=== PATIENT | male | born 1945 | race Caucasian/White ===

== ENCOUNTER → 2017-02-15 | Outpatient (CLI) | payer OTHER ==
[~2017-02-15] MED LIST: LISI-725 PO; OMEG10007 PO
[2017-02-15 11:56] LABS: ALT/SGPT 31 U/L (12-78); AST/SGOT 15 U/L (15-37); BLOOD UREA NITROGEN 10 mg/dl (7-18); BUN/CREATININE RATIO 10.8 (10-20); CALCIUM 9.8 mg/dl (8.5-10.1); CARBON DIOXIDE 31 mmol/L (21-32); CHLORIDE 108 mmol/L (98-107); CREATININE 0.89 mg/dl (0.60-1.40); GLUCOSE 92 mg/dl (70-99); POTASSIUM 4.7 mmol/L (3.5-5.1); SODIUM 143 mmol/L (136-145)
[2017-02-15 12:01] LABS: ALB/GLOB RATIO 1.2 (0.9-2); ALKALINE PHOSPHATASE 64 U/L (45-117); CHOLESTEROL 243 mg/dl (0-200); CHOLESTEROL/HDL RATIO 2.9; HDL CHOLESTEROL 83 mg/dl; LDL CHOLESTEROL CALCULATED 148 mg/dl; TRIGLYCERIDES 59 mg/dl (0-150); VERY LOW DENSITY LIPOPROT CALC 12 mg/dl
--- NOTE | 2017-02-21 09:50 | CODING QUERY MEDICAL NECESSITY ---
CQSUPPORTING DIAGNOSIS NEEDED A supporting diagnosis is required for the test/procedure performed on this patient in order for us to be reimbursed by the patient's insurance. Please provide a supporting diagnosis for the following test/procedure listed below next to the test name along with your signature. *If there is no additional diagnosis for this patient that would support the following test/procedure please document that below next to the test/procedure. Test(s)/Procedure(s) that require a supporting diagnosis: DOS 02/15/17 PROSTATE SPECIFIC TEST Provider Signature: Date: Thank you Gerri Mosquera Edutor Information Management Once completed, please kindly fax back to [phone] For questions please call [phone]
== END | disposition home or self-care (01) ==
LOC: C.LABBC 08:52
PROVIDERS: ATTEND Internal Medicine
DX: I35.0 Nonrheumatic aortic (valve) stenosis (principal)

== ENCOUNTER → 2017-05-02 | Outpatient (CLI) | payer OTHER ==
--- NOTE | 2017-05-03 06:04 | PAP/PSG TECHNICIAN REPORT ---
[facility] Table Attendant Polysomnogram Report Study name: None Report date: 05/03/2017 Study date: 05/02/2017 Referring Physician: DR. Kvng LOPEZ Name: AGUSTÍN SNOW Interpreting Physician: Nura Perdue D.O. Date of : 1945 Table Attendant: Aevlina Macias RPS. Sex: Male Age: 71 StudyType: PSG PAP Weight: 188 lbs Height: 71 years, Height 6' 1" Neck Circum: 18 inches BMI: 24.8 Medications: [place] 3, Lisinopril Patient History 71 yr. old male here for a new titration sleep study. Patient had a HST through his dentist Dr. Thomas, that showed his EDDIE on a one night test was 61. ESS 02/25. Parameters Monitored NPSG: E1-M2, E2-M1, Fp1-M2, Fp2-M1, F3-M2, F4-M2, F4-M1, C3-M2, C4-M2, C4-M1, O1-M2, O2-M2, O2-M1, T3-M2, T4-M1, P3-M2, P4-M1, CHIN1, CHIN2, HR, EKG, Legs, PFLOW, SNOR, FLOW, CFLOW, Tidal Volume, THOR, ABDO, SpO2, PLTH, CPRESS, ETCO2 Wave, ETCO2, pH Sleep Architecture Sleep Stages Time at Lights Off 10:42:06 PM STAGES Time (min.) TST (%) Time at Lights On 5:49:06 AM Wake 136.5 -- Total Recording Time (TRT) 424.50 min. N1 23.5 8 Total Sleep Period (TSP) 411.5 min. N2 225.5 78 Total Sleep Time (TST) 288.0min. N3 0.0 0 Awake Time 136.5 min. REM 39.0 14 Wake after Sleep Onset 126.0 min. Sleep Efficiency (SE) 68 % Sleep Onset Latency (LEIGHTON) 13.0 min. Number of Stage 1 Shifts None Awakenings 28 Stage Changes 107 Number of REM periods 4 REM 39.0 14 REM Latency 111.5 min. NREM 249.0 86 Body Position Analysis Supine Right Left Side Prone Vertical Total Sleep Time (min.) 424.5 0.0 0.0 0.00 0.0 0.0 Total Sleep Time (%) 100% 0% 0% 0 0% N/A% Total Sleep Time REM (min.) 39.0 0.0 0.0 None 0.0 0.0 Total Sleep Time NREM (min.) 249.0 0.0 0.0 None 0.0 0.0 Intermittent Wake (min.) 136.5 0.0 0.0 None 0.0 0.0 Total Sleep Period (%) 100% None None None None None Arousals Myoclonus (PLM) * Events Count Index Events Count Index Spontaneous 11 2 Events Awake (PLMW) 133 58.5 Respiratory 10 2.3 Events Asleep w/ Arousal (PLMA) 20 4.2 PLM 19 4 Events Asleep w/o Arousal (PLMS) 18 3.8 Snoring 1 0 Total Asleep 38 7.9 Total 41 9 Total 171 24 Respiratory Analysis * CA OA MA CH H RERA Total Count 16 2 0 0 14 1 32 Index 3.3 0.4 0.0 0 2.9 0 6.7 Mean Duration 26.2 36.8 0.0 0.00 23.2 27.3 25.8 Longest Duration 46.3 41.9 0.0 0.00 0.0 27.3 47.1 Respiratory Event Summary Total Supine ~Supine Right Left Prone REM NREM Apneas Count 18 18 N/A N/A N/A N/A 0 18 Index 3.8 4 N/A N/A N/A N/A 0 4 Hypopneas (4% Desat) Count 14 14 N/A N/A N/A N/A 1 13 Index 2.9 2.9 N/A N/A N/A N/A 1.5 3.1 Apneas & All Hypopneas Count 32 32 N/A N/A N/A N/A 1 31 Index 6.7 7 N/A N/A N/A N/A 1.5 7.5 Respiratory Events (Applications Consultant+All Hyp+RERA) Count 32 32 N/A N/A N/A N/A 1 31 Index 6.7 7 N/A N/A N/A N/A 1.5 7.5 Respiratory Related Arousal Count 10 32 N/A N/A N/A N/A 0 11 Index 2.3 2 N/A N/A N/A N/A 0 3 Snoring Analysis Supine Right Left Prone REM NREM Total Snore duration 1.7 min Snores count 28 N/A N/A N/A 1 27 28 Snore mean duration 3.6 Sec Snores index 6 N/A N/A N/A 1.5 6.5 5.8 TST with snoring (%) 0.6% Desaturation Event Summary: Minimum %SpO2 Event Count Mean/Min/Max Duration(sec.) Desaturation Index % Time In Bed > 90 47 30.3 / 11.0 / 56.3 6.8 98.8 86 - 90 0 N/A 0.0 1.0 81 - 85 0 N/A 0.0 0.2 76 - 80 0 N/A 0.0 0.0 71 - 75 0 N/A 0.0 0.0 66 - 70 0 N/A 0.0 0.0 61 - 65 0 N/A 0.0 0.0 56 - 60 0 N/A 0.0 0.0 51 - 55 0 N/A 0.0 0.0 < 50 0 N/A 0.0 0.0 Total REM NREM Awake <50% 0.0 min. 0.0 min. 0.0 min. 0.0 min. 51 - 60% 0.0 min. 0.0 min. 0.0 min. 0.0 min. 61 - 70% 0.0 min. 0.0 min. 0.0 min. 0.0 min. 71 - 80% 0.0 min. 0.0 min. 0.0 min. 0.0 min. 81 - 90% 5.0 min. 0.0 min. 3.2 min. 1.8 min. 91 - 100% 412.0 min. 39.0 min. 245.8 min. 127.2 min. Average 95 95 95 96 Minimum SpO2 82 93 84 82 Desaturation Event Index 6.6 1.5 9.2 4.0 # Desat. Events below 89% 9 N/A 8 1 Time(%) with Saturation below 89% 0.6 0.0 0.3 0.3 Time(min.) with Saturation below 89% 2.4 0.0 1.2 1.2 Time (mins) REM (mins) NREM (mins) % of TST SpO2 Below 90% 11 N/A N11 0.7 SpO2 Below 88% 4 0 0 0 Heart Rate Analysis Min (bpm) Max (bpm) Average (bpm) Awake 52 73 60 NREM 45 68 58 REM 51 66 57 Overall 45 68 58 Supplemental O2 Values Minimum O2 level: None Value Start Time End Time Table Attendant Comments slept in the supine position. No cardiac arrhythmia or PLMs noted with arousals and sleep onset centrals following arousals. No bruxism noted. CPAP was initiated at +4 CMH2O room air and up-titrated to a level of +7CMH2O no Cflex, which nearly eliminated all respiratory events and snoring. A Wide ResMed Mirage FX nasal mask, was used during titration. awoke to use the restroom once during the night. stated, it was hard to exhale. The final report will be interpreted and signed by a sleep physician. The completed physician report will then be placed in the patient medical record. Therapy Event: Therapy (cm H20) 4 5 6 7 Total Time at Pressure (min.) 56.2 45.8 263.0 59.6 TST at Pressure (min.) 30.2 41.3 165.0 51.6 # Periods 1 1 1 1 Sleep Onset (min.) 13.0 0.0 0.0 0.0 REM Onset (min.) N/A N/A 22.5 0.0 Sleep Efficiency % 53 90 62 86 Wakefulness (%) 46.3 9.8 37.3 13.4 Wakefulness (min.) 26.0 4.5 98.0 8.0 NREM 1 (%) 9.8 10.9 3.0 8.4 NREM 1 (min.) 5.5 5.0 8.0 5.0 NREM 2 (%) 43.9 79.3 46.8 69.7 NREM 2 (min.) 24.7 36.3 123.0 41.5 NREM 3 (%) 0.0 0.0 0.0 0.0 NREM 3 (min.) 0.0 0.0 0.0 0.0 REM (%) 0.0 0.0 12.9 8.5 REM (min.) 0.0 0.0 33.9 5.1 # Arousals 9 11 16 5 Arousal Index 17.9 16.0 5.8 5.8 # Snore 4 9 9 6 Snore Index 8.0 13.1 3.3 7.0 AHI 21.9 16.0 2.9 2.3 AHI Supine 21.9 16.0 2.9 2.3 AHI Non-Supine N/A N/A N/A N/A NREM AHI 21.9 16.0 3.2 2.6 REM AHI N/A N/A 1.8 0.0 RDI 21.9 16.0 2.9 2.3 # Obstructive 0 2 0 0 # Central Ap 7 3 4 2 # Mixed 0 0 0 0 # Hypopneas 4 6 4 0 RERAS 0 1 0 0 Total Respiratory Events 11 11 8 2 Time Below SpO2 89.00% (min.) 0.7 0.4 0.0 0.0 Mean NREM SpO2 (%) 93 95 95 96 Mean REM SpO2 (%) N/A N/A 95 96 Mean Sleep SpO2 (%) 93 95 95 96 Min NREM SpO2 (%) 84 86 91 90 Min REM SpO2 (%) N/A N/A 93 94 Position Supine (min.) 30.2 41.3 165.0 51.6 Position Non-supine (min.) 0.0 0.0 0.0 0.0 LM Index Sleep 6.0 8.7 8.0 8.1 LM Index NREM 6.0 8.7 7.8 9.0 LM Index REM N/A N/A 8.8 0.0 Mean Heart Rate (bpm) 65 63 57 54 Min Heart Rate (bpm) 63 60 45 51
--- NOTE | 2017-05-09 20:19 | Sleep Study ---
Sleep Study Report Date of Service: 05/02/2017 Sleep Study Report Clinical data: The patient is a 71-year-old male referred for a CPAP titration study. His BMI is 24.8. He has an [place] score of 4/24. The patient had a home sleep study done. This showed an EDDIE severely elevated at 61. Sleep architecture: The total sleep period was 411.5 minutes. The total sleep time was 288 minutes. Sleep efficiency was moderately reduced to 68 percent. Sleep latency was normal at 13 minutes. Wake after sleep onset was elevated at 126 minutes. REM latency was normal at 111.5 minutes. Sleep consisted of stage N1 8 percent, stage N2 78 percent, stage N3 0 percent, and stage REM 14 percent. Arousal data: Patient had a total of 41 arousals including 11 spontaneous arousals, 10 respiratory arousals, 19 PLM arousals, and 1 snoring arousal. The arousal index was 9. PLM data: Patient had a total of 38 periodic limb movements of sleep for an index of 7.9. There were 20 arousals associated with limb movements for a PLM arousal index of 4.2. Respiratory data patient's nocturnal events were treated with nasal CPAP. He had a total of 32 respiratory events including 16 central apneas, 2 obstructive apneas, and 14 hypopneas. Hypopneas were scored by the 4 percent desaturation rule. The longest apnea was 46.3 seconds. The mean duration of the hypopneas was 23.2 seconds. The apnea-hypopnea index was 6.7 events per hour. It is notable that the final pressure of 7 centimeters the apnea-hypopnea index was only 2.3. Oximetry data: The average saturation was 95 percent. The minimum saturation was 82 percent. There was a total of only 2.4 minutes with saturations less than 89 percent. EKG: The underlying cardiac rhythm was normal sinus. The cardiac rate ranged from 45 to 68 beats per minute with an average heart rate of 58 beats per minute. No a rib media was noted. Fitting Supervisor comments: The patient slept in the supine position. No cardiac arrhythmia noted. Sleep onset central were noted following arousals. No bruxism noted. CPAP was initiated at 4 centimeters of water and up titrated to a level of 7 centimeters. This nearly eliminated all respiratory events and snoring. A wide ResMed Mirage FX nasal mask was used. The patient noted after the study that was hard to exhale. Impressions: 1. Severe obstructive sleep apnea-resolved with nasal CPAP at 7 centimeters Comments: The patient has severe sleep apnea as per a home study. He was treated with nasal CPAP. His sleep efficiency was reduced more than normal. His sleep architecture showed no stage N3 sleep and decreased REM sleep. There was some degree of central apneas noted. At the final pressure his sleep apnea was well resolved. His sleep efficiency was decreased mainly due to a long awakening from approximately 215 a.m. until 3:30 a.m.. Oxygenation was essentially normal. Recommendations: 1. It is advised that the patient be treated with nasal CPAP at 7 centimeters. 2. It is suggested that he be ordered a ResMed Mirage FX nasal mask size wide. 3. It is suggested that the patient avoid sleeping in the supine position. Typically there is less respiratory events when supine. He did spend the entire night in the supine position during this study. 4. The patient should be seen in follow-up between day 31 day 90 after receiving his nasal CPAP. Copies To 1: Mookie Pineda M.D.; Theo Thomas D.D.S.
== END | disposition home or self-care (01) ==
LOC: C.NEUR 21:00
PROVIDERS: ATTEND Internal Medicine
DX: G47.33 Obstructive sleep apnea (adult) (pediatric) (principal); I10 Essential (primary) hypertension; E78.5 Hyperlipidemia, unspecified

== ENCOUNTER → 2017-10-14 | Outpatient (CLI) | payer OTHER ==
--- NOTE | 2017-10-15 07:01 | SPLIT NIGHT TECHNICIAN REPORT ---
[facility] Split Night Polysomnogram - Pega Developer Report Study date: 10/14/2017 Referring Physician: DR. Kvng LOPEZ Name: AGUSTÍN SNOW Pega Developer: Samra Carr, PSGT. Date of : 1945 Height: 72 years, Height 6' 1" Sex: Male Weight: 190 lbs Age: 72 Neck Circum: BMI: Medications: 25.06 OMEGA 3, LISINOPRIL 20 MG. Patient History 72-YEAR-OLD MALE PRESENTS [facility] FOR SPLIT NIGHT STUDY TO QUALIFY FOR SUPPLIES FROM MEDICARE.A SPLIT STUDY WITH AN AHI OF 15 IS TO BE COMPLETED. Parameters Monitored NPSG: E1-M2, E2-M1, Fp1-M2, Fp2-M1, F3-M2, F4-M2, F4-M1, C3-M2, C4-M2, C4-M1, O1-M2, O2-M2, O2-M1, T3-M2, T4-M1, P3-M2, P4-M1, CHIN1, CHIN2, HR, EKG, Legs, PFLOW, SNOR, FLOW, CFLOW, Tidal Volume, THOR, ABDO, SpO2, PLTH, CPRESS, ETCO2 Wave, ETCO2, pH SLEEP SUMMARY DATA DIAGNOSTIC TREATMENT Lights Out: 10:33:02 PM NONE Lights On: 1:30:02 AM 5:24:32 AM Total Recording Time (TRT): 176.8 min. 223.7 min. Total Sleep Time (TST): 50.0 min. 199.0 min. NREM Time: 50.0 min. 161.0 min. REM Time: 0.0 min. 38.0 min. Sleep Period Time (SPT): 129.0 min. 201.0 min. Sleep Efficiency (SE): 28 % 89 % Sleep Latency: 18.5 min. NONE min. Arousal Index: 62.4 6.0 PAP Treatment Levels: 4, 5, 6 * Optimal Pressure(s) SLEEP STAGING DATA DIAGNOSTIC TREATMENT Duration (min) TST % Duration (min) TST % Stage Wake: 126.8 min. -- 24.2 min. -- WASO: 108.5 min. -- 2.0 min. -- NREM: 50.0 min. 100 % 161.0 min. 81 % Stage N1: 11.0 min. 22 % 5.5 min. 3 % Stage N2: 39.0 min. 78 % 155.5 min. 78 % Stage N3: 0.0 min. 0 % 0.0 min. 0 % REM: 0.0 min. 0 % 38.0 min. 19 % POSITIONAL DATA Event Count Index Event Count Index Supine: 48 57.7 5 1.5 Supine NREM: 48 57.7 4 1.5 Supine REM: N/A N/A 1 2 Non-Supine: N/A N/A N/A N/A Non-Supine NREM: N/A N/A N/A N/A Non-Supine REM: N/A N/A N/A N/A AROUSAL SUMMARY DATA: Event Count Index Event Count Index Apnea Arousals: 22 37.2 0 0.9 Hypopnea Arousals: 5 6.0 0 0.0 Snore Arousals: 6 7.2 0 0.0 PLM Arousals: 3 3.6 0 0.0 Non-Specific Arousals: 10 12.0 20 6.0 Total Arousals: 52 62.4 20 6.0 MYOCLONUS (PLM) Event Count Index Event Count Index PLM: 14 16.8 16 4.8 PLM AROUSAL: 3 3.6 0 0.0 PLM W/O AROUSAL 14 16.8 16 4.8 PLM W/RESP EVENT 2 0.0 0 0.0 MYOCLONUS (PLM) Event Count Index Event Count Index LM: 6 56.4 18 5.4 LM AROUSAL: 6 7.2 0 0.0 LM W/O AROUSAL LM W/RESP EVENT LM NON SPECIFIC 31 37.2 34 10.3 HEART RATE DATA DIAGNOSTIC TREATMENT Sleep (bpm): 66 56 REM (bpm): N/A 95 NREM (bpm): 92 95 Tachycardia Count: 0 0 Tachycardia Duration: 0.00 0 Bradycardia Count: 0 0 Bradycardia Duration: 0.00 0 DIAGNOSTIC PORTION TREATMENT PORTION RESPIRATORY DATA Event Count Index Event Count Index AHI: -- 57.6 -- 1.5 RDI: -- 57.6 -- 2 Obstructive Apnea: 28 33.6 0 0.0 Central Apnea: 0 0.0 3 0.9 Mixed Apnea: 3 3.6 0 0.0 Hypopnea: 17 20.4 2 0.6 RERA: 0 0.0 0 0.0 Total Apneas: 31 37.2 3 0.9 RESPIRATORY DATA REM NREM SLEEP REM NREM SLEEP Supine Position: Obstructive Apneas: N/A 28 28 0 0 0 Central Apneas: N/A 0 0 0 3 3 Mixed Apneas: N/A 3 3 0 0 0 Hypopneas: N/A 17 17 1 1 2 RERA N/A 0 0 0 0 0 Total Supine Events: N/A 48 48 1 4 5 Supine AHI: N/A 57.7 57.7 2 1.5 1.5 Supine RDI: N/A 57.7 57.7 1.6 1.5 1.5 REM NREM SLEEP REM NREM SLEEP Non-Supine Position: Obstructive Apneas: N/A N/A N/A N/A N/A N/A Central Apneas: N/A N/A N/A N/A N/A N/A Mixed Apneas: N/A N/A N/A N/A N/A N/A Hypopneas: N/A N/A N/A N/A N/A N/A RERA N/A N/A N/A N/A N/A N/A Total Supine Events: N/A N/A N/A N/A N/A N/A Supine AHI: N/A N/A N/A N/A N/A N/A Supine RDI: N/A N/A N/A N/A N/A N/A OXYGEN DESTAURATION DATA: Event Count Index Event Count Index REM Desaturations: N/A N/A 1 1.6 NREM Desaturations: 57 68.4 6 2.2 SNORE DATA DIAGNOSTIC TREATMENT Snore Time: 1.8 2:03:32 AM Snore TST%: 1 0 Snore Arousal Count: 6 0 Snore Arousal Index: 7.2 0.0 Desaturation Event Summary: Minimum %SpO2 Event Count Mean/Min/Max Duration(sec.) Desaturation Index % Time In Bed > 90 64 30.0 / 9.3 / 59.0 10.1 95.3 86 - 90 1 11.8 / 11.8 / 11.8 3.8 3.9 81 - 85 0 N/A 0.0 0.8 76 - 80 0 N/A 0.0 0.0 71 - 75 0 N/A 0.0 0.0 66 - 70 0 N/A 0.0 0.0 61 - 65 0 N/A 0.0 0.0 56 - 60 0 N/A 0.0 0.0 51 - 55 0 N/A 0.0 0.0 < 50 0 N/A 0.0 0.0 OXYGEN SATURATION DATA DIAGNOSTIC TREATMENT SpO2 Mean Sleep: 92 % 95 % SpO2 Mean REM: N/A % 95 % SpO2 Mean NREM: 92 % 95 % SpO2 Minimum Sleep: 82 % 91 % SpO2 Minimum REM: N/A % 93 % SpO2 Minimum NREM: 82 % 91 % Time Below 90% (TST): 13.8 0.0 Time Below 88% (TST): 7.3 0.0 Total REM NREM Awake <50% 0.0 min. 0.0 min. 0.0 min. 0.0 min. 51 - 60% 0.0 min. 0.0 min. 0.0 min. 0.0 min. 61 - 70% 0.0 min. 0.0 min. 0.0 min. 0.0 min. 71 - 80% 0.0 min. 0.0 min. 0.0 min. 0.0 min. 81 - 90% 18.9 min. 0.0 min. 17.4 min. 1.6 min. 91 - 100% 381.1 min. 38.0 min. 193.6 min. 149.4 min. Average 95 95 94 95 Minimum SpO2 82 93 82 83 Desaturation Event Index 9.6 1.6 17.9 0.0 # Desat. Events below 89% 43 N/A 43 0 Time(%) with Saturation below 89% 2.7 0.0 2.6 0.1 Time(min.) with Saturation below 89% 10.8 0.0 10.2 0.6 Recording Pega Developer Comments: Split -Night: Mr. Snow slept in the supine positions. No cardiac arrhythmia or PLM's noted. No bruxism noted. Snoring was noted and scored as a 1 on a scale of 1 through 5. (0=no snoring, 5=snoring loud enough to be heard through a closed door or down the [address]) At 1:30, has met specific Split-Night criteria during the diagnostic portion of this study. CPAP was initiated at +4 CMH2O and up-titrated to an optimal level of +6 CMH2O, which nearly eliminated all respiratory events and snoring. A [employer] fx darinel was used during titration Mr. Hair awoke to use the restroom one time during the night. Mr. Snow, I did not sleep as well as I do when I am in my own bed. The final report will be interpreted and signed by a sleep physician. The completed physician report will then be placed in the patient medical record. Patient slept one hour and fourty minutes then woke for the remaining time, at 1:30 am c-pap was administered patient fell to sleep almost immediately. Slept well the remainder of the study and tolerated treatment well. Therapy Event: Therapy (cm H20) 0 4 5 6 Total Time at Pressure (min.) 176.8 38.9 70.3 114.1 TST at Pressure (min.) 50.0 16.7 69.8 112.6 # Periods 1 1 1 1 Sleep Onset (min.) 18.5 22.2 0.0 0.0 REM Onset (min.) N/A N/A 43.3 0.0 Sleep Efficiency % 28 42 99 98 Wakefulness (%) 71.7 57.2 0.7 1.3 Wakefulness (min.) 126.8 22.2 0.5 1.5 NREM 1 (%) 6.2 10.3 1.4 0.4 NREM 1 (min.) 11.0 4.0 1.0 0.5 NREM 2 (%) 22.1 32.6 59.5 88.6 NREM 2 (min.) 39.0 12.7 41.8 101.0 NREM 3 (%) 0.0 0.0 0.0 0.0 NREM 3 (min.) 0.0 0.0 0.0 0.0 REM (%) 0.0 0.0 38.3 9.7 REM (min.) 0.0 0.0 26.9 11.1 # Arousals 52 2 3 15 Arousal Index 62.4 7.2 2.6 8.0 # Snore 75 1 4 1 Snore Index 90.0 3.6 3.4 0.5 AHI 57.6 10.8 1.7 0.0 AHI Supine 57.7 10.8 1.7 0.0 AHI Non-Supine N/A N/A N/A N/A NREM AHI 57.6 10.8 1.4 0.0 REM AHI N/A N/A 2.2 0.0 RDI 57.6 10.8 1.7 0.0 # Obstructive 28 0 0 0 # Central Ap 0 2 1 0 # Mixed 3 0 0 0 # Hypopneas 17 1 1 0 RERAS 0 0 0 0 Total Respiratory Events 48 3 2 0 Time Below SpO2 89.00% (min.) 10.2 0.0 0.0 0.0 Mean NREM SpO2 (%) 92 95 95 95 Mean REM SpO2 (%) N/A N/A 95 95 Mean Sleep SpO2 (%) 92 95 95 95 Min NREM SpO2 (%) 82 91 94 93 Min REM SpO2 (%) N/A N/A 93 93 Position Supine (min.) 50.0 16.7 69.8 112.6 Position Non-supine (min.) 0.0 0.0 0.0 0.0 LM Index Sleep 73.2 7.2 13.8 8.5 LM Index NREM 73.2 7.2 1.4 8.3 LM Index REM N/A N/A 33.4 10.9 Mean Heart Rate (bpm) 66 57 58 56 Min Heart Rate (bpm) 58 55 54 51
--- NOTE | 2017-10-16 14:27 | Sleep Study ---
Sleep Study Report Date of Service: 10/14/2017 Sleep Study Report Clinical data: The patient is a 72-year-old male who had a home sleep study done 03/26/2017. This showed severe sleep apnea with an apnea-hypopnea index of 62. He underwent a CPAP study on 05/02/2017 and was treated with nasal CPAP at 7 centimeters. The patient was referred back for a repeat study because he was not qualifying for supplies from Medicare as his initial study was ordered by a dentist. He is referred by Dr. Mookie Pineda for a split study. Sleep architecture: During the diagnostic portion of the study the patient had a sleep period time of 129 minutes. The total sleep time was 50 minutes. The sleep efficiency was severely reduced to 28 percent. The sleep latency was 18.5 minutes. Sleep consisted of stage N1 22 percent, stage N2 78 percent, stage N3 0 percent, stage REM 0 percent. During the therapeutic portion of the study the patient's nocturnal events were treated with nasal CPAP. The sleep period time was 201 minutes. The total sleep time was 199 minutes. The sleep efficiency was 89 percent. The sleep latency was none. Sleep consisted of stage N1 3 percent, stage N2 78 percent, stage N3 0 percent, stage REM 19 percent. Arousal data: During the diagnostic portion of the study the patient had a total of 52 arousals including 22 apnea arousals, 5 hypopnea arousals, 6 snoring arousals, 3 PLM arousals, and 10 nonspecific arousals. The arousal index was 62.4. During the therapeutic portion of the study the patient had a total of 20 arousals, all nonspecific arousals. The arousal index was 6.0. PLM data: During the diagnostic portion of the study the patient had a total of 14 periodic limb movements for a PLM index of 16.8. There were 3 arousals associated with limb movements for a PLM arousal index of 3.6. During the therapeutic portion of the study the patient had 16 periodic limb movements for an index of 4.8. There were 0 arousals associated with limb movements for a PLM arousal index of 0. EKG: The underlying cardiac rates 56-95 beats per minute. No arrhythmias were noted. Respiratory data: During the diagnostic portion of the study the patient had a total of 48 respiratory events including 28 obstructive apneas, 3 mixed apneas, and 17 hypopneas. Hypopneas were scored according to the 4 percent desaturation rule. The apnea-hypopnea index was severely elevated at 57.6. During the therapeutic portion of the study the patient had a total of 5 respiratory events including 3 central apneas and 2 hypopneas. The apnea- hypopnea index was 1.5. Oximetry data: During the diagnostic portion of the study the mean saturation was 92 percent. The minimum saturation was 82 percent. There was a total of 7.3 minutes with saturations less than 88 percent. During the therapeutic portion of the study the mean saturation was 95 percent. The minimum saturation was 91 percent. There was a total of 0 minutes with saturations less than 88 percent. Cnc Manager comments: The patient slept in the supine position. No cardiac arrhythmia noted. Minimal PLMS noted. No bruxism noted. Snoring was noted and scored as a 1 on a scale of 1 through 5. At 1:30 a.m. the patient met specific split night criteria during the diagnostic portion of the study. CPAP was initiated at 4 centimeters and up titrated to final pressure of 6 centimeters. This nearly eliminated all respiratory events and snoring. A [employer] FX [place] was used during titration. The patient awakened to use the restroom 1 time during the night. Impressions: 1. Severe obstructive sleep apnea-resolved with nasal CPAP Comments: As noted the patient had severe sleep apnea. He had difficulty sleeping. In part this was probably because he was already accustomed to wearing nasal CPAP. His sleep efficiency improved from 28 percent during the diagnostic portion up to 89 percent with the treatment portion of the study. His sleep became much more consolidated. The sleep apnea was entirely resolved at the final pressure. The patient is already treated with nasal CPAP at 7 centimeters in doing well. I would suggest keeping the pressure as it is at 7 centimeter in light of his clinical response. If he was bothered by the air pressure at all, the pressure could be decreased to 6 centimeters. Recommendations: 1. Would continue the patient on CPAP at 7 centimeters as he is already doing. If the patient would be bothered all by the air pressure comma could readily did decrease down to 6 centimeters without losing any significant clinical affect. Copies To 1: Nura Perdue DO; Mookie Pineda M.D.
== END | disposition home or self-care (01) ==
LOC: C.NEUR 21:00
PROVIDERS: ATTEND Internal Medicine
DX: G47.33 Obstructive sleep apnea (adult) (pediatric) (principal)

== ENCOUNTER → 2017-11-06 | Outpatient (CLI) | payer OTHER | END | disposition home or self-care (01) | LOC: C.PATHSPEC 16:47 | PROVIDERS: ATTEND Physician Assistant | DX: L81.4 Other melanin hyperpigmentation (principal); L57.0 Actinic keratosis; L82.1 Other seborrheic keratosis ==

== ENCOUNTER → 2018-02-12 | Outpatient (CLI) | payer OTHER ==
[2018-02-12 09:36] LABS: BASO % 0.2 %; BASO ABS # 0.01 K/uL (0-0.2); EOS % 1.4 %; EOS ABS # 0.07 K/uL (0-0.5); HEMOGLOBIN 14.6 g/dL (14.0-18.0); IG# 0.02 K/uL (0.00-0.02); LYMPH % 25.1 %; LYMPH ABS # 1.27 K/uL (1.2-3.4); MEAN CELL VOLUME 89.2 fL (80-100); MEAN CORPUSCULAR HEMOGLOBIN 29.6 pg (25-34); MEAN CORPUSCULAR HGB CONC 33.2 g/dl (32-36); MEAN PLATELET VOLUME 9.8 fL (7.4-10.4); MONO % 8.7 %; MONO ABS # 0.44 K/uL (0.11-0.59); NEUT % 64.2 %; NEUT ABS # 3.25 K/uL (1.4-6.5); PLATELET COUNT 141 K/uL (130-400); RED CELL DISTRIBUTION WIDTH CV 13.1 % (11.5-14.5); RED CELL DISTRIBUTION WIDTH SD 42.7 fL (36.4-46.3); WHITE BLOOD COUNT 5.06 K/uL (4.8-10.8)
[2018-02-12 09:46] LABS: ALT/SGPT 32 U/L (12-78); AST/SGOT 17 U/L (15-37); BLOOD UREA NITROGEN 10 mg/dl (7-18); CALCIUM 9.6 mg/dl (8.5-10.1); CARBON DIOXIDE 30 mmol/L (21-32); CREATININE 0.94 mg/dl (0.60-1.40); GLUCOSE 87 mg/dl (70-99); POTASSIUM 4.6 mmol/L (3.5-5.1); SODIUM 139 mmol/L (136-145)
[2018-02-12 10:02] LABS: ALBUMIN 3.5 gm/dl (3.4-5.0); ALKALINE PHOSPHATASE 63 U/L (45-117); CHOLESTEROL 209 mg/dl (0-200); LDL CHOLESTEROL CALCULATED 120 mg/dl; TOTAL PROTEIN 6.6 gm/dl (6.4-8.2)
== END | disposition home or self-care (01) ==
LOC: C.LAB 08:32
PROVIDERS: ATTEND Internal Medicine
DX: I10 Essential (primary) hypertension (principal); E78.5 Hyperlipidemia, unspecified; G47.33 Obstructive sleep apnea (adult) (pediatric)

== ENCOUNTER 2021-03-30 14:59 | Inpatient (IN) ==
[2021-03-30] MEDS ORDERED: THIAMINE HCL 200 MG in SODIUM CHLORIDE 0.9% 50 ML IV STA (15:34)
[2021-03-30] MEDS ORDERED: SODIUM CHLORIDE 0.9% 1000ML 1,000 ML IV SCH (15:45)
[2021-03-30 16:01] LABS: Eosinophils # (auto) 0.02 K/uL (0-0.5); Eosinophils % (auto) 0.2 %; Hematocrit (blood only) 46.3 % (42-52); Hemoglobin 15.1 g/dL (14.0-18.0); Immature Granulocytes # (auto) 0.04 K/uL (0.00-0.02); Immature Granulocytes % (auto) 0.4 %; Lymphocytes # (auto) 1.01 K/uL (1.2-3.4); Lymphocytes % (auto) 11.2 %; Mean Corpuscular Hemoglobin 29.1 pg (25-34); Mean Corpuscular Hgb Conc 32.6 g/dL (32-36); Mean Corpuscular Volume 89.2 fL (80-100); Mean Platelet Volume 10.5 fL (7.4-10.4); Monocytes % (auto) 6.6 %; Neutrophils # (auto) 7.36 K/uL (1.4-6.5); Neutrophils % (auto) 81.6 %; Platelet Count 131 K/uL (130-400); RDW Coefficient of Variation 14.3 % (11.5-14.5); Red Blood Count 5.19 M/uL (4.7-6.1); White Blood Count 9.03 K/uL (4.8-10.8)
--- NOTE | 2021-03-30 16:11 | Emergency Department Note ---
Impression & Plan Acute dehydration, Obsessive compulsive disorder, Acute paranoia ED Provider Note NAME: AGUSTÍN SNOW AGE: 75 SEX: M : 1945 ARRIVES VIA: Walk-In INFORMANT: Patient, ED PROVIDER(S): Ji Chin DO CHIEF COMPLAINT: Weight loss HPI: The patient is a 75-year-old male who presented to the emergency department with his significant other for an evaluation of weight loss. The patient has been having very severe obsessive-compulsive symptoms over the course the last 5 months. The patient had an infection with COVID-19 virus in October of last year. Ever since that time his states that he has had intermittent episodes of moderate to severe obsessive-compulsive disorder. He has been having problems where he thinks everything has germs and he stopped eating and drinking. He only takes enough water to take his medications. He also has other delusions like that he spilled some gasoline in the backyard and thought that it was going to catch on fire and explode. He has been exhibiting the symptoms and the only appear to be worsening. He was seen by his primary care physician. He was started on some anxiety medication. He was seen by a psychologist as well as a neuropsychiatrist. His states that he has had no improvement of his symptoms. His primary care physician was contacted today and he was advised to go to the emergency department because of severity of symptoms. It is possible he may need placement especially because over the course of the last few weeks he is decreased p.o. intake is caused him to lose weight. He does deny any medical issues such as fever or chest pain. He has had no recent trauma. He denies having any nausea or vomiting. He had no rectal bleeding. ROS: See above HPI for pertinent positives & negatives. A total of 10 systems reviewed and were otherwise negative. PAST MEDICAL HISTORY: See Below PAST SURGICAL HISTORY: See Below FAMILY HISTORY: See Below SOCIAL HISTORY: See Below HOME MEDICATIONS: See Below ALLERGIES: See Below VITALS: See Below PHYSICAL EXAMINATION: GENERAL: The patient is awake and alert. He is somewhat listless appearing but does not appear to be uncomfortable. EYES: The conjunctivae are clear. The pupils are round and reactive. EARS, NOSE, MOUTH AND THROAT: The nose is without any evidence of any deformity. NECK: The neck is nontender and supple. RESPIRATORY: Normal respiratory effort is noted there is no evidence of wheezing rhonchi or rales CARDIOVASCULAR: Regular rate and rhythm was noted to auscultation. Systolic murmur was appreciated. GASTROINTESTINAL: The abdomen is soft. Abdomen is nontender. MUSCULOSKELETAL/EXTREMITIES: There is no evidence of gross deformity full range of motion is noted in the hips and shoulders. SKIN: There is no obvious evidence of any rash. There are no petechiae, pallor or cyanosis noted. NEUROLOGIC: Patient is awake and oriented x3 strength is symmetric patellar reflexes are 2+ bilaterally PSYCH: The patient makes good eye contact for most the evaluation but his significant other does give most of the history. He is currently denying any suicidal homicidal ideation. MEDICAL DECISION MAKING: The patient is a 75-year-old male who presented to the emergency department for an evaluation of mental health issues. The patient has a history of infection with COVID-19. Ever since that time he has had very severe obsessive-compulsive disorder. The patient appears to have very significant fear of germs and hygiene. The patient will not eat or drink because he is afraid of germs. He was found to be very significantly dehydrated by laboratory studies. I discussed the patient's laboratory and radiographic studies with him and his significant other. He was evaluated by the mental health dependency case manager however he was unable to be medically cleared because of the degree of dehydration. I discussed his case with the on-call [facility] hospitalist group. They have agreed to evaluate the patient in the emergency department for further management and disposition. Triage Nursing notes reviewed. Prior medical records reviewed Vital Signs: reviewed and remarkable for hypertension. Differential diagnosis: Mood disorder, infection, hypoglycemia, electrolyte abnormalities, cardiac sources, intracerebral event, toxicologic, trauma, neurologic, as well as other pathologies. ER treatment provided: See below Diagnostics interpreted by me: ECG: EKG was obtained in the emergency department. My interpretation is normal sinus rhythm at 69 bpm. There is no ectopy. There is no acute ST segment abnormalities noted. Laboratory studies: As stated above and show below. Imaging studies: See below Consultation(s): 1470: I discussed this case with Dr. Black. He will evaluate the patient in the emergency department for further management. Past Med/Surg History Medical History (Updated 03/30/21 @ 20:58 by Ji Chin DO) Aortic stenosis Brachial plexopathy Calcification of aortic valve History of depression Hyperlipidemia Hypertension Hypertension Sleep apnea cpap Surgical History History of cataract surgery RT History of colonoscopy History of surgery benign tumor removed from behind left ear History of surgical removal of lesion History of tonsillectomy History of tooth extraction Family History Mother Diabetes Unknown Ischemic heart disease Denies family history of Ovarian cancer Prostate cancer Myocardial infarction Breast cancer Colorectal cancer Social History Smoking Status: Never smoker Second Hand Exposure: No; Hx Alcohol Use: Yes Alcohol type: beer, wine and hard liquor Hx Substance Use: No Preferred Language: [place] Communication Ability: Effective Visual Impairment: Limited Hearing Ability: Hard of Hearing Hospital Aides And Assistants Teacher Required: No Beliefs That Will Affect Care: None marital status: Current Living Situation: Spouse current occupational status: employed current occupation: [employer] Feels Safe at Home: Yes Childhood Exposure to Second-Hand Smoke: Yes caffeine: Yes Dental Care, Regularly: Yes Physical Activity Frequency: 3-4 Times per Week Seatbelt Use: always Sunscreen Use: Yes Assistive Devices: Glasses Allergies Allergies Allergy/AdvReac Type Severity Reaction Status Date / Time No Known Allergies Allergy Verified 03/30/21 15:48 Home Meds Previous Rx's Medication Instructions Recorded lisinopril 20 mg tablet 20 mg PO QAM #90 tab 09/21/20 sertraline 100 mg tablet 100 mg PO BID #180 tab 02/09/21 clonazepam 0.5 mg tablet See Rx Instructions PO .COMPLEX 03/06/21 #60 tab rosuvastatin 5 mg tablet 5 mg PO QAM #90 tab 03/22/21 Results & Data (ED) Vital Signs Vital Signs - 24 hr 03/30/21 15:07 03/30/21 15:26 03/30/21 15:30 Temperature 36.7 C Temperature Source Temporal Artery Scan Pulse Rate 76 73 71 Pulse Rate [Apical] Pulse Rate from SpO2 Sensor 73 71 Respiratory Rate 18 14 12 Respiratory Effort / Characteristics Respiratory Depth Blood Pressure 128/80 138/84 141/87 H Blood Pressure [Right Arm] Blood Pressure Mean 96 102 105 Blood Pressure Mean [Right Arm] Blood Pressure Position [Right Arm] Pulse Oximetry 96 99 98 Oxygen Delivery Method Room Air Sepsis Recent Fever Within 48 Hours No Sepsis New/Unexplained Change in Mental Status No Sepsis Action Taken by Nursing No Action Required 03/30/21 15:32 03/30/21 15:40 03/30/21 15:50 Temperature Temperature Source Pulse Rate 69 72 69 Pulse Rate [Apical] Pulse Rate from SpO2 Sensor 69 72 68 Respiratory Rate 12 21 16 Respiratory Effort / Characteristics Respiratory Depth Blood Pressure Blood Pressure [Right Arm] Blood Pressure Mean Blood Pressure Mean [Right Arm] Blood Pressure Position [Right Arm] Pulse Oximetry 97 98 99 Oxygen Delivery Method Sepsis Recent Fever Within 48 Hours Sepsis New/Unexplained Change in Mental Status Sepsis Action Taken by Nursing 03/30/21 16:00 03/30/21 16:07 03/30/21 16:10 Temperature Temperature Source Pulse Rate 67 71 Pulse Rate [Apical] Pulse Rate from SpO2 Sensor 67 72 Respiratory Rate 16 24 Respiratory Effort / Characteristics Respiratory Depth Blood Pressure 141/91 H Blood Pressure [Right Arm] Blood Pressure Mean 107 Blood Pressure Mean [Right Arm] Blood Pressure Position [Right Arm] Pulse Oximetry 99 100 Oxygen Delivery Method Room Air Sepsis Recent Fever Within 48 Hours Sepsis New/Unexplained Change in Mental Status Sepsis Action Taken by Nursing 03/30/21 16:21 03/30/21 16:30 03/30/21 16:40 Temperature Temperature Source Pulse Rate 66 73 68 Pulse Rate [Apical] Pulse Rate from SpO2 Sensor 66 72 68 Respiratory Rate 17 19 16 Respiratory Effort / Characteristics Respiratory Depth Blood Pressure 131/85 Blood Pressure [Right Arm] Blood Pressure Mean 100 Blood Pressure Mean [Right Arm] Blood Pressure Position [Right Arm] Pulse Oximetry 100 99 100 Oxygen Delivery Method Sepsis Recent Fever Within 48 Hours Sepsis New/Unexplained Change in Mental Status Sepsis Action Taken by Nursing 03/30/21 16:50 03/30/21 17:00 03/30/21 17:10 Temperature Temperature Source Pulse Rate 68 65 62 Pulse Rate [Apical] 66 Pulse Rate from SpO2 Sensor 68 66 62 Respiratory Rate 15 19 9 L Respiratory Effort / Characteristics Non-Labored Respiratory Depth Normal Blood Pressure 159/85 H Blood Pressure [Right Arm] 159/85 H Blood Pressure Mean 109 Blood Pressure Mean [Right Arm] 109 Blood Pressure Position [Right Arm] Lying Pulse Oximetry 100 100 100 Oxygen Delivery Method Room Air Sepsis Recent Fever Within 48 Hours Sepsis New/Unexplained Change in Mental Status Sepsis Action Taken by Nursing 03/30/21 17:20 03/30/21 17:30 03/30/21 17:40 Temperature Temperature Source Pulse Rate 64 62 64 Pulse Rate [Apical] Pulse Rate from SpO2 Sensor 64 62 64 Respiratory Rate 15 0 L 18 Respiratory Effort / Characteristics Respiratory Depth Blood Pressure 154/85 H Blood Pressure [Right Arm] Blood Pressure Mean 108 Blood Pressure Mean [Right Arm] Blood Pressure Position [Right Arm] Pulse Oximetry 100 100 100 Oxygen Delivery Method Sepsis Recent Fever Within 48 Hours Sepsis New/Unexplained Change in Mental Status Sepsis Action Taken by Nursing 03/30/21 17:50 03/30/21 18:00 Temperature Temperature Source Pulse Rate 67 66 Pulse Rate [Apical] Pulse Rate from SpO2 Sensor 66 66 Respiratory Rate 22 16 Respiratory Effort / Characteristics Respiratory Depth Blood Pressure 168/89 H Blood Pressure [Right Arm] Blood Pressure Mean 115 Blood Pressure Mean [Right Arm] Blood Pressure Position [Right Arm] Pulse Oximetry 100 100 Oxygen Delivery Method Sepsis Recent Fever Within 48 Hours Sepsis New/Unexplained Change in Mental Status Sepsis Action Taken by Intermediate Medications Current Medication List: was personally reviewed by me Laboratory Data Attestation: I reviewed the patient's lab results. Result diagrams: 03/30/21 15:46 03/30/21 15:46 Lab Results 03/30/21 03/30/21 03/30/21 Range/Units 15:46 15:46 15:46 WBC 9.03 (4.8-10.8) K/uL RBC 5.19 (4.7-6.1) M/uL Hgb 15.1 (14.0-18.0) g/dL Hct 46.3 (42-52) % MCV 89.2 (80-100) fL MCH 29.1 (25-34) pg MCHC 32.6 (32-36) g/dL RDW Std Deviation 47.0 H (36.4-46.3) fL RDW Coeff of Dayanna 14.3 (11.5-14.5) % Plt Count 131 (130-400) K/uL MPV 10.5 H (7.4-10.4) fL Immature Gran % (Auto) 0.4 % Neut % (Auto) 81.6 % Lymph % (Auto) 11.2 % Metcalfe % (Auto) 6.6 % Eos % (Auto) 0.2 % Baso % (Auto) 0.0 % Neut # (Auto) 7.36 H (1.4-6.5) K/uL Lymph # (Auto) 1.01 L (1.2-3.4) K/uL Metcalfe # (Auto) 0.60 H (0.11-0.59) K/uL Eos # (Auto) 0.02 (0-0.5) K/uL Baso # (Auto) 0.00 (0-0.2) K/uL Immature Gran # (Auto) 0.04 H (0.00-0.02) K/uL Sodium 155 H (136-145) mmol/L Potassium 3.8 (3.5-5.1) mmol/L Chloride 124 H (98-107) mmol/L Carbon Dioxide 27 (21-32) mmol/L Anion Gap 4.0 (3-11) BUN 45 H (7-18) mg/dl Creatinine 1.20 (0.6-1.4) mg/dl Est Cr Clr Drug Dosing Not Reportable Est GFR ( Amer) 67.7 ml/min Est GFR (Non-Af Amer) 58.4 ml/min BUN/Creatinine Ratio 37.6 H (10-20) Glucose 86 (70-99) mg/dl Calcium 10.2 H (8.5-10.1) mg/dl Total Bilirubin 0.7 (0.2-1) mg/dl AST 42 H (15-37) U/L ALT 64 (12-78) U/L Alkaline Phosphatase 70 (45-117) U/L Troponin I 0.021 (0-0.045) ng/ml Total Protein 6.4 (6.4-8.2) gm/dl Albumin 3.7 (3.4-5.0) gm/dl Globulin 2.7 (2.5-4.0) gm/dl Albumin/Globulin Ratio 1.4 (0.9-2) TSH 1.430 (0.300-4.500) uIu/ml Salicylates < 1.7 L (2.8-20) mg/dl Acetaminophen < 2 L (10-30) ug/ml Ethyl Alcohol mg/dL (0-3) mg/dl COVID-19 Eval Order SARS-CoV-2 (PCR) (Negative) 03/30/21 03/30/21 03/30/21 Range/Units 15:46 16:50 16:50 WBC (4.8-10.8) K/uL RBC (4.7-6.1) M/uL Hgb (14.0-18.0) g/dL Hct (42-52) % MCV (80-100) fL MCH (25-34) pg MCHC (32-36) g/dL RDW Std Deviation (36.4-46.3) fL RDW Coeff of Dayanna (11.5-14.5) % Plt Count (130-400) K/uL MPV (7.4-10.4) fL Immature Gran % (Auto) % Neut % (Auto) % Lymph % (Auto) % Metcalfe % (Auto) % Eos % (Auto) % Baso % (Auto) % Neut # (Auto) (1.4-6.5) K/uL Lymph # (Auto) (1.2-3.4) K/uL Metcalfe # (Auto) (0.11-0.59) K/uL Eos # (Auto) (0-0.5) K/uL Baso # (Auto) (0-0.2) K/uL Immature Gran # (Auto) (0.00-0.02) K/uL Sodium (136-145) mmol/L Potassium (3.5-5.1) mmol/L Chloride (98-107) mmol/L Carbon Dioxide (21-32) mmol/L Anion Gap (3-11) BUN (7-18) mg/dl Creatinine (0.6-1.4) mg/dl Est Cr Clr Drug Dosing Est GFR ( Amer) ml/min Est GFR (Non-Af Amer) ml/min BUN/Creatinine Ratio (10-20) Glucose (70-99) mg/dl Calcium (8.5-10.1) mg/dl Total Bilirubin (0.2-1) mg/dl AST (15-37) U/L ALT (12-78) U/L Alkaline Phosphatase (45-117) U/L Troponin I (0-0.045) ng/ml Total Protein (6.4-8.2) gm/dl Albumin (3.4-5.0) gm/dl Globulin (2.5-4.0) gm/dl Albumin/Globulin Ratio (0.9-2) TSH (0.300-4.500) uIu/ml Salicylates (2.8-20) mg/dl Acetaminophen (10-30) ug/ml Ethyl Alcohol mg/dL < 3.0 (0-3) mg/dl COVID-19 Eval Order Covid19 at [facility] SARS-CoV-2 (PCR) NEGATIVE (Negative) Administered Medications Dextrose (D5w) 1,000 mls @ 100 mls/hr IV .Q10H MERLE Stop: 04/29/21 19:48 Last Admin: 03/30/21 20:46 Dose: 100 mls/hr Documented by: [id number] Discontinued Medications Sodium Chloride (Nss 1000ml) 1,000 mls @ 999 mls/hr IV .Q1H1M MERLE Stop: 03/30/21 16:45 Last Infusion: 03/30/21 18:14 Dose: 0 mls/hr Documented by: [id number] Admin: 03/30/21 16:29 Dose: 999 mls/hr Documented by: [id number] Thiamine HCl 200 mg/ Sodium (Chloride) 52 mls @ 208 mls/hr IV NOW STA Stop: 03/30/21 15:48 Last Infusion: 03/30/21 16:48 Dose: 0 mls/hr Documented by: [id number] Admin: 03/30/21 16:29 Dose: 208 mls/hr Documented by: [id number] Sodium Chloride (Nss 1000ml) 1,000 mls @ 999 mls/hr IV .Q1H1M ONE Stop: 03/30/21 17:28 Last Infusion: 03/30/21 17:56 Dose: 0 mls/hr Documented by: [id number] Admin: 03/30/21 16:59 Dose: 999 mls/hr Documented by: [id number] Imaging Data Radiologist's Impression: Chest X-Ray 03/30/21 15:34 XR chest 1V portable CLINICAL HISTORY: psych COMPARISON STUDY: October 18, 2020 FINDINGS: No pneumothorax. No pleural effusion. No large infiltrates or consolidative lesions are seen. Cardiomediastinal silhouette is within normal limits in size. No significant pulmonary vascular congestion.. Aorta is tortuous and calcified. Osseous structures: Degenerative changes of the spine. IMPRESSION: 1. No acute pulmonary process. ACT 112: Negative or not required by law. The above report was generated using voice recognition software. It may contain grammatical, syntax or spelling errors. Electronically signed by: Monika Germain DO 03/30/2021 4:[address] 03/30/21 15:[address] DOSE: 1498.35 mGy.cm HISTORY: psych. Altered mental status. TECHNIQUE: Multiaxial CT images of the head were performed without the use of intravenous contrast. Automated exposure control was utilized for this study. A dose lowering technique was utilized adhering to the principles of ALARA. Comparison: Brain MRI 03/08/2021. Findings: The paranasal sinuses and mastoid air cells are clear. There is a partially visualized 2 cm left parotid gland nodule. The calvarium and skull base are intact. There is no mass, hematoma, midline shift, acute infarct. White matter hypodensity is nonspecific but suggestive of microvascular ischemic change. The ventricles and sulci demonstrate mild age-related involutional changes. Impression: 1. No acute intracranial abnormality. 2. Redemonstration of the 2 cm left parotid gland nodule. Follow-up nonemergent ENT consultation recommended. ACT 112: Negative or not required by law. Electronically signed by: Arcenio Thomas M.D. 03/30/2021 4:28 PM Discharge Plan Visit Data Chief Complaint: Anxiety Stated Complaint: SEVERE ANXIETY STATUS POST COVID,WONT EAT OR DRINK ED Provider: Ji Chin Discharge Problem: Acute dehydration, Obsessive compulsive disorder, Acute paranoia Patient Disposition: Admitted As Inpatient Condition: Good Discharge Instructions Interventions: ED Discharge Assessment Last Done: 03/30/21 20:15 Discharge Problem: Obsessive compulsive disorder Qualifiers: Obsessive-compulsive disorder type: unspecified Qualified Code(s): F42.9 - Obsessive-compulsive disorder, unspecified
--- NOTE | 2021-03-30 16:14 | XRay Report ---
XR chest 1V portable CLINICAL HISTORY: psych COMPARISON STUDY: October 18, 2020 FINDINGS: No pneumothorax. No pleural effusion. No large infiltrates or consolidative lesions are seen. Cardiomediastinal silhouette is within normal limits in size. No significant pulmonary vascular congestion.. Aorta is tortuous and calcified. Osseous structures: Degenerative changes of the spine. IMPRESSION: 1. No acute pulmonary process. ACT 112: Negative or not required by law. The above report was generated using voice recognition software. It may contain grammatical, syntax o r spelling errors. Electronically signed by: Monika Germain DO 03/30/2021 4:13 PM
[2021-03-30 16:19] LABS: Alanine Aminotransferase 64 U/L (12-78); Albumin Level 3.7 gm/dl (3.4-5.0); Aspartate Aminotransferase 42 U/L (15-37); BUN Creatinine Ratio 37.6 (10-20); Blood Urea Nitrogen 45 mg/dl (7-18); Calcium 10.2 mg/dl (8.5-10.1); Carbon Dioxide 27 mmol/L (21-32); Chloride 124 mmol/L (98-107); Est GFR (African American) 67.7 ml/min; Est GFR (Non-African American) 58.4 ml/min; Glucose 86 mg/dl (70-99); Potassium 3.8 mmol/L (3.5-5.1); Sodium 155 mmol/L (136-145)
[2021-03-30] MEDS ORDERED: SODIUM CHLORIDE 0.9% 1000ML 1,000 ML IV ONE (16:28)
--- NOTE | 2021-03-30 16:29 | CT Scan Report ---
HEAD CT NONCONTRAST CT DOSE: 1498.35 mGy.cm HISTORY: psych. Altered mental status. TECHNIQUE: Multiaxial CT images of the head were performed without the use of intravenous contrast. A utomated exposure control was utilized for this study. A dose lowering technique was utilized adheri ng to the principles of ALARA. Comparison: Brain MRI 03/08/2021. Findings: The paranasal sinuses and mastoid air cells are clear. There is a partially visualized 2 cm left parotid gland nodule. The calvarium and skull base are intact. There is no mass, hematoma, midl ine shift, acute infarct. White matter hypodensity is nonspecific but suggestive of microvascular isc hemic change. The ventricles and sulci demonstrate mild age-related involutional changes. Impression: 1. No acute intracranial abnormality. 2. Redemonstration of the 2 cm left parotid gland nodule. Follow-up nonemergent ENT consultation kendra mmended. ACT 112: Negative or not required by law. Electronically signed by: Arcenio Thomas M.D. 03/30/2021 4:28 PM
[2021-03-30 16:30] LABS: Albumin Globulin Ratio 1.4 (0.9-2); Alkaline Phosphatase 70 U/L (45-117); Bilirubin,Total 0.7 mg/dl (0.2-1); Globulin 2.7 gm/dl (2.5-4.0); Total Protein 6.4 gm/dl (6.4-8.2)
[2021-03-30 16:32] LABS: Acetaminophen < 2 ug/ml (10-30); Salicylate < 1.7 mg/dl (2.8-20)
[2021-03-30 16:45] LABS: Troponin I 0.021 ng/ml (0-0.045)
--- NOTE | 2021-03-30 17:47 | History & Physical Report ---
Date of Service March 30, 2021 Assessment & Plan (1) Paranoia (psychosis): Patient with new severe paranoia and psychosis, tells me patient has no previous history of this prior to Covid infection September 2020. Previous work-up included MRI on 03/08 that was negative for cerebral or cerebro vascular findings, 18 mm left parotid gland nodule found incidentally Plan to admit, patient may require one-to-one supervision as he has very poor insight and judgment We will continue psych medicines as per outpatient although they have not been very effective in controlling patient's symptoms We will asked psychiatry to evaluate for further recommendations. May need to touch base with neuropsych that saw patient earlier this week. (2) Hyperosmolality and hypernatremia: Likely secondary to p.o. intake from paranoia Patient is being hydrated with normal saline, will change his over to D5W as patient is hemodynamically stable Patient has no history of CHF, will monitor for ability to take orals I will start a regular diet encourage patient to eat (3) Hyperlipidemia: Crestor 5 mg daily (4) HTN (hypertension): Patient is on lisinopril 20 mg daily, will hold off for now until patient is reliably taking fluids. History of Present Illness Chief Complaint: Dehydration, weight loss Primary Care Provider: Mookie Pineda MD This is a 75-year-old male with past medical history of recent Covid 10/23, hyperlipidemia, and sleep apnea that presents today with dehydration weight loss. Patient is a very poor historian, at bedside is able to give me most of the details. tells me that the patient does not have any psychiatric or neurological disorder at baseline. They both contracted Covid in September/October of this year with mild cases that were self-limited. However, the patient started having behavioral issues. This mostly manifested as paranoia and severe anxiety. I patient started to feel that food and water was other poisoned or contaminated and refused to drink or eat. He was worried about some gas and that spilled on the urine he felt that this may explode. Patient she is condition worsened. He was seen by primary care and given a BuSpar and Remeron without relief. He was then switched over to Klonopin and Zoloft, again without any improvement. tells me that the patient saw neuropsychiatry on 03/28, they are waiting to hear back after his evaluation. However, the patient is getting weaker to the point that he is having difficulty walking and is advised to bring him into the hospital for evaluation. The patient seems to be very confused and forgetful. He is worried that his mouth is going to seal shut because it is so dry. He did not believe me when I reassured him that it would not. Patient has never been mated for IV hydration and psych evaluation. Allergies Allergy/AdvReac Type Severity Reaction Status Date / Time No Known Allergies Allergy Verified 03/30/21 15:48 Home Medications Medication Instructions Recorded Confirmed Type lisinopril 20 mg tablet 20 mg PO QAM #90 tab 09/21/20 03/30/21 Rx sertraline 100 mg tablet 100 mg PO BID #180 tab 02/09/21 03/30/21 Rx clonazepam 0.5 mg tablet See Rx Instructions PO .COMPLEX 03/06/21 03/30/21 Rx #60 tab rosuvastatin 5 mg tablet 5 mg PO QAM #90 tab 03/22/21 03/30/21 Rx Past Med/Surg History Medical History (Updated 03/30/21 @ 17:57 by Dominic Black DO) Aortic stenosis Brachial plexopathy Calcification of aortic valve History of depression Hyperlipidemia Hypertension Hypertension Sleep apnea cpap Surgical History History of cataract surgery RT History of colonoscopy History of surgery benign tumor removed from behind left ear History of surgical removal of lesion History of tonsillectomy History of tooth extraction Family History Mother Diabetes Unknown Ischemic heart disease Denies family history of Ovarian cancer Prostate cancer Myocardial infarction Breast cancer Colorectal cancer Social History Smoking Status: Never smoker Second Hand Exposure: No; Hx Alcohol Use: Yes Alcohol type: beer, wine and hard liquor Hx Substance Use: No Preferred Language: [place] Citizen Communication Ability: Effective Visual Impairment: Limited Hearing Ability: Hard of Hearing Consumer Advocate Required: No Beliefs That Will Affect Care: None marital status: Current Living Situation: Spouse current occupational status: employed 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 Feels Safe at Home: Yes Childhood Exposure to Second-Hand Smoke: Yes caffeine: Yes Dental Care, Regularly: Yes Physical Activity Frequency: 3-4 Times per Week Seatbelt Use: always Sunscreen Use: Yes Assistive Devices: Glasses Review of Systems Review of Systems: Unobtainable due to mental health condition Physical Exam Constitutional: no acute distress ENMT: Mouth: + dry oral mucous membranes Neck: trachea midline, no thyromegaly Respiratory: normal respiratory effort Auscultation: lungs clear to auscultation bilaterally; no crackles, no rales, no rhonchi and no wheezes Cardiovascular: Rate/Rhythm: regular rate and regular rhythm Heart Sounds: normal S1 and normal S2; no murmur Gastrointestinal (Abdomen): Inspection/Auscultation: abdomen normal to inspection Percussion/Palpation: abdomen soft; abdomen nontender, no guarding, abdomen not rigid and no hepatosplenomegaly Skin: no rashes, warm and dry Results & Data Results & Data ([facility]) Vital Signs (Past 12 Hours) Vital Signs Temp Pulse Pulse Resp BP BP Pulse Ox 03/30/21 17:00 66 19 159/85 H 100 03/30/21 15:07 36.7 C 76 18 128/80 96 PG Care Time/CCT Total # of Minutes Spent Total Time Spent with Patient: Total time spent is greater than 50% in coordination of care (as documented) at patient's floor/unit and/or counseling patient: Coding Level of Care Code 07859 Initial Inpt Care Lvl 3 Diagnoses Paranoia (psychosis) F22 Hyperosmolality and hypernatremia E87.0 Hyperlipidemia E78.2 Hyperlipidemia type: mixed hyperlipidemia HTN (hypertension) I10 Hypertension type: essential hypertension (1) Hyperlipidemia Hyperlipidemia type: mixed hyperlipidemia Qualified Code(s): E78.2 - Mixed hyperlipidemia (2) HTN (hypertension) Hypertension type: essential hypertension Qualified Code(s): I10 - Essential (primary) hypertension
[2021-03-30] MEDS ORDERED: ACETAMINOPHEN 325 MG TAB PO PRN (19:49)
[2021-03-30] MEDS ORDERED: ONDANSETRON INJ 2 MG/ML 2 ML VIAL IV PRN (19:49)
[2021-03-30] MEDS: DEXTROSE 5% 1,000 ML IV SCH (20:46)
[2021-03-30] MEDS ORDERED: clonazePAM 0.5 MG TAB PO SCH (21:00)
[2021-03-30] MEDS ORDERED: SERTRALINE HCL 100 MG TABLET PO SCH (21:00)
[2021-03-31 01:48] LABS: Appearance Urine Clear (Clear); Bacteria Urine Automated Negative (Negative); Bilirubin Urine Negative (Negative); Blood Urine 2+ (Negative); Color Urine Yellow; Epithelial Cell Urine Auto 0-5 /lpf (0-5); Glucose Urine UA Negative (Negative); Ketones Urine 1+ (Negative); Leukocyte Esterase Urine Negative (Negative); Nitrite Urine Negative (Negative); Protein Urine Negative (Negative); Urobilinogen Urine Negative (Negative)
[2021-03-31 02:23] LABS: Amphetamines+Metham, Urine Neg (Neg); Barbiturates, Urine Neg (Neg); Benzodiazepine, Urine Pos (Neg); Cocaine, Urine Neg (Neg); MDMA (Ecstacy), Urine Neg (Neg); Methadone, Urine Neg (Neg); Opiate, Urine Neg (Neg); Phencyclidine, Urine Neg (Neg)
[2021-03-31 05:19] LABS: Eosinophils # (auto) 0.02 K/uL (0-0.5); Eosinophils % (auto) 0.2 %; Hematocrit (blood only) 40.2 % (42-52); Hemoglobin 13.3 g/dL (14.0-18.0); Immature Granulocytes # (auto) 0.03 K/uL (0.00-0.02); Immature Granulocytes % (auto) 0.4 %; Lymphocytes # (auto) 1.02 K/uL (1.2-3.4); Lymphocytes % (auto) 12.5 %; Mean Corpuscular Hemoglobin 28.4 pg (25-34); Mean Corpuscular Hgb Conc 33.1 g/dL (32-36); Mean Corpuscular Volume 85.7 fL (80-100); Mean Platelet Volume 10.1 fL (7.4-10.4); Monocytes # (auto) 0.62 K/uL (0.11-0.59); Monocytes % (auto) 7.6 %; Neutrophils # (auto) 6.46 K/uL (1.4-6.5); Neutrophils % (auto) 79.3 %; Platelet Count 110 K/uL (130-400); RDW Standard Deviation 43.3 fL (36.4-46.3); Red Blood Count 4.69 M/uL (4.7-6.1); White Blood Count 8.15 K/uL (4.8-10.8)
[2021-03-31 05:58] LABS: Calcium 8.9 mg/dl (8.5-10.1); Creatinine Clr Calc Pharmacy 61.1 ml/min; Est GFR (African American) 82.4 ml/min; Est GFR (Non-African American) 71.1 ml/min; Magnesium 2.7 mg/dl (1.8-2.4); Potassium 3.6 mmol/L (3.5-5.1)
--- NOTE | 2021-03-31 06:21 | Communication Note ---
Date of Service: March 31, 2021 Notified by patient that he had a critical sodium of 157 by nursing. Patient was 155 on admission and fluid resucitated in the ED with NSS and switched to d5w 100ml/hr for the past 11 hours roughly. Will at this time increase rate of d5w to 200ml/hr and recheck sodium level in 4 hours (10:00AM). Resident Activity Tracking Resident Involvement: Resident Care Provided and Wet Press Tender Coverage Note Care Provided: Adult Hospital Medicine
[2021-03-31] MEDS: DEXTROSE 5% 1,000 ML IV SCH ×4 (07:18→22:25)
[2021-03-31] MEDS ORDERED: clonazePAM 0.25 MG TAB PO SCH (09:00)
[2021-03-31] MEDS: lisinopril 20 MG TAB PO SCH (09:49)
[2021-03-31] MEDS: ROSUVASTATIN CALCIUM 5 MG TAB PO SCH (09:49)
[2021-03-31 10:26] LABS: BUN Creatinine Ratio 27.3 (10-20); Calcium 9.3 mg/dl (8.5-10.1); Creatinine Clr Calc Pharmacy 54.7 ml/min; Est GFR (Non-African American) 62.1 ml/min; Potassium 3.2 mmol/L (3.5-5.1)
--- NOTE | 2021-03-31 11:21 | Psychiatric Consultation ---
Date of Consultation March 31, 2021 Impression / Recommendations Impression 75 yo male with progressive confusion and weakness due to hypernatremia from altered PO intake due to obsessions about contamination and worsening mood following COVID infection late fall. Worsening despite outpatient medication trials. differential includes OCD, ruminative depression, depression with psychotic features, post COVID encephalopathy, other inflammatory encephalopathy/cytokine storm (I've seen similar onset of OCD and eating issues related to PANNS post strep, ASO titer and antidnase B likely low yield), ?lyme testing, ?ongoing subclinical seizure activity (either primary or secondary to hypernatremia). psych plan: typical AMS precautions. Will taper Klonopin and dose only in pm til d/c due to concerns about cognitive slowing and sedation. Will decrease Zoloft to 100 mg po hs starting today (held am dose) and likely taper further. If anything SSRIs contribute to hyponatremia. Dr. Cowart to assume service on 04/01/21 and will ask him to oversee the Zoloft taper. I'd expect confusion to improve with correction of sodium level so will reassess next steps, likely Abilify trial given severity at least pending trial of luvox. Cannot comment on need for inpatient psychiatric care when medically cleared at this time. Risk Factors Assessment Do You Have Access To A Gun?: No Psych History Identifying Data 75 yo male with remote hx of depression admit medically for hypernatremia. Consult is by hospitalist service for OCD with paranoia. Chief Complaint AMS History of Present Illness Per report to liason has health related anxiety and OCD tendencies at baseline but significant change/worsening following COVID infection in Sep 2020. He hasn't been eating or drinking well due to the belief that his food and water are contraminated or poisoned. Refused to drink water for nurse earlier saying it had scum in it. Obsesses that some gas he spilled on the ground will cause a fire and that if he mows the yard it could cause a spark. Admitting attending had to reassure him that his mouth isn't going to seal shut. He reportedly had an unremarkable MRI on 03/08. He was also referred for neuropsych testing, results are pending. Prior to more severe beliefs limiting PO intake he would ruminate on not having enough money to pay their taxes. Primary care started Remeron and Buspar initially which were reportedly ineffective and switched to Klonopin and Zoloft. No change per despite doses being titrated. Records show Wellbutrin was added to Zoloft as an augmentation strategy as PHQ-9 has been persistently elevated in the moderate range but is caused an increase in irritability and reportedly aggression. The patient is unable to provide history at this time. He was admitted with a critical Na 157, repeat earlier this am 155. Past Psychiatric History Outpatient Services: Dr. Cardenas in [place], Magi Lucero at [facility]. Previous Psych Admissions: >30 years ago for depression Do You Have Access To A Gun?: No History of Previous Suicide Attempt: No Past Medication Trials: as per HPI Allergies Allergy/AdvReac Type Severity Reaction Status Date / Time No Known Allergies Allergy Verified 03/30/21 15:48 Home Medications Medication Instructions Recorded Confirmed Type lisinopril 20 mg tablet 20 mg PO QAM #90 tab 09/21/20 03/30/21 Rx sertraline 100 mg tablet 100 mg PO BID #180 tab 02/09/21 03/30/21 Rx clonazepam 0.5 mg tablet See Rx Instructions PO .COMPLEX 03/06/21 03/30/21 Rx #60 tab rosuvastatin 5 mg tablet 5 mg PO QAM #90 tab 03/22/21 03/30/21 Rx Family History unknown Substance Abuse History rare ETOH Personal History Living Arrangements: Home (with ) 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 Beliefs That Will Affect Care: None History of Legal Problems: none Psychological Trauma History Comment: denied Patient History Medical History Aortic stenosis Brachial plexopathy Calcification of aortic valve History of depression Hyperlipidemia Hypertension Hypertension Sleep apnea cpap Surgical History History of cataract surgery RT History of colonoscopy History of surgery benign tumor removed from behind left ear History of surgical removal of lesion History of tonsillectomy History of tooth extraction Family History Mother Diabetes Unknown Ischemic heart disease Denies family history of Ovarian cancer Prostate cancer Myocardial infarction Breast cancer Colorectal cancer Social History Smoking Status: Former smoker Second Hand Exposure: No; Hx Alcohol Use: No Hx Substance Use: No Preferred Language: Uz[place] Communication Ability: Effective Visual Impairment: Limited Hearing Ability: Hard of Hearing Statistical Programmer Analyst Required: No Beliefs That Will Affect Care: None marital status: Current Living Situation: Spouse current occupational status: employed 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 Vital Signs (Past 24 Hours): Last Vital Signs Temp 36.7 C 03/31/21 06:59 Pulse 69 03/31/21 06:59 Resp 16 03/31/21 06:59 BP 167/87 H 03/31/21 06:59 Pulse Ox 97 03/31/21 06:59 Review of Systems Unobtainable due to cognitive status Results & Data (PSY) Medications Administered Clonazepam (Clonazepam 0.5 Mg Tab) 0.5 mg PO QPM MERLE Stop: 04/29/21 20:59 Last Admin: 03/30/21 21:23 Dose: 0.5 mg Documented by: [id number] Clonazepam (Clonazepam 0.25 Mg Tab) 0.25 mg PO QAM MERLE Stop: 04/30/21 08:59 Last Admin: 03/31/21 09:49 Dose: 0.25 mg Documented by: [id number] Dextrose (D5w) 1,000 mls @ 200 mls/hr IV .Q5H MERLE Stop: 04/29/21 19:48 Last Admin: 03/31/21 07:18 Dose: 200 mls/hr Documented by: [id number] Infusion: 03/31/21 06:46 Dose: 100 mls/hr Documented by: [id number] Admin: 03/30/21 20:46 Dose: 100 mls/hr Documented by: [id number] Lisinopril (Lisinopril 20 Mg Tab) 20 mg PO QAM MERLE Stop: 04/30/21 08:59 Last Admin: 03/31/21 09:49 Dose: 20 mg Documented by: [id number] Rosuvastatin Calcium (Rosuvastatin Calcium 5 Mg Tab) [facility] [place] Stop: 04/30/21 08:59 Last Admin: 03/31/21 09:49 Dose: 5 mg Documented by: [id number] Sertraline HCl (Sertraline Hcl 100 Mg Tablet) 100 mg PO BID [facility] Stop: 04/29/21 20:59 Last Admin: 03/30/21 22:55 Dose: 100 mg Documented by: [id number] Coding Level of Care Code 52551 U Intl Hosp Care Lvl 3
[2021-03-31] MEDS ORDERED: POTASSIUM CHLORIDE CRTAB 20 MEQ TABCR PO STA (12:31)
[2021-03-31 14:39] LABS: BUN Creatinine Ratio 23.9 (10-20); Creatinine Clr Calc Pharmacy 54.2 ml/min; Est GFR (African American) 71.2 ml/min; Est GFR (Non-African American) 61.5 ml/min; Potassium 3.7 mmol/L (3.5-5.1)
--- NOTE | 2021-03-31 15:32 | Electrocardiogram Report ---
Test Reason : Blood Pressure : / mmHG Vent. Rate : 069 BPM Atrial Rate : 069 BPM P-R Int : 172 ms QRS Dur : 106 ms QT Int : 426 ms P-R-T Axes : 078 074 060 degrees QTc Int : 456 ms Normal sinus rhythm Poor R wave progression, consider anterior LA vs. lead placement vs. LVH Abnormal ECG When compared with ECG of 18-JUL-2001 09:41, QT has lengthened Confirmed by Ji Noonan ([id number]) on 03/31/2021 3:32:05 PM Referred By: REFERRED SELF Confirmed By:Ji Noonan
[2021-03-31] MEDS: POTASSIUM CHLORIDE CRTAB 20 MEQ TABCR PO SCH ×2 (15:54→20:17)
[2021-03-31] MEDS: clonazePAM 0.25 MG TAB PO SCH (20:17)
[2021-03-31 20:58] LABS: BUN Creatinine Ratio 22.6 (10-20); Calcium 8.8 mg/dl (8.5-10.1); Creatinine Clr Calc Pharmacy 53.3 ml/min; Est GFR (African American) 69.8 ml/min; Est GFR (Non-African American) 60.2 ml/min
[2021-03-31] MEDS ORDERED: SERTRALINE HCL 100 MG TABLET PO SCH (21:00)
--- NOTE | 2021-03-31 22:12 | Hospitalist Progress Note ---
Date of Service March 31, 2021 Assessment & Plan (1) Paranoia (psychosis): Patient with new severe paranoia and psychosis, tells me patient has no previous history of this prior to Covid infection September 2020. Previous work-up included MRI on 03/08 that was negative for cerebral or cerebro vascular findings, 18 mm left parotid gland nodule found incidentally Plan to admit, patient may require one-to-one supervision as he has very poor insight and judgment We will continue psych medicines as per outpatient although they have not been very effective in controlling patient's symptoms We will asked psychiatry to evaluate for further recommendations. May need to touch base with neuropsych that saw patient earlier this week. (2) Hyperosmolality and hypernatremia: Likely secondary to p.o. intake from paranoia Will resume on D5W. Sodium has been improving but slowly. will keep improvement under 12 meq per 24 hour period. will closely monitor his sodium throughout the day. Patient has no history of CHF, will monitor for ability to take orals I will start a regular diet encourage patient to eat (3) Hyperlipidemia: Crestor 5 mg daily (4) HTN (hypertension): Patient is on lisinopril 20 mg daily, will hold off for now until patient is reliably taking fluids. Admission and Anticipated Discharge Date Admission Date: March 30, 2021 Subjective Patient is a poor historian. He has no complaints but just states that he does not feel well. Review of Systems Review of Systems: All systems reviewed & are unremarkable except as noted in HPI & below Physical Exam Physical Exam: Constitutional: no acute distress ENMT: Mouth: + dry oral mucous membranes Neck: trachea midline, no thyromegaly Respiratory: normal respiratory effort Auscultation: lungs clear to auscultation bilaterally; no crackles, no rales, no rhonchi and no wheezes Cardiovascular: Rate/Rhythm: regular rate and regular rhythm Heart Sounds: normal S1 and normal S2; no murmur Gastrointestinal (Abdomen): Inspection/Auscultation: abdomen normal to inspection Percussion/Palpation: abdomen soft; abdomen nontender, no guarding, abdomen not rigid and no hepatosplenomegaly Skin: no rashes, warm and dry Results & Data Results & Data ([facility]) Vital Signs (Past 12 Hours) Vital Signs Temp Pulse Resp BP Pulse Ox 03/31/21 15:21 36.8 C 63 16 119/69 97 PG Care Time/CCT Total # of Minutes Spent Total Time Spent with Patient: Total time spent is greater than 50% in coordi nation of care (as documented) at patient's floor/unit and/or counseling patient: Coding Level of Care Code 52620 Subseq Hosp Care Lvl 3 Diagnoses Paranoia (psychosis) F22 Hyperosmolality and hypernatremia E87.0 Hyperlipidemia E78.2 Hyperlipidemia type: mixed hyperlipidemia HTN (hypertension) I10 Hypertension type: essential hypertension Time Spent (min) 35 (1) Hyperlipidemia Hyperlipidemia type: mixed hyperlipidemia Qualified Code(s): E78.2 - Mixed hyperlipidemia (2) HTN (hypertension) Hypertension type: essential hypertension Qualified Code(s): I10 - Essential (primary) hypertension
[2021-04-01 02:40] LABS: BUN Creatinine Ratio 23.6 (10-20); Calcium 8.7 mg/dl (8.5-10.1); Est GFR (African American) 96.3 ml/min; Est GFR (Non-African American) 83.1 ml/min; Potassium 3.7 mmol/L (3.5-5.1)
[2021-04-01] MEDS: DEXTROSE 5% 1,000 ML IV SCH ×3 (03:19→14:06)
[2021-04-01 08:25] LABS: BUN Creatinine Ratio 22.7 (10-20); Calcium 8.8 mg/dl (8.5-10.1); Creatinine Clr Calc Pharmacy 75.1 ml/min; Est GFR (African American) 99.1 ml/min; Est GFR (Non-African American) 85.5 ml/min; Potassium 3.5 mmol/L (3.5-5.1)
[2021-04-01] MEDS: POTASSIUM CHLORIDE CRTAB 20 MEQ TABCR PO SCH ×3 (08:34→21:13)
[2021-04-01] MEDS: ROSUVASTATIN CALCIUM 5 MG TAB PO SCH (08:35)
[2021-04-01] MEDS: lisinopril 20 MG TAB PO SCH (08:35)
--- NOTE | 2021-04-01 11:34 | Hospitalist Progress Note ---
Date of Service April 01, 2021 Assessment & Plan (1) Paranoia (psychosis): Patient with new severe paranoia and psychosis, tells me patient has no previous history of this prior to Covid infection September 2020. Previous work-up included MRI on 03/08 that was negative for cerebral or cerebro vascular findings, 18 mm left parotid gland nodule found incidentally Plan to admit, patient may require one-to-one supervision as he has very poor insight and judgment We will continue psych medicines as per outpatient although they have not been very effective in controlling patient's symptoms We will asked psychiatry to evaluate for further recommendations. May need to touch base with neuropsych that saw patient earlier this week. (2) Hyperosmolality and hypernatremia: Likely secondary to p.o. intake from paranoia Sodium has improved. will hold D5W will keep improvement under 12 meq per 24 hour period. will closely monitor his sodium throughout the day. Patient has no history of CHF, will monitor for ability to take orals I will start a regular diet encourage patient to eat Will stop fluids on 04/01 (3) Hyperlipidemia: Crestor 5 mg daily (4) HTN (hypertension): Patient is on lisinopril 20 mg daily, will hold off for now until patient is reliably taking fluids. Admission and Anticipated Discharge Date Admission Date: March 30, 2021 Subjective Patient reports that he is not doing well. He only states that he is not doing well. He has poor eye contact Review of Systems Review of Systems: All systems reviewed & are unremarkable except as noted in HPI & below Physical Exam Physical Exam: Constitutional: no acute distress ENMT: Mouth: + dry oral mucous membranes Neck: trachea midline, no thyromegaly Respiratory: normal respiratory effort Auscultation: lungs clear to auscultation bilaterally; no crackles, no rales, no rhonchi and no wheezes Cardiovascular: Rate/Rhythm: regular rate and regular rhythm Heart Sounds: normal S1 and normal S2; no murmur Gastrointestinal (Abdomen): Inspection/Auscultation: abdomen normal to inspection Percussion/Palpation: abdomen soft; abdomen nontender, no guarding, abdomen not rigid and no hepatosplenomegaly Skin: no rashes, warm and dry Results & Data Results & Data ([facility]) Vital Signs (Past 12 Hours) Vital Signs Temp Pulse Resp BP Pulse Ox 04/01/21 06:59 36.6 C 52 L 16 127/75 98 PG Care Time/CCT Total # of Minutes Spent Total Time Spent with Patient: Total time spent is greater than 50% in coordination of care (as documented) at patient's floor/unit and/or counseling patient: Coding Level of Care Code 45003 Subseq Hosp Care Lvl 2 Diagnoses Paranoia (psychosis) F22 Hyperosmolality and hypernatremia E87.0 Hyperlipidemia E78.2 Hyperlipidemia type: mixed hyperlipidemia HTN (hypertension) I10 Hypertension type: essential hypertension Time Spent (min) 25 (1) Hyperlipidemia Hyperlipidemia type: mixed hyperlipidemia Qualified Code(s): E78.2 - Mixed hyperlipidemia (2) HTN (hypertension) Hypertension type: essential hypertension Qualified Code(s): I10 - Essential (primary) hypertension
[2021-04-01 15:03] LABS: BUN Creatinine Ratio 19.8 (10-20); Calcium 9.3 mg/dl (8.5-10.1); Est GFR (African American) 96.3 ml/min; Est GFR (Non-African American) 83.1 ml/min; Potassium 3.7 mmol/L (3.5-5.1)
--- NOTE | 2021-04-01 15:50 | Communication Note ---
Date of Service: April 01, 2021 Following up on patient today with an unusual presentation. Patient is a 75-year-old male with no significant past psychiatric history who presented following delusional and obsessive believes that contributed to his decreased p.o. intake. Patient now displaying signs and symptoms of decreased p.o. intake as well as hypernatremia. Patient currently displaying sequelae of hyponatremia including extreme thirst, twitching, fatigue, and confusion. Unfortunately, psychiatric evaluation at this time is not helpful given the patient's extreme level of cognitive slowing and confusion. Electrolytes seem to be responding nicely to treatment and are starting to come down within normal ranges. Assessment: Patient is a 75-year-old male with a unusual presentation of significant delusions and paranoid believes contributing to decreased p.o. intake and hypernatremia in the setting of no other significant psychiatric symptoms at baseline. At this time it is difficult to tell what could have prompted patient's current presentation. It is possible that the delusions caused the hyponatremia, however it is also possible that patient experienced some other form of metabolic or infective derangement causing a delirium which then precipitated his current symptoms. Patient has been on Zoloft medication for quite some time without significant improvement in care. Therefore, not necessary to restart immediately. Plan: Please refrain from benzodiazepine use if possible as it can worsen confusion. -continue to hold Zoloft medication. -We will have to wait until patient's confusion and symptoms subside prior to deciphering level of psychiatric disability.
[2021-04-01 20:48] LABS: Potassium 3.8 mmol/L (3.5-5.1)
[2021-04-01 20:49] LABS: BUN Creatinine Ratio 25.5 (10-20); Calcium 9.1 mg/dl (8.5-10.1); Creatinine Clr Calc Pharmacy 78.9 ml/min; Est GFR (African American) 101.1 ml/min; Est GFR (Non-African American) 87.2 ml/min
[2021-04-01] MEDS: clonazePAM 0.25 MG TAB PO SCH (21:13)
[2021-04-02 01:44] LABS: 7-Aminoclonaz, Confirm 145 ng/mL (<25); Hydro-Alp Ur, GC/MS NEGATIVE ng/mL (<25); Hydroxyethylflurazepam, Conf NEGATIVE ng/mL (<50); Hydroxymidazolam Ur, GC/MS NEGATIVE ng/mL (<50); Hydroxytriazolam NEGATIVE ng/mL (<50); Lorazepam, Ur GC/MS NEGATIVE ng/mL (<50); Nordiazepam, Confirm NEGATIVE ng/mL (<50); Oxazepam Ur, GC/MS NEGATIVE ng/mL (<50); Temazepam, Confirm NEGATIVE ng/mL (<50)
[2021-04-02] MEDS: lisinopril 20 MG TAB PO SCH (11:11)
[2021-04-02] MEDS: ROSUVASTATIN CALCIUM 5 MG TAB PO SCH (11:12)
[2021-04-02] MEDS: POTASSIUM CHLORIDE CRTAB 20 MEQ TABCR PO SCH ×3 (11:12→20:00)
[2021-04-02 13:26] LABS: BUN Creatinine Ratio 19.1 (10-20); Calcium 9.2 mg/dl (8.5-10.1); Creatinine Clr Calc Pharmacy 79.9 ml/min; Est GFR (African American) 101.6 ml/min; Est GFR (Non-African American) 87.7 ml/min
--- NOTE | 2021-04-02 21:55 | Hospitalist Progress Note ---
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 Previous work-up included MRI on 03/08 that was negative for cerebral or cerebro vascular findings, 18 mm left parotid gland nodule found incidentally Plan to admit, patient may require one-to-one supervision as he has very poor insight and judgment We will continue psych medicines as per outpatient although they have not been very effective in controlling patient's symptoms We will asked psychiatry to evaluate for further recommendations. May need to touch base with neuropsych that saw patient earlier this week. On 04/02 Patient has shown improvement. Now making eye contact and smiling. will monitor for another 24-48 hours. Now that patient is improving, will appreciate input from psych for any underlying psych problems. (2) Hyperosmolality and hypernatremia: Likely secondary to p.o. intake from paranoia Sodium has improved. will hold D5W will keep improvement under 12 meq per 24 hour period. will closely monitor his sodium throughout the day. Patient has no history of CHF, will monitor for ability to take orals I will start a regular diet encourage patient to eat Will stop fluids on 04/01 On 04/02 Will monitor for 24-48 h Patient is improving. (3) Hyperlipidemia: Crestor 5 mg daily (4) HTN (hypertension): Patient is on lisinopril 20 mg daily, will hold off for now BP at goal. Admission and Anticipated Discharge Date Admission Date: March 30, 2021 Subjective Patient reports feeling better. Reports feeling mild generalized weakness He does not recall the past 2 days. Review of Systems Review of Systems: All systems reviewed & are unremarkable except as noted in HPI & below Physical Exam Physical Exam: Constitutional: no acute distress ENMT: Mouth: moist mucous membranes Neck: trachea midline, no thyromegaly Respiratory: normal respiratory effort Auscultation: lungs clear to auscultation bilaterally; no crackles, no rales, no rhonchi and no wheezes Cardiovascular: Rate/Rhythm: regular rate and regular rhythm Heart Sounds: normal S1 and normal S2; no murmur Gastrointestinal (Abdomen): Inspection/Auscultation: abdomen normal to inspection Percussion/Palpation: abdomen soft; abdomen nontender, no guarding, abdomen not rigid and no hepatosplenomegaly Skin: no rashes, warm and dry psych: [id number], smiling in bed. Now making eye contact Results & Data Results & Data ([facility]) Vital Signs (Past 12 Hours) Vital Signs Temp Pulse Resp BP Pulse Ox 04/02/21 14:25 36.7 C 72 16 96/60 L 96 PG Care Time/CCT Total # of Minutes Spent Total Time Spent with Patient: Total time spent is greater than 50% in coordination of care (as documented) at patient's floor/unit and/or counseling patient: Coding Level of Care Code 95399 Subseq Hosp Care Lvl 3 Diagnoses Paranoia (psychosis) F22 Hyperosmolality and hypernatremia E87.0 Hyperlipidemia E78.2 Hyperlipidemia type: mixed hyperlipidemia HTN (hypertension) I10 Hypertension type: essential hypertension Time Spent (min) 35 (1) Hyperlipidemia Hyperlipidemia type: mixed hyperlipidemia Qualified Code(s): E78.2 - Mixed hyperlipidemia (2) HTN (hypertension) Hypertension type: essential hypertension Qualified Code(s): I10 - Essential (primary) hypertension
[2021-04-03 07:08] LABS: Hematocrit (blood only) 40.2 % (42-52); Hemoglobin 13.6 g/dL (14.0-18.0); Mean Corpuscular Hemoglobin 28.2 pg (25-34); Mean Corpuscular Hgb Conc 33.8 g/dL (32-36); Mean Corpuscular Volume 83.4 fL (80-100); Mean Platelet Volume 10.4 fL (7.4-10.4); Platelet Count 101 K/uL (130-400); RDW Standard Deviation 42.6 fL (36.4-46.3); Red Blood Count 4.82 M/uL (4.7-6.1); White Blood Count 6.68 K/uL (4.8-10.8)
[2021-04-03] MEDS: POTASSIUM CHLORIDE CRTAB 20 MEQ TABCR PO SCH (07:39)
[2021-04-03] MEDS: lisinopril 20 MG TAB PO SCH (07:39)
[2021-04-03] MEDS: ROSUVASTATIN CALCIUM 5 MG TAB PO SCH (07:40)
[2021-04-03 07:44] LABS: BUN Creatinine Ratio 21.4 (10-20); Calcium 9.8 mg/dl (8.5-10.1); Creatinine Clr Calc Pharmacy 79.9 ml/min; Est GFR (African American) 101.6 ml/min; Est GFR (Non-African American) 87.7 ml/min; Potassium 4.1 mmol/L (3.5-5.1)
--- NOTE | 2021-04-03 08:09 | Hospitalist Progress Note ---
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 Previous work-up included MRI on 03/08 that was negative for cerebral or cerebro vascular findings, 18 mm left parotid gland nodule found incidentally Psychiatry to re-evaluate for further recommendations now that cognition clearer. No hallucinations noted today Has not gotten Zoloft while inpatient (per prior psych note, ok) Tapered off prior medications Discussed with psych liaison this morning regarding possible benzo for catatonic state to see if any improvement. Will await input prior to ordering Will also check B12/folate/TSH Continue to monitor (2) Hyperosmolality and hypernatremia: Likely secondary to p.o. intake from paranoia [employer] IVF stopped 04/01 Na 142 Encouraged PO intake. Decrease PO KCl supp to once daily BMP in AM (3) Hyperlipidemia: Crestor 5 mg daily (4) HTN (hypertension): Continue lisinopril 20mg daily Monitor (5) DVT prophylaxis: PT/OT consults pending DVT Proph SCDs Heparin SQ ordered today as has not been up much Dispo: continued inpatient stay, to be re-eval by psych today Admission and Anticipated Discharge Date Admission Date: March 30, 2021 Subjective Patient evaluated this morning. Slow with responses but no real issues. Vee catheter is annoying him and will ask nursing to remove. Has not yet been seen by psych provider but we discussed he will be around and we can adjust his medications as needed. No fever, chills, chest pain, shortness of breath, abdominal pain, nausea, vomiting reported. Took pills with breakfast without issue. "They gave me pills with my food" Denies need to update Kerry today unless plans for d/c and will update in AM. Discussing with liaison about possible catatonia and possible benefit from low dose benzodiazepine but will await response from psych provider prior to starting such therapy. Review of Systems Review of Systems: All systems reviewed & are unremarkable except as noted in HPI & below Physical Exam Constitutional: WD/WN, vitals as above comfortable; no acute distress Eyes: + anicteric sclerae and PERRL ENMT: dry mm Neck: normal visual inspection Respiratory: normal respiratory effort, lungs clear to auscultation Cardiovascular: Rate/Rhythm: regular rate and regular rhythm Heart Sounds: + murmur (3/6 harsh holosytolic murmur) Extremities: no edema Gastrointestinal (Abdomen): normal bowel sounds, soft, nontender, no hepatosplenomegaly Musculoskeletal: no cyanosis or clubbing, extremities motor strength 5/5 Skin: warm, dry Neurologic: PERRL, EOMI, accommodation nl, no face palsy, no dysarthria Psychiatric: Orientation: alert, oriented to person, oriented to place and oriented to time (March, [facility]) Affect: + flat affect Suicidal Thoughts: denies suicidal thoughts and denies suicidal intent Hallucinations: no auditory hallucinations and no visual hallucinations catatonic at times , slowed reponses Genitourinary: vee draining yellow urine Results & Data Results & Data ([facility]) Vital Signs (Past 12 Hours) Vital Signs Temp Pulse Resp BP Pulse Ox 04/03/21 07:14 36.6 C 66 18 162/88 H 96 04/02/21 22:13 36.8 C 66 18 147/86 H 95 Laboratory Results 04/03/21 04/03/21 04/02/21 Range/Units 06:55 06:55 12:55 WBC 6.68 (4.8-10.8) K/uL RBC 4.82 (4.7-6.1) M/uL Hgb 13.6 L (14.0-18.0) g/dL Hct 40.2 L (42-52) % MCV 83.4 (80-100) fL MCH 28.2 (25-34) pg MCHC 33.8 (32-36) g/dL RDW Std Deviation 42.6 (36.4-46.3) fL RDW Coeff of Dayanna 14.0 (11.5-14.5) % Plt Count 101 L (130-400) K/uL MPV 10.4 (7.4-10.4) fL Sodium 142 143 (136-145) mmol/L Potassium 4.1 4.0 (3.5-5.1) mmol/L Chloride 113 H 112 H (98-107) mmol/L Carbon Dioxide 25 25 (21-32) mmol/L Anion Gap 4.0 6.0 (3-11) BUN 17 15 (7-18) mg/dl Creatinine 0.78 0.78 (0.6-1.4) mg/dl Est Cr Clr Drug Dosing 79.9 79.9 ml/min Est GFR ( Amer) 101.6 101.6 ml/min Est GFR (Non-Af Amer) 87.7 87.7 ml/min BUN/Creatinine Ratio 21.4 H 19.1 (10-20) Glucose 81 133 H (70-99) mg/dl Calcium 9.8 9.2 (8.5-10.1) mg/dl PG Care Time/CCT Total # of Minutes Spent Total Time Spent with Patient: Total time spent is greater than 50% in coordination of care (as documented) at patient's floor/unit and/or counseling patient: Coding Level of Care Code 64666 Subseq Hosp Care Lvl 3 Diagnoses Paranoia (psychosis) F22 Hyperosmolality and hypernatremia E87.0 Hyperlipidemia E78.2 Hyperlipidemia type: mixed hyperlipidemia HTN (hypertension) I10 Hypertension type: essential hypertension DVT prophylaxis Z29.9 (1) Hyperlipidemia Hyperlipidemia type: mixed hyperlipidemia Qualified Code(s): E78.2 - Mixed hyperlipidemia (2) HTN (hypertension) Hypertension type: essential hypertension Qualified Code(s): I10 - Essential (primary) hypertension
--- NOTE | 2021-04-03 08:45 | Hospitalist Progress Note ---
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 Previous work-up included MRI on 03/08 that was negative for cerebral or cerebro vascular findings, 18 mm left parotid gland nodule found incidentally Plan to admit, patient may require one-to-one supervision as he has very poor insight and judgment We will asked psychiatry to evaluate for further recommendations. now on ssertraline 100mg h s On 04/02 Patient has shown improvement. Now making eye contact and smiling. will monitor for another 24-48 hours. Now that patient is improving, will appreciate input from psych for any underlying psych problems. (2) Hyperosmolality and hypernatremia: Likely secondary to p.o. intake from paranoia Sodium has improved. stop fluids on 04/01 I will start a regular diet encourage patient to eat (3) Hyperlipidemia: Crestor 5 mg daily (4) HTN (hypertension): Patient is on lisinopril 20 mg daily, will hold off for now BP at goal. Admission and Anticipated Discharge Date Admission Date: March 30, 2021 Results & Data Results & Data ([facility]) Vital Signs (Past 12 Hours) Vital Signs Temp Pulse Resp BP Pulse Ox 04/03/21 07:14 97.9 F 66 18 162/88 H 96 04/02/21 22:13 98.2 F 66 18 147/86 H 95 PG Care Time/CCT Total # of Minutes Spent Total Time Spent with Patient: Total time spent is greater than 50% in coordination of care (as documented) at patient's floor/unit and/or counseling patient: Coding Diagnoses Paranoia (psychosis) F22 Hyperosmolality and hypernatremia E87.0 Hyperlipidemia E78.2 Hyperlipidemia type: mixed hyperlipidemia HTN (hypertension) I10 Hypertension type: essential hypertension (1) Hyperlipidemia Hyperlipidemia type: mixed hyperlipidemia Qualified Code(s): E78.2 - Mixed hyperlipidemia (2) HTN (hypertension) Hypertension type: essential hypertension Qualified Code(s): I10 - Essential (primary) hypertension
[2021-04-03 11:34] LABS: Thyroid Stimulating Hormone 1.88 uIu/ml (0.300-4.500)
[2021-04-03 11:49] LABS: Folate (Folic Acid) > 20.00 ng/ml (>5.38); Vitamin B12 842 pg/ml (193-986)
--- NOTE | 2021-04-03 12:06 | Communication Note ---
Date of Service: April 03, 2021 Patient seen this morning, case discussed with treatment team. From a physical standpoint, patient does seem to be improving slightly. He is showing less signs of tremor and seems to have somewhat more energy. Mentally, patient continues to be distraught. He endorses feelings of "wanting to give up" but when asked for more specifics patient's speech becomes less logical. He is very slow to speak and to answer and will go on unrelated tangents. Patient seems hyper focused on his bowels and messing the bed today. Unable to be reassured that this is not an issue while in the hospital, patient focuses on his embarrassment surrounding this with what seems like a a disregard for the more serious symptoms that prompted his admission. Patient is endorsing depression, however unable to identify any major triggers or reasons which would have led up to his depression aside from his physical ailments. Patient is denying any hallucinations or psychosis at this time. Assessment: 75-year-old male with AMS following a self induced p.o. restriction that caused hypernatremia. Patient seems to be improving from the hyponatremia as his labs are normalizing and some of the symptoms are starting to dissipate. He does however continue to be confused with a very slow and restricted cognitive thought process. Patient showcase is some symptoms of depression including him stating "I just do not know if I can go on" as well as some obsessive symptoms including him obsessing about the cleanliness of the food, or him messing his bed. It is unclear at this time if all the patient's symptoms can be attributed to a depression or a psychiatric disorder without an underlying organic neuro process. Patient's poor response to prior SSRIs as well as the somewhat abrupt onset of his condition make major depression as the primary diagnosis less likely. OCD-like symptoms have been known to spontaneously appear following neuro insults including infective or traumatic changes in the brain. Differential diagnoses include: Depression, OCD, delirium, dementia(less likely due to abrupt onset) , neurocognitive disorder, Plan: We will plan to seek out further history from today Continue to search out causes of AMS, be sure to include labs such as TSH, RPR, Lyme, B12, folate. Continue to stabilize electrolytes Consider neurology consultation
[2021-04-03 12:46] LABS: Lyme Ab IgG w/WB Rflx Negative (Negative); Lyme Ab IgM w/WB Rflx Negative (Negative)
[2021-04-03] MEDS: HEPARIN SOD 5,000 UNIT/0.5 ML VIAL SQ SCH ×2 (13:47→22:03)
[2021-04-03] MEDS ORDERED: POLYETHYLENE (MIRALAX) 17 GM PACK PO PRN (15:01)
[2021-04-04 05:27] LABS: Hematocrit (blood only) 41.4 % (42-52); Hemoglobin 14.1 g/dL (14.0-18.0); Mean Corpuscular Hemoglobin 28.7 pg (25-34); Mean Corpuscular Hgb Conc 34.1 g/dL (32-36); Mean Corpuscular Volume 84.1 fL (80-100); Mean Platelet Volume 10.4 fL (7.4-10.4); Platelet Count 117 K/uL (130-400); RDW Coefficient of Variation 14.1 % (11.5-14.5); RDW Standard Deviation 42.9 fL (36.4-46.3); Red Blood Count 4.92 M/uL (4.7-6.1); White Blood Count 7.37 K/uL (4.8-10.8)
[2021-04-04 06:05] LABS: Albumin Level 2.8 gm/dl (3.4-5.0); BUN Creatinine Ratio 19.2 (10-20); Calcium 9.3 mg/dl (8.5-10.1); Creatinine Clr Calc Pharmacy 64.2 ml/min; Est GFR (African American) 87.5 ml/min; Est GFR (Non-African American) 75.5 ml/min; Potassium 4.2 mmol/L (3.5-5.1)
[2021-04-04 06:07] LABS: Bilirubin,Total 0.5 mg/dl (0.2-1); Globulin 2.9 gm/dl (2.5-4.0); Phosphorus 3.2 mg/dl (2.5-4.9); Total Protein 5.7 gm/dl (6.4-8.2)
[2021-04-04] MEDS ORDERED: hydrALAZINE HCL 20 MG/ML VIAL IV STA (06:27)
[2021-04-04] MEDS: HEPARIN SOD 5,000 UNIT/0.5 ML VIAL SQ SCH (06:30)
--- NOTE | 2021-04-04 08:10 | Hospitalist Progress Note ---
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 Previous work-up included MRI on 03/08 that was negative for cerebral or cerebro vascular findings, 18 mm left parotid gland nodule found incidentally Psychiatry to re-evaluate for further recommendations now that cognition clearer. No hallucinations noted today Has not gotten Zoloft while inpatient (per prior psych note, ok) Tapered off prior medications Discussed with psych liaison this morning regarding possible benzo for catatonic state to see if any improvement --> held off initially and ordered further testing first as below Will also check B12/folate/TSH/RPR/Lyme/Ammonia to r/o other metabolic causes: -- B12 wnl 842. Folate wnl >20. TSH wnl 1.880. RPR pending. Lyme negative. Ammonia wnl 14 B1 pending from this AM (and started oral supplementation) Consulted Neurology -- appreciate input --> To be seen this afternoon. Rec'd EEG, LP (will hold Heparin SQ), autoimmune encephalitis panel, TPO Also will order AWSS and lorazepam as needed Thiamine 200mg IV now, then 50mg IV TID scheduled for possible Wernecke's Continue to monitor (2) Hyperosmolality and hypernatremia: Likely secondary to p.o. intake from paranoia [employer]SE [employer]ORD[employer]ATOR IVF stopped 04/01 Na 144 Encouraged PO intake. Decrease PO KCl supp to once daily BMP in AM (3) Hyperlipidemia: Crestor 5 mg daily (4) HTN (hypertension): Continue lisinopril 20mg daily Hydralazine prn BP improved to 135/87 after hydralazine and will hold off adding amlodipine this AM however suspect will need further titration once acute issues dealt with as above Continue to monitor (5) DVT prophylaxis: PT/OT consults pending DVT Proph SCDs Heparin SQ ordered starting 04/03 as has not been up much --> will hold for LP Dispo: continued inpatient stay (6) Alcohol use: Admission and Anticipated Discharge Date Admission Date: March 30, 2021 Subjective Patient evaluated this morning. Having suprapubic discomfort and difficulty urinating. Will have RN bladder scan and cath if needed/place vee. No fever, chills, chest pain, shortness of breath, abdominal pain, nausea or vomiting. Increased tremors this morning -- denies any questions regarding alcohol intake but could be from some withdrawal. Discussed with Neurology and will add EEG, LP and r/o autoimmune encephalitis. Also with concerns for alcohol/Wernecke's given cardiology outpatient note noting alcohol 3x/daily. Review of Systems Review of Systems: All systems reviewed & are unremarkable except as noted in HPI & below Physical Exam Constitutional: WD/WN, vitals as above + acute distress (suprapubic discomfort) Eyes: + anicteric sclerae and PERRL ENMT: dry mm Neck: normal visual inspection Respiratory: normal respiratory effort, lungs clear to auscultation Cardiovascular: Rate/Rhythm: regular rate and regular rhythm Heart Sounds: + murmur (3/6 harsh holosytolic murmur) Extremities: no edema Gastrointestinal (Abdomen): normal bowel sounds, soft, nontender, no hepatosplenomegaly Musculoskeletal: no cyanosis or clubbing, extremities motor strength 5/5 Neurologic: PERRL, EOMI, accommodation nl, no face palsy, no dysarthria Motor/Sensory: + tremor Psychiatric: Orientation: alert, oriented to person, oriented to place and oriented to time (March, [facility]) Affect: + flat affect Suicidal Thoughts: denies suicidal thoughts and denies suicidal intent Hallucinations: no auditory hallucinations and no visual hallucinations Results & Data Results & Data ([facility]) Vital Signs (Past 12 Hours) Vital Signs Temp Pulse Resp BP Pulse Ox 04/04/21 07:25 36.6 C 67 18 157/91 H 98 04/03/21 22:23 36.8 C 85 18 148/90 H 97 Laboratory Results 04/04/21 04/04/21 04/04/21 Range/Units 05:06 05:06 05:06 WBC 7.37 (4.8-10.8) K/uL RBC 4.92 (4.7-6.1) M/uL Hgb 14.1 (14.0-18.0) g/dL Hct 41.4 L (42-52) % MCV 84.1 (80-100) fL MCH 28.7 (25-34) pg MCHC 34.1 (32-36) g/dL RDW Std Deviation 42.9 (36.4-46.3) fL RDW Coeff of Dayanna 14.1 (11.5-14.5) % Plt Count 117 L (130-400) K/uL MPV 10.4 (7.4-10.4) fL Sodium 144 (136-145) mmol/L Potassium 4.2 (3.5-5.1) mmol/L Chloride 113 H (98-107) mmol/L Carbon Dioxide 28 (21-32) mmol/L Anion Gap 3.0 (3-11) BUN 19 H (7-18) mg/dl Creatinine 0.97 (0.6-1.4) mg/dl Est Cr Clr Drug Dosing 64.2 ml/min Est GFR ( Amer) 87.5 ml/min Est GFR (Non-Af Amer) 75.5 ml/min BUN/Creatinine Ratio 19.2 (10-20) Glucose 86 (70-99) mg/dl Calcium 9.3 (8.5-10.1) mg/dl Phosphorus 3.2 (2.5-4.9) mg/dl Total Bilirubin 0.5 (0.2-1) mg/dl AST 24 (15-37) U/L ALT 44 (12-78) U/L Alkaline Phosphatase 69 (45-117) U/L Ammonia (11-32) umol/L Total Creatine Kinase (39-308) U/L Total Protein 5.7 L (6.4-8.2) gm/dl Albumin 2.8 L (3.4-5.0) gm/dl Globulin 2.9 (2.5-4.0) gm/dl Albumin/Globulin Ratio 1.0 (0.9-2) Vitamin B1 Pending Vitamin B12 (193-986) pg/ml Folate (>5.38) ng/ml TSH (0.300-4.500) uIu/ml RPR Lyme Disease IgG Ab (Negative) Lyme Disease IgM Ab (Negative) 04/03/21 04/03/21 04/03/21 Range/Units 15:19 10:42 10:42 WBC (4.8-10.8) K/uL RBC (4.7-6.1) M/uL Hgb (14.0-18.0) g/dL Hct (42-52) % MCV (80-100) fL MCH (25-34) pg MCHC (32-36) g/dL RDW Std Deviation (36.4-46.3) fL RDW Coeff of Dayanna (11.5-14.5) % Plt Count (130-400) K/uL MPV (7.4-10.4) fL Sodium (136-145) mmol/L Potassium (3.5-5.1) mmol/L Chloride (98-107) mmol/L Carbon Dioxide (21-32) mmol/L Anion Gap (3-11) BUN (7-18) mg/dl Creatinine (0.6-1.4) mg/dl Est Cr Clr Drug Dosing ml/min Est GFR ( Amer) ml/min Est GFR (Non-Af Amer) ml/min BUN/Creatinine Ratio (10-20) Glucose (70-99) mg/dl Calcium (8.5-10.1) mg/dl Phosphorus (2.5-4.9) mg/dl Total Bilirubin (0.2-1) mg/dl AST (15-37) U/L ALT (12-78) U/L Alkaline Phosphatase (45-117) U/L Ammonia 14.0 (11-32) umol/L Total Creatine Kinase 26 L (39-308) U/L Total Protein (6.4-8.2) gm/dl Albumin (3.4-5.0) gm/dl Globulin (2.5-4.0) gm/dl Albumin/Globulin Ratio (0.9-2) Vitamin B1 Vitamin B12 (193-986) pg/ml Folate (>5.38) ng/ml TSH 1.880 (0.300-4.500) uIu/ml RPR Pending Lyme Disease IgG Ab Negative (Negative) Lyme Disease IgM Ab Negative (Negative) 04/03/21 Range/Units 10:42 WBC (4.8-10.8) K/uL RBC (4.7-6.1) M/uL Hgb (14.0-18.0) g/dL Hct (42-52) % MCV (80-100) fL MCH (25-34) pg MCHC (32-36) g/dL RDW Std Deviation (36.4-46.3) fL RDW Coeff of Dayanna (11.5-14.5) % Plt Count (130-400) K/uL MPV (7.4-10.4) fL Sodium (136-145) mmol/L Potassium (3.5-5.1) mmol/L Chloride (98-107) mmol/L Carbon Dioxide (21-32) mmol/L Anion Gap (3-11) BUN (7-18) mg/dl Creatinine (0.6-1.4) mg/dl Est Cr Clr Drug Dosing ml/min Est GFR ( Amer) ml/min Est GFR (Non-Af Amer) ml/min BUN/Creatinine Ratio (10-20) Glucose (70-99) mg/dl Calcium (8.5-10.1) mg/dl Phosphorus (2.5-4.9) mg/dl Total Bilirubin (0.2-1) mg/dl AST (15-37) U/L ALT (12-78) U/L Alkaline Phosphatase (45-117) U/L Ammonia (11-32) umol/L Total Creatine Kinase (39-308) U/L Total Protein (6.4-8.2) gm/dl Albumin (3.4-5.0) gm/dl Globulin (2.5-4.0) gm/dl Albumin/Globulin Ratio (0.9-2) Vitamin B1 Vitamin B12 842 (193-986) pg/ml Folate > 20.00 (>5.38) ng/ml TSH (0.300-4.500) uIu/ml RPR Lyme Disease IgG Ab (Negative) Lyme Disease IgM Ab (Negative) Diagnostic Findings Chest X-Ray 03/30/21 15:34 XR chest 1V portable CLINICAL HISTORY: psych COMPARISON STUDY: October 18, 2020 FINDINGS: No pneumothorax. No pleural effusion. No large infiltrates or consolidative lesions are seen. Cardiomediastinal silhouette is within normal limits in size. No significant pulmonary vascular congestion.. Aorta is tortuous and calcified. Osseous structures: Degenerative changes of the spine. IMPRESSION: 1. No acute pulmonary process. ACT 112: Negative or not required by law. The above report was generated using voice recognition software. It may contain grammatical, syntax or spelling errors. Electronically signed by: Monika Germain DO 03/30/2021 4:[address] 03/30/21 15:[address] DOSE: 1498.35 mGy.cm HISTORY: psych. Altered mental status. TECHNIQUE: Multiaxial CT images of the head were performed without the use of intravenous contrast. Automated exposure control was utilized for this study. A dose lowering technique was utilized adhering to the principles of ALARA. Comparison: Brain MRI 03/08/2021. Findings: The paranasal sinuses and mastoid air cells are clear. There is a partially visualized 2 cm left parotid gland nodule. The calvarium and skull base are intact. There is no mass, hematoma, midline shift, acute infarct. White matter hypodensity is nonspecific but suggestive of microvascular ischemic change. The ventricles and sulci demonstrate mild age-related involutional changes. Impression: 1. No acute intracranial abnormality. 2. Redemonstration of the 2 cm left parotid gland nodule. Follow-up nonemergent ENT consultation recommended. ACT 112: Negative or not required by law. Electronically signed by: Arcenio Thomas M.D. 03/30/2021 4:28 PM PG Care Time/CCT Total # of Minutes Spent Total Time Spent with Patient: Total time spent is greater than 50% in coordination of care (as documented) at patient's floor/unit and/or counseling patient: Coding Level of Care Code 95434 Subseq Hosp Care Lvl 3 Diagnoses Paranoia (psychosis) F22 Hyperosmolality and hypernatremia E87.0 Hyperlipidemia E78.2 Hyperlipidemia type: mixed hyperlipidemia HTN (hypertension) I10 Hypertension type: essential hypertension DVT prophylaxis Z29.9 Alcohol use Z72.89 (1) Hyperlipidemia Hyperlipidemia type: mixed hyperlipidemia Qualified Code(s): E78.2 - Mixed hyperlipidemia (2) HTN (hypertension) Hypertension type: essential hypertension Qualified Code(s): I10 - Essential (primary) hypertension
[2021-04-04] MEDS ORDERED: amLODIPine BESYLATE 5 MG TAB PO ONE (08:15)
[2021-04-04] MEDS ORDERED: hydrALAZINE HCL 20 MG/ML VIAL ONE (08:42)
--- NOTE | 2021-04-04 08:47 | Ultrasound Report ---
US soft tissue head and neck CLINICAL HISTORY: Parotid gland mass COMPARISON STUDY: CT scan dated 03/30/2021 FINDINGS: There are 2 solid left parotid gland nodules. The deep nodule measures 10 x 8 x 7 mm. The s uperficial nodule measures 8 x 7 x 4 mm. Both nodules demonstrate increased vascularity. The largest nodule appears smaller on ultrasound that it did on the prior CT scan or MRI study. IMPRESSION: 2 solid left parotid gland nodules are visualized, the largest of which measures 10 x 8 x 7 mm. ACT 112: Negative or not required by law. Electronically signed by: Ej Pardo M.D. 04/04/2021 8:46 AM
[2021-04-04] MEDS: lisinopril 20 MG TAB PO SCH (08:48)
[2021-04-04] MEDS: ROSUVASTATIN CALCIUM 5 MG TAB PO SCH (08:49)
[2021-04-04] MEDS: POTASSIUM CHLORIDE CRTAB 20 MEQ TABCR PO SCH (08:49)
[2021-04-04] MEDS ORDERED: THIAMINE HCL 100 MG TAB PO SCH (09:00)
[2021-04-04] MEDS ORDERED: LORazepam 0.5 MG/1 ML VIAL IV STA (10:30)
[2021-04-04] MEDS ORDERED: LORazepam 1 MG/2 ML VIAL IV PRN (10:30)
[2021-04-04] MEDS ORDERED: TAMSULOSIN HCL 0.4 MG CAP PO ONE (10:56)
[2021-04-04] MEDS ORDERED: THIAMINE HCL 200 MG in SYRINGE 9 ML IV ONE (11:00)
--- NOTE | 2021-04-04 12:47 | XRay Report ---
XR cervical spine 2 or 3V CLINICAL HISTORY: neck pain COMPARISON STUDY: Cervical spine radiographs March 16, 2016. MRI of the cervical spine March 22, 2016. FINDINGS: There is slight reversal of the normal cervical lordosis. There is minimal anterolisthesis of C5 on C6. Note is made of severe multilevel facet arthrosis. There is moderate disc space narrowin g and osteophytosis at C6-C7. Prevertebral soft tissues are unremarkable. IMPRESSION: 1. No acute cervical spine fracture or subluxation. 2. Moderate to severe multilevel facet arthrosis and degenerative disc disease within the cervical sp ine, most pronounced at C6-C7. ACT 112: Negative or not required by law. Electronically signed by: Espinoza Mtz M.D. 04/04/2021 12:46 PM
[2021-04-04] MEDS ORDERED: THIAMINE HCL IV SCH (14:00)
--- NOTE | 2021-04-04 14:39 | Fluoroscopy Report ---
FL lumbar puncture diagnostic CLINICAL HISTORY: AMS, r/o autoimmune encephalitis COMPARISON STUDY: None FLUOROSCOPY TIME: 30 seconds. NUMBER OF FLUOROSCOPIC IMAGES: 1 FINDINGS: Informed consent was obtained from the patient's . A timeout was performed. The patient was prepped and draped in sterile fashion. The skin was anesthetized 1% lidocaine. A lumbar puncture was performed at the L4-5 level utilizing a 20-gauge spinal needle. 8 cc of clear CSF was withdrawn under gravity drip and into 4 tubes. Fluid was sent for laboratory analysis as specified by the referring clinician. There were no immediate complications. The patient was sent to the floor for post procedure observati on. IMPRESSION: 1. Successful fluoroscopically guided diagnostic lumbar puncture performed at the L4-5 level. 2. 8 cc of clear CSF was withdrawn under gravity drip and sent for laboratory analysis ACT 112: Negative or not required by law. Electronically signed by: Ej Pardo M.D. 04/04/2021 2:37 PM
[2021-04-04] MEDS: LIDOCAINE 5% 1 PATCH TD SCH (14:55)
--- NOTE | 2021-04-04 14:57 | Neurology Consultation ---
Date of Consultation April 04, 2021 Assessment & Plan (1) Alcohol use: (2) Obsessive compulsive disorder: (3) Acute paranoia: Hamzah Gonzalez is a 75 yo man w/ PMH of HTN, HLD, h/o depression, severe DIAZ on CPAP, h/o COVID in September to October 2020, chronic LBP/lumbar radiculopathy, h/o alcohol use disorder and h/o brachial plexopathy whom neurology is consulted on for ongoing chronic confusion/paranoia/subacute OCD symptoms. # Subacute confusion a/w paranoia and OCD: - f/u CSF results for cell counts, glucose, protein, infectious work-up, RT-QUIC and autoimmune encephalitis panel - routine EEG pending to r/o NCSE - thiamine 200mg IV daily x 5 days, then resume 200mg PO daily - f/u pending serum studies (thiamine, anti-TPO antibodies) - defer to psychiatry for medication management of symptoms - would complete workup with CT C/A/P to r/o any potential cancer that could be causing an autoimmune encephalitis picture - if no organic cause found, would treat as primary psychiatric illness - would work on improving sleep quality and ensure that he has his CPAP here as this could be the main cause of paranoia/anxiety Thank you for this interesting consult. Plan of care discussed with primary team. Please call or text with questions. (4) Severe obstructive sleep apnea: History of Present Illness Attending Physician: Wilberto Guillaume MD History of Present Illness Hamzah Gonzalez is a 75 yo man w/ PMH of HTN, HLD, h/o depression, severe DIAZ on CPAP, h/o COVID in SeptemberOctober 2020, chronic LBP/lumbar radi culopathy, h/o alcohol use disorder and h/o brachial plexopathy whom neurology is consulted on for ongoing chronic confusion/paranoia/subacute OCD symptoms. On chart review, it appears that he had a remote h/o psychiatric hospitalization for depression in his 40s. Per PCP note in 11/2020, he had an approximately 6 month h/o increasing anxiety that started over the summer in 2019 and progressed after he had mild COVID in mid September. Did not require hospitalization for COVID. Has not been agreeable to psychiatric treatment in the recent past for these increased stressors or anxiety. Starting in 10/2020, he was noted to have increased insomnia, anxiety and weight loss from poor PO intake. His PCP increased klonopin dose to 0.25mg bid and recommended continuing zoloft. Multiple PCP visits reviewed from November to February 2021 where PCP strongly encouraged him to see psychology or psychiatry given ongoing symptoms. Finally, on March 30, 2021, his brought him into the hospital for evaluation as he has reached the point where he is very confused, forgetful, is becoming so weak that he cannot ambulate well, and is convinced that his food and water are contaminated or poisoned so has refused to eat or drink. Work-up so far: CBC: 7.37/14.1 with MCV 84.1/117 (low) Current BMP WNL with mildly elevated Cl 113 and GFR 75.5 Ca/Phos WNL LFTs WNL, ammonia 14, albumin low at 2.8, B12 842, folate>20, TSH WNL, thiamine pending UA no infection CSF studies pending (including RT-QUIC to r/o CJD, autoimmune encephalitis panel at [facility]) UDS positive for benzos (is prescribed this at home) RPR non-reactive, Lyme negative, anti-TPO antibodies pending routine EEG pending MRI brain independently reviewed and shows minimal SPID with no significant atrophy or prior stroke noted, no microhemorrhages, no cortical ribbon consistent with CJD present On examination, he reports that he has been only sleeping 1-2 hours per night for awhile now. Endorses some paranoia and is unable to give much else of a history. Reports that he has not been able to walk well for month, maybe years. SH: pertinent for 2-4 or more drinks nightly Allergies Allergy/AdvReac Type Severity Reaction Status Date / Time No Known Allergies Allergy Verified 03/30/21 15:48 Home Medications Medication Instructions Recorded Confirmed Type lisinopril 20 mg tablet 20 mg PO QAM #90 tab 09/21/20 03/30/21 Rx sertraline 100 mg tablet 100 mg PO BID #180 tab 02/09/21 03/30/21 Rx clonazepam 0.5 mg tablet See Rx Instructions PO .COMPLEX 03/06/21 03/30/21 Rx #60 tab rosuvastatin 5 mg tablet 5 mg PO QAM #90 tab 03/22/21 03/30/21 Rx Patient History Medical History Aortic stenosis Brachial plexopathy Calcification of aortic valve History of depression Hyperlipidemia Hypertension Hypertension Sleep apnea cpap Surgical History History of cataract surgery RT History of colonoscopy History of surgery benign tumor removed from behind left ear History of surgical removal of lesion History of tonsillectomy History of tooth extraction Family History Mother Diabetes Unknown Ischemic heart disease Denies family history of Ovarian cancer Prostate cancer Myocardial infarction Breast cancer Colorectal cancer Social History Smoking Status: Former smoker Second Hand Exposure: No; Hx Alcohol Use: No Hx Substance Use: No Preferred Language: Sami Communication Ability: Effective Visual Impairment: Limited Hearing Ability: Hard of Hearing Engineering Director Required: No Beliefs That Will Affect Care: None marital status: Current Living Situation: Spouse current occupational status: employed 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 HEENT: No conjunctival injection, no rhinorrhea. CV: RRR, no peripheral edema PULM: Nonlabored respirations on room air. Neuro Exam: MS: Awake and Alert. Oriented to person, place, and year but not month. Speech fluent and appropriate without dysarthria or paraphasic errors. Language intact including naming, comprehension, repetition. Cognition and memory grossly impaired. Attention intact. No neglect. CN: Visual jenkins full. No extinction to double simultaneous stimuli. Unable to visualize fundi on fundoscopic exam. PERRLA OU. EOMI without nystagmus. Facial sensation intact to LT. Facial muscles full and symmetric. Hearing intact to conversation. Shoulder shrug normal. Tongue midline. MOTOR: Normal bulk and tone. No pronator drift. BUE strength 5/5 at deltoids, biceps, triceps, wrist flexors and extensors, and hand grasp bilaterally. BLE strength 5/5 at iliopsoas, hamstrings, quadriceps, tibialis anterior, and gastrocnemius bilaterally. REFLEXES: 2+ at biceps, triceps, brachioradialis, 1+ patella and absent Achilles bilaterally. Flexor plantar responses bilaterally. SENSORY: Intact to LT without extinction to double simultaneous stimuli. Vibration intact throughout though mildly diminished in BLEs up to the knees. COORDINATION: No dysmetria or ataxia on [id number] bilaterally. Normal [place] bilaterally. Mild high frequency tremor at rest that is distractible. GAIT: deferred given physical status/fall risk Results & Data ([facility]) Vital Signs (Past 12 Hours) Vital Signs Temp Pulse Resp BP Pulse Ox 04/04/21 14:42 36.8 C 85 17 128/73 97 04/04/21 09:22 135/87 04/04/21 07:25 36.6 C 67 18 157/91 H 98 PG Care Time/CCT Total # of Minutes Spent Total Time Spent with Patient: Total time spent is greater than 50% in coordination of care (as documented) at patient's floor/unit and/or counseling patient: 60 Coding Level of Care Code 79153 Initial Inpt Care Lvl 3 Diagnoses Alcohol use Z72.89 Obsessive compulsive disorder F42.9 Obsessive-compulsive disorder type: unspecified Acute paranoia F22 Severe obstructive sleep apnea G47.33 (1) Obsessive compulsive disorder Obsessive-compulsive disorder type: unspecified Qualified Code(s): F42.9 - Obsessive-compulsive disorder, unspecified
[2021-04-04 15:08] LABS: Total Protein CSF 117.9 mg/dl (15-45)
[2021-04-04 15:17] LABS: Appearance CSF Clear; CSF Count Tube # 4; CSF Xanthrochromic No xanthochromia; Color CSF Colorless; Red Blood Cell CSF (A) 4 /uL (0-); Red Blood Cell CSF (B) 5 /uL (0-); White Blood Cell CSF (A) 1 /uL (0-5); White Blood Cell CSF (B) 1 /uL (0-5)
[2021-04-04 16:17] LABS: Cryptococcus neoformans/ga PCR Not Detected (NotDetected); Cytomegalovirus PCR Not Detected (NotDetected); Enterovirus PCR Not Detected (NotDetected); Escherichia coli K1 PCR Not Detected (NotDetected); Haemophilius influenzae PCR Not Detected (NotDetected); Herpes Simplex Virus 1 PCR Not Detected (NotDetected); Herpes Simplex Virus 2 PCR Not Detected (NotDetected); Human Herpes Virus 6 PCR Not Detected (NotDetected); Human Parechovirus PCR Not Detected (NotDetected); Listeria monocytogenes PCR Not Detected (NotDetected); Neisseria meningitidis PCR Not Detected (NotDetected); Streptococcus agalactiae PCR Not Detected (NotDetected); Streptococcus pneumoniae PCR Not Detected (NotDetected); Varicella Zoster Virus PCR Not Detected (NotDetected)
[2021-04-04] MEDS ORDERED: OPTIRAY 320 150ml IV ONE (21:04)
[2021-04-05 00:46] LABS: Rapid Plasma Reagin Nonreactive (Nonreactive)
[2021-04-05 06:12] LABS: Basophils # (auto) 0.01 K/uL (0-0.2); Basophils % (auto) 0.1 %; Eosinophils # (auto) 0.13 K/uL (0-0.5); Eosinophils % (auto) 1.7 %; Hematocrit (blood only) 40.5 % (42-52); Hemoglobin 13.7 g/dL (14.0-18.0); Immature Granulocytes # (auto) 0.07 K/uL (0.00-0.02); Immature Granulocytes % (auto) 0.9 %; Lymphocytes % (auto) 15.8 %; Mean Corpuscular Hemoglobin 28.4 pg (25-34); Mean Corpuscular Hgb Conc 33.8 g/dL (32-36); Mean Platelet Volume 10.2 fL (7.4-10.4); Monocytes # (auto) 0.55 K/uL (0.11-0.59); Monocytes % (auto) 7.2 %; Neutrophils # (auto) 5.65 K/uL (1.4-6.5); Neutrophils % (auto) 74.3 %; Platelet Count 129 K/uL (130-400); RDW Coefficient of Variation 14.2 % (11.5-14.5); RDW Standard Deviation 42.8 fL (36.4-46.3); Red Blood Count 4.82 M/uL (4.7-6.1); White Blood Count 7.61 K/uL (4.8-10.8)
[2021-04-05 06:38] LABS: Albumin Level 2.9 gm/dl (3.4-5.0); BUN Creatinine Ratio 20.5 (10-20); Calcium 9.1 mg/dl (8.5-10.1); Est GFR (African American) 102.7 ml/min; Est GFR (Non-African American) 88.6 ml/min
[2021-04-05 06:41] LABS: Albumin Globulin Ratio 1.1 (0.9-2); Bilirubin,Total 0.6 mg/dl (0.2-1); Globulin 2.7 gm/dl (2.5-4.0); Total Protein 5.6 gm/dl (6.4-8.2)
[2021-04-05] MEDS: ROSUVASTATIN CALCIUM 5 MG TAB PO SCH ×2 (08:17→11:06)
[2021-04-05] MEDS: LIDOCAINE 5% 1 PATCH TD SCH (08:17)
[2021-04-05] MEDS: lisinopril 20 MG TAB PO SCH (08:18)
[2021-04-05] MEDS: POTASSIUM CHLORIDE CRTAB 20 MEQ TABCR PO SCH (08:22)
[2021-04-05] MEDS ORDERED: THIAMINE HCL IV SCH (09:00)
[2021-04-05] MEDS ORDERED: FLUoxetine HCL 20 MG CAP PO SCH (09:45)
--- NOTE | 2021-04-05 10:55 | CT Scan Report ---
CT abd pelvis oral and IV con CLINICAL HISTORY: r/o mass. Clinical suspicion for malignancy that could cause altered mental status. COMPARISON STUDY: None. TECHNIQUE: A dose lowering technique was utilized adhering to the principles of ALARA. CT DOSE: 449.44 mGy.cm FINDINGS: Lower chest: No large infiltrates or consolidative lesions are seen. Mild pericardial effusion is demonstrated. Severe calcifications of aortic valve are seen. Liver: The contrast-enhanced liver is normal in size, contour, and attenuation. There is no intrahepa tic biliary ductal dilatation. The hepatic veins and portal veins are patent. Gallbladder: Unremarkable. Spleen: Normal in size and attenuation. Pancreas: Unremarkable. Adrenal glands: Right adrenal gland is unremarkable. Nodularity of the left adrenal gland is seen. Kidneys: There is symmetric renal cortical enhancement. The kidneys are normal in size without hydron ephrosis. Punctate nonobstructive calculi are seen within inferior aspect of the left renal pelvis. S mall parapelvic cysts are seen bilaterally. Bowel: Minimal hiatal hernia is seen. Bowel loops are nondilated. Appendix is not well seen. Oral con trast column reached mid-distal aspect of the small bowel and not seen within colonic loops. Mild con centric thickening of the rectal wall is seen. Peritoneum: There is no intraperitoneal free air or abdominal ascites. Mild diffuse mesenteric edema is seen. Overall evaluation is limited due to motion artifact and limited amount of intra-abdominal f at. Vasculature: Extensive partially calcified plaques are seen within the aortic wall. Focal area of mil d ectasia of the distal abdominal aorta is seen measuring 3.1 cm in diameter and shows large noncalci fied plaque within its wall. Evaluation of aorta is limited on this nondedicated exam. Adenopathy: None. Pelvic viscera: Urinary bladder is fluid-filled with diffuse thickening of its wall. Prostate gland i s prominent with dystrophic calcifications within its parenchyma. Skeletal structures: Osseous structures are diffusely demineralized with more fluid appearance of the bone marrow attenuation. Avascular necrosis is seen within left femoral head. IMPRESSION: 1. Mild pericardial effusion. 2. Mild diffuse mesenteric edema. Please correlate above-mentioned findings with edematous state. 3. Questionable thickening of the rectal wall which might represent proctitis or related to the unde rdistention. 4. Avascular necrosis within left femoral head. 5. Nonobstructive nephrolithiasis on the left. 6. Questionable diffuse thickening of urinary bladder wall which might be seen in cystitis. Please c orrelate above-mentioned findings with prior history. 7. Mild hiatal hernia. ACT 112: Negative or not required by law. The above report was generated using voice recognition software. It may contain grammatical, syntax o r spelling errors. Electronically signed by: Monika Germain DO 04/05/2021 10:54 AM
[2021-04-05] MEDS: FLUoxetine HCL 10 MG CAP PO SCH (11:06)
[2021-04-05] MEDS: THIAMINE HCL 200 MG in SODIUM CHLORIDE 0.9% 50 ML IV SCH (11:06)
--- NOTE | 2021-04-05 13:08 | Hospitalist Progress Note ---
Date of Service April 05, 2021 Assessment & Plan (1) Paranoia (psychosis): Patient with new severe paranoia and psychosis, tells me patient has no previous history of this prior to Covid infection September 2020. Previous work-up included MRI on 03/08 that was negative for cerebral or cerebro vascular findings, 18 mm left parotid gland nodule found incidentally Has not gotten Zoloft while inpatient (per prior psych note, ok) Tapered off prior medications Check B12/folate/TSH/RPR/Lyme/Ammonia to r/o other metabolic causes: -- B12 wnl 842. Folate wnl >20. TSH wnl 1.880. RPR pending. Lyme negative. Ammonia wnl 14 B1 pending (and started supplementation for possible Wernecke's) Discussed with psych liaison morning of 04/04 regarding possible benzo for catatonic state to see if any improvement --> held off initially and ordered further testing first as below but did get 1mg on 04/04 with improvement per (none per patient) however has been more alert/conversational Discussed with psych and was going to order 0.5mg Q6H and can titrate as needed (initial recs for 1mg Q6H but will monitor on lower dose to avoid worsening confusion), but after discussion with Neurology, would prefer to utilize prazosin 1mg HS and titrate as needed. --Will give dose of zyprexa 5mg PO this evening to see if can improve sleep/psychotic features Asked respiratory and nursing to STRONGLY encourage use of CPAP tonight as patient with SEVERE DIAZ and insomnia, sleeping 1-2 hours daily and could also be main contributor to his paranoia/anxiety as well Started on prozac 10mg daily- per psych continue for today and tomorrow then increase 20mg, etc. Will attempt to search for inpatient psych bed but may be an issue for placement. Per psych, they would pursue a 302 if patient not agreeable Consulted Neurology -- appreciate input s/p LP on 04/04 with elevated protein, normal glucose, no elevation in WBC/RBC. Viral and encephalitis panel pending anti-TPO negative EEG pending for today CTAP: * mild pericardial effusion, ?mild diffuse mesenteric edema, rectal wall thickening may represent proctitis or underdistention. 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 Mild hiatal hernia. Recs for CT chest to r/o lung CA per Neuro if patient able to tolerate --> NO MASSES/suspicion for cancer Continue to monitor (2) Hyperosmolality and hypernatremia: Likely secondary to p.o. intake from paranoia [employer]. Provided IVF, stopped 5.29. Na 141. K 4.0 and prior decreased PO KCl to once daily BMP in AM (3) Sleep apnea: SEVERE Ordered CPAP last night -- patient refused Asked respiratory therapy to attempt again today given patient with poor sleep and reported 1-2 hours over last several months (4) Hyperlipidemia: Crestor 5 mg daily (5) HTN (hypertension): BP 147/85 Continue lisinopril 20mg daily Hydralazine prn Continue to monitor (6) Alcohol use: suspected, however last drink reported October -- continue thiamine given improvement in cognition B1 level pending (7) Aortic stenosis: Noted Follows with Dr. Cohen Volume status acceptable (8) COVID-19: Prior infection September - October 2020 ?contributing to current issue -- see above also with several friends ill with COVID, one passed. One home on comfort. Another friend with fallen and issues with hip. Stress about taxes/isolation/etc per and believe food contaminated with bugs (9) Situational stress: (10) OCD (obsessive compulsive disorder): suspected prozac as above (11) DVT prophylaxis: PT/OT consults pending DVT Proph SCDs Heparin SQ resumed Dispo: continued inpatient stay likely to need inpatient psych placement at discharge Admission and Anticipated Discharge Date Admission Date: March 30, 2021 Subjective Patient evaluated this afternoon. Did not get much sleep last night. After finishing his oral contrast for CT last evening he had copious diarrhea that he states "would not stop" and "has been going on for 8-9 days". He declines anything to help slow diarrhea but he did state in days prior that he had small formed hardened stool. When asked how he was doing, he states "I can't go on like this" and "Kerry is bad news, she doesn't understand" and when bringing up stressors in his life he declined wanting to go further into detail and became tearful and stated "I've been here for a week and nothing is better". Declined any benefit from Ativan yesterday although stated on the phone that was the best she had seen him. Discussed starting Prozac for OCD and titrating. He seemed disinterested and offered psych to come to speak with him. He stated "I've already talked with the psychiatrist". He denies fever, chills, chest pain, shortness of breath and states "my heart and lungs are fine" Declines abdominal pain but notes the Boost is "old by the time he gets it" but declines carnation or similar that could be added to milk as "those would also be old." Declined any specific food choices or offering of Imodium/etc to help him feel better at this time and would like to be left alone. Will discuss with Neuro/psych/supervising provider regarding care. Review of Systems Review of Systems: All systems reviewed & are unremarkable except as noted in HPI & below Physical Exam Constitutional: WD/WN, vitals as above comfortable; no acute distress Eyes: + anicteric sclerae (L eye bloodshot) and PERRL ENMT: Ears: no hearing impairment Nose: no external nose abnormality Neck: trachea midline Respiratory: normal respiratory effort, lungs clear to auscultation Cardiovascular: Rate/Rhythm: regular rate and regular rhythm Heart Sounds: + murmur (3/6 harsh holosytolic murmur) Extremities: no edema Gastrointestinal (Abdomen): normal bowel sounds, soft, nontender, no hepatosplenomegaly Musculoskeletal: no cyanosis or clubbing, extremities motor strength 5/5 Neurologic: PERRL, EOMI, accommodation nl, no face palsy, no dysarthria Motor/Sensory: + tremor (less) Psychiatric: Orientation: alert, oriented to person, oriented to place and oriented to time (March, [facility]) Affect: + flat affect Suicidal Thoughts: denies suicidal intent; + reports suicidal thoughts (states "I can't go on like this anymore") Hallucinations: no auditory hallucinations and no visual hallucinations Results & Data Results & Data ([facility]) Vital Signs (Past 12 Hours) Vital Signs Temp Pulse Resp BP Pulse Ox 04/05/21 07:11 36.7 C 71 16 147/85 H 98 Laboratory Results 04/05/21 04/05/21 04/05/21 Range/Units 11:27 05:48 05:48 WBC 7.61 (4.8-10.8) K/uL RBC 4.82 (4.7-6.1) M/uL Hgb 13.7 L (14.0-18.0) g/dL Hct 40.5 L (42-52) % MCV 84.0 (80-100) fL MCH 28.4 (25-34) pg MCHC 33.8 (32-36) g/dL RDW Std Deviation 42.8 (36.4-46.3) fL RDW Coeff of Dayanna 14.2 (11.5-14.5) % Plt Count 129 L (130-400) K/uL MPV 10.2 (7.4-10.4) fL Immature Gran % (Auto) 0.9 % Neut % (Auto) 74.3 % Lymph % (Auto) 15.8 % Kay % (Auto) 7.2 % Eos % (Auto) 1.7 % Baso % (Auto) 0.1 % Neut # (Auto) 5.65 (1.4-6.5) K/uL Lymph # (Auto) 1.20 (1.2-3.4) K/uL Kay # (Auto) 0.55 (0.11-0.59) K/uL Eos # (Auto) 0.13 (0-0.5) K/uL Baso # (Auto) 0.01 (0-0.2) K/uL Immature Gran # (Auto) 0.07 H (0.00-0.02) K/uL Sodium 141 (136-145) mmol/L Potassium 4.0 (3.5-5.1) mmol/L Chloride 112 H (98-107) mmol/L Carbon Dioxide 26 (21-32) mmol/L Anion Gap 3.0 (3-11) BUN 16 (7-18) mg/dl Creatinine 0.76 (0.6-1.4) mg/dl Est Cr Clr Drug Dosing 82.0 ml/min Est GFR ( Amer) 102.7 ml/min Est GFR (Non-Af Amer) 88.6 ml/min BUN/Creatinine Ratio 20.5 H (10-20) Glucose 85 (70-99) mg/dl Calcium 9.1 (8.5-10.1) mg/dl Total Bilirubin 0.6 (0.2-1) mg/dl AST 31 (15-37) U/L ALT 50 (12-78) U/L Alkaline Phosphatase 70 (45-117) U/L Troponin I 0.016 (0-0.045) ng/ml Total Protein 5.6 L (6.4-8.2) gm/dl Albumin 2.9 L (3.4-5.0) gm/dl Globulin 2.7 (2.5-4.0) gm/dl Albumin/Globulin Ratio 1.1 (0.9-2) Fluid Comment CSF Appearance CSF Color Xanthrochromic CSF WBC (0-5) /uL CSF RBC (0-) /uL CSF Cell Count Tube # CSF Chemistry Tube # CSF Glucose (40-70) mg/dl CSF Lactate (0.6-2.2) mmol/L CSF Total Protein CSF VDRL CSF Lyme IgG (Immblot) CSF Lyme IgG Bands Det CSF Lyme IgM (Immblot) CSF Lyme IgM Bands Det CSF C.neoform/gat PCR (NotDetected) CSF CMV DNA (PCR) (NotDetected) CSF Enterovirus (PCR) (NotDetected) CSF E. coli K1 (PCR) (NotDetected) CSF H. influenzae (PCR) (NotDetected) CSF HSV I (PCR) (NotDetected) CSF HSV II (PCR) (NotDetected) CSF HHV 6 (PCR) (NotDetected) CSF L.monocytogenes PCR (NotDetected) CSF N. meningitidis PCR (NotDetected) CSF Parechovirus (PCR) (NotDetected) CSF S. agalactiae (PCR) (NotDetected) CSF S. pneumoniae (PCR) (NotDetected) CSF VZV DNA (PCR) (NotDetected) CSF West Nile IgM Ab Thyroid Antimicrosomal (<9) IU/mL RPR (Nonreactive) Herpes Virus Source HSV I DNA PCR HSV II DNA PCR Herpesvirus 6 Source HHV-6 DNA (PCR) Miscellaneous Test 04/04/21 04/04/21 04/04/21 Range/Units 14:43 14:10 14:10 WBC (4.8-10.8) K/uL RBC (4.7-6.1) M/uL Hgb (14.0-18.0) g/dL Hct (42-52) % MCV (80-100) fL MCH (25-34) pg MCHC (32-36) g/dL RDW Std Deviation (36.4-46.3) fL RDW Coeff of Dayanna (11.5-14.5) % Plt Count (130-400) K/uL MPV (7.4-10.4) fL Immature Gran % (Auto) % Neut % (Auto) % Lymph % (Auto) % Kay % (Auto) % Eos % (Auto) % Baso % (Auto) % Neut # (Auto) (1.4-6.5) K/uL Lymph # (Auto) (1.2-3.4) K/uL Kay # (Auto) (0.11-0.59) K/uL Eos # (Auto) (0-0.5) K/uL Baso # (Auto) (0-0.2) K/uL Immature Gran # (Auto) (0.00-0.02) K/uL Sodium (136-145) mmol/L Potassium (3.5-5.1) mmol/L Chloride (98-107) mmol/L Carbon Dioxide (21-32) mmol/L Anion Gap (3-11) BUN (7-18) mg/dl Creatinine (0.6-1.4) mg/dl Est Cr Clr Drug Dosing ml/min Est GFR ( Amer) ml/min Est GFR (Non-Af Amer) ml/min BUN/Creatinine Ratio (10-20) Glucose (70-99) mg/dl Calcium (8.5-10.1) mg/dl Total Bilirubin (0.2-1) mg/dl AST (15-37) U/L ALT (12-78) U/L Alkaline Phosphatase (45-117) U/L Troponin I (0-0.045) ng/ml Total Protein (6.4-8.2) gm/dl Albumin (3.4-5.0) gm/dl Globulin (2.5-4.0) gm/dl Albumin/Globulin Ratio (0.9-2) Fluid Comment CSF Appearance CSF Color Xanthrochromic CSF WBC (0-5) /uL CSF RBC (0-) /uL CSF Cell Count Tube # CSF Chemistry Tube # 1 CSF Glucose 52 (40-70) mg/dl CSF Lactate 1.4 (0.6-2.2) mmol/L CSF Total Protein 117.9 H CSF VDRL CSF Lyme IgG (Immblot) CSF Lyme IgG Bands Det CSF Lyme IgM (Immblot) CSF Lyme IgM Bands Det CSF C.neoform/gat PCR (NotDetected) CSF CMV DNA (PCR) (NotDetected) CSF Enterovirus (PCR) (NotDetected) CSF E. coli K1 (PCR) (NotDetected) CSF H. influenzae (PCR) (NotDetected) CSF HSV I (PCR) (NotDetected) CSF HSV II (PCR) (NotDetected) CSF HHV 6 (PCR) (NotDetected) CSF L.monocytogenes PCR (NotDetected) CSF N. meningitidis PCR (NotDetected) CSF Parechovirus (PCR) (NotDetected) CSF S. agalactiae (PCR) (NotDetected) CSF S. pneumoniae (PCR) (NotDetected) CSF VZV DNA (PCR) (NotDetected) CSF West Nile IgM Ab Thyroid Antimicrosomal (<9) IU/mL RPR (Nonreactive) Herpes Virus Source HSV I DNA PCR HSV II DNA PCR Herpesvirus 6 Source HHV-6 DNA (PCR) Miscellaneous Test Cancelled 04/04/21 04/04/21 04/04/21 Range/Units 14:10 14:10 14:10 WBC (4.8-10.8) K/uL RBC (4.7-6.1) M/uL Hgb (14.0-18.0) g/dL Hct (42-52) % MCV (80-100) fL MCH (25-34) pg MCHC (32-36) g/dL RDW Std Deviation (36.4-46.3) fL RDW Coeff of Dayanna (11.5-14.5) % Plt Count (130-400) K/uL MPV (7.4-10.4) fL Immature Gran % (Auto) % Neut % (Auto) % Lymph % (Auto) % Kay % (Auto) % Eos % (Auto) % Baso % (Auto) % Neut # (Auto) (1.4-6.5) K/uL Lymph # (Auto) (1.2-3.4) K/uL Kay # (Auto) (0.11-0.59) K/uL Eos # (Auto) (0-0.5) K/uL Baso # (Auto) (0-0.2) K/uL Immature Gran # (Auto) (0.00-0.02) K/uL Sodium (136-145) mmol/L Potassium (3.5-5.1) mmol/L Chloride (98-107) mmol/L Carbon Dioxide (21-32) mmol/L Anion Gap (3-11) BUN (7-18) mg/dl Creatinine (0.6-1.4) mg/dl Est Cr Clr Drug Dosing ml/min Est GFR ( Amer) ml/min Est GFR (Non-Af Amer) ml/min BUN/Creatinine Ratio (10-20) Glucose (70-99) mg/dl Calcium (8.5-10.1) mg/dl Total Bilirubin (0.2-1) mg/dl AST (15-37) U/L ALT (12-78) U/L Alkaline Phosphatase (45-117) U/L Troponin I (0-0.045) ng/ml Total Protein (6.4-8.2) gm/dl Albumin (3.4-5.0) gm/dl Globulin (2.5-4.0) gm/dl Albumin/Globulin Ratio (0.9-2) Fluid Comment CSF Appearance Clear CSF Color Colorless Xanthrochromic No xanthochromia CSF WBC 1 (0-5) /uL CSF RBC 4 (0-) /uL CSF Cell Count Tube # 4 CSF Chemistry Tube # CSF Glucose (40-70) mg/dl CSF Lactate (0.6-2.2) mmol/L CSF Total Protein CSF VDRL Pending CSF Lyme IgG (Immblot) CSF Lyme IgG Bands Det CSF Lyme IgM (Immblot) CSF Lyme IgM Bands Det CSF C.neoform/gat PCR Not Detected (NotDetected) CSF CMV DNA (PCR) Not Detected (NotDetected) CSF Enterovirus (PCR) Not Detected (NotDetected) CSF E. coli K1 (PCR) Not Detected (NotDetected) CSF H. influenzae (PCR) Not Detected (NotDetected) CSF HSV I (PCR) Not Detected (NotDetected) CSF HSV II (PCR) Not Detected (NotDetected) CSF HHV 6 (PCR) Not Detected (NotDetected) CSF L.monocytogenes PCR Not Detected (NotDetected) CSF N. meningitidis PCR Not Detected (NotDetected) CSF Parechovirus (PCR) Not Detected (NotDetected) CSF S. agalactiae (PCR) Not Detected (NotDetected) CSF S. pneumoniae (PCR) Not Detected (NotDetected) CSF VZV DNA (PCR) Not Detected (NotDetected) CSF West Nile IgM Ab Thyroid Antimicrosomal (<9) IU/mL RPR (Nonreactive) Herpes Virus Source HSV I DNA PCR HSV II DNA PCR Herpesvirus 6 Source HHV-6 DNA (PCR) Miscellaneous Test 04/04/21 04/04/21 04/04/21 Range/Units 14:10 14:10 14:10 WBC (4.8-10.8) K/uL RBC (4.7-6.1) M/uL Hgb (14.0-18.0) g/dL Hct (42-52) % MCV (80-100) fL MCH (25-34) pg MCHC (32-36) g/dL RDW Std Deviation (36.4-46.3) fL RDW Coeff of Dayanna (11.5-14.5) % Plt Count (130-400) K/uL MPV (7.4-10.4) fL Immature Gran % (Auto) % Neut % (Auto) % Lymph % (Auto) % Kay % (Auto) % Eos % (Auto) % Baso % (Auto) % Neut # (Auto) (1.4-6.5) K/uL Lymph # (Auto) (1.2-3.4) K/uL Kay # (Auto) (0.11-0.59) K/uL Eos # (Auto) (0-0.5) K/uL Baso # (Auto) (0-0.2) K/uL Immature Gran # (Auto) (0.00-0.02) K/uL Sodium (136-145) mmol/L Potassium (3.5-5.1) mmol/L Chloride (98-107) mmol/L Carbon Dioxide (21-32) mmol/L Anion Gap (3-11) BUN (7-18) mg/dl Creatinine (0.6-1.4) mg/dl Est Cr Clr Drug Dosing ml/min Est GFR ( Amer) ml/min Est GFR (Non-Af Amer) ml/min BUN/Creatinine Ratio (10-20) Glucose (70-99) mg/dl Calcium (8.5-10.1) mg/dl Total Bilirubin (0.2-1) mg/dl AST (15-37) U/L ALT (12-78) U/L Alkaline Phosphatase (45-117) U/L Troponin I (0-0.045) ng/ml Total Protein (6.4-8.2) gm/dl Albumin (3.4-5.0) gm/dl Globulin (2.5-4.0) gm/dl Albumin/Globulin Ratio (0.9-2) Fluid Comment CSF Appearance CSF Color Xanthrochromic CSF WBC (0-5) /uL CSF RBC (0-) /uL CSF Cell Count Tube # CSF Chemistry Tube # CSF Glucose (40-70) mg/dl CSF Lactate (0.6-2.2) mmol/L CSF Total Protein Cancelled CSF VDRL CSF Lyme IgG (Immblot) Pending CSF Lyme IgG Bands Det Pending CSF Lyme IgM (Immblot) Pending CSF Lyme IgM Bands Det Pending CSF C.neoform/gat PCR (NotDetected) CSF CMV DNA (PCR) (NotDetected) CSF Enterovirus (PCR) (NotDetected) CSF E. coli K1 (PCR) (NotDetected) CSF H. influenzae (PCR) (NotDetected) CSF HSV I (PCR) (NotDetected) CSF HSV II (PCR) (NotDetected) CSF HHV 6 (PCR) (NotDetected) CSF L.monocytogenes PCR (NotDetected) CSF N. meningitidis PCR (NotDetected) CSF Parechovirus (PCR) (NotDetected) CSF S. agalactiae (PCR) (NotDetected) CSF S. pneumoniae (PCR) (NotDetected) CSF VZV DNA (PCR) (NotDetected) CSF West Nile IgM Ab Cancelled Thyroid Antimicrosomal (<9) IU/mL RPR (Nonreactive) Herpes Virus Source HSV I DNA PCR HSV II DNA PCR Herpesvirus 6 Source Cancelled HHV-6 DNA (PCR) Cancelled Miscellaneous Test 04/04/21 04/04/21 04/04/21 Range/Units 14:10 14:10 10:35 WBC (4.8-10.8) K/uL RBC (4.7-6.1) M/uL Hgb (14.0-18.0) g/dL Hct (42-52) % MCV (80-100) fL MCH (25-34) pg MCHC (32-36) g/dL RDW Std Deviation (36.4-46.3) fL RDW Coeff of Dayanna (11.5-14.5) % Plt Count (130-400) K/uL MPV (7.4-10.4) fL Immature Gran % (Auto) % Neut % (Auto) % Lymph % (Auto) % Kay % (Auto) % Eos % (Auto) % Baso % (Auto) % Neut # (Auto) (1.4-6.5) K/uL Lymph # (Auto) (1.2-3.4) K/uL Kay # (Auto) (0.11-0.59) K/uL Eos # (Auto) (0-0.5) K/uL Baso # (Auto) (0-0.2) K/uL Immature Gran # (Auto) (0.00-0.02) K/uL Sodium (136-145) mmol/L Potassium (3.5-5.1) mmol/L Chloride (98-107) mmol/L Carbon Dioxide (21-32) mmol/L Anion Gap (3-11) BUN (7-18) mg/dl Creatinine (0.6-1.4) mg/dl Est Cr Clr Drug Dosing ml/min Est GFR ( Amer) ml/min Est GFR (Non-Af Amer) ml/min BUN/Creatinine Ratio (10-20) Glucose (70-99) mg/dl Calcium (8.5-10.1) mg/dl Total Bilirubin (0.2-1) mg/dl AST (15-37) U/L ALT (12-78) U/L Alkaline Phosphatase (45-117) U/L Troponin I (0-0.045) ng/ml Total Protein (6.4-8.2) gm/dl Albumin (3.4-5.0) gm/dl Globulin (2.5-4.0) gm/dl Albumin/Globulin Ratio (0.9-2) Fluid Comment CSF Appearance CSF Color Xanthrochromic CSF WBC (0-5) /uL CSF RBC (0-) /uL CSF Cell Count Tube # CSF Chemistry Tube # CSF Glucose (40-70) mg/dl CSF Lactate (0.6-2.2) mmol/L CSF Total Protein CSF VDRL CSF Lyme IgG (Immblot) CSF Lyme IgG Bands Det CSF Lyme IgM (Immblot) CSF Lyme IgM Bands Det CSF C.neoform/gat PCR (NotDetected) CSF CMV DNA (PCR) (NotDetected) CSF Enterovirus (PCR) (NotDetected) CSF E. coli K1 (PCR) (NotDetected) CSF H. influenzae (PCR) (NotDetected) CSF HSV I (PCR) (NotDetected) CSF HSV II (PCR) (NotDetected) CSF HHV 6 (PCR) (NotDetected) CSF L.monocytogenes PCR (NotDetected) CSF N. meningitidis PCR (NotDetected) CSF Parechovirus (PCR) (NotDetected) CSF S. agalactiae (PCR) (NotDetected) CSF S. pneumoniae (PCR) (NotDetected) CSF VZV DNA (PCR) (NotDetected) CSF West Nile IgM Ab Thyroid Antimicrosomal <1 (<9) IU/mL RPR (Nonreactive) Herpes Virus Source Cancelled HSV I DNA PCR Cancelled HSV II DNA PCR Cancelled Herpesvirus 6 Source Cancelled HHV-6 DNA (PCR) Cancelled Miscellaneous Test Pending 04/03/21 Range/Units 10:42 WBC (4.8-10.8) K/uL RBC (4.7-6.1) M/uL Hgb (14.0-18.0) g/dL Hct (42-52) % MCV (80-100) fL MCH (25-34) pg MCHC (32-36) g/dL RDW Std Deviation (36.4-46.3) fL RDW Coeff of Dayanna (11.5-14.5) % Plt Count (130-400) K/uL MPV (7.4-10.4) fL Immature Gran % (Auto) % Neut % (Auto) % Lymph % (Auto) % Kay % (Auto) % Eos % (Auto) % Baso % (Auto) % Neut # (Auto) (1.4-6.5) K/uL Lymph # (Auto) (1.2-3.4) K/uL Kay # (Auto) (0.11-0.59) K/uL Eos # (Auto) (0-0.5) K/uL Baso # (Auto) (0-0.2) K/uL Immature Gran # (Auto) (0.00-0.02) K/uL Sodium (136-145) mmol/L Potassium (3.5-5.1) mmol/L Chloride (98-107) mmol/L Carbon Dioxide (21-32) mmol/L Anion Gap (3-11) BUN (7-18) mg/dl Creatinine (0.6-1.4) mg/dl Est Cr Clr Drug Dosing ml/min Est GFR ( Amer) ml/min Est GFR (Non-Af Amer) ml/min BUN/Creatinine Ratio (10-20) Glucose (70-99) mg/dl Calcium (8.5-10.1) mg/dl Total Bilirubin (0.2-1) mg/dl AST (15-37) U/L ALT (12-78) U/L Alkaline Phosphatase (45-117) U/L Troponin I (0-0.045) ng/ml Total Protein (6.4-8.2) gm/dl Albumin (3.4-5.0) gm/dl Globulin (2.5-4.0) gm/dl Albumin/Globulin Ratio (0.9-2) Fluid Comment CSF Appearance CSF Color Xanthrochromic CSF WBC (0-5) /uL CSF RBC (0-) /uL CSF Cell Count Tube # CSF Chemistry Tube # CSF Glucose (40-70) mg/dl CSF Lactate (0.6-2.2) mmol/L CSF Total Protein CSF VDRL CSF Lyme IgG (Immblot) CSF Lyme IgG Bands Det CSF Lyme IgM (Immblot) CSF Lyme IgM Bands Det CSF C.neoform/gat PCR (NotDetected) CSF CMV DNA (PCR) (NotDetected) CSF Enterovirus (PCR) (NotDetected) CSF E. coli K1 (PCR) (NotDetected) CSF H. influenzae (PCR) (NotDetected) CSF HSV I (PCR) (NotDetected) CSF HSV II (PCR) (NotDetected) CSF HHV 6 (PCR) (NotDetected) CSF L.monocytogenes PCR (NotDetected) CSF N. meningitidis PCR (NotDetected) CSF Parechovirus (PCR) (NotDetected) CSF S. agalactiae (PCR) (NotDetected) CSF S. pneumoniae (PCR) (NotDetected) CSF VZV DNA (PCR) (NotDetected) CSF West Nile IgM Ab Thyroid Antimicrosomal (<9) IU/mL RPR Nonreactive (Nonreactive) Herpes Virus Source HSV I DNA PCR HSV II DNA PCR Herpesvirus 6 Source HHV-6 DNA (PCR) Miscellaneous Test Diagnostic Findings Abdomen/Pelvis CT 04/04/21 18:27 CT abd pelvis oral and IV con CLINICAL HISTORY: r/o mass. Clinical suspicion for malignancy that could cause altered mental status. COMPARISON STUDY: None. TECHNIQUE: A dose lowering technique was utilized adhering to the principles of ALARA. CT DOSE: 449.44 mGy.cm FINDINGS: Lower chest: No large infiltrates or consolidative lesions are seen. Mild pericardial effusion is demonstrated. Severe calcifications of aortic valve are seen. Liver: The contrast-enhanced liver is normal in size, contour, and attenuation. There is no intrahepatic biliary ductal dilatation. The hepatic veins and portal veins are patent. Gallbladder: Unremarkable. Spleen: Normal in size and attenuation. Pancreas: Unremarkable. Adrenal glands: Right adrenal gland is unremarkable. Nodularity of the left adrenal gland is seen. Kidneys: There is symmetric renal cortical enhancement. The kidneys are normal in size without hydronephrosis. Punctate nonobstructive calculi are seen within inferior aspect of the left renal pelvis. Small parapelvic cysts are seen bilaterally. Bowel: Minimal hiatal hernia is seen. Bowel loops are nondilated. Appendix is not well seen. Oral contrast column reached mid-distal aspect of the small bowel and not seen within colonic loops. Mild concentric thickening of the rectal wall is seen. Peritoneum: There is no intraperitoneal free air or abdominal ascites. Mild diffuse mesenteric edema is seen. Overall evaluation is limited due to motion artifact and limited amount of intra-abdominal fat. Vasculature: Extensive partially calcified plaques are seen within the aortic wall. Focal area of mild ectasia of the distal abdominal aorta is seen measuring 3.1 cm in diameter and shows large noncalcified plaque within its wall. Evaluation of aorta is limited on this nondedicated exam. Adenopathy: None. Pelvic viscera: Urinary bladder is fluid-filled with diffuse thickening of its wall. Prostate gland is prominent with dystrophic calcifications within its parenchyma. Skeletal structures: Osseous structures are diffusely demineralized with more fluid appearance of the bone marrow attenuation. Avascular necrosis is seen within left femoral head. IMPRESSION: 1. Mild pericardial effusion. 2. Mild diffuse mesenteric edema. Please correlate above-mentioned findings with edematous state. 3. Questionable thickening of the rectal wall which might represent proctitis or related to the underdistention. 4. Avascular necrosis within left femoral head. 5. Nonobstructive nephrolithiasis on the left. 6. Questionable diffuse thickening of urinary bladder wall which might be seen in cystitis. Please correlate above-mentioned findings with prior history. 7. Mild hiatal hernia. ACT 112: Negative or not required by law. The above report was generated using voice recognition software. It may contain grammatical, syntax or spelling errors. Electronically signed by: Monika Germain DO 04/05/2021 10:[address] 04/05/21 13:[address] WITH CONTRAST CT DOSE: 275.74 mGy.cm HISTORY: Acute shortness of breath r/o lung ca TECHNIQUE: Multiaxial CT images of the chest were performed following the IV administration of 100 cc of Optiray. A dose lowering technique was utilized adhering to the principles of ALARA. COMPARISON: CT abdomen and pelvis of same day, chest radiograph 03/30/2021 FINDINGS: Unremarkable thyroid. No adenopathy. Heart is normal in size. Trace pericardial effusion. Extensive coronary artery calcifications. Dilation of the ascending thoracic aorta, 4.5 x 4.3 cm with mild to moderate atherosclerotic plaque. No dissection. Coarse calcifications of the aortic valve leaflets. Mild descending thoracic aortic tortuosity. The opacified pulmonary artery is unremarkable. No pneumothorax, pleural effusion, airspace consolidation or overt pulmonary edema. Mild subsegmental bibasilar densities are suggestive of atelectasis/scarring. There are no suspicious pulmonary nodules or masses. The central airways are pa tent. There is a small amount of pneumobilia within the left hepatic lobe. Unremarkable soft tissues. There is no acute fracture or suspicious bone lesion identified. Degenerative changes of the spine and shoulders. IMPRESSION: 1. No acute intrathoracic abnormality. 2. 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 3. Additional findings as above. ACT 112: Negative or not required by law. Electronically signed by: Duane Mitchell M.D. 04/05/2021 3:07 PM PG Care Time/CCT Total # of Minutes Spent Total Time Spent with Patient: Total time spent is greater than 50% in coordination of care (as documented) at patient's floor/unit and/or counseling patient: Coding Level of Care Code 31727 Subseq Hosp Care Lvl 3 Diagnoses Paranoia (psychosis) F22 Hyperosmolality and hypernatremia E87.0 Sleep apnea G47.30 Hyperlipidemia E78.2 Hyperlipidemia type: mixed hyperlipidemia HTN (hypertension) I10 Hypertension type: essential hypertension Alcohol use Z72.89 Aortic stenosis I35.0 Cardiac valve disease etiology: etiology unspecified COVID-19 U07.1 Situational stress F43.9 OCD (obsessive compulsive disorder) F42.9 DVT prophylaxis Z29.9 (1) Aortic stenosis Cardiac valve disease etiology: etiology unspecified Qualified Code(s): I35.0 - Nonrheumatic aortic (valve) stenosis (2) Hyperlipidemia Hyperlipidemia type: mixed hyperlipidemia Qualified Code(s): E78.2 - Mixed hyperlipidemia (3) HTN (hypertension) Hypertension type: essential hypertension Qualified Code(s): I10 - Essential (primary) hypertension
--- NOTE | 2021-04-05 13:46 | Neurology Progress Note ---
Date of Service April 05, 2021 Assessment & Plan (1) Alcohol use: (2) Obsessive compulsive disorder: (3) Acute paranoia: Hamzah Gonzalez is a 75 yo man w/ PMH of HTN, HLD, h/o depression, severe DIAZ on CPAP, h/o COVID in September to October 2020, chronic LBP/lumbar radiculopathy, h/o alcohol use disorder and h/o brachial plexopathy whom neurology is consulted on for ongoing chronic confusion/paranoia/subacute OCD symptoms. Work-up so far: - CBC: 7.37/14.1 with MCV 84.1/117 (low) - Current BMP WNL with mildly elevated Cl 113 and GFR 75.5, Ca/Phos WNL, LFTs WNL, ammonia 14, albumin low at 2.8, B12 842, folate>20, TSH WNL, thiamine pending, UA no infection - CSF studies showed 1 WBC, 4 RBCs, 52 glucose, 117.9 protein (elevated) CSF biofire negative, pending: RT-QUIC to r/o CJD, autoimmune encephalitis panel at [place], CSF VDRL - UDS positive for benzos (is prescribed this at home) - RPR non-reactive, Lyme negative, anti-TPO antibodies negative - routine EEG pending - MRI brain independently reviewed and shows minimal SPID with no significant atrophy or prior stroke noted, no microhemorrhages, no cortical ribbon consistent with CJD present - CT A/P: showed mild pericardial effusion, mild diffuse mesenteric edema, ?proctitis, avascular necrosis of left femoral head, ?cystitis with diffuse bladder wall thickening, mild hiatal hernia - Cervical spine x-ray: showed moderate to severe multilevel facet arthrosis and degenerative disc disease most pronounced at C6-C7 - prior mini-cognitive testing in April 2020: scored 4 out of 5 # Subacute confusion a/w paranoia and OCD: - f/u CSF results for RT-QUIC and autoimmune encephalitis panel (will take se veral weeks to get back) - routine EEG pending to r/o NCSE - thiamine 200mg IV daily x 4 more days, then resume 200mg PO daily - f/u pending serum studies (thiamine) - defer to psychiatry for medication management of symptoms - would complete workup with CT chest to r/o lung cancer (if he will tolerate it) - if no organic cause found, would treat as primary psychiatric illness - would work on improving sleep quality and ensure that he has his CPAP here as this could be the main cause of paranoia/anxiety. Could consider doxepin to help with insomnia and anxiety (would avoid benzos and anti-psychotics given Beers criteria and apparent mild cognitive impairment seen on memory screening even last summer). - recommend neurology follow up in 4-6 weeks with BONNIE [place], to follow up results of CSF testing (can be a phone call or telehealth visit) Thank you for this interesting consult. Plan of care discussed with primary team. Please call or text with questions. Neurology will sign off and follow peripherally at this time. (4) Severe obstructive sleep apnea: Admission and Anticipated Discharge Date Admission Date: March 30, 2021 Subjective Had increased BMs overnight after oral contrast for CT A/P. Feels like he is otherwise at his baseline with no worsening or progression of symptoms since yesterday. Discussed results of neurological testing so far did not show any signs of infection or vitamin deficiency. Autoimmune panel will take several weeks to get back though. Review of Systems Review of Systems: Unobtainable due to cognitive status Results & Data ([facility]) Vital Signs (Past 12 Hours) Vital Signs Temp Pulse Resp BP Pulse Ox 04/05/21 07:11 36.7 C 71 16 147/85 H 98 Exam (Neuro) Physical Exam: General Exam: GEN: NAD, sitting in bed. HEENT: No conjunctival injection, no rhinorrhea. CV: RRR, no peripheral edema PULM: Nonlabored respirations on room air. Neuro Exam: MS: Awake and Alert. Oriented to person, place, and year but not month. Speech fluent and appropriate without dysarthria or paraphasic errors. Language intact including naming, comprehension, repetition. Cognition and memory mildly impaired. Attention intact. No neglect. CN: Visual jenkins full. No extinction to double simultaneous stimuli. EOMI without nystagmus. Facial sensation intact to LT. Facial muscles full and symmetric. Hearing intact to conversation. Shoulder shrug normal. Tongue midlin e. MOTOR: Normal bulk and tone. No pronator drift. BUE strength 5/5 at deltoids, biceps, triceps, wrist flexors and extensors, and hand grasp bilaterally. BLE strength 5/5 at iliopsoas, hamstrings, quadriceps, tibialis anterior, and gastrocnemius bilaterally. REFLEXES: 2+ at biceps, triceps, brachioradialis, 1+ patella and absent Achilles bilaterally. Flexor plantar responses bilaterally. SENSORY: Intact to LT without extinction to double simultaneous stimuli. Vibration intact throughout though mildly diminished in BLEs up to the knees. COORDINATION: No dysmetria or ataxia on [id number] bilaterally. Normal [place] bilaterally. Mild high frequency tremor at rest that is distractible. GAIT: deferred given physical status/fall risk PG Care Time/CCT Total # of Minutes Spent Total Time Spent with Patient: Total time spent is greater than 50% in coordination of care (as documented) at patient's floor/unit and/or counseling patient: Coding Level of Care Code 66883 Subseq Hosp Care Lvl 3 Diagnoses Alcohol use Z72.89 Obsessive compulsive disorder F42.9 Obsessive-compulsive disorder type: unspecified Acute paranoia F22 Severe obstructive sleep apnea G47.33 (1) Obsessive compulsive disorder Obsessive-compulsive disorder type: unspecified Qualified Code(s): F42.9 - Obsessive-compulsive disorder, unspecified
[2021-04-05] MEDS ORDERED: LORazepam 0.5 MG TAB PO SCH (14:00)
[2021-04-05] MEDS ORDERED: clonazePAM 0.5 MG TAB PO STA (14:28)
--- NOTE | 2021-04-05 14:31 | Communication Note ---
Date of Service: April 05, 2021 Psychiatry has stopped by to see patient, patient was in the middle of EEG. Reviewing the chart shows multiple labs coming back normal, pointing more toward s a psychiatric cause for the patient's symptoms. Neurology work-up negative up to this point. Patient at this time remains unable to care for himself in the community. Will initiate psychiatric treatment at this time while we search for bed placement. Recommendations Start Prozac 10 mg p.o. every morning, can increase to 20 mg after 2 days Start Klonopin 0.5 mg twice daily
[2021-04-05] MEDS ORDERED: OPTIRAY 320 150ml IV ONE (14:50)
--- NOTE | 2021-04-05 15:08 | CT Scan Report ---
CHEST CT WITH CONTRAST CT DOSE: 275.74 mGy.cm HISTORY: Acute shortness of breath r/o lung ca TECHNIQUE: Multiaxial CT images of the chest were performed following the IV administration of 100 cc of Optiray. A dose lowering technique was utilized adhering to the principles of ALARA. COMPARISON: CT abdomen and pelvis of same day, chest radiograph 03/30/2021 FINDINGS: Unremarkable thyroid. No adenopathy. Heart is normal in size. Trace pericardial effusion. Extensive c oronary artery calcifications. Dilation of the ascending thoracic aorta, 4.5 x 4.3 cm with mild to mo derate atherosclerotic plaque. No dissection. Coarse calcifications of the aortic valve leaflets. Mil d descending thoracic aortic tortuosity. The opacified pulmonary artery is unremarkable. No pneumotho rax, pleural effusion, airspace consolidation or overt pulmonary edema. Mild subsegmental bibasilar d ensities are suggestive of atelectasis/scarring. There are no suspicious pulmonary nodules or masses. The central airways are patent. There is a small amount of pneumobilia within the left hepatic lobe. Unremarkable soft tissues. There is no acute fracture or suspicious bone lesion identified. Degenerative changes of the spine and lucy ulders. IMPRESSION: 1. No acute intrathoracic abnormality. 2. 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 3. Additional findings as above. ACT 112: Negative or not required by law. Electronically signed by: Duane Mitchell M.D. 04/05/2021 3:07 PM
--- NOTE | 2021-04-05 15:30 | Electroencephalogram ---
EEG Procedure Note Date of Service April 05, 2021 Start / End Times Start Time: 1:34pm End Time: 1:54pm Referring Physician Meron Varghese History AMS/paranoia Home Medication List Medication Instructions Recorded Confirmed Type lisinopril 20 mg tablet 20 mg PO QAM #90 tab 09/21/20 03/30/21 Rx sertraline 100 mg tablet 100 mg PO BID #180 tab 02/09/21 03/30/21 Rx clonazepam 0.5 mg tablet See Rx Instructions PO .COMPLEX 03/06/21 03/30/21 Rx #60 tab rosuvastatin 5 mg tablet 5 mg PO QAM #90 tab 03/22/21 03/30/21 Rx Inpatient Medication List Fluoxetine HCl (Fluoxetine Hcl 10 Mg Cap) 10 mg PO QAM [facility] Stop: 05/05/21 09:54 Last Admin: 04/05/21 11:06 Dose: 10 mg Documented by: [id number] Heparin Sodium (Porcine) (Heparin Sod 5,000 Unit/0.5 Ml Vial) 5,000 units SQ Q8 [facility] Stop: 05/03/21 13:59 Last Admin: 04/04/21 06:30 Dose: 5,000 units Documented by: [id number] Admin: 04/03/21 22:03 Dose: 5,000 units Documented by: [id number] Admin: 04/03/21 13:47 Dose: 5,000 units Documented by: [id number] Thiamine HCl 200 mg/ Sodium (Chloride) 52 mls @ 210 mls/hr IV DAILY [facility] Stop: 04/08/21 09:15 Last Infusion: 04/05/21 11:21 Dose: 0 mls/hr Documented by: [id number] Admin: 04/05/21 11:06 Dose: 210 mls/hr Documented by: [id number] Lidocaine (Lidocaine 5% 1 Patch) 1 patch TD QAM [facility] Stop: 05/04/21 13:19 Last Admin: 04/05/21 08:17 Dose: Not Given Documented by: [id number] Admin: 04/04/21 14:55 Dose: 1 patch Documented by: [id number] Lisinopril (Lisinopril 20 Mg Tab) 20 mg PO QAM [facility] Stop: 04/30/21 08:59 Last Admin: 04/05/21 08:18 Dose: 20 mg Documented by: [id number] Admin: 04/04/21 08:48 Dose: 20 mg Documented by: [id number] Admin: 04/03/21 07:39 Dose: 20 mg Documented by: [id number] Admin: 04/02/21 11:11 Dose: 20 mg Documented by: [id number] Admin: 04/01/21 08:35 Dose: 20 mg Documented by: [id number] Admin: 03/31/21 09:49 Dose: 20 mg Documented by: [id number] Miscellaneous (Remove Lidoderm Patch) 1 ea N/A DAILY@2100 [facility] Stop: 05/04/21 20:59 Last Admin: 04/04/21 23:45 Dose: Not Given Documented by: [id number] Potassium Chloride (Potassium Chloride Crtab 20 Meq Tabcr) [address] [facility] Stop: 05/04/21 08:59 Last Admin: 04/05/21 08:22 Dose: 20 meq Documented by: [id number] Admin: 04/04/21 08:49 Dose: 20 meq Documented by: [id number] Rosuvastatin Calcium (Rosuvastatin Calcium 5 Mg Tab) [address] [facility] Stop: 04/30/21 08:59 Last Admin: 04/05/21 11:06 Dose: 5 mg Documented by: [id number] Admin: 04/04/21 08:49 Dose: 5 mg Documented by: [id number] Admin: 04/03/21 07:40 Dose: 5 mg Documented by: [id number] Admin: 04/02/21 11:12 Dose: 5 mg Documented by: [id number] Admin: 04/01/21 08:35 Dose: 5 mg Documented by: [id number] Admin: 03/31/21 09:49 Dose: 5 mg Documented by: [id number] Thiamine HCl (Thiamine Hcl 100 Mg Tab) [address] [facility] Stop: 05/04/21 08:59 Last Admin: 04/04/21 08:49 Dose: 100 mg Documented by: [id number] Discontinued Medications Amlodipine Besylate (Amlodipine Besylate 5 Mg Tab) 5 mg PO NOW ONE Stop: 04/04/21 08:16 Last Admin: 04/04/21 09:23 Dose: Not Given Documented by: [id number] Clonazepam (Clonazepam 0.5 Mg Tab) 0.5 mg PO QPM [facility] Stop: 04/29/21 20:59 Last Admin: 03/30/21 21:23 Dose: 0.5 mg Documented by: [id number] Clonazepam (Clonazepam 0.25 Mg Tab) 0.25 mg PO QAM [facility] Stop: 04/30/21 08:59 Last Admin: 03/31/21 09:49 Dose: 0.25 mg Documented by: [id number] Clonazepam (Clonazepam 0.25 Mg Tab) 0.25 mg PO QPM [facility] Stop: 04/01/21 21:01 Last Admin: 04/01/21 21:13 Dose: 0.25 mg Documented by: [id number] Admin: 03/31/21 20:17 Dose: 0.25 mg Documented by: [id number] Clonazepam (Clonazepam 0.5 Mg Tab) 0.5 mg PO BID STA Stop: 04/05/21 14:29 Last Admin: 04/05/21 15:14 Dose: 0.5 mg Documented by: [id number] Fluoxetine HCl (Flu[facility] Hcl 20 Mg Cap) [facility] Stop: 05/05/21 09:44 Last Admin: 04/05/21 12:45 Dose: Not Given Documented by: [id number] Hydralazine HCl (Hydralazine Hcl 20 Mg/Ml Vial) 10 mg IV NOW STA Stop: 04/04/21 06:28 Last Admin: 04/04/21 08:48 Dose: 10 mg Documented by: [id number] Hydralazine HCl (Hydralazine Hcl 20 Mg/Ml Vial) Confirm Administered Dose 20 mg .ROUTE .STK-MED [facility] Stop: 04/04/21 08:43 Last Admin: 04/04/21 08:44 Dose: Not Given Documented by: [id number] Sodium Chloride (Nss 1000ml) 1,000 mls @ 999 mls/hr IV .Q1H1M [facility] Stop: 03/30/21 16:45 Last Infusion: 03/30/21 18:14 Dose: 0 mls/hr Documented by: [id number] Admin: 03/30/21 16:29 Dose: 999 mls/hr Documented by: [id number] Thiamine HCl 200 mg/ Sodium (Chloride) 52 mls @ 208 mls/hr IV NOW STA Stop: 03/30/21 15:48 Last Infusion: 03/30/21 16:48 Dose: 0 mls/hr Documented by: [id number] Admin: 03/30/21 16:29 Dose: 208 mls/hr Documented by: [id number] Sodium Chloride (Nss 1000ml) 1,000 mls @ 999 mls/hr IV .Q1H1M ONE Stop: 03/30/21 17:28 Last Infusion: 03/30/21 17:56 Dose: 0 mls/hr Documented by: [id number] Admin: 03/30/21 16:59 Dose: 999 mls/hr Documented by: [id number] Dextrose (D5w) 1,000 mls @ 200 mls/hr IV .Q5H [facility] Stop: 04/29/21 19:48 Last Admin: 04/01/21 14:06 Dose: Not Given Documented by: [id number] Infusion: 04/01/21 11:00 Dose: 0 mls/hr Documented by: [id number] Admin: 04/01/21 08:00 Dose: 200 mls/hr Documented by: [id number] Infusion: 04/01/21 08:00 Dose: 200 mls/hr Documented by: [id number] Admin: 04/01/21 03:19 Dose: 200 mls/hr Documented by: [id number] Infusion: 04/01/21 03:19 Dose: 200 mls/hr Documented by: [id number] Admin: 03/31/21 22:25 Dose: 200 mls/hr Documented by: [id number] Infusion: 03/31/21 22:25 Dose: 200 mls/hr Documented by: [id number] Admin: 03/31/21 17:26 Dose: 200 mls/hr Documented by: [id number] Infusion: 03/31/21 17:22 Dose: 0 mls/hr Documented by: [id number] Admin: 03/31/21 12:14 Dose: 200 mls/hr Documented by: [id number] Infusion: 03/31/21 12:14 Dose: 200 mls/hr Documented by: [id number] Admin: 03/31/21 07:18 Dose: 200 mls/hr Documented by: [id number] Infusion: 03/31/21 06:46 Dose: 100 mls/hr Documented by: [id number] Admin: 03/30/21 20:46 Dose: 100 mls/hr Documented by: [id number] Thiamine HCl 200 mg/ Syringe 11 mls @ 2.2 mls/min IV 1100 ONE Stop: 04/04/21 11:04 Last Admin: 04/04/21 11:40 Dose: 2.2 mls/min Documented by: [id number] Thiamine HCl 50 mg/ Syringe 10 mls @ 2 mls/min IV TID [facility] Stop: 05/04/21 13:59 Last Admin: 04/04/21 14:55 Dose: 2 mls/min Documented by: [id number] Lorazepam (Ativan) 0.5 mg in 1 mls @ 1 mls/min IV NOW STA Stop: 04/04/21 10:31 Last Admin: 04/04/21 12:06 Dose: 1 mls/min Documented by: [id number] Ioversol (Optiray 320 150ml) 92 ml IV ONCE ONE Stop: 04/04/21 21:05 Last Admin: 04/04/21 21:05 Dose: 92 ml Documented by: [id number] Ioversol (Optiray 320 150ml) 100 ml IV ONCE ONE Stop: 04/05/21 14:51 Last Admin: 04/05/21 14:51 Dose: 100 ml Documented by: [id number] Lorazepam (Lorazepam 0.5 Mg Tab) 0.5 mg PO Q6H [facility] Stop: 05/05/21 13:59 Last Admin: 04/05/21 15:16 Dose: Not Given Documented by: [id number] Potassium Chloride (Potassium Chloride Crtab 20 Meq Tabcr) 20 meq PO TID [facility] Stop: 04/30/21 13:59 Last Admin: 04/03/21 07:39 Dose: 20 meq Documented by: [id number] Admin: 04/02/21 20:00 Dose: 20 meq Documented by: [id number] Admin: 04/02/21 16:03 Dose: 20 meq Documented by: [id number] Admin: 04/02/21 11:12 Dose: 20 meq Documented by: [id number] Admin: 04/01/21 21:13 Dose: 20 meq Documented by: [id number] Admin: 04/01/21 15:28 Dose: 20 meq Documented by: [id number] Admin: 04/01/21 08:34 Dose: 20 meq Documented by: [id number] Admin: 03/31/21 20:17 Dose: 20 meq Documented by: [id number] Admin: 03/31/21 15:54 Dose: 20 meq Documented by: [id number] Potassium Chloride (Potassium Chloride Crtab 20 Meq Tabcr) 40 meq PO NOW STA Stop: 03/31/21 12:32 Last Admin: 03/31/21 14:06 Dose: 40 meq Documented by: [id number] Sertraline HCl (Sertraline Hcl 100 Mg Tablet) 100 mg PO BID [facility] Stop: 04/29/21 20:59 Last Admin: 03/30/21 22:55 Dose: 100 mg Documented by: [id number] Tamsulosin HCl (Tamsulosin Hcl 0.4 Mg Cap) 0.4 mg PO NOW ONE Stop: 04/04/21 10:57 Last Admin: 04/04/21 11:40 Dose: 0.4 mg Documented by: [id number] Description This is a 21 electrode EEG with a single channel dedicated to limited EKG. The electrodes were placed in accordance with the International 10-20 system. History: AMS/paranoia Rx: fluoxetine Start/Stop: 1:34pm/1:54pm Attending reading: Ayse Mathews EEG Description: EEG background: Background was symmetric 8-11 Hz alpha rhythm. A well formed 9- 10 Hz posterior dominant rhythm was observed. The EEG is continuous. There is variability and reactivity present. Activation and reactivity: Photic stimulation performed without any abnormalities noted. No photic driving observed. Hyperventilation was not performed. Sleep: No sleep architecture noted. Epileptiform discharges: No epileptiform discharges were observed. Rhythmic and periodic patterns: None Seizures: None Impression: This was a normal awake EEG. No seizures or epileptiform discharges were seen. Clinical correlation required. [facility] Procedure Codes Indication for Procedure (1) OCD (obsessive compulsive disorder): (2) Sleep apnea: (3) Acute paranoia: Neurology Neurology: 72029 EEG include record awake & drowsy
[2021-04-05] MEDS ORDERED: PRAZOSIN HCL 1 MG CAP PO SCH (21:00)
[2021-04-05] MEDS ORDERED: OLANZAPINE 2.5 MG TAB PO SCH (21:00)
[2021-04-05] MEDS ORDERED: OLANZapine 5 MG TABLET PO SCH (21:00)
[2021-04-05] MEDS: QUEtiapine FUMARATE 100 MG TABLET PO SCH (21:13)
[2021-04-05] MEDS: TAMSULOSIN HCL 0.4 MG CAP PO SCH (21:13)
[2021-04-05] MEDS: HEPARIN SOD 5,000 UNIT/0.5 ML VIAL SQ SCH (21:15)
[2021-04-05 21:41] LABS: Appearance Urine Clear (Clear); Bilirubin Urine Negative (Negative); Blood Urine Negative (Negative); Color Urine Yellow; Glucose Urine UA Negative (Negative); Ketones Urine Negative (Negative); Leukocyte Esterase Urine Negative (Negative); Nitrite Urine Negative (Negative); Protein Urine Negative (Negative); Specific Gravity Urine 1.033 (1.000-1.030); Urobilinogen Urine Negative (Negative); pH Urine 6.5 (4.5-7.5)
[2021-04-06 06:00] LABS: Hematocrit (blood only) 39.5 % (42-52); Hemoglobin 13.3 g/dL (14.0-18.0); Mean Corpuscular Hemoglobin 28.4 pg (25-34); Mean Corpuscular Hgb Conc 33.7 g/dL (32-36); Mean Corpuscular Volume 84.4 fL (80-100); Mean Platelet Volume 9.9 fL (7.4-10.4); Platelet Count 122 K/uL (130-400); RDW Coefficient of Variation 14.5 % (11.5-14.5); RDW Standard Deviation 44.2 fL (36.4-46.3); Red Blood Count 4.68 M/uL (4.7-6.1); White Blood Count 6.46 K/uL (4.8-10.8)
[2021-04-06] MEDS: HEPARIN SOD 5,000 UNIT/0.5 ML VIAL SQ SCH ×3 (06:00→21:00)
[2021-04-06 08:15] LABS: Albumin Level 2.9 gm/dl (3.4-5.0); BUN Creatinine Ratio 18.3 (10-20); Bilirubin,Total 0.5 mg/dl (0.2-1); Calcium 9.9 mg/dl (8.5-10.1); Creatinine Clr Calc Pharmacy 69.2 ml/min; Est GFR (African American) 95.8 ml/min; Est GFR (Non-African American) 82.7 ml/min; Globulin 2.8 gm/dl (2.5-4.0); Potassium 4.1 mmol/L (3.5-5.1); Total Protein 5.7 gm/dl (6.4-8.2)
--- NOTE | 2021-04-06 08:52 | Hospitalist Progress Note ---
Date of Service April 06, 2021 Assessment & Plan (1) Paranoia (psychosis): Patient with new severe paranoia and psychosis, tells me patient has no previous history of this prior to Covid infection September 2020. Previous work-up included MRI on 03/08 that was negative for cerebral or cerebro vascular findings, 18 mm left parotid gland nodule found incidentally Has not gotten Zoloft while inpatient (per prior psych note, ok) Tapered off prior medications Checked B12/folate/TSH/RPR/Lyme/Ammonia to r/o other metabolic causes: -- B12 wnl 842. Folate wnl >20. TSH wnl 1.880. RPR pending. Lyme negative. Ammonia wnl 14 B1 pending (and started supplementation for possible Wernecke's) Consulted Neurology -- appreciate input s/p LP on 04/04 with elevated protein, normal glucose, no elevation in WBC/RBC. Viral and encephalitis panel pending anti-TPO negative EEG pending for today CTAP: * mild pericardial effusion, ?mild diffuse mesenteric edema, rectal wall thickening may represent proctitis or underdistention. 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 Mild hiatal hernia. * Recs for CT chest to r/o lung CA per Neuro if patient able to tolerate --> NO MASSES/suspicion for cancer Discussed with psych liaison morning of 04/04 regarding possible benzo for catatonic state to see if any improvement --> held off initially and ordered further testing first as below but did get 1mg on 04/04 with improvement per (none per patient) however has been more alert/conversational Discussed with psych 04/05 and was going to order 0.5mg Q6H and can titrate as needed (initial recs for 1mg Q6H but will monitor on lower dose to avoid worsening confusion), but after discussion with Neurology, would prefer to utilize prazosin 1mg HS and titrate as needed (utlized seroquel 100mg last evening per discussion with psych as was going to order 5mg zyprexa but this is equiv to 200mg Seroquel) --> given 100mg Seroquel last evening (also got a dose of Klonopin) in addition to his Prozac 10mg (started 10mg daily 04/05 and continue today and increase to 20mg tomorrow as plan unless otherwise rec'd this afternoon by psych) Work-up has been negative for infectious/inflammatory/metabolic causes at this time and would recommend continued search for inpatient psychiatric treatment for paranoia/OCD/acute stress disorder/depression with risk to self Asked respiratory and nursing to STRONGLY encourage use of CPAP tonight as patient with SEVERE DIAZ and insomnia, sleeping 1-2 hours daily and could also be main contributor to his paranoia/anxiety as well -- continues to REFUSE Continue to monitor (2) Hyperosmolality and hypernatremia: Likely secondary to p.o. intake from [facility]ia [facility]. Provided IVF, stopped 5.29. Na 141. K 4.1 and prior decreased PO KCl to once daily -- will d/c today BMP in AM (3) Sleep apnea: SEVERE Ordered CPAP last night -- patient refused again Asked respiratory therapy to attempt again today given patient with poor sleep and reported 1-2 hours over last several months --> CONTINUE TO ENCOURAGE NURSING TO HAVE PATIENT UTILIZE. AT LEAST 2L HS IF UNABLE TO TOLERATE MASK TO ENCOURAGE SLEEP (4) Hyperlipidemia: Crestor 5 mg daily (5) HTN (hypertension): Continue lisinopril 20mg daily --> HOLDING FOR BP 99/70 THIS MORNING Hydralazine prn Continue to monitor (6) Alcohol use: suspected, however last drink reported October -- continue thiamine given improvement in cognition For total 5 doses B1 level pending (7) Aortic stenosis: Noted Follows with Dr. Cohen Volume status acceptable (8) COVID-19: Prior infection September - October 2020 ?contributing to current issue -- see above also with several friends ill with COVID, one passed. One home on comfort. Ano ther friend with fallen and issues with hip. Stress about taxes/isolation/etc per and believe food contaminated with bugs (9) Situational stress: (10) OCD (obsessive compulsive disorder): suspected prozac as above (11) DVT prophylaxis: PT/OT consults pending DVT Proph SCDs Heparin SQ Dispo: continued inpatient stay as psych will attempt bed search today given medical work-up negative to date. Patient may need 302 if not agreeable to inpatient treatment. Discuss with psych this morning -- to see this afternoon Admission and Anticipated Discharge Date Admission Date: March 30, 2021 Supervising Physician Co-Signing Physician Notes Patient was seen and examined independently I discussed the case with Meron Varghese PAC I reviewed pertinent past medical social family history and also the plan of care and agree with the plan of care. Patient was seen he was less emotionally labile he was slightly sedate he no focal complaints patient will have the remainder of his work-up that is pending followed by neurology will be transferred to likely geriatric psychiatric facility when bed is available recommend continuing Seroquel at night attempting to consider some melatonin also Any exceptions will be noted below Subjective Patient evaluated this afternoon. Was sleepy and less alert this morning. More alert around lunch and up in bed eating his lunch. Had refused CPAP again last night and discussed DIAZ and that he really should be using this to get better sleep as this may be compounding his current issue. States he feels worse today but in regards to diarrhea that he is fixated on, however only one loose stool reported. Offered imodium but patient states "not oksana will help this". Will order if patient agreeable. Discussed EEG negative from yesterday afternoon. States no noticable difference with the seroquel or prozac yesterday but discussed this will need increased to effective dose for the prozac and will discuss with psych about the seroquel. He does not seem interested in inpatient psych treatment but discussed this is likely the plan given depression and risk to self. Psych to further discuss today. No fever, chills, chest pain, shortness of breath, abdominal pain, nausea, or vomiting at this time. Review of Systems Review of Systems: All systems reviewed & are unremarkable except as noted in HPI & below Physical Exam Constitutional: WD/WN, vitals as above comfortable; no acute distress Eyes: + anicteric sclerae (L eye bloodshot (less)) and PERRL ENMT: Ears: no hearing impairment Nose: no external nose abnormality Neck: trachea midline Respiratory: normal respiratory effort, lungs clear to auscultation Cardiovascular: Rate/Rhythm: regular rate and regular rhythm Heart Sounds: + murmur (3/6 harsh holosytolic murmur) Extremities: no edema Gastrointestinal (Abdomen): normal bowel sounds, soft, nontender, no hepatosplenomegaly Musculoskeletal: no cyanosis or clubbing, extremities motor strength 5/5 Neurologic: PERRL, EOMI, accommodation nl, no face palsy, no dysarthria Motor/Sensory: + tremor (less) Psychiatric: Orientation: alert, oriented to person, oriented to place and oriented to time (2020, April/summer, hospital [place]) Affect: + flat affect Suicidal Thoughts: denies suicidal intent; + reports suicidal thoughts (states "I can't go on like this anymore") Hallucinations: no auditory hallucinations and no visual hallucinations Results & Data Results & Data ([facility]) Vital Signs (Past 12 Hours) Vital Signs Temp Pulse Resp BP Pulse Ox 04/06/21 07:05 36.6 C 67 16 99/70 L 97 04/05/21 23:03 36.6 C 69 18 131/81 100 Laboratory Results 04/06/21 04/06/21 04/05/21 Range/Units 05:27 05:23 21:28 WBC 6.46 (4.8-10.8) K/uL RBC 4.68 L (4.7-6.1) M/uL Hgb 13.3 L (14.0-18.0) g/dL Hct 39.5 L (42-52) % MCV 84.4 (80-100) fL MCH 28.4 (25-34) pg MCHC 33.7 (32-36) g/dL RDW Std Deviation 44.2 (36.4-46.3) fL RDW Coeff of Dayanna 14.5 (11.5-14.5) % Plt Count 122 L (130-400) K/uL MPV 9.9 (7.4-10.4) fL Sodium 141 (136-145) mmol/L Potassium 4.1 (3.5-5.1) mmol/L Chloride 110 H (98-107) mmol/L Carbon Dioxide 26 (21-32) mmol/L Anion Gap 5.0 (3-11) BUN 17 (7-18) mg/dl Creatinine 0.90 (0.6-1.4) mg/dl Est Cr Clr Drug Dosing 69.2 ml/min Est GFR ( Amer) 95.8 ml/min Est GFR (Non-Af Amer) 82.7 ml/min BUN/Creatinine Ratio 18.3 (10-20) Glucose 77 (70-99) mg/dl Calcium 9.9 (8.5-10.1) mg/dl Total Bilirubin 0.5 (0.2-1) mg/dl AST 30 (15-37) U/L ALT 51 (12-78) U/L Alkaline Phosphatase 66 (45-117) U/L Troponin I (0-0.045) ng/ml Total Protein 5.7 L (6.4-8.2) gm/dl Albumin 2.9 L (3.4-5.0) gm/dl Globulin 2.8 (2.5-4.0) gm/dl Albumin/Globulin Ratio 1.0 (0.9-2) Urine Color Yellow Urine Appearance Clear (Clear) Urine pH 6.5 (4.5-7.5) Ur Specific [place] 1.033 H (1.000-1.030) Urine Protein Negative (Negative) Urine Glucose (UA) Negative (Negative) Urine Ketones Negative (Negative) Urine Blood Negative (Negative) Urine Nitrite Negative (Negative) Urine Bilirubin Negative (Negative) Urine Urobilinogen Negative (Negative) Ur Leukocyte Esterase Negative (Negative) Thyroid Antimicrosomal (<9) IU/mL Herpesvirus 6 Source HHV-6 DNA (PCR) Miscellaneous Test 04/05/21 04/04/21 04/04/21 Range/Units 11:27 14:43 10:35 WBC (4.8-10.8) K/uL RBC (4.7-6.1) M/uL Hgb (14.0-18.0) g/dL Hct (42-52) % MCV (80-100) fL MCH (25-34) pg MCHC (32-36) g/dL RDW Std Deviation (36.4-46.3) fL RDW Coeff of Dayanna (11.5-14.5) % Plt Count (130-400) K/uL MPV (7.4-10.4) fL Sodium (136-145) mmol/L Potassium (3.5-5.1) mmol/L Chloride (98-107) mmol/L Carbon Dioxide (21-32) mmol/L Anion Gap (3-11) BUN (7-18) mg/dl Creatinine (0.6-1.4) mg/dl Est Cr Clr Drug Dosing ml/min Est GFR ( Amer) ml/min Est GFR (Non-Af Amer) ml/min BUN/Creatinine Ratio (10-20) Glucose (70-99) mg/dl Calcium (8.5-10.1) mg/dl Total Bilirubin (0.2-1) mg/dl AST (15-37) U/L ALT (12-78) U/L Alkaline Phosphatase (45-117) U/L Troponin I 0.016 (0-0.045) ng/ml Total Protein (6.4-8.2) gm/dl Albumin (3.4-5.0) gm/dl Globulin (2.5-4.0) gm/dl Albumin/Globulin Ratio (0.9-2) Urine Color Urine Appearance (Clear) Urine pH (4.5-7.5) Ur Specific [place] (1.000-1.030) Urine Protein (Negative) Urine Glucose (UA) (Negative) Urine Ketones (Negative) Urine Blood (Negative) Urine Nitrite (Negative) Urine Bilirubin (Negative) Urine Urobilinogen (Negative) Ur Leukocyte Esterase (Negative) Thyroid Antimicrosomal <1 (<9) IU/mL Herpesvirus 6 Source Cancelled HHV-6 DNA (PCR) Cancelled Miscellaneous Test Cancelled Diagnostic Findings Abdomen/Pelvis CT 04/04/21 18:27 CT abd pelvis oral and IV con CLINICAL HISTORY: r/o mass. Clinical suspicion for malignancy that could cause altered mental status. COMPARISON STUDY: None. TECHNIQUE: A dose lowering technique was utilized adhering to the principles of ALARA. CT DOSE: 449.44 mGy.cm FINDINGS: Lower chest: No large infiltrates or consolidative lesions are seen. Mild pericardial effusion is demonstrated. Severe calcifications of aortic valve are seen. Liver: The contrast-enhanced liver is normal in size, contour, and attenuation. There is no intrahepatic biliary ductal dilatation. The hepatic veins and portal veins are patent. Gallbladder: Unremarkable. Spleen: Normal in size and attenuation. Pancreas: Unremarkable. Adrenal glands: Right adrenal gland is unremarkable. Nodularity of the left adrenal gland is seen. Kidneys: There is symmetric renal cortical enhancement. The kidneys are normal in size without hydronephrosis. Punctate nonobstructive calculi are seen within inferior aspect of the left renal pelvis. Small parapelvic cysts are seen bilaterally. Bowel: Minimal hiatal hernia is seen. Bowel loops are nondilated. Appendix is not well seen. Oral contrast column reached mid-distal aspect of the small bowel and not seen within colonic loops. Mild concentric thickening of the rectal wall is seen. Peritoneum: There is no intraperitoneal free air or abdominal ascites. Mild diffuse mesenteric edema is seen. Overall evaluation is limited due to motion artifact and limited amount of intra-abdominal fat. Vasculature: Extensive partially calcified plaques are seen within the aortic wall. Focal area of mild ectasia of the distal abdominal aorta is seen measuring 3.1 cm in diameter and shows large noncalcified plaque within its wall. Evaluation of aorta is limited on this nondedicated exam. Adenopathy: None. Pelvic viscera: Urinary bladder is fluid-filled with diffuse thickening of its wall. Prostate gland is prominent with dystrophic calcifications within its parenchyma. Skeletal structures: Osseous structures are diffusely demineralized with more fluid appearance of the bone marrow attenuation. Avascular necrosis is seen within left femoral head. IMPRESSION: 1. Mild pericardial effusion. 2. Mild diffuse mesenteric edema. Please correlate above-mentioned findings with edematous state. 3. Questionable thickening of the rectal wall which might represent proctitis or related to the underdistention. 4. Avascular necrosis within left femoral head. 5. Nonobstructive nephrolithiasis on the left. 6. Questionable diffuse thickening of urinary bladder wall which might be seen in cystitis. Please correlate above-mentioned findings with prior history. 7. Mild hiatal hernia. ACT 112: Negative or not required by law. The above report was generated using voice recognition software. It may contain grammatical, syntax or spelling errors. Electronically signed by: Monika Germain DO 04/05/2021 10:[address] 04/05/21 13:[address] WITH CONTRAST CT DOSE: 275.74 mGy.cm HISTORY: Acute shortness of breath r/o lung ca TECHNIQUE: Multiaxial CT images of the chest were performed following the IV administration of 100 cc of Optiray. A dose lowering technique was utilized adhering to the principles of ALARA. COMPARISON: CT abdomen and pelvis of same day, chest radiograph 03/30/2021 FINDINGS: Unremarkable thyroid. No adenopathy. Heart is normal in size. Trace pericardial effusion. Extensive coronary artery calcifications. Dilation of the ascending thoracic aorta, 4.5 x 4.3 cm with mild to moderate atherosclerotic plaque. No dissection. Coarse calcifications of the aortic valve leaflets. Mild descending thoracic aortic tortuosity. The opacified pulmonary artery is unremarkable. No pneumothorax, pleural effusion, airspace consolidation or overt pulmonary edema. Mild subsegmental bibasilar densities are suggestive of atelectasis/scarring. There are no suspicious pulmonary nodules or masses. The central airways are patent. There is a small amount of pneumobilia within the left hepatic lobe. Unremarkable soft tissues. There is no acute fracture or suspicious bone lesion identified. Degenerative changes of the spine and shoulders. IMPRESSION: 1. No acute intrathoracic abnormality. 2. 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 3. Additional findings as above. ACT 112: Negative or not required by law. Electronically signed by: Duane Mitchell M.D. 04/05/2021 3:07 PM PG Care Time/CCT Total # of Minutes Spent Total Time Spent with Patient: Total time spent is greater than 50% in coordination of care (as documented) at patient's floor/unit and/or counseling patient: Coding Level of Care Code 17090 Subseq Hosp Care Lvl 3 Diagnoses Paranoia (psychosis) F22 Hyperosmolality and hypernatremia E87.0 Sleep apnea G47.30 Hyperlipidemia E78.2 Hyperlipidemia type: mixed hyperlipidemia HTN (hypertension) I10 Hypertension type: essential hypertension Alcohol use Z72.89 Aortic stenosis I35.0 Cardiac valve disease etiology: etiology unspecified COVID-19 U07.1 Situational stress F43.9 OCD (obsessive compulsive disorder) F42.9 DVT prophylaxis Z29.9 (1) Aortic stenosis Cardiac valve disease etiology: etiology unspecified Qualified Code(s): I35.0 - Nonrheumatic aortic (valve) stenosis (2) Hyperlipidemia Hyperlipidemia type: mixed hyperlipidemia Qualified Code(s): E78.2 - Mixed hyperlipidemia (3) HTN (hypertension) Hypertension type: essential hypertension Qualified Code(s): I10 - Essential (primary) hypertension
[2021-04-06] MEDS: THIAMINE HCL 200 MG in SODIUM CHLORIDE 0.9% 50 ML IV SCH (11:32)
[2021-04-06] MEDS ORDERED: SODIUM CHLORIDE 0.9% 1000ML 1,000 ML IV SCH (12:00)
[2021-04-06] MEDS: FLUoxetine HCL 10 MG CAP PO SCH (12:40)
[2021-04-06] MEDS: LIDOCAINE 5% 1 PATCH TD SCH (12:41)
[2021-04-06] MEDS: lisinopril 20 MG TAB PO SCH (12:44)
[2021-04-06] MEDS: POTASSIUM CHLORIDE CRTAB 20 MEQ TABCR PO SCH (12:45)
[2021-04-06] MEDS ORDERED: LOPERAMIDE HCL 2 MG CAP PO STA (12:46)
[2021-04-06] MEDS: ROSUVASTATIN CALCIUM 5 MG TAB PO SCH (12:46)
--- NOTE | 2021-04-06 16:28 | Communication Note ---
Date of Service: April 06, 2021 Rounded on patient this afternoon with liaison present. At this point so far medical work-up has been negative. Patient continues to have low mood, low energy, poor outlook towards his disposition. Patient will go on and say "I just do not think anything is can get better". Was explained to him that the medical work-up was necessary to rule out any sort of underlying illness especially given the acute nature of his presentation and symptoms late in life. Patient expressed agreement and understanding. It was also explained to patient that now that the neck medical work-up appears negative we will try a more psychiatric approach to his problems by increasing the antidepressants anxiolytics as well as sleeping aids. Patient expressed agreement, although seems reluctant to offer any optimism towards the situation. He was also informed patient that given the nature of his symptoms and the fact that he is unable to care for himself in the home that we would need to seek out psychiatric inpatient facilities to continue his potentially lengthy psychiatric treatment. Patient expressed agreement and understanding was willing to sign a voluntary commitment. Plan: Prozac increased to 20 mg p.o. starting tomorrow morning Klonopin 0.5 mg twice daily, as patient seemed to improve with benzodiazepine administration. Seroquel 100 mg p.o. nightly
[2021-04-06] MEDS ORDERED: clonazePAM 0.5 MG TAB PO ONE (16:30)
[2021-04-06] MEDS: TAMSULOSIN HCL 0.4 MG CAP PO SCH (20:59)
[2021-04-06] MEDS: QUEtiapine FUMARATE 100 MG TABLET PO SCH (20:59)
[2021-04-07] MEDS: HEPARIN SOD 5,000 UNIT/0.5 ML VIAL SQ SCH (06:24)
[2021-04-07 06:47] LABS: Hematocrit (blood only) 42.6 % (42-52); Hemoglobin 14.3 g/dL (14.0-18.0); Mean Corpuscular Hemoglobin 29.3 pg (25-34); Mean Corpuscular Hgb Conc 33.6 g/dL (32-36); Mean Corpuscular Volume 87.3 fL (80-100); Mean Platelet Volume 10.2 fL (7.4-10.4); Platelet Count 159 K/uL (130-400); RDW Coefficient of Variation 14.9 % (11.5-14.5); RDW Standard Deviation 47.2 fL (36.4-46.3); Red Blood Count 4.88 M/uL (4.7-6.1); White Blood Count 6.41 K/uL (4.8-10.8)
[2021-04-07 07:20] LABS: BUN Creatinine Ratio 17.9 (10-20); Calcium 9.8 mg/dl (8.5-10.1); Creatinine Clr Calc Pharmacy 64.2 ml/min; Est GFR (African American) 87.5 ml/min; Est GFR (Non-African American) 75.5 ml/min; Potassium 4.2 mmol/L (3.5-5.1)
--- NOTE | 2021-04-07 07:32 | Discharge Summary ---
Date of Service April 07, 2021 Admission HPI Per Admitting Provider This is a 75-year-old male with past medical history of recent Covid 10/23, hyperlipidemia, and sleep apnea that presents today with dehydration weight loss. Patient is a very poor historian, at bedside is able to give me most of the details. tells me that the patient does not have any psychiatric or neurological disorder at baseline. They both contracted Covid in September/October of this year with mild cases that were self-limited. However, the patient started having behavioral issues. This mostly manifested as paranoia and severe anxiety. I patient started to feel that food and water was other poisoned or contaminated and refused to drink or eat. He was worried about some gas and that spilled on the urine he felt that this may explode. Patient she is condition worsened. He was seen by primary care and given a BuSpar and Remeron without relief. He was then switched over to Klonopin and Zoloft, again without any improvement. tells me that the patient saw neuropsychiatry on 03/28, they are waiting to hear back after his evaluation. However, the patient is getting weaker to the point that he is having difficulty walking and is advised to bring him into the hospital for evaluation. The patient seems to be very confused and forgetful. He is worried that his mouth is going to seal shut because it is so dry. He did not believe me when I reassured him that it would not. Patient has never been mated for IV hydration and psych evaluation. Admission Exam Per Admitting Provider Constitutional: no acute distress ENMT: Mouth: + dry oral mucous membranes Neck: trachea midline, no thyromegaly Respiratory: normal respiratory effort Auscultation: lungs clear to auscultation bilaterally; no crackles, no rales, no rhonchi and no wheezes Cardiovascular: Rate/Rhythm: regular rate and regular rhythm Heart Sounds: normal S1 and normal S2; no murmur Gastrointestinal (Abdomen): Inspection/Auscultation: abdomen normal to inspection Percussion/Palpation: abdomen soft; abdomen nontender, no guarding, abdomen not rigid and no hepatosplenomegaly Skin: no rashes, warm and dry Principal Diagnosis Psychosis Discharge Exam Constitutional WD/WN, vitals as above comfortable; no acute distress Eyes + anicteric sclerae (L eye bloodshot (less)) and PERRL ENMT Ears: no hearing impairment Nose: no external nose abnormality Neck trachea midline Respiratory normal respiratory effort, lungs clear to auscultation Cardiovascular Rate/Rhythm: regular rate and regular rhythm Heart Sounds: + murmur (3/6 harsh holosytolic murmur) Extremities: no edema Gastrointestinal (Abdomen) normal bowel sounds, soft, nontender, no hepatosplenomegaly Musculoskeletal no cyanosis or clubbing, extremities motor strength 5/5 Neurologic PERRL, EOMI, accommodation nl, no face palsy, no dysarthria Motor/Sensory: + tremor (less) Psychiatric Orientation: alert, oriented to person, oriented to place and oriented to time (2020, April/summer, hospital in [place]) Affect: + flat affect Suicidal Thoughts: denies suicidal intent; + reports suicidal thoughts (states "I can't go on like this anymore") Hallucinations: no auditory hallucinations and no visual hallucinations Discharge Data Allergies Allergy/AdvReac Type Severity Reaction Status Date / Time No Known Allergies Allergy Verified 03/30/21 15:48 Consultations 03/30/21 16:47 ED Decision to Admit Stat 03/30/21 19:49 Consult Psychiatry Routine 04/03/21 11:19 Consult Neurology Routine Ordered Studies Chest X-Ray 03/30/21 15:34 XR chest 1V portable CLINICAL HISTORY: psych COMPARISON STUDY: October 18, 2020 FINDINGS: No pneumothorax. No pleural effusion. No large infiltrates or consolidative lesions are seen. Cardiomediastinal silhouette is within normal limits in size. No significant pulmonary vascular congestion.. Aorta is tortuous and calcified. Osseous structures: Degenerative changes of the spine. IMPRESSION: 1. No acute pulmonary process. ACT 112: Negative or not required by law. The above report was generated using voice recognition software. It may contain grammatical, syntax or spelling errors. Electronically signed by: Monika Germain DO 03/30/2021 4:[address] 03/30/21 15:[address] DOSE: 1498.35 mGy.cm HISTORY: psych. Altered mental status. TECHNIQUE: Multiaxial CT images of the head were performed without the use of intravenous contrast. Automated exposure control was utilized for this study. A dose lowering technique was utilized adhering to the principles of ALARA. Comparison: Brain MRI 03/08/2021. Findings: The paranasal sinuses and mastoid air cells are clear. There is a partially visualized 2 cm left parotid gland nodule. The calvarium and skull base are intact. There is no mass, hematoma, midline shift, acute infarct. White matter hypodensity is nonspecific but suggestive of microvascular ischemic change. The ventricles and sulci demonstrate mild age-related involutional changes. Impression: 1. No acute intracranial abnormality. 2. Redemonstration of the 2 cm left parotid gland nodule. Follow-up nonemergent ENT consultation recommended. ACT 112: Negative or not required by law. Electronically signed by: Arcenio Thomas M.D. 03/30/2021 4:28 PM Head/Neck Ultrasound 04/04/21 07:00 US soft tissue head and neck CLINICAL HISTORY: Parotid gland mass COMPARISON STUDY: CT scan dated 03/30/2021 FINDINGS: There are 2 solid left parotid gland nodules. The deep nodule measures 10 x 8 x 7 mm. The superficial nodule measures 8 x 7 x 4 mm. Both nodules demonstrate increased vascularity. The largest nodule appears smaller on ultrasound that it did on the prior CT scan or MRI study. IMPRESSION: 2 solid left parotid gland nodules are visualized, the largest of which measures 10 x 8 x 7 mm. ACT 112: Negative or not required by law. Electronically signed by: Ej Pardo M.D. 04/04/2021 8:46 AM Lumbar Puncture Fluoroscopy 04/04/21 10:17 FL lumbar puncture diagnostic CLINICAL HISTORY: AMS, r/o autoimmune encephalitis COMPARISON STUDY: None FLUOROSCOPY TIME: 30 seconds. NUMBER OF FLUOROSCOPIC IMAGES: 1 FINDINGS: Informed consent was obtained from the patient's . A timeout was performed. The patient was prepped and draped in sterile fashion. The skin was anesthetized 1% lidocaine. A lumbar puncture was performed at the L4-5 level utilizing a 20-gauge spinal needle. 8 cc of clear CSF was withdrawn under gravity drip and into 4 tubes. Fluid was sent for laboratory analysis as specified by the referring clinician. There were no immediate complications. The patient was sent to the floor for post procedure observation. IMPRESSION: 1. Successful fluoroscopically guided diagnostic lumbar puncture performed at the L4-5 level. 2. 8 cc of clear CSF was withdrawn under gravity drip and sent for laboratory analysis ACT 112: Negative or not required by law. Electronically signed by: Ej Pardo M.D. 04/04/2021 2:37 PM Cervical Spine X-Ray 04/04/21 11:36 XR cervical spine 2 or 3V CLINICAL HISTORY: neck pain COMPARISON STUDY: Cervical spine radiographs March 16, 2016. MRI of the cervical spine March 22, 2016. FINDINGS: There is slight reversal of the normal cervical lordosis. There is minimal anterolisthesis of C5 on C6. Note is made of severe multilevel facet arthrosis. There is moderate disc space narrowing and osteophytosis at C6-C7. Prevertebral soft tissues are unremarkable. IMPRESSION: 1. No acute cervical spine fracture or subluxation. 2. Moderate to severe multilevel facet arthrosis and degenerative disc disease within the cervical spine, most pronounced at C6-C7. ACT 112: Negative or not required by law. Electronically signed by: Espinoza Mtz M.D. 04/04/2021 12:46 PM Abdomen/Pelvis CT 04/04/21 18:27 CT abd pelvis oral and IV con CLINICAL HISTORY: r/o mass. Clinical suspicion for malignancy that could cause altered mental status. COMPARISON STUDY: None. TECHNIQUE: A dose lowering technique was utilized adhering to the principles of ALARA. CT DOSE: 449.44 mGy.cm FINDINGS: Lower chest: No large infiltrates or consolidative lesions are seen. Mild pericardial effusion is demonstrated. Severe calcifications of aortic valve are seen. Liver: The contrast-enhanced liver is normal in size, contour, and attenuation. There is no intrahepatic biliary ductal dilatation. The hepatic veins and portal veins are patent. Gallbladder: Unremarkable. Spleen: Normal in size and attenuation. Pancreas: Unremarkable. Adrenal glands: Right adrenal gland is unremarkable. Nodularity of the left adrenal gland is seen. Kidneys: There is symmetric renal cortical enhancement. The kidneys are normal in size without hydronephrosis. Punctate nonobstructive calculi are seen within inferior aspect of the left renal pelvis. Small parapelvic cysts are seen bilaterally. Bowel: Minimal hiatal hernia is seen. Bowel loops are nondilated. Appendix is not well seen. Oral contrast column reached mid-distal aspect of the small bowel and not seen within colonic loops. Mild concentric thickening of the rectal wall is seen. Peritoneum: There is no intraperitoneal free air or abdominal ascites. Mild diffuse mesenteric edema is seen. Overall evaluation is limited due to motion artifact and limited amount of intra-abdominal fat. Vasculature: Extensive partially calcified plaques are seen within the aortic wall. Focal area of mild ectasia of the distal abdominal aorta is seen measuring 3.1 cm in diameter and shows large noncalcified plaque within its wall. Evaluation of aorta is limited on this nondedicated exam. Adenopathy: None. Pelvic viscera: Urinary bladder is fluid-filled with diffuse thickening of its wall. Prostate gland is prominent with dystrophic calcifications within its parenchyma. Skeletal structures: Osseous structures are diffusely demineralized with more fluid appearance of the bone marrow attenuation. Avascular necrosis is seen within left femoral head. IMPRESSION: 1. Mild pericardial effusion. 2. Mild diffuse mesenteric edema. Please correlate above-mentioned findings with edematous state. 3. Questionable thickening of the rectal wall which might represent proctitis or related to the underdistention. 4. Avascular necrosis within left femoral head. 5. Nonobstructive nephrolithiasis on the left. 6. Questionable diffuse thickening of urinary bladder wall which might be seen in cystitis. Please correlate above-mentioned findings with prior history. 7. Mild hiatal hernia. ACT 112: Negative or not required by law. The above report was generated using voice recognition software. It may contain grammatical, syntax or spelling errors. Electronically signed by: Monika Germain DO 04/05/2021 10:[address] 04/05/21 13:[address] WITH CONTRAST CT DOSE: 275.74 mGy.cm HISTORY: Acute shortness of breath r/o lung ca TECHNIQUE: Multiaxial CT images of the chest were performed following the IV administration of 100 cc of Optiray. A dose lowering technique was utilized adhering to the principles of ALARA. COMPARISON: CT abdomen and pelvis of same day, chest radiograph 03/30/2021 FINDINGS: Unremarkable thyroid. No adenopathy. Heart is normal in size. Trace pericardial effusion. Extensive coronary artery calcifications. Dilation of the ascending thoracic aorta, 4.5 x 4.3 cm with mild to moderate atherosclerotic plaque. No dissection. Coarse calcifications of the aortic valve leaflets. Mild descending thoracic aortic tortuosity. The opacified pulmonary artery is unremarkable. No pneumothorax, pleural effusion, airspace consolidation or overt pulmonary edema. Mild subsegmental bibasilar densities are suggestive of atelectasis/scarring. There are no suspicious pulmonary nodules or masses. The central airways are patent. There is a small amount of pneumobilia within the left hepatic lobe. Unremarkable soft tissues. There is no acute fracture or suspicious bone lesion identified. Degenerative changes of the spine and shoulders. IMPRESSION: 1. No acute intrathoracic abnormality. 2. 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 3. Additional findings as above. ACT 112: Negative or not required by law. Electronically signed by: Duane Mitchell M.D. 04/05/2021 3:07 PM Hospital Course (1) Paranoia (psychosis): Patient with new severe paranoia and psychosis, stated no prior hx of psychosis prior to COVID 19 infxn in September 2020, however he did have worsening anxiety/depression/insomnia since last summer per review of chart, which worsened since COVID and led to believes about money/taxes, poisoned food, lack of PO intake, decreased sleep and non-compliance with CPAP presented with worsening paranoia/psychosis and felt to have possible OCD/rumination/or other psychological issue Has been trialed on Remeron, Wellbutrin, Klonopin, Zoloft since last summer with continued worsening He does have a history of inpatient psychiatric hospitalization in his 40s, and with increased stressors at home/ of close friends/COVID and insomnia combined with poor PO intake he was admitted to the hospital for further work-up and possible adjustments of medications. Psych was consulted -- rec'd Neurology consultation and to rule out other organic causes for current psychosis. B12 wnl at 842 TSH wnl 1.880 RPR non-reactive Lyme negative Ammonia wnl at 14 Anti-TPO negative B1 level pending but patient did get several doses of IV Thiamine and continued on PO supplementation given hx of Etoh use, however patient has not drank since COVID infxn per S/P LP on 04/04 with only elevated protein (felt related to chronic issues, no infxn per Neurology). Viral and encephalitis panel pending at d/c and will take weeks for results EEG negative for encephalopathy MRI Brain with incidental parotid gland nodule. US follow up with nodules and ENT routine outpt f/u in future CTAP: mild pericardial effusion, ?mild diffuse mesenteric edema, rectal wall thickening may represent proctitis or underdistention. avascular necrosis within L femoral head (likely from prior etoh), nonobstructive nephrolithiasis on the left with questionable diffuse thickening of urinary bladder wall which might be seen in cystitis (UA on admission from cath with ketone/blood, no leuk est/nitri te/bacteria but will ask nursing to repeat UA --> only mild dehydration 2nd to poor PO intake) Mild hiatal hernia. CT Cheat without masses/suspicion for cancer or explanation/neoplastic syndrome Zoloft was discontinued and Klonopin was tapered off. He did get a dose of ativan 1mg on 04/04 which did show some improvement for catatonia however still continued with poor sleep/refusal for CPAP (hx SEVERE DIAZ and continued encouragement/sleep hygiene recommended) -Klonopin ordered by psychiatry Discussed and started patient on seroquel 100mg HS and would consider melatonin at inpatient geriatric psych (patient voluntarily signed for inpatient treatment) as well as adjustments to medications Was also started on Prozac for possible OCD component -- started at 10mg and titrated to 20mg prior to discharge with further adjustments up to effective dose at receiving facility Metabolic and infectious etiologies ruled out and felt medically cleared to pursue inpatient psychiatric treatment Psych arranged for patient to be accepted and transported to [facility] for tania-psych (2) Hyperosmolality and hypernatremia: Secondary to p.o. intake from paranoia [employer]. Provided IVF, since discontinued and labs remain stable. Did have increased intake but still poor -- continued encouragement/adjustment/supplements as above Per , has been eating better in the hospital than at home (thought food was contaminated) (3) Sleep apnea: SEVERE Ordered CPAP -- patient refused again Asked respiratory therapy to attempt again today given patient with poor sleep and reported 1-2 hours over last several months --> CONTINUE TO ENCOURAGE TO HAVE PATIENT UTILIZE vs AT LEAST 2L HS IF UNABLE TO TOLERATE MASK TO ENCOURAGE SLEEP CONTINUED TO REFUSE (4) Hyperlipidemia: Crestor 5 mg daily (5) HTN (hypertension): Continued lisinopril 20mg daily , BP stable (6) Alcohol use: suspected, however last drink reported October -- continue thiamine given improvement in cognition For total 5 doses B1 level pending but continue daily 100mg at d/c (7) Aortic stenosis: Noted Follows with Dr. Cohen Volume status acceptable (8) COVID-19: Prior infection September - October 2020 ?contributing to current issue -- see above also with several friends ill with COVID, one passed. One home on comfort. A nother friend with fallen and issues with hip. Stress about taxes/isolation/etc per and believe food contaminated with bugs (9) Situational stress: (10) OCD (obsessive compulsive disorder): suspected prozac as above (11) Thoracic ascending aortic aneurysm: CT Chest did note 4.5cm x 4.4cm fusiform aneuysm dilation of ascending thoracic aorta Did not obtain ESR/CRP while inpatient and doubt vasculitis given clinical picture Recommend following up with PCP for continued surveillance in six months to determine growth rate +/- ref to vascular if enlarging (12) DVT prophylaxis: DVT Proph SCDs Heparin SQ while inpatient Discharging to [facility] for inpatient geriatric psych treatment Total Time Total Time Spent Total Time Spent (In Minutes): 70 Discharge Plan Discharge Items Patient Disposition: Transfer Behavioral Health Fac Reason For Visit: HYPERNATREMIA Discharge Diagnosis: Psychosis, Need for inpatient psychiatric treatment: differential includes OCD, ruminative depression, depression with psychotic features, post COVID encep halopathy, Condition on Discharge: Good Goals: You have been hospitalized for an acute medical problem. During your stay at [facility], we have made an effort to correct the problem that brought you to the hospital while keeping you as comfortable as possible. Medications were used to bring your condition under control and your discharge instructions will include directions for any medications you should take after leaving the hospital. Please make sure you see your Primary Care Provider as part of your follow up plan. Activity: As commented below Non-emergency contact: Primary Care Provider Call non-emergency contact if: you have any medication questions, your symptoms worsen and your pain is concerning for you Follow-up/Referrals: Mookie Pineda MD [Primary Care Provider] - Diet: Regular Addtl Attending Provider Instructions: You have been hospitalized for acute psychosis. Medical work-up has been undertaken to rule out organic causes as recommended by psychiatry to determine if underlying issue psychiatric. Medical work-up has been negative to date for metabolic causes/infection at this point and you have been set up for treatment at an inpatient psychiatric facility. You did have a lumbar puncture and all labs have been negative for cause, however there are some send out tests that take several weeks to come back, but per Neurology it doesn't not fit typical picture. This could also be sequela of your COVID infection last October, however it appears issues had been going on prior to that, and likely the COVID may have exacerbated these issues. You have been started on and continued on Seroquel 100mg by mouth at night to help with sleep and psychosis. Psychiatry has also recommended starting you on Prozac, which was started at 10mg and increased to 20mg prior to discharge and may continue to be increased to effect at psychiatric facility. Recommendations for melatonin at night and STRONGLY ENCOURAGE CPAP use if you are able to tolerate, as this is likely a major contributor to your current issue as well as other stressors in your life. Please follow up with PCP post-discharge. Return to the closest emergency department with any fever, chills, chest pain, shortness of breath or for any other symptoms that are concerning for you. It has been a pleasure being a part of the medical team providing fro you while you have been in the hospital. Take care! Pending Studies at Discharge: Yes Studies:: Autoimmune encephalitis panel B1 Stand-Alone Forms: My [facility] Skilled Items DNR: No Lines: None Urinary Catheter: No Medications and DC Order Prescriptions: New tamsulosin 0.4 mg Capsule 0.4 mg PO HS Qty: 20 RF: 0 fluoxetine 20 mg Capsule 20 mg PO QAM Qty: 30 RF: 0 quetiapine 100 mg Tablet 100 mg PO HS Qty: 30 RF: 0 thiamine HCl (vitamin B1) [Vitamin B-1] 100 mg Tablet 100 mg PO QAM Qty: 30 RF: 0 cholecalciferol (vitamin D3) [Vitamin D3] 25 mcg (1,000 unit) tablet 25 mcg PO DAILY 90 Days Qty: 90 RF: 0 Continued lisinopril 20 mg tablet 20 mg PO QAM Qty: 90 RF: 3 rosuvastatin 5 mg tablet 5 mg PO QAM Qty: 90 RF: 3 Discontinued sertraline 100 mg tablet 100 mg PO BID Qty: 180 RF: 3 clonazepam 0.5 mg tablet See Rx Instructions PO .COMPLEX Qty: 60 RF: 2 Discharge Orders: Discharge Order (Routine); Ordered 04/07/21 Ordered By: Meron Varghese Admission Data Admit Date/Time: 03/30/21 18:08 Attending Provider: Wilberto Guillaume Admit Provider: Dominic Black Primary Care Provider: Mookie Pineda Other Providers: Dominic Black ; Dr Bora ; Kristin Medrano ; Mookie Cowart ; Nathaniel Heard Other Interventions: Discharge Summary Assessment (RN) Last Done: 04/07/21 08:56 Supervising Physician Co-Signing Physician Notes Patient was seen and examined independently I discussed the case with Meron YARBROUGH I reviewed pertinent past medical social family history and also the plan of care and agree with the plan of care. Patient was seen he was less emotionally labile he was slightly sedate he no focal complaints patient will have the remainder of his work-up that is pending followed by neurology will be transferred to likely geriatric psychiatric facility when bed is available recommend continuing Seroquel at night attempting to consider some melatonin also Any exceptions will be noted below Coding Level of Care Code D/C Day Management >30 mins Diagnoses Paranoia (psychosis) F22 Hyperosmolality and hypernatremia E87.0 Sleep apnea G47.30 Hyperlipidemia E78.2 Hyperlipidemia type: mixed hyperlipidemia HTN (hypertension) I10 Hypertension type: essential hypertension Alcohol use Z72.89 Aortic stenosis I35.0 Cardiac valve disease etiology: etiology unspecified COVID-19 U07.1 Situational stress F43.9 OCD (obsessive compulsive disorder) F42.9 Thoracic ascending aortic aneurysm I71.2 DVT prophylaxis Z29.9
[2021-04-07] MEDS: lisinopril 20 MG TAB PO SCH (08:07)
[2021-04-07] MEDS: LIDOCAINE 5% 1 PATCH TD SCH (08:08)
[2021-04-07] MEDS: ROSUVASTATIN CALCIUM 5 MG TAB PO SCH (08:08)
[2021-04-07] MEDS: THIAMINE HCL 200 MG in SODIUM CHLORIDE 0.9% 50 ML IV SCH (08:14)
[2021-04-07] MEDS ORDERED: FLUoxetine HCL 20 MG CAP PO SCH (09:00)
[2021-04-07 22:11] LABS: Lyme IgG Band Pattern CSF DNR; Lyme IgG CSF NO BANDS DETECTED; Lyme IgM Band Pattern CSF DNR; Lyme IgM CSF NO BANDS DETECTED
[2021-04-09] MEDS ORDERED: THIAMINE HCL 100 MG TAB PO SCH (09:00)
== END 2021-04-07 11:50 | DRG 885 ==
LOC: ED 14:59 → 3E 18:08 → SUATTDRO 18:08 → 3E 20:15

== ENCOUNTER 2022-11-18 15:09 | Inpatient (IN) ==
--- NOTE | 2022-11-18 15:26 | Emergency Department Note ---
Impression & Plan Constipation, Need for assistance with personal care ED Provider Note HISTORY OF PRESENT ILLNESS: Patient is a 77-year-old male presenting with constipation. provides history, secondary to patient's dementia. Reports that their family had a diarrheal GI illness a few weeks ago. Reports the patient has not had a bowel movement in a week. She gave him 4 Dulcolax Gummies 2 days ago and 8 Dulcolax Gummies yesterday, still without any rectal output by the patient. Patient denies any abdominal pain. No reported fevers. No nausea or vomiting. He has been tolerating oral intake without difficulty. ROS: as above PHYSICAL EXAM: Constitutional: Patient appears in no acute distress. HENT: Head: Normocephalic and atraumatic. Eyes: EOMI, PERRL Mouth/Throat: Mucous membranes moist. Neck: Trachea midline. Neck supple. Cardiovascular: RRR, No murmurs, rubs or gallops. Intact distal pulses. Pulmonary/Chest: No respiratory distress. Breath sounds clear and equal bilaterally. No wheezes or rales. Abdominal: BS +. Abdomen soft, no tenderness, rebound or guarding. Back: No midline spinal tenderness, no paraspinal tenderness, no CVA tenderness. Musculoskeletal: No edema, tenderness or deformity noted. Skin: Warm and dry. No rash, erythema, pallor or cyanosis Psychiatric: Appropriate mood and affect for situation. Neurological: Alert and keenly responsive. CN II-XII grossly intact, moving all extremities equally and fully. MDM: - Vitals signs stable. - History obtained via patient's , given his dementia. Patient presents with patient reportedly has not had a bowel movement in the last week. reports she has been giving patient multiple Dulcolax Gummies without any rectal output. No reported abdominal pain. Has reportedly been tolerating oral inta ke. No vomiting. - Chronic conditions affecting care: HTN; HLD; pancreatic lesion - Differential diagnoses include, but are not limited to: bowel obstruction; gastroparesis; gastroenteritis; metabolic disorder; pancreatitis; perforated bowel; volvulus - Order placed for continuous cardiac monitoring. At this time, monitor showed rate of 63 bpm with normal rhythm, per my interpretation. - External medical records reviewed. Patient seen in ER 10 days ago and had initially expressed concern about taking patient home, but she decided he was better after some IV fluids and was comfortable with discharge. - KUB showed no evidence of obstruction. Noted to have rectosigmoid fecal retention and mild to moderate constipation per radiology - Multiple enemas were given to the patient in an attempt to have rectal output. He was given a soapsuds enema, molasses enema and Fleet enema, with minimal rectal output. - Discussed discharge with the patient's who is the patient's primary home care and home health aides teacher. She expressed that she is not able to take the patient home if she is unable to care for him. I discussed sending him home with GoLytely and some suppositories for treatment of constipation at home, but the expressed that she is unable to care for the patient in his current state. - Given need for admission, laboratory workup and CT scan obtained. - Laboratory workup interpreted by myself showed normal WBC; stable electrolytes other than slight hypermagnesmia - CT abdomen/pelvis wo rectosigmoid fecal impaction with severe constipation. Also noted to have some thickening of rectosigmoid consistent with stercoral proctocolitis. - Discussion was had with protective services social worker about patient's case and need for admission for likely placement. - Hospitalist, Dr. Wong, consulted for admission. - Patient admitted to [facility] for further evaluation and management. 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 He denies any known adverse reaction to anesthesia to date. Anesthesiologist advised patient to be marked as MH susceptibility in chart given FHx. Memory changes per , chronic without change, states pt also speaks slowly but able to respond appropriately on current psychiatric regimen OCD (obsessive compulsive disorder) Pancreatic abnormality recent finding -- unable to provide specifics -- dr almendarez monitoring Parotid nodule Sleep apnea unable to tolerate CPAP Systolic anterior movement of mitral valve follows with Dr. Cohen, LVOT obstruction improved per 12/2021 echo vs 03/2021 echo Surgical History History of cataract surgery History of colonoscopy History of surgery benign tumor removed from behind left ear History of surgical removal of lesion History of tonsillectomy History of tooth extraction Family History Mother Diabetes Unknown Ischemic heart disease Son Malignant hyperthermia Other Hypertension No family history of bleeding disorder Denies family history of Ovarian cancer Prostate cancer Myocardial infarction Breast cancer Colorectal cancer Social History Smoking Status: Never smoker Second Hand Exposure: No; Hx Alcohol Use: No Hx Substance Use: No Preferred Language: Latvian Communication Ability: Effective Visual Impairment: Limited Hearing Ability: Hard of Hearing 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 Required: No Beliefs That Will Affect Care: None marital status: Current Living Situation: Spouse current occupational status: employed current occupation: [employer] Feels Safe at Home: Yes Childhood Exposure to Second-Hand Smoke: Yes caffeine: Yes Dental Care, Regularly: Yes Physical Activity Frequency: 3-4 Times per Week Seatbelt Use: always Sunscreen Use: Yes Assistive Devices: Glasses Allergies Allergies Allergy/AdvReac Type Severity Reaction Status Date / Time No Known Drug Allergies Allergy Unknown Verified 08/23/22 14:49 Home Meds Home Medications Medication Instructions Recorded Confirmed fluoxetine 40 mg capsule 40 mg PO QAM 09/17/21 08/23/22 [id number] 1 tab PO QAM 01/12/22 08/23/22 tablet (Multivitamin 50 Plus tablet) clonazepam 0.5 mg tablet 0.5 mg PO QPM 02/01/22 08/23/22 memantine 5 mg tablet 5 mg PO HS 05/10/22 08/23/22 docusate sodium 100 mg capsule 200 mg PO DAILY 06/18/22 08/23/22 (Colace) polyethylene glycol 3350 17 17 g PO BID 06/18/22 08/23/22 gram/dose oral powder (Miralax) sennosides 8.6 mg capsule (senna) 8.6 mg PO BID 06/18/22 08/23/22 thiamine HCl (vitamin B1) 100 mg 100 mg PO DAILY 08/09/22 08/23/22 tablet Previous Rx's Medication Instructions Recorded olanzapine 7.5 mg tablet 7.5 mg PO HS #10 tabs 06/15/22 lisinopril 10 mg tablet 10 mg PO QAM #90 tabs 06/18/22 metoprolol succinate 50 mg 25 mg PO QAM 90 days #45 tabs 06/18/22 tablet,extended release 24 hr ketoconazole 2 % shampoo 1 applic topical .COMPLEX #120 mL 08/09/22 rosuvastatin 5 mg tablet 5 mg PO QAM #90 tabs 08/31/22 Results & Data (ED) Vital Signs Vital Signs - 24 hr 11/18/22 15:11 11/18/22 19:00 Temperature 36.3 C L Temperature Source Oral Pulse Rate 61 Pulse Rate [Finger] 62 Pulse Rhythm [Finger] Regular Pulse Strength [Finger] Normal Respiratory Rate 18 18 Respiratory Effort / Characteristics Non-Labored Respiratory Depth Normal Respiratory Pattern Regular Blood Pressure 112/71 Blood Pressure [Right Arm] 166/81 H Blood Pressure Mean 84 Blood Pressure Mean [Right Arm] 109 Blood Pressure Position [Right Arm] Lying Pulse Oximetry 99 100 Oxygen Delivery Method Room Air Room Air Sepsis Recent Fever Within 48 Hours No Sepsis New/Unexplained Change in Mental Status No Sepsis Action Taken by Nursing No Action Required Laboratory Data 11/18/22 18:48 11/18/22 18:48 Lab Results 11/18/22 11/18/22 Range/Units 18:48 18:48 WBC 10.49 (4.8-10.8) K/ul RBC 3.98 L (4.63-6.08) M/uL Hgb 11.0 L (14.0-18.0) g/dl Hct 34.2 L (40.1-51.0) % MCV 85.9 (80.0-100.0) fL MCH 27.6 (25.0-34.0) pg MCHC 32.2 (32.0-36.0) g/dL RDW Std Deviation 39.9 (36.4-46.3) fL RDW Coeff of Dayanna 12.9 (11.5-14.5) % Plt Count 258 (130-400) K/uL MPV 9.6 (9.4-12.4) fL Immature Gran % (Auto) 1.4 % Neut % (Auto) 82.5 % Lymph % (Auto) 9.0 % Cameron % (Auto) 6.3 % Eos % (Auto) 0.4 % Baso % (Auto) 0.4 % Neut # (Auto) 8.66 H (1.4-6.5) K/uL Lymph # (Auto) 0.94 L (1.2-3.4) K/uL Cameron # (Auto) 0.66 (0.24-0.82) K/uL Eos # (Auto) 0.04 (0-0.50) K/uL Baso # (Auto) 0.04 (0-0.2) K/uL Immature Gran # (Auto) 0.15 H (0.00-0.02) K/uL Sodium 139 (136-145) mmol/L Potassium 4.7 (3.5-5.1) mmol/L Chloride 102 (98-107) mmol/L Carbon Dioxide 31 (21-32) mmol/L Anion Gap 6 (3-11) BUN 20 (6-23) mg/dl Creatinine 0.86 (0.6-1.4) mg/dl Est Cr Clr Drug Dosing 77.7 ml/min Est GFR ( Amer) 96.3 ml/min Est GFR (Non-Af Amer) 83.1 ml/min BUN/Creatinine Ratio 23.3 H (10-20) Glucose 96 (70-99(Fasting)) mg/dl Calcium 9.9 (8.5-10.1) mg/dl Magnesium 2.6 H (1.7-2.4) mg/dl Total Bilirubin 0.5 (0.2-1.0) mg/dl AST 15 (13-39) U/L ALT 19 (7-52) U/L Alkaline Phosphatase 64 (34-104) U/L Total Protein 6.6 (6.0-8.3) gm/dl Albumin 3.3 L (3.4-5.0) gm/dl Globulin 3.3 (2.5-4.0) gm/dl Albumin/Globulin Ratio 1.0 (0.9-2) Administered Medications Discontinued Medications Sodium Biphosphate/Sodium Phosphate (Sod Phosphate/Sod Biphosphate Enema 132 Ml Btl) 132 ml [place] NOW STA Stop: 11/18/22 16:13 Last Admin: 11/18/22 18:44 Dose: 132 ml Documented By: NDW Imaging Data Radiologist's Impression: KUB X-Ray 11/18/22 15:24 KUB CLINICAL HISTORY: Constipation. FINDINGS: 2 AP supine abdominal radiographs are compared to study dated 06/03/2022 and correlated with abdominal CT dated 03/01/2022. There is a nonobstructive abdominal bowel gas pattern. There is rectosigmoid fecal retention and mild to moderate constipation. No evidence of intraperitoneal free air is seen on the supine images. No abnormal abdominal calcifications are identified. Numerous phleboliths and vascular calcifications are seen in the pelvis. The skeletal structures are osteopenic and appear intact. There is moderate lumbosacral spondylosis. IMPRESSION: Rectosigmoid fecal retention and [id number] constipation Electronically signed by: Karlos Good M.D. 11/18/2022 4:05 PM Abdomen/Pelvis CT 11/18/22 18:19 CT SCAN OF THE ABDOMEN AND PELVIS WITHOUT IV CONTRAST CLINICAL HISTORY: Constipation. COMPARISON STUDY: Abdominal CT dated 03/01/2022. TECHNIQUE: CT scan of the abdomen and pelvis is performed from the lung bases to the proximal femora. Images are reviewed in the axial, sagittal, and coronal planes. IV contrast was not administered for this examination. Note that the examination was performed in suboptimal fashion without oral and IV contrast. A dose lowering technique was utilized adhering to the principles of ALARA. CT DOSE: 292.11 mGy.cm FINDINGS: Lung bases: The heart is enlarged and without pericardial effusion. The coronary arteries and mitral annulus are densely calcified. There is diminished attenuation of the cardiac blood pool as compared to the myocardium suggesting anemia. There is bibasilar scarring/atelectasis. Trace pleural effusion is seen on the right. There is a small hiatal hernia. Liver: The unenhanced liver is normal in size, contour, and attenuation. There is no intrahepatic biliary ductal dilatation. Gallbladder: Unremarkable. Spleen: Normal in size and attenuation. Pancreas: The unenhanced pancreas is grossly unremarkable. 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 Adrenal glands: Unremarkable. Kidneys: The unenhanced kidneys demonstrate mild cortical atrophy and are without hydronephrosis. There is fullness of the left renal collecting system, with left-sided perinephric stranding and fluid. There are at least 4 small nonobstructing left renal calculi which measure up to 3 mm. A punctate nonobstr ucting calculus is seen in the right upper pole. No ureteral stone is seen. There is no evidence of contour deforming renal mass lesion. Abdominal vasculature: There is advanced atherosclerotic calcification of the abdominal aorta. An infrarenal abdominal aortic aneurysm measures up to 3.4 cm in diameter. Bowel: There is rectosigmoid fecal impaction and moderate to severe constipation. There is sitting wall thickening of the rectosigmoid with s urrounding infiltration consistent stercoral proctocolitis. There is no bowel obstruction. The appendix is well-visualized and normal. Peritoneum: There is no intraperitoneal free air or abdominal ascites. Lymphadenopathy: There are numerous mildly enlarged left retroperitoneal lymph nodes. These measure up to 14 mm short axis. Pelvic viscera: The prostate gland is enlarged and heterogeneous. The bladder wall is thickened/trabeculated indicating chronic outlet obstruction. Skeletal structures: The skeletal structures are heterogeneously osteopenic. There is moderate lumbosacral spondylosis. A chronic compression deformity of L2 is unchanged. No lytic or blastic lesions are seen. IMPRESSION: 1. There is rectosigmoid fecal impaction and moderate to severe constipation. 2. There is wall thickening of the rectosigmoid surrounding inflammation consistent with stercoral proctocolitis. 3. No intraperitoneal free air or abdominal ascites is seen. 4. Bilateral nephrolithiasis. 5. There is significant and asymmetric left-sided perinephric stranding and fluid, which is new from 03/01/2022. No obstructing stone is identified. This could potentially represent the sequelae of a recently passed kidney stone. Correlate with clinical findings and urinalysis. 6. Left-sided retroperitoneal lymphadenopathy is nonspecific and may be reactive. This is also new from previous. 7. 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 8. Cardiomegaly and trace right pleural effusion. 9. There is a 3.4 cm infrarenal abdominal aortic aneurysm. 10. Additional findings as above. ACT 112: Negative or not required by law. Electronically signed by: Karlos Good M.D. 11/18/2022 7:11 PM Discharge Plan Visit Data Chief Complaint: Constipation Stated Complaint: CONSTIPATION ED Provider: Lucero Marcum Discharge Problem: Constipation, Need for assistance with personal care Patient Disposition: Admitted As Inpatient Forms Stand Alone Forms: [facility] Prescriptions Prescriptions: No Action olanzapine 7.5 mg tablet 7.5 mg PO HS Qty: 10 0RF docusate sodium [Colace] 100 mg capsule 200 mg PO DAILY senna 8.6 mg capsule 8.6 mg PO BID polyethylene glycol 3350 [Miralax] 17 gram/dose powder 17 g PO BID lisinopril 10 mg tablet 10 mg PO QAM Qty: 90 3RF metoprolol succinate 50 mg tablet extended release 24 hr 25 mg PO QAM 90 Days Qty: 45 3RF thiamine HCl (vitamin B1) 100 mg tablet 100 mg PO DAILY ketoconazole 2 % shampoo 1 applic topical .COMPLEX Qty: 120 2RF Rx Instructions: Wash scalp 2-3 times weekly. Let sit for 3-5 minutes prior to rinsing.; clonazepam 0.5 mg tablet 0.5 mg PO QPM Rx Instructions: TAKES 0.25-0.5 MG QAM, THEN 0.5 MG QPM. rosuvastatin 5 mg tablet 5 mg PO QAM Qty: 90 3RF fluoxetine 40 mg capsule 40 mg PO QAM memantine 5 mg tablet 5 mg PO HS Multivitamin 50 Plus Tablet 1 tab PO QAM Referrals Referrals: Mookie Pineda MD [Primary Care Provider] -
--- NOTE | 2022-11-18 16:06 | XRay Report ---
KUB CLINICAL HISTORY: Constipation. FINDINGS: 2 AP supine abdominal radiographs are compared to study dated 06/03/2022 and correlated with abdominal CT dated 03/01/2022. There is a nonobstructive abdominal bowel gas pattern. There is rectos igmoid fecal retention and mild to moderate constipation. No evidence of intraperitoneal free air is seen on the supine images. No abnormal abdominal calcifications are identified. Numerous phleboliths and vascular calcifications are seen in the pelvis. The skeletal structures are osteopenic and appear intact. There is moderate lumbosacral spondylosis. IMPRESSION: Rectosigmoid fecal retention and [id number] constipation Electronically signed by: Karlos Good M.D. 11/18/2022 4:05 PM
[2022-11-18] MEDS ORDERED: SOD PHOSPHATE/SOD BIPHOSPHATE ENEMA 132 ML BTL PR STA (16:12)
--- NOTE | 2022-11-18 19:13 | CT Scan Report ---
CT SCAN OF THE ABDOMEN AND PELVIS WITHOUT IV CONTRAST CLINICAL HISTORY: Constipation. COMPARISON STUDY: Abdominal CT dated 03/01/2022. TECHNIQUE: CT scan of the abdomen and pelvis is performed from the lung bases to the proximal femora. Images are reviewed in the axial, sagittal, and coronal planes. IV contrast was not administered for this examination. Note that the examination was performed in suboptimal fashion without oral and IV contrast. A dose lowering technique was utilized adhering to the principles of ALARA. CT DOSE: 292.11 mGy.cm FINDINGS: Lung bases: The heart is enlarged and without pericardial effusion. The coronary arteries and mitral annulus are densely calcified. There is diminished attenuation of the cardiac blood pool as compared to the myocardium suggesting anemia. There is bibasilar scarring/atelectasis. Trace pleural effusion is seen on the right. There is a small hiatal hernia. Liver: The unenhanced liver is normal in size, contour, and attenuation. There is no intrahepatic giuseppe iary ductal dilatation. Gallbladder: Unremarkable. Spleen: Normal in size and attenuation. Pancreas: The unenhanced pancreas is grossly unremarkable. 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 Adrenal glands: Unremarkable. Kidneys: The unenhanced kidneys demonstrate mild cortical atrophy and are without hydronephrosis. The re is fullness of the left renal collecting system, with left-sided perinephric stranding and fluid. There are at least 4 small nonobstructing left renal calculi which measure up to 3 mm. A punctate non obstructing calculus is seen in the right upper pole. No ureteral stone is seen. There is no evidence of contour deforming renal mass lesion. Abdominal vasculature: There is advanced atherosclerotic calcification of the abdominal aorta. An inf rarenal abdominal aortic aneurysm measures up to 3.4 cm in diameter. Bowel: There is rectosigmoid fecal impaction and moderate to severe constipation. There is sitting wa ll thickening of the rectosigmoid with surrounding infiltration consistent stercoral proctocolitis. T here is no bowel obstruction. The appendix is well-visualized and normal. Peritoneum: There is no intraperitoneal free air or abdominal ascites. Lymphadenopathy: There are numerous mildly enlarged left retroperitoneal lymph nodes. These measure u p to 14 mm short axis. Pelvic viscera: The prostate gland is enlarged and heterogeneous. The bladder wall is thickened/trabe culated indicating chronic outlet obstruction. Skeletal structures: The skeletal structures are heterogeneously osteopenic. There is moderate lumbos acral spondylosis. A chronic compression deformity of L2 is unchanged. No lytic or blastic lesions ar e seen. IMPRESSION: 1. There is rectosigmoid fecal impaction and moderate to severe constipation. 2. There is wall thickening of the rectosigmoid surrounding inflammation consistent with stercoral pr octocolitis. 3. No intraperitoneal free air or abdominal ascites is seen. 4. Bilateral nephrolithiasis. 5. There is significant and asymmetric left-sided perinephric stranding and fluid, which is new from 03/01/2022. No obstructing stone is identified. This could potentially represent the sequelae of a rec ently passed kidney stone. Correlate with clinical findings and urinalysis. 6. Left-sided retroperitoneal lymphadenopathy is nonspecific and may be reactive. This is also new fr om previous. 7. 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 8. Cardiomegaly and trace right pleural effusion. 9. There is a 3.4 cm infrarenal abdominal aortic aneurysm. 10. Additional findings as above. ACT 112: Negative or not required by law. Electronically signed by: Karlos Good M.D. 11/18/2022 7:11 PM
[2022-11-18 19:19] LABS: Basophils # (auto) 0.04 K/uL (0-0.2); Basophils % (auto) 0.4 %; Eosinophils # (auto) 0.04 K/uL (0-0.50); Eosinophils % (auto) 0.4 %; Hematocrit (blood only) 34.2 % (40.1-51.0); Immature Granulocytes # (auto) 0.15 K/uL (0.00-0.02); Immature Granulocytes % (auto) 1.4 %; Lymphocytes # (auto) 0.94 K/uL (1.2-3.4); Mean Corpuscular Hemoglobin 27.6 pg (25.0-34.0); Mean Corpuscular Hgb Conc 32.2 g/dL (32.0-36.0); Mean Corpuscular Volume 85.9 fL (80.0-100.0); Mean Platelet Volume 9.6 fL (9.4-12.4); Monocytes # (auto) 0.66 K/uL (0.24-0.82); Monocytes % (auto) 6.3 %; Neutrophils # (auto) 8.66 K/uL (1.4-6.5); Neutrophils % (auto) 82.5 %; Platelet Count 258 K/uL (130-400); RDW Coefficient of Variation 12.9 % (11.5-14.5); RDW Standard Deviation 39.9 fL (36.4-46.3); Red Blood Count 3.98 M/uL (4.63-6.08); White Blood Count 10.49 K/ul (4.8-10.8)
[2022-11-18 19:47] LABS: Albumin Level 3.3 gm/dl (3.4-5.0); BUN Creatinine Ratio 23.3 (10-20); Bilirubin,Total 0.5 mg/dl (0.2-1.0); Calcium 9.9 mg/dl (8.5-10.1); Creatinine Clr Calc Pharmacy 77.7 ml/min; Est GFR (African American) 96.3 ml/min; Est GFR (Non-African American) 83.1 ml/min; Globulin 3.3 gm/dl (2.5-4.0); Magnesium 2.6 mg/dl (1.7-2.4); Potassium 4.7 mmol/L (3.5-5.1); Total Protein 6.6 gm/dl (6.0-8.3)
[2022-11-18] MEDS ORDERED: ALUMINUM/MAGNESIUM SUSP 30 ML UDC PO PRN (20:50)
[2022-11-18] MEDS ORDERED: POLYETHYLENE (MIRALAX) 17 GM PACK PO PRN (20:50)
[2022-11-18] MEDS ORDERED: ACETAMINOPHEN 325 MG TAB PO PRN (20:50)
[2022-11-18] MEDS ORDERED: MAGNESIUM HYDROXIDE SUSP 30 ML UDC PO PRN (20:50)
--- NOTE | 2022-11-18 21:44 | History & Physical Report ---
Date of Service November 18, 2022 Assessment & Plan (1) Constipation: Plan: 77-year-old man with history of hypertension, hyperlipidemia, and dementia admitted for constipation x7 days. Constipation -Likely due to halting, slow resumption of bowel meds. -Rectosigmoid fecal impaction seen on KUB and CT A/P. -Now s/p Fleet enema x1 in ER. Received stat doses of MiraLAX, milk of magnesia, and senna x2 tablets on admission. * Scheduled bowel regimen: MiraLAX twice daily, senna x2 tablets daily, milk of magnesia every 6 hours. * N.p.o. overnight * Replete magnesium Dementia: Continue home memantine, thiamine Hypertension: Continue home lisinopril, metoprolol Hyperlipidemia: Continue home rosuvastatin Anxiety/paranoia/psychosis: Continue home Zyprexa, fluoxetine, Code: Full code Dispo: Med-Surg FEN/GI: NPO DVT Prophylaxis: Lovenox 40 mg q24h PT/OT: Yes Consults: Psychiatry (2) HTN (hypertension): (3) Hyperlipidemia: (4) Anxiety: (5) Aortic stenosis: History of Present Illness Primary Care Provider: Mookie Pineda MD Hamzah is a 77 year old man with a medical history significant for acute onset dementia, anxiety, hyperlipidemia, and hypertension, who presents to the ED with his and son for constipation x1 week. provided most of the HPI, with additional input from son due to patient's history of dementia. She reports that he is usually on a bowel regimen at home but she stopped them sometime after New Year's because of his bout of afebrile diarrhea (she had diarrhea as well, was also afebrile). She did not resume his bowel regimen medicines after resolution of her diarrhea out of concern for recurrence. Patient has been on his full regimen (sennosides twice daily, MiraLAX 1 packet daily, docusate 200 mg daily) for only the past 2 days before presenting to the emergency room. Patient's last bowel movement was 11/11/2022. She denies fever, chills, nausea, vomiting, abdominal pain, or reduced p.o. intake. ROS + for increased sleepiness in recent weeks. She reports he is sleepy at baseline, since being started on antipsychotic medications 1.5 years ago but has been even sleepier than is usual for him. is concerned that he will refuse to take his meds at home. ED course was notable for imaging (KUB, CT abdomen/pelvis) showing rectosigmoid fecal impaction and moderate to severe constipation and rectosigmoid wall thickening with inflammation consistent with stercoral proctocolitis. Vitals signs, save for blood pressure, were within normal limits. WBC, electrolytes were mostly within normal limits. Allergies Allergy/AdvReac Type Severity Reaction Status Date / Time No Known Drug Allergies Allergy Unknown Verified 08/23/22 14:49 Home Medications Medication Instructions Recorded Confirmed Type fluoxetine 40 mg capsule 40 mg PO QAM 09/17/21 08/23/22 History eozdbmmdssul-bfqecopn-wliaew 1 tab PO QAM 01/12/22 08/23/22 History tablet (Multivitamin 50 Plus tablet) clonazepam 0.5 mg tablet 0.5 mg PO QPM 02/01/22 08/23/22 History memantine 5 mg tablet 5 mg PO HS 05/10/22 08/23/22 History olanzapine 7.5 mg tablet 7.5 mg PO HS #10 tabs 06/15/22 08/23/22 Rx docusate sodium 100 mg capsule 200 mg PO DAILY 06/18/22 08/23/22 History (Colace) lisinopril 10 mg tablet 10 mg PO QAM #90 tabs 06/18/22 08/23/22 Rx metoprolol succinate 50 mg 25 mg PO QAM 90 days #45 tabs 06/18/22 08/23/22 Rx tablet,extended release 24 hr polyethylene glycol 3350 17 17 g PO BID 06/18/22 08/23/22 History gram/dose oral powder (Miralax) sennosides 8.6 mg capsule (senna) 8.6 mg PO BID 06/18/22 08/23/22 History ketoconazole 2 % shampoo 1 applic topical .COMPLEX #120 mL 08/09/22 08/23/22 Rx thiamine HCl (vitamin B1) 100 mg 100 mg PO DAILY 08/09/22 08/23/22 History tablet rosuvastatin 5 mg tablet 5 mg PO QAM #90 tabs 08/31/22 08/31/22 Rx Past Med/Surg History Medical History Anxiety Aortic stenosis Moderate Ascending aorta dilatation 4.5 x 4.4 cm Brachial plexopathy Calcification of aortic valve History of COVID-19 09/2020; congestion, cough; per , has had anxiety issues since having covid History of depression [place] (hard of hearing) Hyperlipidemia Hypertension controlled, stable per pt 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 He denies any known adverse reaction to anesthesia to date. Anesthesiologist advised patient to be marked as MH susceptibility in chart given FHx. Memory changes per , chronic without change, states pt also speaks slowly but able to respond appropriately on current psychiatric regimen OCD (obsessive compulsive disorder) Pancreatic abnormality recent finding -- unable to provide specifics -- dr almendarez monitoring Parotid nodule Sleep apnea unable to tolerate CPAP Systolic anterior movement of mitral valve follows with Dr. Cohen, LVOT obstruction improved per 12/2021 echo vs 03/2021 echo Surgical History History of cataract surgery History of colonoscopy History of surgery benign tumor removed from behind left ear History of surgical removal of lesion History of tonsillectomy History of tooth extraction Family History Mother Diabetes Unknown Ischemic heart disease Son Malignant hyperthermia Other Hypertension No family history of bleeding disorder Denies family history of Ovarian cancer Prostate cancer Myocardial infarction Breast cancer Colorectal cancer Social History Smoking Status: Former smoker Smoking End Date: 2017; Second Hand Exposure: No; Hx Alcohol Use: No Hx Substance Use: No Preferred Language: Citizen Of [place] Communication Ability: Effective Visual Impairment: Limited Hearing Ability: Hard of Hearing Phone Circuit Operator Required: No Beliefs That Will Affect Care: None marital status: Current Living Situation: Spouse Current Living Situation Comment: lives at home with current occupational status: employed 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 HEENT: Normocephalic, atraumatic. EOM intact. Good conjugate gaze. Nares patent. Moist mucosal membranes. Neck: Supple. No lymphadenopathy. Normal ROM. CV: Regular rate and rhythm. Normal S1 and S2. 3/6 systolic murmur heard in auscultation. No gallops or rubs. Respiratory: Normal respiratory effort. Lungs clear to auscultation bilaterally. Abdomen: Soft, nondistended abdomen. Normal bowel sounds on auscultation. Mild lower abdominal tenderness to moderate palpation with minimal guarding. Extremities: Capillary refill <2 sec. 2+ dp equal bilaterally. No pedal edema. Skin: Clean, dry, and intact. No rashes, bruises, or erythema. Results & Data Results & Data ([facility]) Vital Signs (Past 12 Hours) Vital Signs Temp Pulse Pulse Resp BP BP Pulse Ox 11/18/22 21:00 69 18 174/93 H 100 11/18/22 20:57 69 18 171/91 H 99 11/18/22 19:00 62 18 166/81 H 100 11/18/22 15:11 36.3 C L 61 18 112/71 99 O2 Del Method 11/18/22 21:00 Room Air 11/18/22 20:57 Room Air 11/18/22 19:00 Room Air 11/18/22 15:11 Room Air Supervising Physician Co-Signing Physician Notes Patient seen and examined, chart reviewed, case discussed with Dr. De Dios and I agree with the assessment and plan as above. In brief, patient is a 77yo male with history of dementia, HLP, HTN presenting with constipation. Patient with longstanding history of constipation per prior images. He is normally on a bowel regimen at home which was briefly stopped by his during a diarrheal illness. His bowel medications have not been resumed since. Last BM Saturday11/11/22. No additional complaints. Patient is unable to provide much history. Patient given enema in ER with no improvement Given Miralax 17gm, Senna 17.2gm, magnesium hydroxide by resident On exam patient is with dementia, answers some questions but does not freely participate in exam +S1/S2, regular, 3/6 KERRY across precordium Lungs CTA Abd soft, mildly tender with deep palpation Plan: Will resume home bowel regimen - Miralax, Senna, MOM scheduled Gentle IVF and electrolyte repletion If unsuccessful would consider using Lactulose or Magnesium Citrate to ensure proper elimination Resident Activity Tracking Resident Involvement: Resident Care Provided Care Provided: Adult [facility] Medicine (1) Aortic stenosis Cardiac valve disease etiology: etiology unspecified Qualified Code(s): I35.0 - Nonrheumatic aortic (valve) stenosis (2) Hyperlipidemia Hyperlipidemia type: mixed hyperlipidemia Qualified Code(s): E78.2 - Mixed hyperlipidemia (3) HTN (hypertension) Hypertension type: essential hypertension Qualified Code(s): I10 - Essential (primary) hypertension
[2022-11-18] MEDS ORDERED: POLYETHYLENE (MIRALAX) 17 GM PACK PO STA (22:22)
[2022-11-18] MEDS ORDERED: MAGNESIUM HYDROXIDE SUSP 30 ML UDC PO STA (22:26)
[2022-11-18] MEDS ORDERED: SENNA 8.6 MG TAB PO STA (23:02)
[2022-11-19] MEDS ORDERED: clonazePAM 0.5 MG TAB PO SCH (00:24)
[2022-11-19] MEDS ORDERED: POLYETHYLENE (MIRALAX) 17 GM PACK PO SCH (00:24)
[2022-11-19] MEDS ORDERED: OLANZAPINE 2.5 MG TAB PO SCH (00:24)
[2022-11-19] MEDS: MEMANTINE HCL 5 MG TAB PO SCH ×2 (00:58→21:49)
[2022-11-19] MEDS ORDERED: LACTATED RINGER'S 1,000 ML IV SCH (01:30)
--- NOTE | 2022-11-19 01:33 | Billing Data ---
Date of Service November 18, 2022 Coding Level of Care Code 25474 INT INP/OBS CARE
[2022-11-19 06:16] LABS: Basophils # (auto) 0.03 K/uL (0-0.2); Basophils % (auto) 0.3 %; Eosinophils # (auto) 0.03 K/uL (0-0.50); Eosinophils % (auto) 0.3 %; Hemoglobin 10.5 g/dl (14.0-18.0); Immature Granulocytes # (auto) 0.11 K/uL (0.00-0.02); Immature Granulocytes % (auto) 1.2 %; Lymphocytes # (auto) 0.93 K/uL (1.2-3.4); Lymphocytes % (auto) 9.8 %; Mean Corpuscular Hemoglobin 27.2 pg (25.0-34.0); Mean Corpuscular Hgb Conc 32.8 g/dL (32.0-36.0); Mean Corpuscular Volume 82.9 fL (80.0-100.0); Mean Platelet Volume 9.1 fL (9.4-12.4); Monocytes # (auto) 0.64 K/uL (0.24-0.82); Monocytes % (auto) 6.7 %; Neutrophils # (auto) 7.76 K/uL (1.4-6.5); Neutrophils % (auto) 81.7 %; Platelet Count 245 K/uL (130-400); RDW Coefficient of Variation 12.7 % (11.5-14.5); RDW Standard Deviation 38.3 fL (36.4-46.3); Red Blood Count 3.86 M/uL (4.63-6.08)
[2022-11-19] MEDS: MAGNESIUM HYDROXIDE SUSP 30 ML UDC PO SCH ×3 (06:24→17:24)
[2022-11-19 06:38] LABS: Albumin Level 3.2 gm/dl (3.4-5.0); Bilirubin,Total 0.6 mg/dl (0.2-1.0); Calcium 9.6 mg/dl (8.5-10.1); Creatinine Clr Calc Pharmacy 81.2 ml/min; Est GFR (African American) 99.7 ml/min; Globulin 3.1 gm/dl (2.5-4.0); Potassium 4.1 mmol/L (3.5-5.1); Total Protein 6.3 gm/dl (6.0-8.3)
[2022-11-19] MEDS: KETOCONAZOLE~ORDER AWAITING ACTION SCH ×2 (07:48→15:44)
[2022-11-19] MEDS: FLUoxetine HCL 20 MG CAP PO SCH (07:48)
[2022-11-19] MEDS: THIAMINE HCL 100 MG TAB PO SCH (07:49)
[2022-11-19] MEDS: lisinopril 10 MG TAB PO SCH (07:49)
[2022-11-19] MEDS: ROSUVASTATIN CALCIUM 5 MG TAB PO SCH (07:49)
[2022-11-19] MEDS: SENNA 8.6 MG TAB PO SCH ×2 (07:49→21:49)
[2022-11-19] MEDS: METOPROLOL SUCC 25MG EXT REL TAB PO SCH (07:49)
[2022-11-19] MEDS: CEROVITE ADV FORMULA TAB PO SCH (07:49)
[2022-11-19] MEDS: POLYETHYLENE (MIRALAX) 17 GM PACK PO SCH ×2 (07:50→21:49)
[2022-11-19] MEDS ORDERED: SENNA 8.6 MG TAB PO SCH (09:00)
--- NOTE | 2022-11-19 12:28 | Psychiatric Consultation ---
Date of Consultation November 19, 2022 Impression / Recommendations Impression 77 yo man with documented history of dementia, and severe anxiety s/p COVID infection in September 2020 admitted medically for constipation. This morning presented with sedation and per at bedside this is consistent with likely medication side effects observed at home. Unclear if possible Lewy Body dementia vs Alzheimer's disease vs unspecified cognitive changes and unclear if any type of formal memory testing/workup has been done in the last 3 years since COVID infection with subsequent personality changes and decompensation. Certainly possible that COVID contributed to neuroinflammation that may have sped up or brought to the forefront building cognitive changes as well as anxiety. Given sedation at home seems reasonable to adjust psychiatric medications with goal of improving energy levels and attention. Discussed potential risk of worsening anxiety or re-emergence of paranoia but given recent stability over the last 1.5 years potential benefits felt to outweigh these risks. (1) Constipation: (2) Need for assistance with personal care: (3) Anxiety: Plan -Decrease olanzapine to 5mg hs (this may also help slightly with constipation issues), if sedation persists he can work with his outpatient provider to further taper to 2.5mg HS -Decrease Klonopin from 0.5mg BID to 0.5mg hs, if sedation persists would consider change to 0.5 mg daily prn in outpatient setting and eventually could ideally taper to discontinuation with his outpt provider given cognitive risks at his age -consider outpatient neurology referral for further cognitive impairment workup if diagnosis is unclear (would defer to his PCP who likely has more records from [place] admission and any in office annual cognitive screens or other prior formal cognitive workups) Psych History Identifying Data 77 yo man with history of severe anxiety, dementia, constipation admitted medica lly for constipation following recent GI viral illness. Psychiatry consulted for medication recommendations due to excessive daytime somnolence. Chief Complaint "[facility]". History of Present Illness Hamzah is joined by his , Kerry, at bedside. He briefly opens his eyes this morning to say hi and is oriented x3 but then sleeps for the rest of the time. He did not offer any spontaneous speech or topics of conversation except from brief replies to orientation questions. His therefore provides all the history. Kerry describes that Hamzah sleeps all night and then wakes up to eat breakfast with her prompting but then sleeps the rest of the morning usually until lunch. He's more awake in the afternoon and will go on errands with her like to the grocery store. She feels his memory has not been a problem and is surprised to learn that he has a diagnosis of dementia on the medical chart. Reviewed that he's also taking Namenda which is indicated for use in cognitive impairment diseases like Alzheimer's disease to help with memory, she recalls it being started by Hamzah's psychiatric provider to work "synergistically" with his other medications. She states that about 2 years ago he was started on olanzapine and Klonopin by his primary care provider due to severe anxiety that came on very suddenly after a COVID infection in September 2020. After that he struggled with doing activities of daily living often noting "I cannot" when she asked him to do something even though she notes he is often already engaged in doing the activity he says he is unable to do. In April 2021 he was seeing bugs and became very concerned about contamination and stopped eating or drinking and was hospitalized at [facility]'s geriatric psychiatry unit for about 6 weeks and at that time fluoxetine was added. Since his discharge from [facility] he is continued to see a psychiatric provider via telemedicine approximately once a month. He also has an outpatient psychologist who he sees regularly. Currently she feels his psychiatric symptoms are fairly well controlled and that he experiences the anxiety but has not had any of the visual hallucinations or concerns about contamination. Biggest concerns recently have been significant urinary incontinence as well as constipation that worsened after her recent GI viral illness she wonders if medication adjustments may help him be more awake and alert during the day. No other side effects have been noted from the medication except the sedation. He notes that he does not have trouble walking at all does not seem to have word-finding difficulty that can often remember names of people from the past that she cannot recall. Notably this is different from other reports, including problem list that notes memory problems as chronic. Further assessment of his memory is limited by his sedation. Allergies Allergy/AdvReac Type Severity Reaction Status Date / Time No Known Drug Allergies Allergy Unknown Verified 08/23/22 14:49 Home Medications Medication Instructions Recorded Confirmed Type fluoxetine 40 mg capsule 40 mg PO QAM 09/17/21 08/23/22 History tnhjpitsgqgv-hfvknlcz-fdmiyx 1 tab PO QAM 01/12/22 08/23/22 History tablet (Multivitamin 50 Plus tablet) clonazepam 0.5 mg tablet 0.5 mg PO QPM 02/01/22 08/23/22 History memantine 5 mg tablet 5 mg PO HS 05/10/22 08/23/22 History olanzapine 7.5 mg tablet 7.5 mg PO HS #10 tabs 06/15/22 08/23/22 Rx docusate sodium 100 mg capsule 200 mg PO DAILY 06/18/22 08/23/22 History (Colace) lisinopril 10 mg tablet 10 mg PO QAM #90 tabs 06/18/22 08/23/22 Rx metoprolol succinate 50 mg 25 mg PO QAM 90 days #45 tabs 06/18/22 08/23/22 Rx tablet,extended release 24 hr polyethylene glycol 3350 17 17 g PO BID 06/18/22 08/23/22 History gram/dose oral powder (Miralax) sennosides 8.6 mg capsule (senna) 8.6 mg PO BID 06/18/22 08/23/22 History ketoconazole 2 % shampoo 1 applic topical .COMPLEX #120 mL 08/09/22 08/23/22 Rx thiamine HCl (vitamin B1) 100 mg 100 mg PO DAILY 08/09/22 08/23/22 History tablet rosuvastatin 5 mg tablet 5 mg PO QAM #90 tabs 08/31/22 08/31/22 Rx Personal History 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 ) Beliefs That Will Affect Care: None Patient History Medical History Anxiety Aortic stenosis Moderate Ascending aorta dilatation 4.5 x 4.4 cm Brachial plexopathy Calcification of aortic valve History of COVID-19 09/2020; congestion, cough; per , has had anxiety issues since having covid History of depression [place] (hard of hearing) Hyperlipidemia Hypertension controlled, stable per pt 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 He denies any known adverse reaction to anesthesia to date. Anesthesiologist advised patient to be marked as MH susceptibility in chart given FHx. Memory changes per , chronic without change, states pt also speaks slowly but able to respond appropriately on current psychiatric regimen OCD (obsessive compulsive disorder) Pancreatic abnormality recent finding -- unable to provide specifics -- dr almendarez monitoring Parotid nodule Sleep apnea unable to tolerate CPAP Systolic anterior movement of mitral valve follows with Dr. Cohen, LVOT obstruction improved per 12/2021 echo vs 03/2021 echo Surgical History History of cataract surgery History of colonoscopy History of surgery benign tumor removed from behind left ear History of surgical removal of lesion History of tonsillectomy History of tooth extraction Family History Mother Diabetes Unknown Ischemic heart disease Son Malignant hyperthermia Other Hypertension No family history of bleeding disorder Denies family history of Ovarian cancer Prostate cancer Myocardial infarction Breast cancer Colorectal cancer Social History Smoking Status: Former smoker Smoking End Date: 2017; Second Hand Exposure: No; Hx Alcohol Use: No Hx Substance Use: No Preferred Language: Belarusian Communication Ability: Effective Visual Impairment: Limited Hearing Ability: Hard of Hearing Tower Loader Operator Required: No Beliefs That Will Affect Care: None marital status: Current Living Situation: Spouse Current Living Situation Comment: lives at home with current occupational status: employed 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 Other Information That Helps Us Care for You: No Feels Safe at Home: Yes Childhood Exposure to Second-Hand Smoke: Yes caffeine: Yes Dental Care, Regularly: Yes Physical Activity Frequency: 3-4 Times per Week Seatbelt Use: always Sunscreen Use: Yes Assistive Devices: Walker Physical Exam Psychiatric: Orientation: alert, oriented to person, oriented to place (knows it's a hospital, believes it's still [facility]) and oriented to time Apperance: appropriately dressed and appropriately groomed Eye Contact: + poor eye contact Motor Behavior: no abnormal motor movements Speech: + abnormal rate/rhythm/volume of speech (brief ) Affect: + constricted affect Thought Process: clear/coherent thought process Hallucinations: no auditory hallucinations and no visual hallucinations Cognition: language grossly intact Insight: + limited insight Judgement: + limited judgement Vital Signs (Past 24 Hours): Last Vital Signs Temp 36.6 C 11/19/22 07:38 Pulse 69 11/19/22 07:38 Resp 16 11/19/22 07:38 BP 128/78 11/19/22 07:38 Pulse Ox 96 11/19/22 07:38 O2 Del Method 11/19/22 08:00 Review of Systems Unobtainable due to cognitive status Results & Data (PSY) Laboratory Results Na+ normal Diagnostic Findings EKG QTc 427 ms Medications Administered Clonazepam (Clonazepam 0.5 Mg Tab) 0.5 mg PO QPM [facility] Stop: 12/19/22 00:23 Last Admin: 11/19/22 00:57 Dose: 0.5 mg Documented By: PRATIBHA Fluoxetine HCl (Fluoxetine Hcl 20 Mg Cap) [facility] [place]: 12/19/22 08:59 Last Admin: 11/19/22 07:48 Dose: 40 mg Documented By: TRINA Lisinopril (Lisinopril 10 Mg Tab) 10 [facility] [place]: 12/19/22 08:59 Last Admin: 11/19/22 07:49 Dose: 10 mg Documented By: TRINA Magnesium Hydroxide (Magnesium Hydroxide Susp 30 Ml Udc) 30 ml PO Q6H [facility] Stop: 12/19/22 05:59 Last Admin: 11/19/22 06:24 Dose: Not Given Documented By: PRATIBHA Memantine (Memantine Hcl 5 Mg Tab) 5 mg PO [facility] Stop: 12/19/22 00:23 Last Admin: 11/19/22 00:58 Dose: 5 mg Documented By: PRATIBHA Metoprolol Succinate (Metoprolol Succ 25mg Ext Rel Tab) 25 mg [facility] [place]: 12/19/22 08:59 Last Admin: 11/19/22 07:49 Dose: 25 mg Documented By: TRINA Miscellaneous (Ketoconazole~Order Awaiting Action) 1 each N/A QS [facility] Stop: 12/19/22 07:59 Last Admin: 11/19/22 07:48 Dose: Not Given Documented By: TRINA Multivitamins/Minerals (Cerovite Adv Formula Tab) 1 tab [facility] [place]: 12/19/22 08:59 Last Admin: 11/19/22 07:49 Dose: 1 tab Documented By: TRINA Olanzapine (Olanzapine 2.5 Mg Tab) 7.5 mg PO HS [facility] Stop: 12/19/22 00:23 Last Admin: 11/19/22 00:57 Dose: 7.5 mg Documented By: GCB Polyethylene Glycol (Polyethylene (Miralax) 17 Gm Pack) 17 gm PO BID [facility] Stop: 12/19/22 08:59 Last Admin: 11/19/22 07:50 Dose: 17 gm Documented By: TRINA Rosuvastatin Calcium (Rosuvastatin Calcium 5 Mg Tab) 5 mg PO QAM [facility] Stop: 12/19/22 08:59 Last Admin: 11/19/22 07:49 Dose: 5 mg Documented By: TRINA Sennosides (Senna 8.6 Mg Tab) 8.6 mg PO BID [facility] Stop: 12/19/22 08:59 Last Admin: 11/19/22 07:49 Dose: 8.6 mg Documented By: TRINA Thiamine HCl (Thiamine Hcl 100 Mg Tab) 100 mg PO DAILY [facility] Stop: 12/19/22 08:59 Last Admin: 11/19/22 07:49 Dose: 100 mg Documented By: TRINA Coding Level of Care Code INP/OBS CONSULT LVL 3, 45 MIN Diagnoses Constipation K59.00 Need for assistance with personal care Z74.1 Anxiety F41.9
[2022-11-19] MEDS ORDERED: bisacodyL 10 MG SUPP PR STA (14:55)
--- NOTE | 2022-11-19 17:42 | Hospitalist Progress Note ---
Date of Service November 19, 2022 Assessment & Plan (1) Constipation: Plan: 77-year-old man with history of hypertension, hyperlipidemia, and dementia admitted for constipation x7 days. -Rectosigmoid fecal impaction seen on KUB and CT A/P. -s/p enema x 3, Miralax x 2 , senna x 2 Dulcolax and MOM Dulcolax supp small BM Lactulose ordered (2) HTN (hypertension): Plan: Stable 125/75 Continue home lisinopril, metoprolol (3) Hyperlipidemia: Plan: Continue home rosuvastatin (4) Anxiety: Plan: Continue home fluoxetine Psychiatry decreased Olanzapine to 5mg hs and stated if sedation persists he can work with his outpatient provider to further taper to 2.5mg HS Psych also decreased Klonopin from 0.5mg BID to 0.5mg hs, if sedation persists would consider change to 0.5 mg daily prn in outpatient setting and eventually could ideally taper to discontinuation with his outpt provider given cognitive risks at his age Recommend neurology referral for further cognitive impairment workup if diagnosis is unclear (would defer to his PCP who likely has more records from [facility] and any in office annual cognitive screens or other prior formal cognitive workups) (5) Aortic stenosis: Plan: echo 12/2021 EF >70% 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 without significant LVOT obstruction Moderate (6) Vitamin D deficiency: Plan: Will start replacement with Vit D 5000 IU daily (7) OCD (obsessive compulsive disorder): Plan: As above Psychiatry consulted (8) Memory changes: Plan: Continue home memantine, thiamine NH3 Consider neuro consult inpatient vs outpatient Plan Code: Full code Dispo: Med-Surg FEN/GI: NPO DVT Prophylaxis: Lovenox 40 mg q24h PT/OT: Yes Admission and Anticipated Discharge Date Admission Date: November 18, 2022 Subjective Patient is sleeping does awake briefly to his name but not able to provide any history. I spoke with his who was at bedside. She telsl me his cognitive changes have been since his Covid infection and have been worse since starting his psych medications. Review of Systems Review of Systems: Unable to do any ROS due to patient's cognitive state Physical Exam Constitutional: Patient sleeping and will briefly awake to his name. Neck: trachea midline, no thyromegaly healed scar left parotid area Respiratory: normal respiratory effort, lungs clear to auscultation Cardiovascular: Rate/Rhythm: regular rate and regular rhythm Heart Sounds: normal S1, normal S2 and + murmur Gastrointestinal (Abdomen): normal bowel sounds, soft, nontender, no hepatosplenomegaly Neurologic: lethargic, but will awaken with stimuli Results & Data Results & Data ([facility] [place]) Vital Signs (Past 12 Hours) Vital Signs Temp Pulse Resp BP Pulse Ox O2 Del Method 11/19/22 15:04 36.7 C 70 16 125/75 97 Room Air 11/19/22 08:00 Room Air 11/19/22 07:38 36.6 C 69 16 128/78 96 Room Air Laboratory Results Abnormal lab results 11/18/22 11/18/22 11/19/22 Range/Units 18:48 18:48 05:39 RBC 3.98 L 3.86 L (4.63-6.08) M/uL Hgb 11.0 L 10.5 L (14.0-18.0) g/dl Hct 34.2 L 32.0 L (40.1-51.0) % MPV 9.1 L (9.4-12.4) fL Neut # (Auto) 8.66 H 7.76 H (1.4-6.5) K/uL Lymph # (Auto) 0.94 L 0.93 L (1.2-3.4) K/uL Immature Gran # (Auto) 0.15 H 0.11 H (0.00-0.02) K/uL BUN/Creatinine Ratio 23.3 H (10-20) Magnesium 2.6 H (1.7-2.4) mg/dl AST (13-39) U/L Albumin 3.3 L (3.4-5.0) gm/dl 25-OH Vitamin D Total (30-100) ng/ml 11/19/22 11/19/22 Range/Units 05:39 15:03 RBC (4.63-6.08) M/uL Hgb (14.0-18.0) g/dl Hct (40.1-51.0) % MPV (9.4-12.4) fL Neut # (Auto) (1.4-6.5) K/uL Lymph # (Auto) (1.2-3.4) K/uL Immature Gran # (Auto) (0.00-0.02) K/uL BUN/Creatinine Ratio (10-20) Magnesium (1.7-2.4) mg/dl AST 12 L (13-39) U/L Albumin 3.2 L (3.4-5.0) gm/dl 25-OH Vitamin D Total 24.7 L (30-100) ng/ml Diagnostic Findings Abdomen/Pelvis CT 11/18/22 18:19 CT SCAN OF THE ABDOMEN AND PELVIS WITHOUT IV CONTRAST CLINICAL HISTORY: Constipation. COMPARISON STUDY: Abdominal CT dated 03/01/2022. TECHNIQUE: CT scan of the abdomen and pelvis is performed from the lung bases to the proximal femora. Images are reviewed in the axial, sagittal, and coronal planes. IV contrast was not administered for this examination. Note that the examination was performed in suboptimal fashion without oral and IV contrast. A dose lowering technique was utilized adhering to the principles of ALARA. CT DOSE: 292.11 mGy.cm FINDINGS: Lung bases: The heart is enlarged and without pericardial effusion. The coronary arteries and mitral annulus are densely calcified. There is diminished attenuation of the cardiac blood pool as compared to the myocardium suggesting anemia. There is bibasilar scarring/atelectasis. Trace pleural effusion is seen on the right. There is a small hiatal hernia. Liver: The unenhanced liver is normal in size, contour, and attenuation. There is no intrahepatic biliary ductal dilatation. Gallbladder: Unremarkable. Spleen: Normal in size and attenuation. Pancreas: The unenhanced pancreas is grossly unremarkable. 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 Adrenal glands: Unremarkable. Kidneys: The unenhanced kidneys demonstrate mild cortical atrophy and are without hydronephrosis. There is fullness of the left renal collecting system, with left-sided perinephric stranding and fluid. There are at least 4 small nonobstructing left renal calculi which measure up to 3 mm. A punctate nonobstructing calculus is seen in the right upper pole. No ureteral stone is seen. There is no evidence of contour deforming renal mass lesion. Abdominal vasculature: There is advanced atherosclerotic calcification of the abdominal aorta. An infrarenal abdominal aortic aneurysm measures up to 3.4 cm in diameter. Bowel: There is rectosigmoid fecal impaction and moderate to severe constipation. There is sitting wall thickening of the rectosigmoid with surrounding infiltration consistent stercoral proctocolitis. There is no bowel obstruction. The appendix is well-visualized and normal. Peritoneum: There is no intraperitoneal free air or abdominal ascites. Lymphadenopathy: There are numerous mildly enlarged left retroperitoneal lymph nodes. These measure up to 14 mm short axis. Pelvic viscera: The prostate gland is enlarged and heterogeneous. The bladder wall is thickened/trabeculated indicating chronic outlet obstruction. Skeletal structures: The skeletal structures are heterogeneously osteopenic. There is moderate lumbosacral spondylosis. A chronic compression deformity of L2 is unchanged. No lytic or blastic lesions are seen. IMPRESSION: 1. There is rectosigmoid fecal impaction and moderate to severe constipation. 2. There is wall thickening of the rectosigmoid surrounding inflammation consistent with stercoral proctocolitis. 3. No intraperitoneal free air or abdominal ascites is seen. 4. Bilateral nephrolithiasis. 5. There is significant and asymmetric left-sided perinephric stranding and fluid, which is new from 03/01/2022. No obstructing stone is identified. This could potentially represent the sequelae of a recently passed kidney stone. Correlate with clinical findings and urinalysis. 6. Left-sided retroperitoneal lymphadenopathy is nonspecific and may be reactive. This is also new from previous. 7. 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 8. Cardiomegaly and trace right pleural effusion. 9. There is a 3.4 cm infrarenal abdominal aortic aneurysm. 10. Additional findings as above. ACT 112: Negative or not required by law. Electronically signed by: Karlos Good M.D. 11/18/2022 7:11 PM PG Care Time/CCT Total # of Minutes Spent Total Time Spent with Patient: Total time spent is greater than 50% in coordination of care (as documented) at patient's floor/unit and/or counseling patient: Coding Level of Care Code 57400 SUB INP/OBS CARE 2/35MIN Diagnoses Constipation K59.00 HTN (hypertension) I10 Hypertension type: essential hypertension Hyperlipidemia E78.2 Hyperlipidemia type: mixed hyperlipidemia Anxiety F41.9 Aortic stenosis I35.0 Cardiac valve disease etiology: etiology unspecified Vitamin D deficiency E55.9 OCD (obsessive compulsive disorder) F42.9 Memory changes R41.3 (1) Aortic stenosis Cardiac valve disease etiology: etiology unspecified Qualified Code(s): I35.0 - Nonrheumatic aortic (valve) stenosis (2) Hyperlipidemia Hyperlipidemia type: mixed hyperlipidemia Qualified Code(s): E78.2 - Mixed hyperlipidemia (3) HTN (hypertension) Hypertension type: essential hypertension Qualified Code(s): I10 - Essential (primary) hypertension
[2022-11-19] MEDS ORDERED: LACTULOSE SYRUP 30 GM/45 ML UDP PO STA (18:48)
[2022-11-19] MEDS: OLANZapine 5 MG TABLET PO SCH (21:48)
[2022-11-19] MEDS: clonazePAM 0.5 MG TAB PO SCH ×2 (21:49→21:52)
[2022-11-20] MEDS: MAGNESIUM HYDROXIDE SUSP 30 ML UDC PO SCH ×6 (01:03→23:51)
[2022-11-20] MEDS: KETOCONAZOLE~ORDER AWAITING ACTION SCH ×3 (01:04→23:52)
[2022-11-20 06:40] LABS: Basophils # (auto) 0.02 K/uL (0-0.2); Basophils % (auto) 0.2 %; Eosinophils # (auto) 0.02 K/uL (0-0.50); Eosinophils % (auto) 0.2 %; Hematocrit (blood only) 34.3 % (40.1-51.0); Immature Granulocytes # (auto) 0.12 K/uL (0.00-0.02); Immature Granulocytes % (auto) 1.2 %; Lymphocytes # (auto) 0.99 K/uL (1.2-3.4); Lymphocytes % (auto) 9.8 %; Mean Corpuscular Hgb Conc 32.1 g/dL (32.0-36.0); Mean Corpuscular Volume 84.1 fL (80.0-100.0); Monocytes # (auto) 0.71 K/uL (0.24-0.82); Neutrophils # (auto) 8.23 K/uL (1.4-6.5); Neutrophils % (auto) 81.6 %; Platelet Count 256 K/uL (130-400); RDW Coefficient of Variation 12.7 % (11.5-14.5); RDW Standard Deviation 38.3 fL (36.4-46.3); Red Blood Count 4.08 M/uL (4.63-6.08); White Blood Count 10.09 K/ul (4.8-10.8)
[2022-11-20 07:23] LABS: Albumin Level 3.3 gm/dl (3.4-5.0); BUN Creatinine Ratio 16.5 (10-20); Bilirubin,Total 0.5 mg/dl (0.2-1.0); Calcium 9.8 mg/dl (8.5-10.1); Creatinine Clr Calc Pharmacy 70.5 ml/min; Est GFR (African American) 93.2 ml/min; Est GFR (Non-African American) 80.4 ml/min; Globulin 3.2 gm/dl (2.5-4.0); Magnesium 2.3 mg/dl (1.7-2.4); Phosphorus 3.1 mg/dl (2.5-4.9); Potassium 4.2 mmol/L (3.5-5.1); Total Protein 6.5 gm/dl (6.0-8.3)
[2022-11-20] MEDS: FLUoxetine HCL 20 MG CAP PO SCH (08:29)
[2022-11-20] MEDS: CEROVITE ADV FORMULA TAB PO SCH (08:30)
[2022-11-20] MEDS: SENNA 8.6 MG TAB PO SCH ×2 (08:30→22:57)
[2022-11-20] MEDS: ROSUVASTATIN CALCIUM 5 MG TAB PO SCH (08:30)
[2022-11-20] MEDS: THIAMINE HCL 100 MG TAB PO SCH (08:30)
[2022-11-20] MEDS: METOPROLOL SUCC 25MG EXT REL TAB PO SCH (08:30)
[2022-11-20] MEDS: lisinopril 10 MG TAB PO SCH (08:30)
[2022-11-20] MEDS: POLYETHYLENE (MIRALAX) 17 GM PACK PO SCH ×3 (08:31→23:47)
[2022-11-20] MEDS: CHOLECALCIFEROL 5,000 UNITS 125 MCG TAB PO SCH (08:32)
[2022-11-20 09:03] LABS: Base Excess ABG 2.7 mEq/L (-9-1.8); HCO3 ABG 26 mmol/L (19-24); Oxygen Saturation ABG 97.9 % (90-95); PCO2 ABG 36 mmHg (35-46); PO2 ABG 82 mmHg (80-95); pH ABG 7.47 (7.35-7.45)
[2022-11-20 09:04] LABS: Allen Test Pos (Pos)
[2022-11-20] MEDS ORDERED: LACTULOSE SYRUP 30 GM/45 ML UDP PO STA (10:18)
--- NOTE | 2022-11-20 10:21 | Hospitalist Progress Note ---
Date of Service November 20, 2022 Assessment & Plan (1) Constipation: Plan: 77-year-old man with history of hypertension, hyperlipidemia, and dementia admitted for constipation x7 days. I was reviewing previous records and there was documentation that patient has a psychological fear of having a bowel movement. He has had psych evaluations and treatments in the past. In 2020 had an admission to [facility] and was discharged to [facility] -Rectosigmoid fecal impaction seen on KUB and CT A/P. -s/p enema x 3, Miralax x 2 , senna x 2 Dulcolax and MOM Dulcolax supp small BM Lactulose ordered only had smear after 2 doses of lactulose Ordered Lactulose enema today q 8H untill having loose BMs (2) HTN (hypertension): Plan: Continue home lisinopril, metoprolol (3) Hyperlipidemia: Plan: Continue home rosuvastatin (4) Anxiety: Plan: Continue home fluoxetine Psychiatry decreased Olanzapine to 5mg hs and stated if sedation persists he can work with his outpatient provider to further taper to 2.5mg HS Psych also decreased Klonopin from 0.5mg BID to 0.5mg hs, if sedation persists would consider change to 0.5 mg daily prn in outpatient setting and eventually could ideally taper to discontinuation with his outpt provider given cognitive risks at his age Recommend neurology referral for further cognitive impairment workup if diagnosis is unclear (would defer to his PCP who likely has more records from [place] admission and any in office annual cognitive screens or other prior formal cognitive workups) Patient has seen neurology in the past (5) Aortic stenosis: Plan: echo 12/2021 EF >70% 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 without significant LVOT obstruction Moderate (6) Vitamin D deficiency: Plan: Will start replacement with Vit D 5000 IU daily (7) OCD (obsessive compulsive disorder): Plan: As above Psychiatry consulted (8) Memory changes: Plan: Continue home memantine, thiamine NH3 - was normal Consider neuro consult inpatient vs outpatient (9) Dementia: Plan: Continue Memantine Plan Code: Full code Dispo: Med-Surg FEN/GI: NPO DVT Prophylaxis: Lovenox 40 mg q24h PT/OT: Yes Admission and Anticipated Discharge Date Admission Date: November 18, 2022 Subjective Patient is slightly more alert. He was sleeping but did awake to his name and was alert to person and place. But thought it was July 2022. He denies any complaints. Review of Systems Review of Systems: Unable to do any ROS due to patient's cognitive state Physical Exam Constitutional: WD/WN, vitals as above Neck: trachea midline, no thyromegaly Respiratory: normal respiratory effort, lungs clear to auscultation Cardiovascular: Rate/Rhythm: regular rate and regular rhythm Heart Sounds: normal S1, normal S2 and + murmur Gastrointestinal (Abdomen): normal bowel sounds, soft, nontender, no hepatosplenomegaly Neurologic: + confused speech slow and alert and oriented x 2 but unable to communicate otherwise Results & Data Results & Data ([facility]) Vital Signs (Past 12 Hours) Vital Signs Temp Pulse Resp BP BP Pulse Ox O2 Del Method 11/20/22 07:46 36.9 C 78 18 121/79 96 Room Air 11/20/22 02:07 69 146/77 H 97 Room Air Laboratory Results Abnormal lab results 11/19/22 11/20/22 11/20/22 Range/Units 15:03 05:57 05:57 RBC 4.08 L (4.63-6.08) M/uL Hgb 11.0 L (14.0-18.0) g/dl Hct 34.3 L (40.1-51.0) % MPV 9.0 L (9.4-12.4) fL Neut # (Auto) 8.23 H (1.4-6.5) K/uL Lymph # (Auto) 0.99 L (1.2-3.4) K/uL Immature Gran # (Auto) 0.12 H (0.00-0.02) K/uL ABG pH (7.35-7.45) ABG HCO3 (19-24) mmol/L ABG O2 Saturation (90-95) % ABG Base Excess (-9-1.8) mEq/L Albumin 3.3 L (3.4-5.0) gm/dl 25-OH Vitamin D Total 24.7 L (30-100) ng/ml 11/20/22 Range/Units 08:34 RBC (4.63-6.08) M/uL Hgb (14.0-18.0) g/dl Hct (40.1-51.0) % MPV (9.4-12.4) fL Neut # (Auto) (1.4-6.5) K/uL Lymph # (Auto) (1.2-3.4) K/uL Immature Gran # (Auto) (0.00-0.02) K/uL ABG pH 7.47 H (7.35-7.45) ABG HCO3 26 H (19-24) mmol/L ABG O2 Saturation 97.9 H (90-95) % ABG Base Excess 2.7 H (-9-1.8) mEq/L Albumin (3.4-5.0) gm/dl 25-OH Vitamin D Total (30-100) ng/ml PG Care Time/CCT Total # of Minutes Spent Total Time Spent with Patient: Total time spent is greater than 50% in coordination of care (as documented) at patient's floor/unit and/or counseling patient: Coding Level of Care Code 10722 SUB INP/OBS CARE 11/28MIN Diagnoses Constipation K59.00 HTN (hypertension) I10 Hypertension type: essential hypertension Hyperlipidemia E78.2 Hyperlipidemia type: mixed hyperlipidemia Anxiety F41.9 Aortic stenosis I35.0 Cardiac valve disease etiology: etiology unspecified Vitamin D deficiency E55.9 OCD (obsessive compulsive disorder) F42.9 Memory changes R41.3 Dementia F03.90 (1) Aortic stenosis Cardiac valve disease etiology: etiology unspecified Qualified Code(s): I35.0 - Nonrheumatic aortic (valve) stenosis (2) Hyperlipidemia Hyperlipidemia type: mixed hyperlipidemia Qualified Code(s): E78.2 - Mixed hyperlipidemia (3) HTN (hypertension) Hypertension type: essential hypertension Qualified Code(s): I10 - Essential (primary) hypertension
[2022-11-20] MEDS: LACTULOSE 200GM/700ML WTR ENEMA PR SCH (18:20)
[2022-11-20] MEDS ORDERED: ONDANSETRON INJ 2 MG/ML 2 ML VIAL IV STA (19:18)
[2022-11-20] MEDS: MEMANTINE HCL 5 MG TAB PO SCH ×2 (22:55→23:46)
[2022-11-20] MEDS: OLANZapine 5 MG TABLET PO SCH ×2 (22:55→23:47)
[2022-11-20] MEDS: clonazePAM 0.5 MG TAB PO SCH ×2 (22:56→23:51)
[2022-11-21] MEDS: LACTULOSE 200GM/700ML WTR ENEMA PR SCH ×3 (02:09→08:59)
[2022-11-21] MEDS: MAGNESIUM HYDROXIDE SUSP 30 ML UDC PO SCH ×3 (05:20→09:29)
[2022-11-21 06:55] LABS: Hematocrit (blood only) 38.3 % (40.1-51.0); Hemoglobin 12.4 g/dl (14.0-18.0); Mean Corpuscular Hemoglobin 27.3 pg (25.0-34.0); Mean Corpuscular Hgb Conc 32.4 g/dL (32.0-36.0); Mean Corpuscular Volume 84.4 fL (80.0-100.0); Mean Platelet Volume 9.3 fL (9.4-12.4); Platelet Count 291 K/uL (130-400); RDW Coefficient of Variation 12.8 % (11.5-14.5); Red Blood Count 4.54 M/uL (4.63-6.08); White Blood Count 14.93 K/ul (4.8-10.8)
[2022-11-21 07:41] LABS: Albumin Level 3.5 gm/dl (3.4-5.0); Bilirubin,Total 0.5 mg/dl (0.2-1.0); Calcium 9.9 mg/dl (8.5-10.1); Magnesium 2.5 mg/dl (1.7-2.4); Potassium 3.4 mmol/L (3.5-5.1)
[2022-11-21 07:47] LABS: Albumin Globulin Ratio 0.9 (0.9-2); BUN Creatinine Ratio 21.9 (10-20); Creatinine Clr Calc Pharmacy 61.1 ml/min; Est GFR (African American) 78.4 ml/min; Est GFR (Non-African American) 67.7 ml/min; Globulin 3.7 gm/dl (2.5-4.0); Phosphorus 4.5 mg/dl (2.5-4.9); Total Protein 7.2 gm/dl (6.0-8.3)
[2022-11-21 07:49] LABS: Basophils # (auto) 0.03 K/uL (0-0.2); Basophils % (auto) 0.2 %; Immature Granulocytes # (auto) 0.11 K/uL (0.00-0.02); Immature Granulocytes % (auto) 0.7 %; Lymphocytes # (auto) 0.46 K/uL (1.2-3.4); Lymphocytes % (auto) 3.1 %; Monocytes # (auto) 0.63 K/uL (0.24-0.82); Monocytes % (auto) 4.2 %; Neutrophils % (auto) 91.8 %
[2022-11-21 07:51] LABS: Vitamin B12 > 1500 pg/ml (180-914)
[2022-11-21] MEDS: KETOCONAZOLE~ORDER AWAITING ACTION SCH ×2 (08:13→08:59)
[2022-11-21] MEDS: POLYETHYLENE (MIRALAX) 17 GM PACK PO SCH ×2 (08:58→20:57)
[2022-11-21] MEDS: SENNA 8.6 MG TAB PO SCH ×2 (08:59→20:57)
[2022-11-21] MEDS: ROSUVASTATIN CALCIUM 5 MG TAB PO SCH ×2 (09:29→12:45)
[2022-11-21] MEDS: THIAMINE HCL 100 MG TAB PO SCH ×2 (09:29→12:45)
[2022-11-21] MEDS: CHOLECALCIFEROL 5,000 UNITS 125 MCG TAB PO SCH ×2 (09:29→12:44)
[2022-11-21] MEDS: FLUoxetine HCL 20 MG CAP PO SCH ×2 (09:29→12:44)
[2022-11-21] MEDS: CEROVITE ADV FORMULA TAB PO SCH ×2 (09:29→12:45)
[2022-11-21] MEDS: METOPROLOL SUCC 25MG EXT REL TAB PO SCH ×2 (09:29→12:45)
[2022-11-21] MEDS: lisinopril 10 MG TAB PO SCH ×2 (09:29→12:44)
--- NOTE | 2022-11-21 13:56 | Hospitalist Progress Note ---
Date of Service November 21, 2022 Assessment & Plan (1) Constipation: Plan: 77-year-old man with history of hypertension, hyperlipidemia, and dementia admitted for constipation x7 days. I was reviewing previous records and there was documentation that patient has a psychological fear of having a bowel movement. He has had psych evaluations and treatments in the past. In 2020 had an admission to [facility] and was discharged to [facility] -Rectosigmoid fecal impaction seen on KUB and CT A/P. -s/p enema x 3, Miralax x 2 , senna x 2 Dulcolax and MOM Dulcolax supp small BM Lactulose ordered only had smear after 2 doses of lactulose Ordered Lactulose enema yesterday q 8H until having loose BMs Had multiple loose BMs last night (2) HTN (hypertension): Plan: Continue home lisinopril, metoprolol (3) Hyperlipidemia: Plan: Continue home rosuvastatin (4) Anxiety: Plan: Continue home fluoxetine Psychiatry decreased Olanzapine to 5mg hs and stated if sedation persists he can work with his outpatient provider to further taper to 2.5mg HS Psych also decreased Klonopin from 0.5mg BID to 0.5mg hs, if sedation persists would consider change to 0.5 mg daily prn in outpatient setting and eventually could ideally taper to discontinuation with his outpt provider given cognitive risks at his age Recommend neurology referral for further cognitive impairment workup if diagnosis is unclear (would defer to his PCP who likely has more records from [place] admission and any in office annual cognitive screens or other prior formal cognitive workups) Patient has seen neurology in the past (5) Aortic stenosis: Plan: echo 12/2021 EF >70% 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 without significant LVOT obstruction Moderate (6) Vitamin D deficiency: Plan: Will start replacement with Vit D 5000 IU daily (7) OCD (obsessive compulsive disorder): Plan: As above Psychiatry consulted Need to have outpatient regular follow up Patient's states he follows with a psychologist Nic regularly and has televisits with a PA at [place] monthly (8) Memory changes: Plan: Continue home memantine, thiamine NH3 - was normal Consider neuro consult inpatient vs outpatient Per he is at his baseline and has periods where he sleeps more and other times when he is more alert and active This is not an acute change for patient (9) Dementia: Plan: Continue Memantine Plan DVT Prophylaxis: Lovenox 40 mg q24h while admitted Plan to possibly discharge to home tomorrow with possible H/H states he is at or near his baseline and she states she has help at home several times per week (will[facility] H/H 2 x per week for 4H each) and she feels she is able to provide adequate care for her Admission and Anticipated Discharge Date Admission Date: November 18, 2022 Subjective Patient was sleeping, he would open his eyes and would follow simple commands. His at bedside. Patient would not take his medications for nursing today, he kept saying" I Can't" and refused to take them, but when his arrived he was willing to take his medications. Patient was admitted for constipation that did not respond to initial treatment in the ER. Finally after po lactulose and then Lactulose enema X 2 he was able to have multiple loose bowel movements. Patient was restarted on clears and then a regular diet today. Review of Systems Review of Systems: Unable to do any ROS due to patient's cognitive state Physical Exam Constitutional: + ill appearing, + thin and + behavioral limitations Neck: trachea midline, no thyromegaly Respiratory: normal respiratory effort, lungs clear to auscultation Cardiovascular: Rate/Rhythm: regular rate and regular rhythm Heart Sounds: normal S1, normal S2 and + murmur Gastrointestinal (Abdomen): normal bowel sounds, soft, nontender, no hepatosplenomegaly Neurologic: + confused Results & Data Results & Data ([facility]) Vital Signs (Past 12 Hours) Vital Signs Temp Pulse Resp BP Pulse Ox O2 Del Method 11/21/22 11:52 36.8 C 82 19 137/82 93 Room Air 11/21/22 07:46 36.6 C 77 17 122/78 93 Room Air Laboratory Results Abnormal lab results 11/21/22 11/21/22 11/21/22 Range/Units 06:14 06:14 06:14 WBC 14.93 H (4.8-10.8) K/ul RBC 4.54 L (4.63-6.08) M/uL Hgb 12.4 L (14.0-18.0) g/dl Hct 38.3 L (40.1-51.0) % MPV 9.3 L (9.4-12.4) fL Neut # (Auto) 13.70 H (1.4-6.5) K/uL Lymph # (Auto) 0.46 L (1.2-3.4) K/uL Immature Gran # (Auto) 0.11 H (0.00-0.02) K/uL Potassium 3.4 L (3.5-5.1) mmol/L Chloride 109 H (98-107) mmol/L BUN/Creatinine Ratio 21.9 H (10-20) Glucose 140 H (70-99(Fasting)) mg/dl Magnesium 2.5 H (1.7-2.4) mg/dl Vitamin B12 > 1500 H (180-914) pg/ml PG Care Time/CCT Total # of Minutes Spent Total Time Spent with Patient: Total time spent is greater than 50% in coordination of care (as documented) at patient's floor/unit and/or counseling patient: Coding Level of Care Code 36154 SUB INP/OBS CARE 11/28MIN Diagnoses Constipation K59.00 HTN (hypertension) I10 Hypertension type: essential hypertension Hyperlipidemia E78.2 Hyperlipidemia type: mixed hyperlipidemia Anxiety F41.9 Aortic stenosis I35.0 Cardiac valve disease etiology: etiology unspecified Vitamin D deficiency E55.9 OCD (obsessive compulsive disorder) F42.9 Memory changes R41.3 Dementia F03.90 (1) Aortic stenosis Cardiac valve disease etiology: etiology unspecified Qualified Code(s): I35.0 - Nonrheumatic aortic (valve) stenosis (2) Hyperlipidemia Hyperlipidemia type: mixed hyperlipidemia Qualified Code(s): E78.2 - Mixed hyperlipidemia (3) HTN (hypertension) Hypertension type: essential hypertension Qualified Code(s): I10 - Essential (primary) hypertension
--- NOTE | 2022-11-21 16:51 | Communication Note ---
Date of Service: November 21, 2022 case reviewed, patient remains somewhat sedated and refusing meds at time, more compliant with present. Zyprexa and Klonopin tapers had already been started by Dr. Cohen following initial consult. Given age, fall risk/sedation would favor use of Zyprexa over Klonopin moving forward and will continue Klonopin taper to 0.25 mg hs for 2 nights then d/c. May need to shift dosing time of Zyprexa. will follow.
[2022-11-21] MEDS: OLANZapine 5 MG TABLET PO SCH (20:57)
[2022-11-21] MEDS: MEMANTINE HCL 5 MG TAB PO SCH (20:57)
[2022-11-21] MEDS ORDERED: clonazePAM 0.25 MG TAB PO SCH (21:00)
[2022-11-22] MEDS: MAGNESIUM HYDROXIDE SUSP 30 ML UDC PO SCH ×3 (00:12→12:45)
[2022-11-22] MEDS: KETOCONAZOLE~ORDER AWAITING ACTION SCH ×2 (00:12→08:05)
[2022-11-22 06:51] LABS: Basophils # (auto) 0.02 K/uL (0-0.2); Basophils % (auto) 0.1 %; Hematocrit (blood only) 36.1 % (40.1-51.0); Immature Granulocytes # (auto) 0.11 K/uL (0.00-0.02); Immature Granulocytes % (auto) 0.7 %; Lymphocytes # (auto) 0.94 K/uL (1.2-3.4); Mean Corpuscular Hemoglobin 27.5 pg (25.0-34.0); Mean Corpuscular Hgb Conc 33.2 g/dL (32.0-36.0); Mean Corpuscular Volume 82.6 fL (80.0-100.0); Mean Platelet Volume 9.1 fL (9.4-12.4); Monocytes # (auto) 0.91 K/uL (0.24-0.82); Monocytes % (auto) 5.8 %; Neutrophils # (auto) 13.76 K/uL (1.4-6.5); Neutrophils % (auto) 87.4 %; Platelet Count 307 K/uL (130-400); RDW Coefficient of Variation 12.8 % (11.5-14.5); RDW Standard Deviation 38.9 fL (36.4-46.3); Red Blood Count 4.37 M/uL (4.63-6.08); White Blood Count 15.74 K/ul (4.8-10.8)
[2022-11-22 07:17] LABS: Albumin Level 3.2 gm/dl (3.4-5.0); Bilirubin,Total 0.4 mg/dl (0.2-1.0); Calcium 9.7 mg/dl (8.5-10.1); Magnesium 2.8 mg/dl (1.7-2.4); Potassium 4.4 mmol/L (3.5-5.1)
[2022-11-22 07:20] LABS: BUN Creatinine Ratio 33.1 (10-20); Creatinine Clr Calc Pharmacy 48.2 ml/min; Est GFR (African American) 58.9 ml/min; Est GFR (Non-African American) 50.8 ml/min; Globulin 3.2 gm/dl (2.5-4.0); Phosphorus 2.5 mg/dl (2.5-4.9); Total Protein 6.4 gm/dl (6.0-8.3)
[2022-11-22] MEDS: FLUoxetine HCL 20 MG CAP PO SCH (08:06)
[2022-11-22] MEDS: lisinopril 10 MG TAB PO SCH (08:06)
[2022-11-22] MEDS: CHOLECALCIFEROL 5,000 UNITS 125 MCG TAB PO SCH (08:06)
[2022-11-22] MEDS: METOPROLOL SUCC 25MG EXT REL TAB PO SCH (08:06)
[2022-11-22] MEDS: ROSUVASTATIN CALCIUM 5 MG TAB PO SCH (08:06)
[2022-11-22] MEDS: SENNA 8.6 MG TAB PO SCH (08:07)
[2022-11-22] MEDS: THIAMINE HCL 100 MG TAB PO SCH (08:07)
[2022-11-22] MEDS: CEROVITE ADV FORMULA TAB PO SCH (08:07)
[2022-11-22] MEDS: POLYETHYLENE (MIRALAX) 17 GM PACK PO SCH (08:07)
[2022-11-22] MEDS ORDERED: PSYLLIUM or GUAR GUM FIBER POWDER PACKET PO SCH (09:00)
--- NOTE | 2022-11-22 10:20 | Hospitalist Progress Note ---
Date of Service November 22, 2022 Assessment & Plan (1) Constipation: Plan: 77-year-old man with history of hypertension, hyperlipidemia, and dementia admitted for constipation x7 days. I was reviewing previous records and there was documentation that patient has a psychological fear of having a bowel movement. He has had psych evaluations and treatments in the past. In 2020 had an admission to [facility] and was discharged to [facility] -Rectosigmoid fecal impaction seen on KUB and CT A/P. -s/p enema x 3, Miralax x 2 , senna x 2 Dulcolax and MOM Dulcolax supp small BM Lactulose ordered only had smear after 2 doses of lactulose Ordered Lactulose enema yesterday q 8H until having loose BMs Had multiple loose BMs last night (2) HTN (hypertension): Plan: Continue home lisinopril, metoprolol (3) Hyperlipidemia: Plan: Continue home rosuvastatin (4) Anxiety: Plan: Continue home fluoxetine Psychiatry decreased Olanzapine to 5mg hs and stated if sedation persists he can work with his outpatient provider to further taper to 2.5mg HS Psych also decreased Klonopin from 0.5mg BID to 0.5mg hs, if sedation persists would consider change to 0.5 mg daily prn in outpatient setting and eventually could ideally taper to discontinuation with his outpt provider given cognitive risks at his age Recommend neurology referral for further cognitive impairment workup if diagnosis is unclear (would defer to his PCP who likely has more records from [place] admission and any in office annual cognitive screens or other prior formal cognitive workups) Patient has seen neurology in the past (5) Aortic stenosis: Plan: echo 12/2021 EF >70% 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 without significant LVOT obstruction Moderate (6) Vitamin D deficiency: Plan: Will start replacement with Vit D 5000 IU daily (7) OCD (obsessive compulsive disorder): Plan: As above Psychiatry consulted Need to have outpatient regular follow up Patient's states he follows with a psychologist Nic regularly and has televisits with a PA at [place] monthly (8) Memory changes: Plan: Continue home memantine, thiamine NH3 - was normal Consider neuro consult inpatient vs outpatient Per he is at his baseline and has periods where he sleeps more and other times when he is more alert and active This is not an acute change for patient (9) Dementia: Plan: Continue Memantine Plan DVT Prophylaxis: Lovenox 40 mg q24h while admitted Plan to possibly discharge to home tomorrow with possible H/H states he is at or near his baseline and she states she has help at home several times per week (will[place] H/H 2 x per week for 4H each) and she feels she is able to provide adequate care for her Admission and Anticipated Discharge Date Admission Date: November 18, 2022 Results & Data Results & Data ([facility]) Vital Signs (Past 12 Hours) Vital Signs Temp Pulse Resp BP Pulse Ox O2 Del Method 11/22/22 07:32 98.6 F 68 16 102/64 93 Room Air 11/21/22 23:00 98.4 F 80 18 119/76 96 Room Air PG Care Time/CCT Total # of Minutes Spent Total Time Spent with Patient: Total time spent is greater than 50% in coordination of care (as documented) at patient's floor/unit and/or counseling patient: Coding Diagnoses Constipation K59.00 HTN (hypertension) I10 Hypertension type: essential hypertension Hyperlipidemia E78.2 Hyperlipidemia type: mixed hyperlipidemia Anxiety F41.9 Aortic stenosis I35.0 Cardiac valve disease etiology: etiology unspecified Vitamin D deficiency E55.9 OCD (obsessive compulsive disorder) F42.9 Memory changes R41.3 Dementia F03.90 (1) HTN (hypertension) Hypertension type: essential hypertension Qualified Code(s): I10 - Essential (primary) hypertension (2) Hyperlipidemia Hyperlipidemia type: mixed hyperlipidemia Qualified Code(s): E78.2 - Mixed hyperlipidemia (3) Aortic stenosis Cardiac valve disease etiology: etiology unspecified Qualified Code(s): I35.0 - Nonrheumatic aortic (valve) stenosis
--- NOTE | 2022-11-22 17:09 | Discharge Summary ---
Date of Service November 22, 2022 Admission HPI Per Admitting Provider Hamzah is a 77 year old man with a medical history significant for acute onset dementia, anxiety, hyperlipidemia, and hypertension, who presents to the ED with his and son for constipation x1 week. provided most of the HPI, with additional input from son due to patient's history of dementia. She reports that he is usually on a bowel regimen at home but she stopped them sometime after New Year's because of his bout of afebrile diarrhea (she had diarrhea as well, was also afebrile). She did not resume his bowel regimen medicines after resolution of her diarrhea out of concern for recurrence. Patient has been on his full regimen (sennosides twice daily, MiraLAX 1 packet daily, docusate 200 mg daily) for only the past 2 days before presenting to the emergency room. Patient's last bowel movement was 11/11/2022. She denies fever, chills, nausea, vomiting, abdominal pain, or reduced p.o. intake. ROS + for increased sleepiness in recent weeks. She reports he is sleepy at baseline, since being started on antipsychotic medications 1.5 years ago but has been even sleepier than is usual for him. is concerned that he will refuse to take his meds at home. ED course was notable for imaging (KUB, CT abdomen/pelvis) showing rectosigmoid fecal impaction and moderate to severe constipation and rectosigmoid wall thickening with inflammation consistent with stercoral proctocolitis. Vitals signs, save for blood pressure, were within normal limits. WBC, electrolytes were mostly within normal limits. Principal Diagnosis Constipation with stercoral colitis Anxiety Discharge Exam flat affect but conversant abdominal exam is benign Discharge Data Allergies Allergy/AdvReac Type Severity Reaction Status Date / Time No Known Drug Allergies Allergy Unknown Verified 08/23/22 14:49 Consultations 11/18/22 20:18 ED Decision to Admit Stat 11/19/22 01:48 Consult Psychiatry Routine Ordered Studies 11/18/22 18:19 CT Abd and Pelvis [CT abd pelvis wo con] Stat Hospital Course (1) Constipation: 77-year-old man with history of hypertension, hyperlipidemia, and dementia admitted for constipation x7 days. acute on chronic constipation, pts had stopped cathartic medications when Diarrheal illness had occurred I was reviewing previous records and there was documentation that patient has a psychological fear of having a bowel movement. He has had psych evaluations and treatments in the past. In 2020 had an admission to [facility] and was discharged to [facility] -Rectosigmoid fecal impaction seen on KUB and CT A/P. multiple BM after enema and cathartic agents, pt feeling better (2) HTN (hypertension): Chronic and stable continue home lisinopril, metoprolol (3) Hyperlipidemia: Continue home rosuvastatin (4) Anxiety: Chronic and stable still with fears going to the bathroom, concerned about lethargy due to medications continue home fluoxetine Psychiatry decreased Olanzapine to 5mg hs and stated if sedation persists he can work with his outpatient provider to further taper to 2.5mg HS Psych also decreased Klonopin from 0.5mg BID to 0.5mg hs, if sedation persists would consider change to 0.5 mg daily prn in outpatient setting and eventually could ideally taper to discontinuation with his outpt provider given cognitive risks at his age Recommend neurology referral for further cognitive impairment workup this can be completed with an outpatient given the patient's involvement into mental health support system may be beneficial to gain those records prior to neurology evaluation (5) Aortic stenosis: echo 12/2021 EF >70% 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 without significant LVOT obstruction Moderate chronic and stable no signs of heart failure (6) OCD (obsessive compulsive disorder): Chronic and stable Psychiatry consulted Medications adjusted by psychiatry due to lethargy Patient's states he follows with a psychologist Nic regularly and has televisits with a PA at [place] [facility] monthly (7) Memory changes: Chronic and stable, continue home memantine, thiamine (8) Dementia: Continue Memantine Total Time Total Time Spent Total Time Spent (In Minutes): It required greater than 30 minutes to prepare this patient for discharge Discharge Plan Discharge Items Patient Disposition: Home - Home Health Services Reason For Visit: CONSTIPATION Discharge Diagnosis: severe constipation anxiety Activity: Resume your previous activity Non-emergency contact: Primary Care Provider and Psychiatrist Call non-emergency contact if: your symptoms worsen Follow-up/Referrals: Mookie Pineda MD [Primary Care Provider] - 11/27/22 3:30 pm Diet: Regular Addtl Attending Provider Instructions: Please assure that you have a bowel movement at least daily or every two day if no bowel movement increase one of your laxatives by an additional dose a day until results if too much bowel movements reduce a medicine by 50% each day until it stops if excessive bowel movements and weakness please return for re evaluation Pending Studies at Discharge: No Stand-Alone Forms: My [facility], Smoking Cessation Medications and DC Order Prescriptions: New olanzapine 5 mg Tablet 5 mg PO HS Qty: 30 1RF Continued docusate sodium [Colace] 100 mg capsule 200 mg PO DAILY polyethylene glycol 3350 [Miralax] 17 gram/dose powder 17 g PO BID lisinopril 10 mg tablet 10 mg PO QAM Qty: 90 3RF metoprolol succinate 50 mg tablet extended release 24 hr 25 mg PO QAM 90 Days Qty: 45 3RF thiamine HCl (vitamin B1) 100 mg tablet 100 mg PO DAILY ketoconazole 2 % shampoo 1 applic topical .COMPLEX Qty: 120 2RF Rx Instructions: Wash scalp 2-3 times weekly. Let sit for 3-5 minutes prior to rinsing.; rosuvastatin 5 mg tablet 5 mg PO QAM Qty: 90 3RF fluoxetine 40 mg capsule 40 mg PO QAM memantine 5 mg tablet 5 mg PO HS Multivitamin 50 Plus Tablet 1 tab PO QAM Changed senna 8.6 mg capsule 17.2 mg PO BID Qty: 60 0RF clonazepam 0.5 mg tablet 0.25 mg PO QPM Qty: 20 0RF Rx Instructions: TAKES 0.25-0.5 MG QAM, THEN 0.5 MG QPM. Discontinued olanzapine 7.5 mg tablet 7.5 mg PO HS Qty: 10 0RF Discharge Orders: Discharge Order (Routine); Ordered 11/22/22 Ordered By: Wilberto Guillaume Admission Data Admit Date/Time: 11/18/22 22:27 Attending Provider: Wilberto Guillaume Admit Provider: Raoul De Dios Primary Care Provider: Mookie Pineda Other Providers: Roxanne Wong ; Yojana Cohen ; Vanda Barcenas Other Interventions: Discharge Summary Assessment (RN) Last Done: 11/22/22 12:39 Coding Level of Care Code HOSP INP/OBS DISCH >30 MIN Diagnoses Constipation K59.00 HTN (hypertension) I10 Hypertension type: essential hypertension Hyperlipidemia E78.2 Hyperlipidemia type: mixed hyperlipidemia Anxiety F41.9 Aortic stenosis I35.0 Cardiac valve disease etiology: etiology unspecified OCD (obsessive compulsive disorder) F42.9 Memory changes R41.3 Dementia F03.90
== END 2022-11-22 14:30 | disposition home health service (06) | DRG 390 ==
LOC: ED 15:09 → 3E 22:27 → SUATTDRO 22:27 → 3E 23:07

== ENCOUNTER 2022-12-02 16:48 | Inpatient (IN) ==
--- NOTE | 2022-12-02 17:06 | Emergency Department Note ---
Impression & Plan Pneumonia, Acute dehydration, Weakness ED Provider Note NAME: AGUSTÍN SNOW AGE: 77 SEX: M : 1945 ARRIVES VIA: Ambulance INFORMANT: Patient, EMS ED PROVIDER(S): Ji Chin DO CHIEF COMPLAINT: Generalized weakness HPI: The patient is a 77-year-old male that presented to the emergency department by ambulance for an evaluation of generalized weakness. History is very limited. The patient has been in our facility previously for similar complaints. History was obtained from the prehospital personnel. There is been no reported fever. The patient was reported to have episodes of bradycardia with heart rates in the 40s prior to arrival. There is been no reported trauma. There is been no reported vomiting. The patient himself denies having any chest pain or difficulty breathing. According to the prehospital personnel the patient's significant other called 911 as the patient was having severe anxiety. ROS: See above HPI for pertinent positives & negatives. A total of 10 systems reviewed and were otherwise negative. PAST MEDICAL HISTORY: See Below PAST SURGICAL HISTORY: See Below FAMILY HISTORY: See Below SOCIAL HISTORY: See Below HOME MEDICATIONS: See Below ALLERGIES: See Below VITALS: See Below PHYSICAL EXAMINATION: GENERAL: Patient is awake to verbal commands. He does appear to be somewhat anxious. EYES: The conjunctivae are clear. The pupils are round and reactive. EARS, NOSE, MOUTH AND THROAT: The nose is without any evidence of any deformity. Mucous membranes are dry. NECK: The neck is nontender and supple. RESPIRATORY: Normal respiratory effort is noted there is no evidence of wheezing rhonchi or rales CARDIOVASCULAR: Ectopy was noted auscultation. There is no definite murmur. GASTROINTESTINAL: Abdomen was mildly distended. There is no tenderness guarding or rigidity. MUSCULOSKELETAL/EXTREMITIES: There is no evidence of gross deformity full range of motion is noted in the hips and shoulders. SKIN: Skin is warm and dry. Pedal edema was noted bilaterally. NEUROLOGIC: Patient is awake and oriented to person place and situation. Strength was diminished but symmetric. MEDICAL DECISION MAKING: The patient is a 77-year-old male who presented to the emergency department with his significant other for an evaluation of generalized weakness. The patient was recently discharged in our facility. He is too much for his significant other to care for at home. He has not been eating and drinking. He was found to have significant dehydration. The patient was treated with IV fluids as well as IV antibiotics for presumed pneumonia. I discussed patient's laboratory and radiographic studies with his significant other. Given the patient's presentation I do not feel he would be safe for discharge at this time. For this reason I discussed his case with the on-call [facility] hospitalist. Triage Nursing notes reviewed. Prior medical records reviewed Vital Signs: reviewed and remarkable for hypotension Differential diagnosis: Infection, dehydration, metabolic abnormality, hypo/hyperglycemia, electrolyte disturbance, anemia, hypoxia, cardiac sources, intracerebral event, toxicologic, neurologic, as well as other pathologies. ER treatment provided: See below Diagnostics interpreted by me: ECG: EKG was obtained in the emergency department. My interpretation is sinus rhythm at 80 bpm. PACs were noted. LVH was suggested by voltage criteria. This was compared to a tracing from November 07, 2022. The ectopy is new otherwise no changes were noted. Cardiac Monitoring: An order was placed for continuous cardiac monitoring. The monitor shows a rate of 80 bpm with frequent PACs. Laboratory studies: As stated above and show below. Imaging studies: See below. Radiographic imaging was reviewed by myself Consultation(s): I discussed this case with Dr. Schmidt who is on-call for the [facility] hospitalist group. 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 He denies any known adverse reaction to anesthesia to date. Anesthesiologist advised patient to be marked as MH susceptibility in chart given FHx. Memory changes per , chronic without change, states pt also speaks slowly but able to respond appropriately on current psychiatric regimen OCD (obsessive compulsive disorder) Pancreatic abnormality recent finding -- unable to provide specifics -- dr almendarez monitoring Parotid nodule Sleep apnea unable to tolerate CPAP Systolic anterior movement of mitral valve follows with Dr. Cohen, LVOT obstruction improved per 12/2021 echo vs 03/2021 echo Surgical History History of cataract surgery History of colonoscopy History of surgery benign tumor removed from behind left ear History of surgical removal of lesion History of tonsillectomy History of tooth extraction Family History Mother Diabetes Unknown Ischemic heart disease Son Malignant hyperthermia Other Hypertension No family history of bleeding disorder Denies family history of Ovarian cancer Prostate cancer Myocardial infarction Breast cancer Colorectal cancer Social History Smoking Status: Never smoker Second Hand Exposure: No; Hx Alcohol Use: No Hx Substance Use: No Preferred Language: Stateless Communication Ability: Effective Visual Impairment: Limited Hearing Ability: Hard of Hearing Spool Sander Required: No Beliefs That Will Affect Care: None marital status: Current Living Situation: Spouse Current Living Situation Comment: lives at home with current occupational status: employed current occupation: [employer] Feels Safe at Home: Yes Childhood Exposure to Second-Hand Smoke: Yes caffeine: Yes Dental Care, Regularly: Yes Physical Activity Frequency: 3-4 Times per Week Seatbelt Use: always Sunscreen Use: Yes Assistive Devices: Walker Allergies Allergies Allergy/AdvReac Type Severity Reaction Status Date / Time No Known Drug Allergies Allergy Unknown Verified 12/02/22 17:40 Home Meds Home Medications Medication Instructions Recorded Confirmed fluoxetine 40 mg capsule 40 mg PO QAM 09/17/21 12/02/22 [id number] 1 tab PO QAM 01/12/22 12/02/22 tablet (Multivitamin 50 Plus tablet) docusate sodium 100 mg capsule 200 mg PO DAILY 06/18/22 12/02/22 (Colace) polyethylene glycol 3350 17 17 g PO BID 06/18/22 12/02/22 gram/dose oral powder (Miralax) thiamine HCl (vitamin B1) 100 mg 100 mg PO DAILY 08/09/22 12/02/22 tablet clonazepam 0.5 mg tablet 0.5 mg PO BID 12/02/22 12/02/22 memantine 10 mg tablet 10 mg PO HS 12/02/22 12/02/22 Previous Rx's Medication Instructions Recorded lisinopril 10 mg tablet 10 mg PO QAM #90 tabs 06/18/22 metoprolol succinate 50 mg 25 mg PO QAM 90 days #45 tabs 06/18/22 tablet,extended release 24 hr rosuvastatin 5 mg tablet 5 mg PO QAM #90 tabs 08/31/22 olanzapine 5 mg tablet 5 mg PO HS #30 tabs 11/22/22 sennosides 8.6 mg capsule (senna) 17.2 mg PO BID #60 caps 11/22/22 Results & Data (ED) Vital Signs Vital Signs - 24 hr 12/02/22 16:54 12/02/22 16:58 12/02/22 17:10 Temperature 37.2 C Temperature Source Oral Pulse Rate 89 Pulse Rate [Apical] Respiratory Rate 23 Respiratory Effort / Characteristics Non-Labored Spontaneous Respiratory Depth Normal Blood Pressure 113/68 Blood Pressure [Left Arm] Blood Pressure Mean 83 Blood Pressure Mean [Left Arm] Pulse Oximetry 97 Oxygen Delivery Method Room Air Room Air Room Air Sepsis Recent Fever Within 48 Hours No Sepsis New/Unexplained Change in Mental Status No Sepsis Action Taken by Nursing No Action Required 12/02/22 17:43 12/02/22 18:16 Temperature Temperature Source Pulse Rate Pulse Rate [Apical] 78 80 Respiratory Rate 20 18 Respiratory Effort / Characteristics Non-Labored Spontaneous Non-Labored Spontaneous Respiratory Depth Normal Normal Blood Pressure Blood Pressure [Left Arm] 100/78 94/66 L Blood Pressure Mean Blood Pressure Mean [Left Arm] 85 75 Pulse Oximetry 97 97 Oxygen Delivery Method Room Air Room Air Sepsis Recent Fever Within 48 Hours Sepsis New/Unexplained Change in Mental Status Sepsis Action Taken by Fdc Medications Current Medication List: was personally reviewed by me Laboratory Data Attestation: I reviewed the patient's lab results. 12/02/22 17:04 12/02/22 17:04 Lab Results 12/02/22 12/02/22 12/02/22 Range/Units 17:03 17:04 17:04 WBC 15.68 H (4.8-10.8) K/ul RBC 4.32 L (4.70-6.10) M/uL Hgb 11.6 L (14.0-18.0) g/dl Hct 36.8 L (42.0-52.0) % MCV 85.2 (80.0-100.0) fL MCH 26.9 (25.0-34.0) pg MCHC 31.5 L (32.0-36.0) g/dL RDW Std Deviation 42.3 (36.4-46.3) fL RDW Coeff of Dayanna 13.8 (11.5-14.5) % Plt Count 256 (130-400) K/uL MPV 10.1 (9.4-12.4) fL Immature Gran % (Auto) 1.2 % Neut % (Auto) 89.3 % Lymph % (Auto) 5.6 % Putnam % (Auto) 3.6 % Eos % (Auto) 0.1 % Baso % (Auto) 0.2 % Neut # (Auto) 14.01 H (1.40-6.50) K/uL Lymph # (Auto) 0.88 L (1.2-3.4) K/uL Putnam # (Auto) 0.56 (0.11-0.59) K/uL Eos # (Auto) 0.01 (0-0.50) K/uL Baso # (Auto) 0.03 (0-0.2) K/uL Immature Gran # (Auto) 0.19 (0.01-0.20) K/uL PT 12.5 H (9.0-12.0) Seconds INR 1.2 H (0.9-1.1) APTT 27.9 (21.0-31.0) Seconds PTT Ratio 1.0 VBG pH (7.36-7.41) VBG pCO2 (38-50) mmHg VBG pO2 mmHg VBG HCO3 mmol/L VBG O2 Saturation % VBG Base Excess mEq/L Sodium (136-145) mmol/L Potassium (3.5-5.1) mmol/L Chloride (98-107) mmol/L Carbon Dioxide (21-32) mmol/L Anion Gap (3-11) BUN (6-23) mg/dl Creatinine (0.6-1.4) mg/dl Est Cr Clr Drug Dosing ml/min Est GFR ( Amer) ml/min Est GFR (Non-Af Amer) ml/min BUN/Creatinine Ratio (10-20) Glucose (70-99(Fasting)) mg/dl Lactate (0.4-2.0) mmol/L Calcium (8.5-10.1) mg/dl Magnesium (1.7-2.4) mg/dl Total Bilirubin (0.2-1.0) mg/dl Direct Bilirubin (0-0.2) mg/dl AST (13-39) U/L ALT (7-52) U/L Alkaline Phosphatase (34-104) U/L Total Creatine Kinase (30-223) U/L Troponin I High Sens (0-20) pg/ml Total Protein (6.0-8.3) gm/dl Albumin (3.4-5.0) gm/dl Procalcitonin (0-0.5) ng/ml SARS-CoV-2 (PCR) NEGATIVE (Negative) Influenza Type A (PCR) Negative (Neg) Influenza Type B (PCR) Negative (Neg) RSV (RT-PCR) Negative (Neg) 12/02/22 12/02/22 12/02/22 Range/Units 17:04 17:04 17:20 WBC (4.8-10.8) K/ul RBC (4.70-6.10) M/uL Hgb (14.0-18.0) g/dl Hct (42.0-52.0) % MCV (80.0-100.0) fL MCH (25.0-34.0) pg MCHC (32.0-36.0) g/dL RDW Std Deviation (36.4-46.3) fL RDW Coeff of Dayanna (11.5-14.5) % Plt Count (130-400) K/uL MPV (9.4-12.4) fL Immature Gran % (Auto) % Neut % (Auto) % Lymph % (Auto) % Putnam % (Auto) % Eos % (Auto) % Baso % (Auto) % Neut # (Auto) (1.40-6.50) K/uL Lymph # (Auto) (1.2-3.4) K/uL [place] # (Auto) (0.11-0.59) K/uL Eos # (Auto) (0-0.50) K/uL Baso # (Auto) (0-0.2) K/uL Immature Gran # (Auto) (0.01-0.20) K/uL PT (9.0-12.0) Seconds INR (0.9-1.1) APTT (21.0-31.0) Seconds PTT Ratio VBG pH (7.36-7.41) VBG pCO2 (38-50) mmHg VBG pO2 mmHg VBG HCO3 mmol/L VBG O2 Saturation % VBG Base Excess mEq/L Sodium 146 H (136-145) mmol/L Potassium 4.4 (3.5-5.1) mmol/L Chloride 113 H (98-107) mmol/L Carbon Dioxide 27 (21-32) mmol/L Anion Gap 6 (3-11) BUN 25 H (6-23) mg/dl Creatinine 0.83 (0.6-1.4) mg/dl Est Cr Clr Drug Dosing 63.5 ml/min Est GFR ( Amer) 97.7 ml/min Est GFR (Non-Af Amer) 84.3 ml/min BUN/Creatinine Ratio 30.1 H (10-20) Glucose 103 H (70-99(Fasting)) mg/dl Lactate 1.9 (0.4-2.0) mmol/L Calcium 9.5 (8.5-10.1) mg/dl Magnesium 2.2 (1.7-2.4) mg/dl Total Bilirubin 0.6 (0.2-1.0) mg/dl Direct Bilirubin 0.1 (0-0.2) mg/dl AST 32 (13-39) U/L ALT 58 H (7-52) U/L Alkaline Phosphatase 83 (34-104) U/L Total Creatine Kinase 29 L (30-223) U/L Troponin I High Sens 15.2 (0-20) pg/ml Total Protein 6.6 (6.0-8.3) gm/dl Albumin 3.1 L (3.4-5.0) gm/dl Procalcitonin 0.20 (0-0.5) ng/ml SARS-CoV-2 (PCR) (Negative) Influenza Type A (PCR) (Neg) Influenza Type B (PCR) (Neg) RSV (RT-PCR) (Neg) 12/02/22 Range/Units 17:20 WBC (4.8-10.8) K/ul RBC (4.70-6.10) M/uL Hgb (14.0-18.0) g/dl Hct (42.0-52.0) % MCV (80.0-100.0) fL MCH (25.0-34.0) pg MCHC (32.0-36.0) g/dL RDW Std Deviation (36.4-46.3) fL RDW Coeff of Dayanna (11.5-14.5) % Plt Count (130-400) K/uL MPV (9.4-12.4) fL Immature Gran % (Auto) % Neut % (Auto) % Lymph % (Auto) % [place] % (Auto) % Eos % (Auto) % Baso % (Auto) % Neut # (Auto) (1.40-6.50) K/uL Lymph # (Auto) (1.2-3.4) K/uL [place] # (Auto) (0.11-0.59) K/uL Eos # (Auto) (0-0.50) K/uL Baso # (Auto) (0-0.2) K/uL Immature Gran # (Auto) (0.01-0.20) K/uL PT (9.0-12.0) Seconds INR (0.9-1.1) APTT (21.0-31.0) Seconds PTT Ratio VBG pH 7.43 H (7.36-7.41) VBG pCO2 44 (38-50) mmHg VBG pO2 18 mmHg VBG HCO3 29 mmol/L VBG O2 Saturation < 60.0 % VBG Base Excess 4.2 mEq/L Sodium (136-145) mmol/L Potassium (3.5-5.1) mmol/L Chloride (98-107) mmol/L Carbon Dioxide (21-32) mmol/L Anion Gap (3-11) BUN (6-23) mg/dl Creatinine (0.6-1.4) mg/dl Est Cr Clr Drug Dosing ml/min Est GFR ( Amer) ml/min Est GFR (Non-Af Amer) ml/min BUN/Creatinine Ratio (10-20) Glucose (70-99(Fasting)) mg/dl Lactate (0.4-2.0) mmol/L Calcium (8.5-10.1) mg/dl Magnesium (1.7-2.4) mg/dl Total Bilirubin (0.2-1.0) mg/dl Direct Bilirubin (0-0.2) mg/dl AST (13-39) U/L ALT (7-52) U/L Alkaline Phosphatase (34-104) U/L Total Creatine Kinase (30-223) U/L Troponin I High Sens (0-20) pg/ml Total Protein (6.0-8.3) gm/dl Albumin (3.4-5.0) gm/dl Procalcitonin (0-0.5) ng/ml SARS-CoV-2 (PCR) (Negative) Influenza Type A (PCR) (Neg) Influenza Type B (PCR) (Neg) RSV (RT-PCR) (Neg) Administered Medications Sodium Chloride (Nss 1000ml) 1,000 mls @ 999 mls/hr IV .Q1H1M ONE Stop: 12/02/22 19:04 Last Admin: 12/02/22 18:13 Dose: 999 mls/hr Documented By: Imaging Data Radiologist's Impression: Chest X-Ray 12/02/22 16:58 XR chest 1V portable CLINICAL HISTORY: Sepsis COMPARISON STUDY: Chest radiograph November 07, 2022. Chest CT December 18, 2021. FINDINGS: No pneumothorax or pleural effusion is present. There has been interval development of moderate right lower lung consolidation. The left lung is clear. There is no evidence for pulmonary edema. Cardiac size is normal. Mediastinal contours are normal. IMPRESSION: Interval development of right lower lung consolidation suggestive of pneumonia. Post treatment radiographs to ensure resolution are recommended. ACT 112: Negative or not required by law. Electronically signed by: Espinoza Mtz M.D. 12/02/2022 6:[address] 12/02/22 16:58 CT OF THE HEAD WITHOUT CONTRAST CLINICAL HISTORY: Weakness. COMPARISON STUDY: MRI of the brain March 08, [address] December 19, 2021. CT DOSE: 614.27 mGy.cm TECHNIQUE: Helical axial images of the head were obtained without IV contrast. Automated exposure control was utilized for the study. A dose lowering jazzmine hnique was utilized adhering to the principles of ALARA. FINDINGS: No acute intracranial hemorrhage, midline shift or mass effect is present. The ventricular system is stable. The basal cisterns are patent. White matter hypodensities are similar to prior exam and favor small vessel disease. No extra-axial collections are present. There are no findings to suggest acute dural sinus thrombosis or acute territorial infarct. No significant calvarial abnormalities are present. Visualized portions of the sinuses and mastoid air cells are clear. IMPRESSION: No acute intracranial findings. No change in appearance of the brain. ACT 112: Negative or not required by law. Electronically signed by: Espinoza Mtz M.D. 12/02/2022 6:18 PM Discharge Plan Visit Data Chief Complaint: Weakness ED Provider: Ji Chin Discharge Problem: Pneumonia, Acute dehydration, Weakness Patient Disposition: Being Evaluated by Hospitalist Forms Stand Alone Forms: My [facility] Prescriptions Prescriptions: No Action docusate sodium [Colace] 100 mg capsule 200 mg PO DAILY polyethylene glycol 3350 [Miralax] 17 gram/dose powder 17 g PO BID lisinopril 10 mg tablet 10 mg PO QAM Qty: 90 3RF metoprolol succinate 50 mg tablet extended release 24 hr 25 mg PO QAM 90 Days Qty: 45 3RF Rx Instructions: 1/2 tablet dose thiamine HCl (vitamin B1) 100 mg tablet 100 mg PO DAILY rosuvastatin 5 mg tablet 5 mg PO QAM Qty: 90 3RF fluoxetine 40 mg capsule 40 mg PO QAM senna 8.6 mg capsule 17.2 mg PO BID Qty: 60 0RF olanzapine 5 mg Tablet 5 mg PO HS Qty: 30 1RF clonazepam 0.5 mg tablet 0.5 mg PO BID memantine 10 mg tablet 10 mg PO HS Multivitamin 50 Plus Tablet 1 tab PO QAM Referrals Referrals: Mookie Pineda MD [Primary Care Provider] -
[2022-12-02 17:33] LABS: Base Excess VBG 4.2 mEq/L; HCO3 VBG 29 mmol/L; Oxygen Saturation VBG < 60.0 %; PCO2 VBG 44 mmHg (38-50); PO2 VBG 18 mmHg; pH VBG 7.43 (7.36-7.41)
[2022-12-02 17:35] LABS: INR 1.2 (0.9-1.1); Partial Thromboplastin Time 27.9 Seconds (21.0-31.0); Prothrombin Time 12.5 Seconds (9.0-12.0)
[2022-12-02 17:40] LABS: Albumin Level 3.1 gm/dl (3.4-5.0); Bilirubin Direct 0.1 mg/dl (0-0.2); Bilirubin,Total 0.6 mg/dl (0.2-1.0); Calcium 9.5 mg/dl (8.5-10.1); Magnesium 2.2 mg/dl (1.7-2.4); Potassium 4.4 mmol/L (3.5-5.1)
[2022-12-02 17:42] LABS: Basophils # (auto) 0.03 K/uL (0-0.2); Basophils % (auto) 0.2 %; Eosinophils # (auto) 0.01 K/uL (0-0.50); Eosinophils % (auto) 0.1 %; Hematocrit (blood only) 36.8 % (42.0-52.0); Hemoglobin 11.6 g/dl (14.0-18.0); Immature Granulocytes # (auto) 0.19 K/uL (0.01-0.20); Immature Granulocytes % (auto) 1.2 %; Lymphocytes # (auto) 0.88 K/uL (1.2-3.4); Lymphocytes % (auto) 5.6 %; Mean Corpuscular Hemoglobin 26.9 pg (25.0-34.0); Mean Corpuscular Hgb Conc 31.5 g/dL (32.0-36.0); Mean Corpuscular Volume 85.2 fL (80.0-100.0); Mean Platelet Volume 10.1 fL (9.4-12.4); Monocytes # (auto) 0.56 K/uL (0.11-0.59); Monocytes % (auto) 3.6 %; Neutrophils # (auto) 14.01 K/uL (1.40-6.50); Neutrophils % (auto) 89.3 %; Platelet Count 256 K/uL (130-400); RDW Coefficient of Variation 13.8 % (11.5-14.5); RDW Standard Deviation 42.3 fL (36.4-46.3); Red Blood Count 4.32 M/uL (4.70-6.10); White Blood Count 15.68 K/ul (4.8-10.8)
[2022-12-02 17:46] LABS: BUN Creatinine Ratio 30.1 (10-20); Creatinine Clr Calc Pharmacy 63.5 ml/min; Est GFR (African American) 97.7 ml/min; Est GFR (Non-African American) 84.3 ml/min; Total Protein 6.6 gm/dl (6.0-8.3)
[2022-12-02 17:51] LABS: Troponin I High Sensitivity 15.2 pg/ml (0-20)
[2022-12-02 18:00] LABS: Influenza A virus by PCR Negative (Neg); Influenza B virus by PCR Negative (Neg); RSV by PCR Negative (Neg); SARS CoV2 RNA(COVID-19) Ceph NEGATIVE (Negative)
[2022-12-02] MEDS ORDERED: SODIUM CHLORIDE 0.9% 1000ML 1,000 ML IV ONE ×2 (18:04→18:37)
--- NOTE | 2022-12-02 18:07 | XRay Report ---
XR chest 1V portable CLINICAL HISTORY: Sepsis COMPARISON STUDY: Chest radiograph November 07, 2022. Chest CT December 18, 2021. FINDINGS: No pneumothorax or pleural effusion is present. There has been interval development of mode rate right lower lung consolidation. The left lung is clear. There is no evidence for pulmonary edema . Cardiac size is normal. Mediastinal contours are normal. IMPRESSION: Interval development of right lower lung consolidation suggestive of pneumonia. Post lou tment radiographs to ensure resolution are recommended. ACT 112: Negative or not required by law. Electronically signed by: Espinoza Mtz M.D. 12/02/2022 6:06 PM
[2022-12-02] MEDS ORDERED: PIPERACILLIN/TAZOBACTAM 4.5 GM/120 ML BAG IV ONE (18:20)
--- NOTE | 2022-12-02 18:20 | CT Scan Report ---
CT OF THE HEAD WITHOUT CONTRAST CLINICAL HISTORY: Weakness. COMPARISON STUDY: MRI of the brain March 08, [address] December 19, 2021. CT DOSE: 614.27 mGy.cm TECHNIQUE: Helical axial images of the head were obtained without IV contrast. Automated exposure con trol was utilized for the study. A dose lowering technique was utilized adhering to the principles o f ALARA. FINDINGS: No acute intracranial hemorrhage, midline shift or mass effect is present. The ventricular system is stable. The basal cisterns are patent. White matter hypodensities are similar to prior exam and favor small vessel disease. No extra-axial collections are present. There are no findings to sug gest acute dural sinus thrombosis or acute territorial infarct. No significant calvarial abnormalitie s are present. Visualized portions of the sinuses and mastoid air cells are clear. IMPRESSION: No acute intracranial findings. No change in appearance of the brain. ACT 112: Negative or not required by law. Electronically signed by: Espinoza Mtz M.D. 12/02/2022 6:18 PM
[2022-12-02] MEDS ORDERED: DEXTROSE 5% IV SCH (19:15)
[2022-12-02] MEDS ORDERED: LACTATED RINGER S IV SCH (19:15)
--- NOTE | 2022-12-02 19:20 | History & Physical Report ---
Date of Service December 02, 2022 Assessment & Plan (1) Aspiration pneumonia: Plan: -Admit to med/surge -The patient is currently afebrile, hemodynamically stable, and stable on RA -Patient has been noted to be weaker, not eating well, and more anxious per his family. Found to have a RLL consolidation concerning for aspiration pneumonia. -CT of the head was negative for acute findings, no other acute metabolic findings to explain his weakness -Was started on zosyn in the ED, will continue this for now -Will obtain a MRSA swab as he was recently admitted to [facility], if positive would add Vancomycin -Continue IV fluids until he is eating consistently, will switch him to D5W/LR at 100 mL/hr for now as he is hypernatremic and hyperchloremic -Bedside dysphagia screen ordered, if he fails will order speech consult -Incentive spirometry, flutter therapy, prn duoNebs, and prn Robitussin for cough -Prn O2 to keep SpO2 equal to or greater than 95% -Blood cultures ordered, follow and tailor abx as able -AM CBC, BMP (2) Acute dehydration: Plan: -Noted on admission due to poor oral intake -Continue with IV fluids as described in Aspiration pneumonia -Will start the patient on full liquid diet with Boost Shakes TID -Will consult psychiatry as it seems as though his refusal to eat is related to his anxiety and OCD -Can consider nutrition consult as needed (3) Weakness: Plan: -See aspiration pneumonia -PT/OT consults placed (4) Dementia: Plan: -Continue memantine (5) Anxiety: Plan: -Continue fluoxetine, clonazepam HS, and olanzapine (6) Constipation: Plan: -Had a BM yesterday -Continue senna and miralax -Start enemas as needed (7) HTN (hypertension): Plan: -Stable -Continue metoprolol -Hold lisinopril for now to avoid hypotension (8) Hyperlipidemia: Plan: -Continue statin Plan The patient was discussed with Dr. Schmidt at the time of the admission History of Present Illness Chief Complaint: Generalized weakness Primary Care Provider: Mookie Pineda MD Hamzah is a 77 year old man with a medical history significant for acute onset dementia, anxiety, OCD, aortic stenosis, hyperlipidemia, and hypertension who presented to the [facility] ED on 12/02/22 via EMS with complaints of generalized weakness and increased anxiety. In the ED the patient was found to be afebrile, hemodynamically stable, and stable on RA. Labs were significant for a leukocytosis of 15 with left shift of 14, stable Hgb and platelets, stable cr at 0.83, sodium of 146, potassium of 4.4, chloride 113, glucose of 103, lactate of 1.9, ALT of 58 otherwise stable LFTs, high sensitivity trop of 15.2, procal of 0.20, and Coivd/Influenza/RSV negative. CT of the head was read as No acute intracranial findings. No change in appearance of the brain.. Chest xray was read as Interval development of right lower lung consolidation suggestive of pneumonia. Post treatment radiographs to ensure resolution are recommended.. Prior to admission the patient was given 1L NSS and one dose of zosyn. Per chart review, the patient was recently admitted to [facility] from 11/18/22- 11/22/22 due to constipation. He was started on a heavy bowel regimen including enemas and he had multiple bowel movements prior to discharge. Per the discharge note, it appears that there was a psychological component to his constipation as he had a fear of having a bowel movement. During his admission his Olanzapine was decreased to 5 mg HS, and his Klonopin was decreased from 0.5 mg PO BID to 0.5 mg HS. At the time of the exam the patient was resting in bed in no acute distress with his sitting bedside; history was obtained from the patient's due to his baseline mental status. She states that since his last discharge his oral intake has been very poor. She states that she will try to get him to eat and drink but her keeps his mouth closed and will say "I can't". She has been trying to get him to drink boost shakes, which he will at times, but not consistently. She states that she tried to get him to shower yesterday. When she got him into the shower she states that he got very unsteady and almost fell. She does not feel as though she can adequately care for him at this time. If his functional ability stays this low she will need him to be placed. She states that he is still taking his medications and his last bowel movement was yesterday. She has not noticed a recent fever, or chills, he has not complained of chest pain or SOB but has been coughing. He is taking longer to start his urine stream but has not been experiencing dysuria or hematuria. She denies any recent falls by the patient. We discussed code status, at this time she would still like him to be a Full Code. Please refer to Dr. Cortes's attestation for any changes to the treatment plan Allergies Allergy/AdvReac Type Severity Reaction Status Date / Time No Known Drug Allergies Allergy Unknown Verified 12/02/22 17:40 Home Medications Medication Instructions Recorded Confirmed Type fluoxetine 40 mg capsule 40 mg PO QAM 09/17/21 12/02/22 History ljlwuqgouawt-rrncugie-zhmyla 1 tab PO QAM 01/12/22 12/02/22 History tablet (Multivitamin 50 Plus tablet) docusate sodium 100 mg capsule 200 mg PO DAILY 06/18/22 12/02/22 History (Colace) lisinopril 10 mg tablet 10 mg PO QAM #90 tabs 06/18/22 12/02/22 Rx metoprolol succinate 50 mg 25 mg PO QAM 90 days #45 tabs 06/18/22 12/02/22 Rx tablet,extended release 24 hr polyethylene glycol 3350 17 17 g PO BID 06/18/22 12/02/22 History gram/dose oral powder (Miralax) thiamine HCl (vitamin B1) 100 mg 100 mg PO DAILY 08/09/22 12/02/22 History tablet rosuvastatin 5 mg tablet 5 mg PO QAM #90 tabs 08/31/22 12/02/22 Rx olanzapine 5 mg tablet 5 mg PO HS #30 tabs 11/22/22 12/02/22 Rx sennosides 8.6 mg capsule (senna) 17.2 mg PO BID #60 caps 11/22/22 12/02/22 Rx clonazepam 0.5 mg tablet 0.5 mg PO BID 12/02/22 12/02/22 History memantine 10 mg tablet 10 mg PO HS 12/02/22 12/02/22 History Past Med/Surg History Medical History Anxiety Aortic stenosis Moderate Ascending aorta dilatation 4.5 x 4.4 cm Brachial plexopathy Calcification of aortic valve History of COVID-19 09/2020; congestion, cough; per , has had anxiety issues since having covid History of depression [place] (hard of hearing) Hyperlipidemia Hypertension controlled, stable per pt 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 He denies any known adverse reaction to anesthesia to date. Anesthesiologist advised patient to be marked as MH susceptibility in chart given FHx. Memory changes per , chronic without change, states pt also speaks slowly but able to respond appropriately on current psychiatric regimen OCD (obsessive compulsive disorder) Pancreatic abnormality recent finding -- unable to provide specifics -- dr alemndarez monitoring Parotid nodule Sleep apnea unable to tolerate CPAP Systolic anterior movement of mitral valve follows with Dr. Cohen, LVOT obstruction improved per 12/2021 echo vs 03/2021 echo Surgical History History of cataract surgery History of colonoscopy History of surgery benign tumor removed from behind left ear History of surgical removal of lesion History of tonsillectomy History of tooth extraction Family History Mother Diabetes Unknown Ischemic heart disease Son Malignant hyperthermia Other Hypertension No family history of bleeding disorder Denies family history of Ovarian cancer Prostate cancer Myocardial infarction Breast cancer Colorectal cancer Social History Smoking Status: Never smoker Second Hand Exposure: No; Hx Alcohol Use: No Hx Substance Use: No Preferred Language: Bahamian Communication Ability: Effective Visual Impairment: Limited Hearing Ability: Hard of Hearing [employer] Required: No Beliefs That Will Affect Care: None marital status: Current Living Situation: Spouse Current Living Situation Comment: lives at home with current occupational status: employed 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 All systems have been reviewed and are otherwise negative. Physical Exam Physical Exam: Physical Exam: General: In no acute distress, stated age, malnourished, chronically ill- appearing HEENT: Normocephalic, atraumatic, no scleral icterus, pupils around round, symmetrical, and reactive to light, Dry mucus membranes, trachea midline, no thyromegaly Chest/Pulm: No respiratory distress, symmetrical chest expansion, decreased breath sounds in the BL lower lung jenkins Cardiac: RRR, systolic murmur noted Abdomen: Negative for ascites and bruising, normoactive bowel sounds, soft, non-tender to palpation throughout Musculoskeletal: Symmetrical and without signs of acute trauma, upper and lower extremities with full ROM, no atrophy, spasticity, or flaccidity Extremities: Radial, dorsalis pedis, and posterior tibial pulses are intact and symmetrical, no edema noted in the BL LE's Skin: Warm, dry, no rashes , lesions, or scars noted Neuro: Alert and oriented to person and place only, no focal defects, CN II- XII tested and intact, no tremors noted Psych: No acute distress, calm and cooperative during the exam Results & Data Results & Data ([facility]) Vital Signs (Past 12 Hours) Vital Signs Temp Pulse Pulse Resp BP BP Pulse Ox 12/02/22 18:16 80 18 94/66 L 97 12/02/22 17:43 78 20 100/78 97 12/02/22 17:10 12/02/22 16:58 12/02/22 16:54 37.2 C 89 23 113/68 97 O2 Del Method 12/02/22 18:16 Room Air 12/02/22 17:43 Room Air 12/02/22 17:10 Room Air 12/02/22 16:58 Room Air 12/02/22 16:54 Room Air Laboratory Results Abnormal lab results 12/02/22 12/02/22 12/02/22 Range/Units 17:04 17:04 17:04 WBC 15.68 H (4.8-10.8) K/ul RBC 4.32 L (4.70-6.10) M/uL Hgb 11.6 L (14.0-18.0) g/dl Hct 36.8 L (42.0-52.0) % MCHC 31.5 L (32.0-36.0) g/dL Neut # (Auto) 14.01 H (1.40-6.50) K/uL Lymph # (Auto) 0.88 L (1.2-3.4) K/uL PT 12.5 H (9.0-12.0) Seconds INR 1.2 H (0.9-1.1) VBG pH (7.36-7.41) Sodium 146 H (136-145) mmol/L Chloride 113 H (98-107) mmol/L BUN 25 H (6-23) mg/dl BUN/Creatinine Ratio 30.1 H (10-20) Glucose 103 H (70-99(Fasting)) mg/dl ALT 58 H (7-52) U/L Total Creatine Kinase 29 L (30-223) U/L Albumin 3.1 L (3.4-5.0) gm/dl 12/02/22 Range/Units 17:20 WBC (4.8-10.8) K/ul RBC (4.70-6.10) M/uL Hgb (14.0-18.0) g/dl Hct (42.0-52.0) % MCHC (32.0-36.0) g/dL Neut # (Auto) (1.40-6.50) K/uL Lymph # (Auto) (1.2-3.4) K/uL PT (9.0-12.0) Seconds INR (0.9-1.1) VBG pH 7.43 H (7.36-7.41) Sodium (136-145) mmol/L Chloride (98-107) mmol/L BUN (6-23) mg/dl BUN/Creatinine Ratio (10-20) Glucose (70-99(Fasting)) mg/dl ALT (7-52) U/L Total Creatine Kinase (30-223) U/L Albumin (3.4-5.0) gm/dl Diagnostic Findings Chest X-Ray 12/02/22 16:58 XR chest 1V portable CLINICAL HISTORY: Sepsis COMPARISON STUDY: Chest radiograph November 07, 2022. Chest CT December 18, 2021. FINDINGS: No pneumothorax or pleural effusion is present. There has been interval development of moderate right lower lung consolidation. The left lung is clear. There is no evidence for pulmonary edema. Cardiac size is normal. Mediastinal contours are normal. IMPRESSION: Interval development of right lower lung consolidation suggestive of pneumonia. Post treatment radiographs to ensure resolution are recommended. ACT 112: Negative or not required by law. Electronically signed by: Espinoza Mtz M.D. 12/02/2022 6:[address] 12/02/22 16:58 CT OF THE HEAD WITHOUT CONTRAST CLINICAL HISTORY: Weakness. COMPARISON STUDY: MRI of the brain March 08, [address] December 19, 2021. CT DOSE: 614.27 mGy.cm TECHNIQUE: Helical axial images of the head were obtained without IV contrast. Automated exposure control was utilized for the study. A dose lowering technique was utilized adhering to the principles of ALARA. FINDINGS: No acute intracranial hemorrhage, midline shift or mass effect is present. The ventricular system is stable. The basal cisterns are patent. White matter hypodensities are similar to prior exam and favor small vessel disease. No extra-axial collections are present. There are no findings to suggest acute dural sinus thrombosis or acute territorial infarct. No significant calvarial abnormalities are present. Visualized portions of the sinuses and mastoid air cells are clear. IMPRESSION: No acute intracranial findings. No change in appearance of the brain. ACT 112: Negative or not required by law. Electronically signed by: Espinoza Mtz M.D. 12/02/2022 6:18 PM ECG Additional Comments: -No ECG available at the time of the admission, will obtain one now Code Status & VTE Plan Code Status Full code VTE Prophylaxis Plan VTE Prophylaxis will be ordered: Yes Supervising Physician Co-Signing Physician Notes I personally saw and examined the patient. I verified all rojas points and agree with Terrence Nunez PA-C with the following exceptions and/or additions: 77 year old male with dementia who presents to the ER with increased weakness, anxiety and altered mental status on top of his baseline severe dementia. Recently discharged on November 22 after severe constipation. Currently not having problems with constipation no current bowel regimen. Likely to need placement on discharge. O/E Malnourished, no acute distress, pupils round symmetrical and reactive to light. Dry mucous membranes. HS RRR, no murmurs, Chest CTAB, Abdo SNT A/P Aspiration vs. hospital acquired pneumonia - Zosyn, MRSA nasal swab if positive start on vancomycin, SLT and back pad inspector consult PG Care Time/CCT Total # of Minutes Spent Total Time Spent with Patient: Total time spent is greater than 50% in coordination of care (as documented) at patient's floor/unit and/or counseling patient: C[place] [address] INT INP/OBS CARE MIN Patient Type Established Medical Decision Making High Complexity Diagnoses Aspiration pneumonia J69.0 Acute dehydration E86.0 Weakness R53.1 Dementia F03.90 Anxiety F41.9 Constipation K59.00 HTN (hypertension) I10 Hypertension type: essential hypertension Hyperlipidemia E78.2 Hyperlipidemia type: mixed hyperlipidemia (1) Hyperlipidemia Hyperlipidemia type: mixed hyperlipidemia Qualified Code(s): E78.2 - Mixed hyperlipidemia (2) HTN (hypertension) Hypertension type: essential hypertension Qualified Code(s): I10 - Essential (primary) hypertension
[2022-12-02] MEDS ORDERED: guaiFENesin SUGAR FREE 200 MG/10 ML UDC PO PRN (19:38)
[2022-12-02] MEDS: D5W AND LACTATED RINGERS 1,000 ML IV SCH (21:40)
[2022-12-02] MEDS: clonazePAM 0.5 MG TAB PO SCH (21:40)
[2022-12-02] MEDS: ENOXAPARIN INJ 40 MG/0.4 ML SYR SQ SCH (21:40)
[2022-12-02] MEDS: MEMANTINE HCL 10 MG TAB PO SCH (21:41)
[2022-12-02] MEDS: POLYETHYLENE (MIRALAX) 17 GM PACK PO SCH (21:41)
[2022-12-02] MEDS: SENNA 8.6 MG TAB PO SCH (21:41)
[2022-12-02] MEDS: OLANZapine 5 MG TABLET PO SCH (21:41)
[2022-12-02] MEDS: FAMOTIDINE 20 MG in SYRINGE 3 ML IV SCH (21:41)
[2022-12-02] MEDS: PIPERACILLIN/TAZOBACTAM 3.375 GM in DEXTROSE 5% 100 ML IV SCH (23:38)
[2022-12-03 00:32] LABS: Amphetamines+Metham, Urine Neg (Neg); Barbiturates, Urine Neg (Neg); Benzodiazepine, Urine Neg (Neg); Cocaine, Urine Neg (Neg); MDMA (Ecstacy), Urine Neg (Neg); Methadone, Urine Neg (Neg); Opiate, Urine Neg (Neg); Phencyclidine, Urine Neg (Neg)
[2022-12-03 07:04] LABS: Hematocrit (blood only) 29.4 % (42.0-52.0); Hemoglobin 9.7 g/dl (14.0-18.0); Mean Corpuscular Hemoglobin 27.2 pg (25.0-34.0); Mean Corpuscular Volume 82.4 fL (80.0-100.0); Mean Platelet Volume 9.3 fL (9.4-12.4); Platelet Count 244 K/uL (130-400); RDW Coefficient of Variation 13.6 % (11.5-14.5); RDW Standard Deviation 39.8 fL (36.4-46.3); Red Blood Count 3.57 M/uL (4.70-6.10); White Blood Count 13.34 K/ul (4.8-10.8)
[2022-12-03] MEDS: ALBUT/IPRATROP 3MG/0.5MG NEB 3 ML VIAL NEB SCH ×4 (07:16→19:11)
[2022-12-03 07:54] LABS: Albumin Level 2.5 gm/dl (3.4-5.0); Bilirubin,Total 0.6 mg/dl (0.2-1.0); Calcium 8.9 mg/dl (8.5-10.1); Potassium 3.9 mmol/L (3.5-5.1)
[2022-12-03 08:00] LABS: Albumin Globulin Ratio 0.8 (0.9-2); BUN Creatinine Ratio 21.6 (10-20); Creatinine Clr Calc Pharmacy 67.6 ml/min; Est GFR (African American) 95.4 ml/min; Est GFR (Non-African American) 82.3 ml/min; Total Protein 5.5 gm/dl (6.0-8.3)
[2022-12-03] MEDS: D5W AND LACTATED RINGERS 1,000 ML IV SCH ×2 (08:08→16:40)
[2022-12-03] MEDS: PIPERACILLIN/TAZOBACTAM 3.375 GM in DEXTROSE 5% 100 ML IV SCH ×2 (08:16→15:26)
[2022-12-03] MEDS: FLUoxetine HCL 20 MG CAP PO SCH (08:26)
[2022-12-03] MEDS: DOCUSATE SODIUM 100 MG CAP PO SCH (08:26)
[2022-12-03] MEDS: THIAMINE HCL 100 MG TAB PO SCH (08:26)
[2022-12-03] MEDS: ROSUVASTATIN CALCIUM 5 MG TAB PO SCH (08:26)
[2022-12-03] MEDS: POLYETHYLENE (MIRALAX) 17 GM PACK PO SCH ×2 (08:27→20:34)
[2022-12-03] MEDS: SENNA 8.6 MG TAB PO SCH ×2 (08:27→20:34)
[2022-12-03] MEDS: METOPROLOL SUCC 25MG EXT REL TAB PO SCH (08:31)
--- NOTE | 2022-12-03 08:33 | Hospitalist Progress Note ---
Date of Service December 03, 2022 Assessment & Plan (1) Aspiration pneumonia: Plan: - Admit to med/surge - The patient is currently afebrile, hemodynamically stable, and stable on RA - 96% - Patient has been noted to be weaker, not eating well, and more anxious per his family. Found to have a RLL consolidation concerning for aspiration pneumonia. - CT of the head was negative for acute findings, no other acute metabolic findings to explain his weakness - Was started on zosyn in the ED, will continue this for now - MRSA was negative ( no need to add vanco) - Influenza, Covid and RSV all negative - Continue IV fluids until he is eating consistently, will switch him to D5W/LR at 100 mL/hr for now as he is hypernatremic and hyperchloremic - Speech consult ordered and has a video swallow ordered - Incentive spirometry, flutter therapy, prn duoNebs, and prn Robitussin for cough - Prn O2 to keep SpO2 equal to or greater than 95% - Blood cultures ordered, follow and tailor abx as able - Continue to follow AM labs (2) Acute dehydration: Plan: - Noted on admission due to poor oral intake - Continue with IV fluids as described in Aspiration pneumonia - Will start the patient on full liquid diet with Boost Shakes TID - Awaiting psychiatry consult note - as it seems as though his refusal to eat is related to his anxiety and OCD - Can consider nutrition consult as needed (3) Weakness: Plan: -See aspiration pneumonia -PT/OT consults placed (4) Dementia: Plan: Chronic per since 2019 (after Covid infection) - Continue memantine - Continue Thiamine -Psychiatry consulted appreciate in put -May benefit from a neurology consult ?Lewy Body Dementia ?Parkinson's (5) OCD (obsessive compulsive disorder): Plan: - Chronic - Psychiatry consulted - Per history patient follows with a psychologist Nic regularly and also has monthly televisits with a physician insurance claims assistant at [facility] - Per history patient had an admission last year to [facility] (6) Anxiety: Plan: - Continue fluoxetine, clonazepam HS, and olanzapine - Psych consult placed (7) Constipation: Plan: - Had a BM yesterday prior to admission per history - Continue senna and miralax - Start enemas as needed (8) HTN (hypertension): Plan: - Stable - Continue metoprolol - Hold lisinopril for now to avoid hypotension - Heart rate in the 40s this AM and improved to 50s - Due for repeat Echo (last echo was 12/2021) (9) Hyperlipidemia: Plan: -Continue statin (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 He has poor eye contact but will answer most questions appropriately. He is slow to respond. Per nursing he has had no BM since admission. He had prior admissions for severe constipation and fecal impaction earlier this month. Patient has a hx of dementia and also OCD and anxiety. was at bedside later in the afternoon and patient was more alert at that time as well. Per nursing psychiatry evaluated patient today and he would not answer any questions or communicate with them. They suggested that if patient truly has Lewy Body Dementia, his antipsychotic medications may paradoxically increase psychosis. They also recommended to check HIV screening. I will discuss consent with patient's tomorrow Review of Systems Review of Systems: Complete ROS are hard to elicit due to patient's mental status, dementia and slow to no responses. He does deny any dyspnea or chest pain. He does admit to some abdominal discomfort but does not appear in distress with exam. Physical Exam Constitutional: + ill appearing, + thin, + cachectic and + frail appearing Neck: trachea midline, no thyromegaly Respiratory: normal respiratory effort; no labored breathing and no cough Gastrointestinal (Abdomen): Inspection/Auscultation: abdomen normal to inspection and normal bowel sounds; abdomen not distended Percussion/Palpation: abdomen soft; abdomen nontender, no guarding, abdomen not rigid and no hepatosplenomegaly Neurologic: awake and + confused slow to respond, speech slow and quiet fine tremor cog wheeling movements with passive ROM of upper extremities Psychiatric: Orientation: alert and oriented to person Eye Contact: + poor eye contact Affect: + flat affect speech is slow to respond and quiet Results & Data Results & Data ([facility]) Vital Signs (Past 12 Hours) Vital Signs Temp Pulse Resp BP Pulse Ox O2 Del Method 12/03/22 07:29 37.5 C 42 L 18 119/61 96 Room Air 12/03/22 07:17 99 H 18 96 Room Air Laboratory Results Abnormal lab results 12/02/22 12/02/22 12/02/22 Range/Units 17:04 17:04 17:04 WBC 15.68 H (4.8-10.8) K/ul RBC 4.32 L (4.70-6.10) M/uL Hgb 11.6 L (14.0-18.0) g/dl Hct 36.8 L (42.0-52.0) % MCHC 31.5 L (32.0-36.0) g/dL MPV (9.4-12.4) fL Neut # (Auto) 14.01 H (1.40-6.50) K/uL Lymph # (Auto) 0.88 L (1.2-3.4) K/uL PT 12.5 H (9.0-12.0) Seconds INR 1.2 H (0.9-1.1) VBG pH (7.36-7.41) Sodium 146 H (136-145) mmol/L Chloride 113 H (98-107) mmol/L BUN 25 H (6-23) mg/dl BUN/Creatinine Ratio 30.1 H (10-20) Glucose 103 H (70-99(Fasting)) mg/dl ALT 58 H (7-52) U/L Total Creatine Kinase 29 L (30-223) U/L Total Protein (6.0-8.3) gm/dl Albumin 3.1 L (3.4-5.0) gm/dl Albumin/Globulin Ratio (0.9-2) 12/02/22 12/03/22 12/03/22 Range/Units 17:20 06:40 06:40 WBC 13.34 H (4.8-10.8) K/ul RBC 3.57 L (4.70-6.10) M/uL Hgb 9.7 L (14.0-18.0) g/dl Hct 29.4 L (42.0-52.0) % MCHC (32.0-36.0) g/dL MPV 9.3 L (9.4-12.4) fL Neut # (Auto) (1.40-6.50) K/uL Lymph # (Auto) (1.2-3.4) K/uL PT (9.0-12.0) Seconds INR (0.9-1.1) VBG pH 7.43 H (7.36-7.41) Sodium (136-145) mmol/L Chloride 115 H (98-107) mmol/L BUN (6-23) mg/dl BUN/Creatinine Ratio 21.6 H (10-20) Glucose 126 H (70-99(Fasting)) mg/dl ALT (7-52) U/L Total Creatine Kinase (30-223) U/L Total Protein 5.5 L (6.0-8.3) gm/dl Albumin 2.5 L (3.4-5.0) gm/dl Albumin/Globulin Ratio 0.8 L (0.9-2) Diagnostic Findings Chest X-Ray 12/02/22 16:58 XR chest 1V portable CLINICAL HISTORY: Sepsis COMPARISON STUDY: Chest radiograph November 07, 2022. Chest CT December 18, 2021. FINDINGS: No pneumothorax or pleural effusion is present. There has been interval development of moderate right lower lung consolidation. The left lung is clear. There is no evidence for pulmonary edema. Cardiac size is normal. Mediastinal contours are normal. IMPRESSION: Interval development of right lower lung consolidation suggestive of pneumonia. Post treatment radiographs to ensure resolution are recommended. ACT 112: Negative or not required by law. Electronically signed by: Espinoza Mtz M.D. 12/02/2022 6:[address] 12/02/22 16:58 CT OF THE HEAD WITHOUT CONTRAST CLINICAL HISTORY: Weakness. COMPARISON STUDY: MRI of the brain March 08, [address] December 19, 2021. CT DOSE: 614.27 mGy.cm TECHNIQUE: Helical axial images of the head were obtained without IV contrast. Automated exposure control was utilized for the study. A dose lowering technique was utilized adhering to the principles of ALARA. FINDINGS: No acute intracranial hemorrhage, midline shift or mass effect is present. The ventricular system is stable. The basal cisterns are patent. White matter hypodensities are similar to prior exam and favor small vessel disease. No extra-axial collections are present. There are no findings to suggest acute dural sinus thrombosis or acute territorial infarct. No significant calvarial abnormalities are present. Visualized portions of the sinuses and mastoid air cells are clear. IMPRESSION: No acute intracranial findings. No change in appearance of the brain. ACT 112: Negative or not required by law. Electronically signed by: Espinoza Mtz M.D. 12/02/2022 6:18 PM PG Care Time/CCT Total # of Minutes Spent Total Time Spent with Patient: Total time spent is greater than 50% in coordination of care (as documented) at patient's floor/unit and/or counseling patient: Coding Level of Care Code 11680 SUB INP/OBS CARE 2/35MIN Diagnoses Aspiration pneumonia J69.0 Acute dehydration E86.0 Weakness R53.1 Dementia F03.90 OCD (obsessive compulsive disorder) F42.9 Anxiety F41.9 Constipation K59.00 HTN (hypertension) I10 Hypertension type: essential hypertension Hyperlipidemia E78.2 Hyperlipidemia type: mixed hyperlipidemia Systolic anterior movement of mitral valve I34.8 (1) Hyperlipidemia Hyperlipidemia type: mixed hyperlipidemia Qualified Code(s): E78.2 - Mixed hyperlipidemia (2) HTN (hypertension) Hypertension type: essential hypertension Qualified Code(s): I10 - Essential (primary) hypertension
[2022-12-03] MEDS: FAMOTIDINE 20 MG in SYRINGE 3 ML IV SCH (08:35)
--- NOTE | 2022-12-03 09:14 | Psychiatric Consultation ---
Date of Consultation December 03, 2022 Psych History Chief Complaint "[]". Allergies Allergy/AdvReac Type Severity Reaction Status Date / Time No Known Drug Allergies Allergy Unknown Verified 12/02/22 17:40 Home Medications Medication Instructions Recorded Confirmed Type fluoxetine 40 mg capsule 40 mg PO QAM 09/17/21 12/02/22 History sggomyfjstxt-lntxmsir-ayrkyf 1 tab PO QAM 01/12/22 12/02/22 History tablet (Multivitamin 50 Plus tablet) docusate sodium 100 mg capsule 200 mg PO DAILY 06/18/22 12/02/22 History (Colace) lisinopril 10 mg tablet 10 mg PO QAM #90 tabs 06/18/22 12/02/22 Rx metoprolol succinate 50 mg 25 mg PO QAM 90 days #45 tabs 06/18/22 12/02/22 Rx tablet,extended release 24 hr polyethylene glycol 3350 17 17 g PO BID 06/18/22 12/02/22 History gram/dose oral powder (Miralax) thiamine HCl (vitamin B1) 100 mg 100 mg PO DAILY 08/09/22 12/02/22 History tablet rosuvastatin 5 mg tablet 5 mg PO QAM #90 tabs 08/31/22 12/02/22 Rx olanzapine 5 mg tablet 5 mg PO HS #30 tabs 11/22/22 12/02/22 Rx sennosides 8.6 mg capsule (senna) 17.2 mg PO BID #60 caps 11/22/22 12/02/22 Rx clonazepam 0.5 mg tablet 0.5 mg PO BID 12/02/22 12/02/22 History memantine 10 mg tablet 10 mg PO HS 12/02/22 12/02/22 History Patient History Medical History Anxiety Aortic stenosis Moderate Ascending 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 He denies any known adverse reaction to anesthesia to date. Anesthesiologist advised patient to be marked as MH susceptibility in chart given FHx. Memory changes per , chronic without change, states pt also speaks slowly but able to respond appropriately on current psychiatric regimen OCD (obsessive compulsive disorder) Pancreatic abnormality recent finding -- unable to provide specifics -- dr almendarez monitoring Parotid nodule Sleep apnea unable to tolerate CPAP Systolic anterior movement of mitral valve follows with Dr. Cohen, LVOT obstruction improved per 12/2021 echo vs 2020 echo Surgical History History of cataract surgery History of colonoscopy History of surgery benign tumor removed from behind left ear History of surgical removal of lesion History of tonsillectomy History of tooth extraction Family History Mother Diabetes Unknown Ischemic heart disease Son Malignant hyperthermia Other Hypertension No family history of bleeding disorder Denies family history of Ovarian cancer Prostate cancer Myocardial infarction Breast cancer Colorectal cancer Social History Smoking Status: Former smoker Smoking End Date: 2017; Second Hand Exposure: No; Hx Alcohol Use: No Hx Substance Use: No Preferred Language: Barbadian Communication Ability: Impaired Communication Ability Comment: PT SLOW TO RESPOND Visual Impairment: Limited Hearing Ability: Hard of Hearing Rn Neonatal Required: No Beliefs That Will Affect Care: None marital status: Current Living Situation: Spouse Current Living Situation Comment: lives at home with current occupational status: employed current occupation: [employer] Women Feels Safe at Home: Yes Childhood Exposure to Second-Hand Smoke: Yes caffeine: Yes Dental Care, Regularly: Yes Physical Activity Frequency: 3-4 Times per Week Seatbelt Use: always Sunscreen Use: Yes Assistive Devices: Walker Physical Exam Vital Signs (Past 24 Hours): Last Vital Signs Temp 37.5 C 12/03/22 07:29 Pulse 42 L 12/03/22 07:29 Resp 18 12/03/22 07:29 BP 119/61 12/03/22 07:29 Pulse Ox 96 12/03/22 07:29 O2 Del Method 12/03/22 07:29 Results & Data (PSY) Medications Administered Albuterol (Albut/Ipratrop 3mg/0.5mg Neb 3 Ml Vial) 3 ml NEB QIDR [facility]; Protocol Stop: 01/02/23 06:59 Last Admin: 12/03/22 07:16 Dose: 3 ml Documented By: ERICKA Clonazepam (Clonazepam 0.5 Mg Tab) 0.5 mg PO HS MEREL Stop: 01/01/23 20:59 Last Admin: 12/02/22 21:40 Dose: 0.5 mg Documented By: EDUIN Docusate Sodium (Docusate Sodium 100 Mg Cap) 200 mg PO DAILY MERLE Stop: 01/02/23 08:59 Last Admin: 12/03/22 08:26 Dose: 200 mg Documented By: Enoxaparin Sodium (Enoxaparin Inj 40 Mg/0.4 Ml Syr) 40 mg SQ Q24H MERLE Stop: 01/01/23 21:59 Last Admin: 12/02/22 21:40 Dose: 40 mg Documented By: EDUIN Fluoxetine HCl (Fluoxetine Hcl 20 Mg Cap) 40 mg PO QAM [facility]LE Stop: 01/02/23 08:59 Last Admin: 12/03/22 08:26 Dose: 40 mg Documented By: Piperacillin Sod/Tazobactam (Sod 3.375 gm/ Dextrose) 115 mls @ 28.75 mls/hr IV Q8H MERLE; Protocol Stop: 12/10/22 00:00 Last Admin: 12/03/22 08:16 Dose: 28.8 mls/hr Documented By: Infusion: 12/03/22 03:38 Dose: 0 mls/hr Documented By: Admin: 12/02/22 23:38 Dose: 28.8 mls/hr Documented By: EDUIN Famotidine 20 mg/ Syringe 5 mls @ 2.5 mls/min IV DAILY MERLE Stop: 01/01/23 20:59 Last Admin: 12/03/22 08:35 Dose: 2.5 mls/min Documented By: Admin: 12/02/22 21:41 Dose: 2.5 mls/min Documented By: EDUIN Dextrose/Lactated Ringer's (D5w And Lactated Ringers) 1,000 mls @ 100 mls/hr IV .Q10H MERLE Stop: 01/01/23 21:14 Last Admin: 12/03/22 08:08 Dose: 100 mls/hr Documented By: Infusion: 12/03/22 07:40 Dose: 100 mls/hr Documented By: Admin: 12/02/22 21:40 Dose: 100 mls/hr Documented By: EDUIN Memantine (Memantine Hcl 10 Mg Tab) 10 mg PO HS [facility] Stop: 01/01/23 20:59 Last Admin: 12/02/22 21:41 Dose: 10 mg Documented By: KW Metoprolol Succinate (Metoprolol Succ 25mg Ext Rel Tab) 25 mg PO QAM [facility] Stop: 01/02/23 08:59 Last Admin: 12/03/22 08:31 Dose: Not Given Documented By: MG Olanzapine (Olanzapine 5 Mg Tablet) 5 mg PO [facility] Stop: 01/01/23 20:59 Last Admin: 12/02/22 21:41 Dose: 5 mg Documented By: EDUIN Polyethylene Glycol (Polyethylene (Miralax) 17 Gm Pack) 17 gm PO BID [facility] Stop: 01/01/23 20:59 Last Admin: 12/03/22 08:27 Dose: 17 gm Documented By: Admin: 12/02/22 21:41 Dose: 17 gm Documented By: EDUIN Rosuvastatin Calcium (Rosuvastatin Calcium 5 Mg Tab) [facility] [place]: 01/02/23 08:59 Last Admin: 12/03/22 08:26 Dose: 5 mg Documented By: MG Sennosides (Senna 8.6 Mg Tab) 17.2 mg PO BID [facility] Stop: 01/01/23 20:59 Last Admin: 12/03/22 08:27 Dose: 17.2 mg Documented By: Admin: 12/02/22 21:41 Dose: 17.2 mg Documented By: EDUIN Thiamine HCl (Thiamine Hcl 100 Mg Tab) 100 mg PO DAILY [facility] Stop: 01/02/23 08:59 Last Admin: 12/03/22 08:26 Dose: 100 mg Documented By: MG Coding
--- NOTE | 2022-12-03 09:55 | Electrocardiogram Report ---
Test Reason : Blood Pressure : / mmHG Vent. Rate : 088 BPM Atrial Rate : 088 BPM P-R Int : 206 ms QRS Dur : 096 ms QT Int : 388 ms P-R-T Axes : 095 104 121 degrees QTc Int : 469 ms Suspect arm lead reversal, interpretation assumes no reversal Sinus rhythm with Premature atrial complexes in a pattern of bigeminy Rightward axis Nonspecific ST abnormality Abnormal ECG When compared with ECG of 07-NOV-2022 00:47, Premature atrial complexes are now Present ST now depressed in Inferior leads Nonspecific T wave abnormality now evident in Lateral leads Confirmed by Ji Noonan ([id number]) on 12/03/2022 9:54:22 AM Referred By: REFERRED SELF Confirmed By:Ji Noonan
--- NOTE | 2022-12-03 10:02 | Electrocardiogram Report ---
Test Reason : Blood Pressure : / mmHG Vent. Rate : 083 BPM Atrial Rate : 083 BPM P-R Int : 196 ms QRS Dur : 094 ms QT Int : 422 ms P-R-T Axes : 047 072 072 degrees QTc Int : 495 ms Poor data quality, interpretation may be adversely affected Sinus rhythm with frequent Premature ventricular complexes and Premature atrial complexes Nonspecific ST abnormality Prolonged QT Abnormal ECG When compared with ECG of 02-DEC-2022 16:57, (unconfirmed) Premature ventricular complexes are now Present ST no longer depressed in Inferior leads T wave amplitude has increased in Inferior leads Confirmed by Ji Noonan ([id number]) on 12/03/2022 10:01:32 AM Referred By: REFERRED SELF Confirmed By:Ji Noonan
--- NOTE | 2022-12-03 13:25 | Psychiatric Consultation ---
Date of Consultation December 03, 2022 Impression / Recommendations Impression 77 y/o man with OCD and a ca. 2-year history of gradually-worsening memory impairment and worsening communication and executive function. The appearance of visual hallucinosis early in the course and the parkinsonism evident now raise the possiblity of Lewy Body dementia. It may be worth noting that memantine has benefits only in Alzheimer-type dementia while cholinesterase inhibitors appear beneficial in most dementias apart from frontotemporal degeneration. In the face of his very poor communication it's not possible to tell if his lack of eating is related to problems of initiation related to hypofrontality, to contamination fears related to OCD, delusions or hallucinations, or some other reason. He's had a fair amount of workup over the past 2 yr, though I don't find HIV screening. The history and current presentation are not clearly indicative of any particular psychiatric condition but the visual hallucinosis 2 years ago the parkinsonism seen today suggest the possiblity of Lewy Body disease. I have difficulty envisioning this man's care needs being capable of being met by family members at home. (1) OCD (obsessive compulsive disorder): (2) Dementia: Plan Continue fluoxetine 40 mg daily and olanzapine 5 mg daily for OCD (though if Lewy Body disease is an issue antipsychotics could paradoxically increase psychosis) Avoid benzodiapines as far as possible since they can increase confusion, be deliriogenic, and case paradoxical agitation in patients with Lewy Body and other dementias Consider adding a cholinesterase inhibitor such as donepezil 5 mg QHS - cholinesterase inhibitors are the closest thing to treatment for Lewy Body disease and typically are more effectie in such instances than they are for Alzheimer-type dementias. Consider HIV screening since most other lab workup for dementia has been done within the past 2 years. Functional brain imaging (SPECT, PET) would be ideal as part of a dementia assessment, but may not be a practical option The family should consider a personal correction Psych History Identifying Data Hamzah Gonzalez is a 77-year-old man with a history of OCD, admit on 02 December 2012 for deteriorating self-care. Consult is by the hospitalist service for rapidly-worsening cognition. Chief Complaint No speech. History of Present Illness 77 y/o man with a history of obsessive-compulsive disorder. "Since COVID" his has reported cognitive changes and at some point he was started on memantine. It is not clear if he's been on a cholinesterase inhibitor. He was admitted in 2020 for refusal to eat because of contamination fears and "seeing bugs" in his food. Brain MRI then and head CT last month and yesterday have been noncontributory. Recently at home he hasn't been feeding himself but has allowed others to feed him. He was seen for consultation by Dr. Cohen 15 days ago related to sedation thought to result from medication but also presenting with marked passivity and markedly diminished communication. Since admission he has not fed himself. On exam he makes eye contact but does not speak. He holds a soda can but doen't drink from it. When the nurse offered it to him he drank thirstily. Food on the tray in front of him sits untouched. He does not turn his head, exhibits a "pill-rolling" tremor of his hands. He does not speak. Past Psychiatric History Previous Psych History: Diagnosis of OCD Previous Psych Admissions: Geropsychiatric admission 2020 with visual hallucinosis Allergies Allergy/AdvReac Type Severity Reaction Status Date / Time No Known Drug Allergies Allergy Unknown Verified 12/02/22 17:40 Home Medications Medication Instructions Recorded Confirmed Type fluoxetine 40 mg capsule 40 mg PO QAM 09/17/21 12/02/22 History [id number] 1 tab PO QAM 01/12/22 12/02/22 History tablet (Multivitamin 50 Plus tablet) docusate sodium 100 mg capsule 200 mg PO DAILY 06/18/22 12/02/22 History (Colace) lisinopril 10 mg tablet 10 mg PO QAM #90 tabs 06/18/22 12/02/22 Rx metoprolol succinate 50 mg 25 mg PO QAM 90 days #45 tabs 06/18/22 12/02/22 Rx tablet,extended release 24 hr polyethylene glycol 3350 17 17 g PO BID 06/18/22 12/02/22 History gram/dose oral powder (Miralax) thiamine HCl (vitamin B1) 100 mg 100 mg PO DAILY 08/09/22 12/02/22 History tablet rosuvastatin 5 mg tablet 5 mg PO QAM #90 tabs 08/31/22 12/02/22 Rx olanzapine 5 mg tablet 5 mg PO HS #30 tabs 11/22/22 12/02/22 Rx sennosides 8.6 mg capsule (senna) 17.2 mg PO BID #60 caps 11/22/22 12/02/22 Rx clonazepam 0.5 mg tablet 0.5 mg PO BID 12/02/22 12/02/22 History memantine 10 mg tablet 10 mg PO HS 12/02/22 12/02/22 History Patient History Medical History Anxiety Aortic stenosis Moderate Ascending aorta dilatation 4.5 x 4.4 cm Brachial plexopathy Calcification of aortic valve History of COVID-19 09/2020; congestion, cough; per , has had anxiety issues since having covid History of depression [place] (hard of hearing) Hyperlipidemia Hypertension controlled, stable per pt 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 He denies any known adverse reaction to anesthesia to date. Anesthesiologist advised patient to be marked as MH susceptibility in chart given FHx. Memory changes per , chronic without change, states pt also speaks slowly but able to respond appropriately on current psychiatric regimen OCD (obsessive compulsive disorder) Pancreatic abnormality recent finding -- unable to provide specifics -- dr almendarez monitoring Parotid nodule Sleep apnea unable to tolerate CPAP Systolic anterior movement of mitral valve follows with Dr. Cohen, LVOT obstruction improved per 12/2021 echo vs 03/2021 echo Surgical History History of cataract surgery History of colonoscopy History of surgery benign tumor removed from behind left ear History of surgical removal of lesion History of tonsillectomy History of tooth extraction Family History Mother Diabetes Unknown Ischemic heart disease Son Malignant hyperthermia Other Hypertension No family history of bleeding disorder Denies family history of Ovarian cancer Prostate cancer Myocardial infarction Breast cancer Colorectal cancer Social History Smoking Status: Former smoker Smoking End Date: 2017; Second Hand Exposure: No; Hx Alcohol Use: No Hx Substance Use: No Preferred Language: Danish Communication Ability: Impaired Communication Ability Comment: PT SLOW TO RESPOND Visual Impairment: Limited Hearing Ability: Hard of Hearing Pulley Worker Required: No Beliefs That Will Affect Care: None marital status: Current Living Situation: Spouse Current Living Situation Comment: lives at home with current occupational status: 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 Feels Safe at Home: Yes Childhood Exposure to Second-Hand Smoke: Yes caffeine: Yes Dental Care, Regularly: Yes Physical Activity Frequency: 3-4 Times per Week Seatbelt Use: always Sunscreen Use: Yes Assistive Devices: Walker Physical Exam Psychiatric: Exam is limited due to lack of speech and responsiveness appears to fall asleep several times during the exam Apperance: appropriately dressed and appropriately groomed Eye Contact: + fair eye contact Motor Behavior: + tremor Speech: + mute Affect: + flat affect cannot be assessed due to lack of communication cannot be assessed due to lack of communication cannot be assessed due to lack of communication cannot be assessed due to lack of communication cannot be assessed due to lack of communication cannot be assessed due to lack of communication but does not appear to be responding to internal stimuli cannot be assessed due to lack of communication cannot be assessed due to lack of communication cannot be assessed due to lack of communication cannot be assessed due to lack of communication Vital Signs (Past 24 Hours): Last Vital Signs Temp 37.5 C 12/03/22 07:29 Pulse 41 L 12/03/22 11:09 Resp 18 12/03/22 11:09 BP 119/61 12/03/22 07:29 Pulse Ox 96 12/03/22 11:09 O2 Del Method 12/03/22 11:09 Review of Systems Cannot be obtained due to absent speech Results & Data (PSY) Medications Administered Albuterol (Albut/Ipratrop 3mg/0.5mg Neb 3 Ml Vial) 3 ml NEB QIDR [facility]; Protocol Stop: 01/02/23 06:59 Last Admin: 12/03/22 11:09 Dose: 3 ml Documented By: Admin: 12/03/22 07:16 Dose: 3 ml Documented By: ERICKA Clonazepam (Clonazepam 0.5 Mg Tab) 0.5 mg PO HS [facility] Stop: 01/01/23 20:59 Last Admin: 12/02/22 21:40 Dose: 0.5 mg Documented By: EDUIN Docusate Sodium (Docusate Sodium 100 Mg Cap) 200 mg PO DAILY [facility] Stop: 01/02/23 08:59 Last Admin: 12/03/22 08:26 Dose: 200 mg Documented By: MG Enoxaparin Sodium (Enoxaparin Inj 40 Mg/0.4 Ml Syr) 40 mg SQ Q24H [facility] Stop: 01/01/23 21:59 Last Admin: 12/02/22 21:40 Dose: 40 mg Documented By: EDUIN Fluoxetine HCl (Fluoxetine Hcl 20 Mg Cap) 40 mg PO QAM [facility] Stop: 01/02/23 08:59 Last Admin: 12/03/22 08:26 Dose: 40 mg Documented By: MG Piperacillin Sod/Tazobactam (Sod 3.375 gm/ Dextrose) 115 mls @ 28.75 mls/hr IV Q8H [facility]; Protocol Stop: 12/10/22 00:00 Last Infusion: 12/03/22 12:20 Dose: 0 mls/hr Documented By: Admin: 12/03/22 08:16 Dose: 28.8 mls/hr Documented By: Infusion: 12/03/22 03:38 Dose: 0 mls/hr Documented By: Admin: 12/02/22 23:38 Dose: 28.8 mls/hr Documented By: EDUIN Famotidine 20 mg/ Syringe 5 mls @ 2.5 mls/min IV DAILY [facility]LE Stop: 01/01/23 20:59 Last Admin: 12/03/22 08:35 Dose: 2.5 mls/min Documented By: Admin: 12/02/22 21:41 Dose: 2.5 mls/min Documented By: EDUIN Dextrose/Lactated Ringer's (D5w And Lactated Ringers) 1,000 mls @ 100 mls/hr IV .Q10H [facility]LE Stop: 01/01/23 21:14 Last Admin: 12/03/22 08:08 Dose: 100 mls/hr Documented By: Infusion: 12/03/22 07:40 Dose: 100 mls/hr Documented By: Admin: 12/02/22 21:40 Dose: 100 mls/hr Documented By: EDUIN Memantine (Memantine Hcl 10 Mg Tab) 10 mg PO HS [facility]LE Stop: 01/01/23 20:59 Last Admin: 12/02/22 21:41 Dose: 10 mg Documented By: EDUIN Metoprolol Succinate (Metoprolol Succ 25mg Ext Rel Tab) 25 mg PO QAM [facility] Stop: 01/02/23 08:59 Last Admin: 12/03/22 08:31 Dose: Not Given Documented By: MG Olanzapine (Olanzapine 5 Mg Tablet) 5 mg PO HS [facility] Stop: 01/01/23 20:59 Last Admin: 12/02/22 21:41 Dose: 5 mg Documented By: KW Polyethylene Glycol (Polyethylene (Miralax) 17 Gm Pack) 17 gm PO BID MERLE Stop: 01/01/23 20:59 Last Admin: 12/03/22 08:27 Dose: 17 gm Documented By: Admin: 12/02/22 21:41 Dose: 17 gm Documented By: KW Rosuvastatin Calcium (Rosuvastatin Calcium 5 Mg Tab) 5 mg PO QAM [facility] Stop: 01/02/23 08:59 Last Admin: 12/03/22 08:26 Dose: 5 mg Documented By: MG Sennosides (Senna 8.6 Mg Tab) 17.2 mg PO BID [facility] Stop: 01/01/23 20:59 Last Admin: 12/03/22 08:27 Dose: 17.2 mg Documented By: Admin: 12/02/22 21:41 Dose: 17.2 mg Documented By: EDUIN Thiamine HCl (Thiamine Hcl 100 Mg Tab) 100 mg PO DAILY [facility] Stop: 01/02/23 08:59 Last Admin: 12/03/22 08:26 Dose: 100 mg Documented By: MG Coding Level of Care Code INP/OBS CONSULT LVL 4, 60 MIN Diagnoses OCD (obsessive compulsive disorder) F42.9 Dementia F03.90 Time Spent (min) 74
--- NOTE | 2022-12-03 13:46 | XCELERA ---
[id number]
[2022-12-03] MEDS: OLANZapine 5 MG TABLET PO SCH (20:33)
[2022-12-03] MEDS: MEMANTINE HCL 10 MG TAB PO SCH (20:33)
[2022-12-03] MEDS: clonazePAM 0.5 MG TAB PO SCH (20:34)
[2022-12-03] MEDS: ENOXAPARIN INJ 40 MG/0.4 ML SYR SQ SCH (20:35)
[2022-12-04] MEDS: PIPERACILLIN/TAZOBACTAM 3.375 GM in DEXTROSE 5% 100 ML IV SCH ×4 (00:54→23:23)
[2022-12-04] MEDS: D5W AND LACTATED RINGERS 1,000 ML IV SCH ×3 (02:32→23:13)
[2022-12-04] MEDS: ALBUT/IPRATROP 3MG/0.5MG NEB 3 ML VIAL NEB SCH ×4 (07:26→20:05)
[2022-12-04 08:01] LABS: Hematocrit (blood only) 28.9 % (42.0-52.0); Hemoglobin 9.4 g/dl (14.0-18.0); Mean Corpuscular Hemoglobin 27.2 pg (25.0-34.0); Mean Corpuscular Hgb Conc 32.5 g/dL (32.0-36.0); Mean Corpuscular Volume 83.8 fL (80.0-100.0); Mean Platelet Volume 9.2 fL (9.4-12.4); Platelet Count 220 K/uL (130-400); RDW Standard Deviation 41.8 fL (36.4-46.3); Red Blood Count 3.45 M/uL (4.70-6.10); White Blood Count 14.28 K/ul (4.8-10.8)
[2022-12-04 08:25] LABS: Albumin Globulin Ratio 0.8 (0.9-2); Albumin Level 2.4 gm/dl (3.4-5.0); BUN Creatinine Ratio 15.1 (10-20); Bilirubin,Total 0.6 mg/dl (0.2-1.0); Calcium 8.8 mg/dl (8.5-10.1); Creatinine Clr Calc Pharmacy 69.2 ml/min; Est GFR (African American) 96.3 ml/min; Est GFR (Non-African American) 83.1 ml/min; Globulin 2.9 gm/dl (2.5-4.0); Potassium 3.8 mmol/L (3.5-5.1); Total Protein 5.3 gm/dl (6.0-8.3)
[2022-12-04] MEDS: FAMOTIDINE 20 MG in SYRINGE 3 ML IV SCH (08:31)
[2022-12-04] MEDS: SENNA 8.6 MG TAB PO SCH ×3 (08:32→20:59)
[2022-12-04] MEDS: ROSUVASTATIN CALCIUM 5 MG TAB PO SCH ×2 (08:32→12:38)
[2022-12-04] MEDS: FLUoxetine HCL 20 MG CAP PO SCH ×2 (08:32→12:38)
[2022-12-04] MEDS: METOPROLOL SUCC 25MG EXT REL TAB PO SCH (08:32)
[2022-12-04] MEDS: DOCUSATE SODIUM 100 MG CAP PO SCH ×2 (08:32→12:38)
[2022-12-04] MEDS: POLYETHYLENE (MIRALAX) 17 GM PACK PO SCH ×3 (08:32→20:58)
[2022-12-04] MEDS: THIAMINE HCL 100 MG TAB PO SCH ×2 (08:32→12:39)
--- NOTE | 2022-12-04 09:37 | Hospitalist Progress Note ---
Date of Service December 04, 2022 Assessment & Plan (1) Aspiration pneumonia: Plan: Reviewed CBC - The patient is currently afebrile, stable on RA - 95% - Patient has been noted to be weaker, not eating well, and more anxious per his family. Found to have a RLL consolidation concerning for aspiration pneumonia. Was to have video swallow today but was not alert - CT of the head was negative for acute findings, no other acute metabolic findings to explain his weakness - Was started on zosyn in the ED, will continue this for now - MRSA was negative ( no need to add vanco) - Influenza, Covid and RSV all negative - Continue IV fluids until he is eating consistently, will switch him to D5W/LR at 100 mL/hr for now - Speech consult ordered and has a video swallow ordered Unable to complete a video swallow test today due to lethargy and unwillingness to cooperate - Incentive spirometry, flutter therapy, prn duoNebs, and prn Robitussin for cough - Stable on RA at 95% - Blood cultures ordered, follow and tailor abx as able - Continue to follow AM labs Reviewed CBC, WBC elevated slightly higher than yesterday, afebrile Blood cultures no growth at 24 hours (2) Acute dehydration: Plan: - Noted on admission due to poor oral intake - Continue with IV fluids as described in Aspiration pneumonia - Continue full liquid diet with Boost Shakes TID - Patient did not eat breakfast or lunch today (3) Dementia: Plan: Chronic per since 2019 (after Covid infection) - Continue memantine - Continue Thiamine - Per patient's sister recently with Alzheimer's Dementia -Psychiatry consulted appreciate in put -Spoke informally yesterday with neurology who suggested to wait for cognitive evaluation until acute issues resolved, but patient's is asking for the consult while in the hospital. ?Lewy Body Dementia/Alzheimers ?Parkinson's Check HIV testing as recommended by psychiatry to complete a dementia work up Counselled on this testing and she agreed and signed the consent (4) OCD (obsessive compulsive disorder): Plan: - Chronic - Psychiatry following - Per history patient follows with a psychologist Nic regularly and also has monthly televisits with a physician medicine assistant at [place] - Per history patient had an admission last year to [facility] (5) Anxiety: Plan: - Continue fluoxetine, clonazepam HS, and olanzapine - Psychiatry following (6) Constipation: Plan: - Had a BM yesterday prior to admission per history - Continue senna and miralax - Increase miralax to BID - Start enemas as needed (7) HTN (hypertension): Plan: Reviewed bmp today and is normal - Stable - Continue metoprolol - Hold lisinopril for now to avoid hypotension - Heart rate continues to be in 40-50s - Echo - no change compared with 12/2021 (8) Hyperlipidemia: Plan: -Continue statin (9) Systolic anterior movement of mitral valve: Plan: - Follows with Dr Cohen, last seen 08/25 - Echo result with no change from 12/2021 (10) Hematuria: Plan: - Await urinalysis - Will check Urinalysis by cath sample Admission and Anticipated Discharge Date Admission Date: December 02, 2022 Review of Systems Review of Systems: Complete ROS are hard to elicit due to patient's mental status, dementia and slow to no responses. Physical Exam Constitutional: + ill appearing, + thin, + cachectic and + frail appearing Neck: trachea midline, no thyromegaly Respiratory: normal respiratory effort; no labored breathing and no cough Gastrointestinal (Abdomen): Inspection/Auscultation: abdomen normal to inspection and normal bowel sounds; abdomen not distended Percussion/Palpation: abdomen soft; abdomen nontender, no guarding, abdomen not rigid and no hepatosplenomegaly Neurologic: Sleeping and will awake to his name but is not communicating at all this AM Psychiatric: Eye Contact: + poor eye contact Affect: + flat affect Results & Data Results & Data ([facility]) Vital Signs (Past 12 Hours) Vital Signs Temp Pulse Resp BP Pulse Ox O2 Del Method 12/04/22 08:36 Room Air 12/04/22 07:51 37 C 50 L 20 149/55 H 95 Room Air 12/04/22 07:28 47 L 16 96 Room Air 12/03/22 22:56 37.2 C 59 L 18 146/66 H 95 Room Air Laboratory Results Abnormal lab results 12/04/22 12/04/22 Range/Units 07:12 07:12 WBC 14.28 H (4.8-10.8) K/ul RBC 3.45 L (4.70-6.10) M/uL Hgb 9.4 L (14.0-18.0) g/dl Hct 28.9 L (42.0-52.0) % MPV 9.2 L (9.4-12.4) fL Chloride 113 H (98-107) mmol/L Total Protein 5.3 L (6.0-8.3) gm/dl Albumin 2.4 L (3.4-5.0) gm/dl Albumin/Globulin Ratio 0.8 L (0.9-2) PG Care Time/CCT Total # of Minutes Spent Total Time Spent with Patient: Total time spent is greater than 50% in coordination of care (as documented) at patient's floor/unit and/or counseling patient: Coding Level of Care Code 85733 SUB INP/OBS CARE 235MIN Diagnoses Aspiration pneumonia J69.0 Acute dehydration E86.0 Dementia F03.90 OCD (obsessive compulsive disorder) F42.9 Anxiety F41.9 Constipation K59.00 HTN (hypertension) I10 Hypertension type: essential hypertension Hyperlipidemia E78.2 Hyperlipidemia type: mixed hyperlipidemia Systolic anterior movement of mitral valve I34.8 Hematuria R31.9 (1) Hyperlipidemia Hyperlipidemia type: mixed hyperlipidemia Qualified Code(s): E78.2 - Mixed hyperlipidemia (2) HTN (hypertension) Hypertension type: essential hypertension Qualified Code(s): I10 - Essential (primary) hypertension
[2022-12-04 16:44] LABS: Appearance Urine Cloudy (Clear); Bacteria Urine Automated Negative (Negative); Bilirubin Urine Negative (Negative); Blood Urine 3+ (Negative); Color Urine Orange; Epithelial Cell Urine Auto >30 /lpf (0-5); Glucose Urine UA Negative (Negative); Ketones Urine Negative (Negative); Leukocyte Esterase Urine 1+ (Negative); Nitrite Urine Negative (Negative); RBC Urine Automated >30 /hpf (0-4); Specific Gravity Urine 1.017 (1.000-1.030); Urobilinogen Urine Negative (Negative); pH Urine 7.5 (4.5-7.5)
[2022-12-04 16:46] LABS: Protein Urine 1+ (Negative)
--- NOTE | 2022-12-04 20:17 | Neurology Consultation ---
Date of Consultation December 04, 2022 Assessment & Plan (1) Aspiration pneumonia: (2) Acute dehydration: (3) Weakness: (4) Depressive disorder, atypical: (5) Dementia: (6) Memory changes: (7) Anxiety: (8) Brachial plexopathy: (9) Encephalopathy: Plan Assessment and plan: 1. Delusions, other psychotic symptoms, cognitive problems, questionable parkinsonism, evaluate for Lewy body dementia Impression: Apparently, all of the patient's symptoms started after COVID-19 infection was 2020 which is unusual for Lewy Body dementia. The patient was not having primary cognitive problems initially including memory disturbance, personality changes, but anxiety with delusions, and obsessive-compulsive symptoms. This is again somewhat atypical for Lewy body dementia as the patient was having delusions as an inital symptoms, without any well-formed visual hallucinations. He was not having any parkinsonian features until he was hospitalized in psychiatric unit, and was started on neuroleptics. There is a possibility that the patient's current resting tremor is extrapyramidal side effect of neuroleptic medications. Based on report, the patient was not having symptoms to suggest REM sleep behavior disorder, recurrent visual well-formed hallucinations, but the patient was having fluctuating cognition with variations in attention and alertness. Based on presence of 1 or 2 core clinical features, the patient might have possible or probable dementia with Lewy body disease. Unfortunately, with limited evaluation and unclear temporal progression, definitive diagnosis of neurodegenerative dementing disorders including Lewy bod y dementia cannot be made at this time. Current and active medical problems including pneumonia makes our evaluation more limited. Comprehensive evaluation after treatment of active medical problems including pneumonia would be more sensitive and diagnostic, however, they insist on doing every possible test while the patient is in the hospital. The patient's reports that she cannot handle the patient's care anymore. Placement is considered. Plan: In terms of evaluation of cognitive decline, with uncertain history, will pursue with brain MRI with and without contrast to evaluate for atrophy, demyelinating and infectious process. EEG to evaluate cerebral functioning and to rule out nonconvulsive seizures. Spinal tap under fluoroscopy. CSF work-up should include cell count with differential in tube 1 and 3, protein and glucose in tube 2, IgG synthesis rate in tube 3, cryptococcus, beta amyloid 42, total tau protein, phosphorylated tau protein, and 14-3-3 protein which is a marker for some prion diseases such as CJD and NfL ( neuroflament light chain) for frontotemporal dementia evaluation in tube 4. Please contact with laboratory department, to find out appropriate tubing and transfer options for different CSF testing. CSF testing for autoimmune limbic encephalitis including anti-LGI 1, anti- CASPR2, and anti-GAD65. Based on possible Lewy body dementia in differential diagnosis, I would recommend keeping the patient on memantine, and increasing dosage to 10 mg twice a day. Apparently, donepezil and rivastigmine would be more beneficial in this type of dementing disorder, and I would prefer starting the patient on rivastigmine patch 4.6 mg for a month, then increasing dosage if the patient tolerates. The patient will need further evaluation to assess supportive biomarkers including polysomnography for REM sleep disorder without atonia. Dopamine transporter uptake imaging including SPECT or PET would be helpful st udies which are not available at this time. Overall, the patient's evaluation and management should be handled by [facility], which specialization to differentiate, diagnose and manage different type of neurodegenerative dementing disorders. Thank you for the consultation. History of Present Illness Reason for Consultation: Cognitive decline Requesting Physician: Ehsan Álvarez MD Attending Physician: Ehsan Álvarez History of Present Illness The patient is a 77-year-old gentleman, who was admitted recently, for pneumonia, decreased oral intake, and generalized weakness. Imaging studies was consistent with pneumonia and the patient was started on antibiotic treatment. He has a long and complex history. The patient had a COVID-19 infection with h is , in 2019. 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 After they recover from COVID infection, the patient became very obsessive with bugs, infections, and he was warning about almost everything. He stopped driving because he did not think that it was safe. He was very anxious. There was no visual hallucinations other than the patient reported 1 time a bug he is so but it was not there. The patient was not having any dysautonomic symptoms. His cognitive functioning and memory was essentially okay at that time. He was not having slowing of movements, tremors, or stiffness. Because of worsening psychiatric symptoms, the patient was hospitalized in 2020. According to , the patient was started on different medications, and he became very slow and less interactive. His memory was still okay according to , and he was remembering names, and he was not repeating himself. However, because of slowing of thinking process and reaction time, the patient was started on memantine by psychiatry when he was hospitalized. Since that time, the patient has been having problems with eating, hydration, and his delusions have been persistent. He was still able to dress himself. But he prefers not to do many other daily activities that he used to do. Recently, the patient was having some viral infection. Couple days ago, the patient began coughing. The patient was seen by psychiatry, and dated raised concern for Lewy body dementia. The patient has slight resting tremor in hands. According to , such tremor started after the patient was hospitalized at psychiatric hospital. He is still on olanzapine, Prozac, Klonopin, and memantine. D onepezil was recently started or recommended by psychiatry. The patient had a brain MRI from 2020, which was unremarkable and did not show any obvious diffuse or localized atrophy. Initially, we suggested neurological evaluation after improvement of the patient's acute medical problems including pneumonia. However, family insisted on neurology consultation. Unfortunately, at this time, the patient does not cooperate at all during neurological examination. However limited examination is nonfocal. We cannot assess parkinsonian symptoms other than observed slight pill-rolling tremor in left hand. According to , the patient does not have symptoms to suggest REM sleep behavior disorder. He has not had hyposmia. He does not get drooling. At times, he shuffles at home, but outside, he can walk normal again as his reported. I have reviewed the patient's chart including imaging studies and visualized them personally. I have discussed the case with the patient's and answered her questions in detail. Allergies Allergy/AdvReac Type Severity Reaction Status Date / Time No Known Drug Allergies Allergy Unknown Verified 12/02/22 17:40 Home Medications Medication Instructions Recorded Confirmed Type fluoxetine 40 mg capsule 40 mg PO QAM 09/17/21 12/02/22 History wrcxvgkvdknt-vwqzwkja-cpoaiv 1 tab PO QAM 01/12/22 12/02/22 History tablet (Multivitamin 50 Plus tablet) docusate sodium 100 mg capsule 200 mg PO DAILY 06/18/22 12/02/22 History (Colace) lisinopril 10 mg tablet 10 mg PO QAM #90 tabs 06/18/22 12/02/22 Rx metoprolol succinate 50 mg 25 mg PO QAM 90 days #45 tabs 06/18/22 12/02/22 Rx tablet,extended release 24 hr polyethylene glycol 3350 17 17 g PO BID 06/18/22 12/02/22 History gram/dose oral powder (Miralax) thiamine HCl (vitamin B1) 100 mg 100 mg PO DAILY 08/09/22 12/02/22 History tablet rosuvastatin 5 mg tablet 5 mg PO QAM #90 tabs 08/31/22 12/02/22 Rx olanzapine 5 mg tablet 5 mg PO HS #30 tabs 11/22/22 12/02/22 Rx sennosides 8.6 mg capsule (senna) 17.2 mg PO BID #60 caps 11/22/22 12/02/22 Rx clonazepam 0.5 mg tablet 0.5 mg PO BID 12/02/22 12/02/22 History memantine 10 mg tablet 10 mg PO HS 12/02/22 12/02/22 History Patient History Medical History Anxiety Aortic stenosis Moderate Ascending aorta dilatation 4.5 x 4.4 cm Brachial plexopathy Calcification of aortic valve History of COVID-19 09/2020; congestion, cough; per , has had anxiety issues since having covid History of depression HOONAH (hard of hearing) Hyperlipidemia Hypertension controlled, stable per pt 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 He denies any known adverse reaction to anesthesia to date. Anesthesiologist advised patient to be marked as MH susceptibility in chart given FHx. Memory changes per , chronic without change, states pt also speaks slowly but able to respond appropriately on current psychiatric regimen OCD (obsessive compulsive disorder) Pancreatic abnormality recent finding -- unable to provide specifics -- dr almendarez monitoring Parotid nodule Sleep apnea unable to tolerate CPAP Systolic anterior movement of mitral valve follows with Dr. Cohen, LVOT obstruction improved per 12/2021 echo vs 03/2021 echo Surgical History History of cataract surgery History of colonoscopy History of surgery benign tumor removed from behind left ear History of surgical removal of lesion History of tonsillectomy History of tooth extraction Family History Mother Diabetes Unknown Ischemic heart disease Son Malignant hyperthermia Other Hypertension No family history of bleeding disorder Denies family history of Ovarian cancer Prostate cancer Myocardial infarction Breast cancer Colorectal cancer Social History Smoking Status: Former smoker Smoking End Date: 2017; Second Hand Exposure: No; Hx Alcohol Use: No Hx Substance Use: No Preferred Language: Thai Communication Ability: Impaired Communication Ability Comment: PT SLOW TO RESPOND Visual Impairment: Limited Hearing Ability: Hard of Hearing Rehab Services Aide Required: No Beliefs That Will Affect Care: None marital status: Current Living Situation: Spouse Current Living Situation Comment: lives at home with current occupational status: employed current occupation: [employer] Feels Safe at Home: Yes Childhood Exposure to Second-Hand Smoke: Yes caffeine: Yes Dental Care, Regularly: Yes Physical Activity Frequency: 3-4 Times per Week Seatbelt Use: always Sunscreen Use: Yes Assistive Devices: Walker Review of Systems Review of Systems: Unobtainable due to cognitive status Physical Exam Physical Exam: General Examination: Constitutional: Well developed person in no acute distress. HENT: Normal exam with inspection. CV: Hearth rhythm is regular. Neck: No carotid bruits. Meningismus can not be assessed as the patient does not relax Lungs: Non-labored and comfortable breathing. Abdomen: Soft, non-tender, non-distended. Skin: No rash or ecchymosis. Extremities: No edema or cyanosis NEUROLOGICAL EXAMINATION: Mental Status: Lethargic. Moans to stimuli. Eyes tightly shut. No eye contact. With stimulation he gets restless but does not wake up. Cranial Nerves: Pupils are small but reactive. Facial symmetry is preserved. Positive corneal and gag reflexes. Funduscopy: Unable to assess Motor: Unable to assess but resist passive movements in all extremities Tone: Unable to assess Sensory: Unable to assess Coordination: Unable to assess Speech: Unable to assess Gait: Unable to assess DTRs: 2- all Slight pill-rolling tremor in hands Results & Data ([facility]) Vital Signs (Past 12 Hours) Vital Signs Pulse Resp Pulse Ox O2 Del Method 12/04/22 15:46 56 L 16 94 Room Air 12/04/22 11:13 47 L 16 95 Room Air 12/04/22 08:36 Room Air Laboratory Results Laboratory Results - last 24 hr 12/04/22 12/04/22 12/04/22 07:12 07:12 16:20 WBC 14.28 H RBC 3.45 L Hgb 9.4 L Hct 28.9 L MCV 83.8 MCH 27.2 MCHC 32.5 RDW Std Deviation 41.8 RDW Coeff of Dayanna 14.0 Plt Count 220 MPV 9.2 L Sodium 144 Potassium 3.8 Chloride 113 H Carbon Dioxide 26 Anion Gap 5 BUN 13 Creatinine 0.86 Est Cr Clr Drug Dosing 69.2 Est GFR ( Amer) 96.3 Est GFR (Non-Af Amer) 83.1 BUN/Creatinine Ratio 15.1 Glucose 98 Calcium 8.8 Total Bilirubin 0.6 AST 18 ALT 33 Alkaline Phosphatase 61 Total Protein 5.3 L Albumin 2.4 L Globulin 2.9 Albumin/Globulin Ratio 0.8 L Urine Color [place] Urine Appearance Cloudy A Urine pH 7.5 Ur Specific [place] 1.017 Urine Protein 1+ H Urine Glucose (UA) Negative Urine Ketones Negative Urine Blood 3+ H Urine Nitrite Negative Urine Bilirubin Negative Urine Urobilinogen Negative Ur Leukocyte Esterase 1+ H Urine WBC (Auto) 10-30 H Urine RBC (Auto) >30 H U Hyaline Cast (Auto) 1-5 U Epithel Cells (Auto) >30 H Urine Bacteria (Auto) Negative Ur Renal Epithelial Cell Not Reportable Diagnostic Findings Chest X-Ray 12/02/22 16:58 XR chest 1V portable CLINICAL HISTORY: Sepsis COMPARISON STUDY: Chest radiograph November 07, 2022. Chest CT December 18, 2021. FINDINGS: No pneumothorax or pleural effusion is present. There has been interval development of moderate right lower lung consolidation. The left lung is clear. There is no evidence for pulmonary edema. Cardiac size is normal. Mediastinal contours are normal. IMPRESSION: Interval development of right lower lung consolidation suggestive of pneumonia. Post treatment radiographs to ensure resolution are recommended. ACT 112: Negative or not required by law. Electronically signed by: Espinoza Mtz M.D. 12/02/2022 6:[address] 12/02/22 16:58 CT OF THE HEAD WITHOUT CONTRAST CLINICAL HISTORY: Weakness. COMPARISON STUDY: MRI of the brain March 08, [address] December 19, 2021. CT DOSE: 614.27 mGy.cm TECHNIQUE: Helical axial images of the head were obtained without IV contrast. Automated exposure control was utilized for the study. A dose lowering technique was utilized adhering to the principles of ALARA. FINDINGS: No acute intracranial hemorrhage, midline shift or mass effect is present. The ventricular system is stable. The basal cisterns are patent. White matter hypodensities are similar to prior exam and favor small vessel disease. No extra-axial collections are present. There are no findings to suggest acute dural sinus thrombosis or acute territorial infarct. No significant calvarial abnormalities are present. Visualized portions of the sinuses and mastoid air cells are clear. IMPRESSION: No acute intracranial findings. No change in appearance of the brain. ACT 112: Negative or not required by law. Electronically signed by: Espinoza Mtz M.D. 12/02/2022 6:18 PM
[2022-12-04] MEDS: OLANZapine 5 MG TABLET PO SCH (20:58)
[2022-12-04] MEDS: clonazePAM 0.5 MG TAB PO SCH (20:58)
[2022-12-04] MEDS: MEMANTINE HCL 10 MG TAB PO SCH (20:59)
[2022-12-04] MEDS: ENOXAPARIN INJ 40 MG/0.4 ML SYR SQ SCH (21:00)
[2022-12-05] MEDS: ALBUT/IPRATROP 3MG/0.5MG NEB 3 ML VIAL NEB SCH ×2 (07:01→11:26)
[2022-12-05] MEDS: FLUoxetine HCL 20 MG CAP PO SCH (08:19)
[2022-12-05] MEDS: METOPROLOL SUCC 25MG EXT REL TAB PO SCH (08:19)
[2022-12-05] MEDS: THIAMINE HCL 100 MG TAB PO SCH (08:19)
[2022-12-05] MEDS: FAMOTIDINE 20 MG in SYRINGE 3 ML IV SCH (08:19)
[2022-12-05] MEDS: PIPERACILLIN/TAZOBACTAM 3.375 GM in DEXTROSE 5% 100 ML IV SCH ×3 (08:19→23:51)
[2022-12-05] MEDS: SENNA 8.6 MG TAB PO SCH ×2 (08:20→20:32)
[2022-12-05] MEDS: ROSUVASTATIN CALCIUM 5 MG TAB PO SCH (08:20)
[2022-12-05] MEDS: DOCUSATE SODIUM 100 MG CAP PO SCH (08:20)
[2022-12-05] MEDS: POLYETHYLENE (MIRALAX) 17 GM PACK PO SCH ×2 (08:20→20:32)
[2022-12-05 08:27] LABS: Hematocrit (blood only) 28.3 % (42.0-52.0); Hemoglobin 9.2 g/dl (14.0-18.0); Mean Corpuscular Hemoglobin 27.1 pg (25.0-34.0); Mean Corpuscular Hgb Conc 32.5 g/dL (32.0-36.0); Mean Corpuscular Volume 83.2 fL (80.0-100.0); Mean Platelet Volume 9.3 fL (9.4-12.4); Platelet Count 220 K/uL (130-400); RDW Coefficient of Variation 14.1 % (11.5-14.5); RDW Standard Deviation 41.5 fL (36.4-46.3); White Blood Count 13.08 K/ul (4.8-10.8)
[2022-12-05] MEDS: D5W AND LACTATED RINGERS 1,000 ML IV SCH ×2 (09:28→22:15)
[2022-12-05 09:46] LABS: Albumin Globulin Ratio 0.8 (0.9-2); Albumin Level 2.4 gm/dl (3.4-5.0); BUN Creatinine Ratio 10.5 (10-20); Bilirubin,Total 0.6 mg/dl (0.2-1.0); Calcium 8.9 mg/dl (8.5-10.1); Creatinine Clr Calc Pharmacy 62.6 ml/min; Est GFR (African American) 88.5 ml/min; Est GFR (Non-African American) 76.4 ml/min; Magnesium 1.9 mg/dl (1.7-2.4); Phosphorus 2.4 mg/dl (2.5-4.9); Total Protein 5.4 gm/dl (6.0-8.3)
--- NOTE | 2022-12-05 10:42 | Hospitalist Progress Note ---
Date of Service December 05, 2022 Assessment & Plan (1) Aspiration pneumonia: Plan: Reviewed CBC - The patient is currently afebrile, stable on RA - 95% - Patient has been noted to be weaker, not eating well, and more anxious per his family. Found to have a RLL consolidation concerning for aspiration pneumonia. - CT of the head was negative for acute findings, no other acute metabolic findings to explain his weakness - Was started on zosyn in the ED, will continue this for now - MRSA was negative ( no need to add vanco) - Influenza, Covid and RSV all negative - Continue IV fluids until he is eating consistently, will switch him to D5W/LR at 100 mL/hr for now - Speech consult ordered and has a video swallow ordered Unable to complete a video swallow test 12/04/22 due to lethargy and unwillingness to cooperate - Incentive spirometry, flutter therapy, prn duoNebs, and prn Robitussin for cough - Stable on RA at 95% - Blood cultures ordered, follow and tailor abx as able - Continue to follow AM labs Reviewed CBC, WBC elevated slightly improved, afebrile Blood cultures no growth at 24 hours urine no growth preliminary (2) Acute dehydration: Plan: - Noted on admission due to poor oral intake - Continue with IV fluids as described in Aspiration pneumonia - Continue full liquid diet with Boost Shakes TID - Patient did not eat breakfast or lunch today (3) Dementia: Plan: Chronic per since 2018 (after Covid infection) - Continue memantine - Continue Thiamine - Per patient's sister recently with Alzheimer's Dementia -Psychiatry consulted appreciate in put -Spoke informally yesterday with neurology who suggested to wait for cognitive evaluation until acute issues resolved, but patient's is asking for the consult while in the hospital. ?Lewy Body Dementia/Alzheimers ?Parkinson's Check HIV testing as recommended by psychiatry to complete a dementia work up Counselled on this testing and she agreed and signed the consent Neurology evaluated and recommended EEG, MRI, spinal tap Also recommended Rivastigmine patch 4.6/24H (pharmacy does not have) - Will need Rx at discharge Increased the Nemenda to BID Neurology also suggested Dopamine transporter uptake imaging including SPECT or PET would be helpful studies which are not available at this time And stated overall patient's evaluation and management may be handled by a [facility] with specialization to differentiate, diagnose and manage different type of neurodegenerative dementing disorders. (4) OCD (obsessive compulsive disorder): Plan: - Chronic - Psychiatry following - Per history patient follows with a psychologist Nic regularly and also has monthly televisits with a physician assistant golf professional at [place] - Per history patient had an admission last year to [facility] (5) Anxiety: Plan: - Continue fluoxetine, clonazepam HS, and olanzapine - Psychiatry following (6) Constipation: Plan: - Had a BM yesterday prior to admission per history - Continue senna and miralax - Increase miralax to BID - Start enemas as needed (7) HTN (hypertension): Plan: Reviewed bmp today and is normal - Stable - Continue metoprolol - Lisinopril is held for now to avoid hypotension - Heart rate continues to be in 40-50s - Echo - no change compared with 12/2021 (8) Hyperlipidemia: Plan: -Continue statin (9) Systolic anterior movement of mitral valve: Plan: - Follows with Dr Cohen, last seen 08/25 - Echo result with no change from 12/2021 (10) Hematuria: Plan: - Await urinalysis - Will check Urinalysis by cath sample (11) Vitamin D deficiency: Plan: Vitamin D low at 24.7 Vitamin D3 5000 IU daily Admission and Anticipated Discharge Date Admission Date: December 02, 2022 Subjective Patient is alert and oriented to person, place ([facility]), and aware the year is 2022. unable to tell me the month Neurology evaluated patient yesterday and placed recommendations. I also message Dr Guthrie regarding the medication changes. Pharmacy does not have the Rivastigmine. We will increase the Nemenda to BID and will discharge patient on the Rivastigmine patch 4.6mg/24 hours. Also ordered MRI, EEG and Spinal tap. Review of Systems Review of Systems: Patient is awake and alert as above. He denies any pain. He denies any dyspnea or chest pain. Patient has poor eye contact and slow to respond. Complete ROS hard to elicit due to patient's cognitive state Physical Exam Constitutional: + ill appearing, + thin, + cachectic and + frail appearing Neck: trachea midline, no thyromegaly Respiratory: normal respiratory effort; no labored breathing and no cough Cardiovascular: Rate/Rhythm: regular rate, regular rhythm and + bradycardic Heart Sounds: + murmur Extremities: no calf tenderness and no edema Gastrointestinal (Abdomen): Inspection/Auscultation: abdomen normal to inspection and normal bowel sounds; abdomen not distended Percussion/Palpation: abdomen soft; abdomen nontender, no guarding, abdomen not rigid and no hepatosplenomegaly Neurologic: awake alert to person, year and place "[facility]" Psychiatric: Orientation: alert, oriented to person and oriented to place Eye Contact: + poor eye contact Affect: + flat affect Results & Data Results & Data ([facility]) Vital Signs (Past 12 Hours) Vital Signs Temp Pulse Resp BP Pulse Ox O2 Del Method 12/05/22 10:08 Room Air 12/05/22 07:44 37 C 94 H 18 136/79 95 Room Air 12/05/22 07:01 51 L 16 96 Room Air Laboratory Results Abnormal lab results 12/04/22 12/05/22 12/05/22 Range/Units 16:20 07:41 07:41 WBC 13.08 H (4.8-10.8) K/ul RBC 3.40 L (4.70-6.10) M/uL Hgb 9.2 L (14.0-18.0) g/dl Hct 28.3 L (42.0-52.0) % MPV 9.3 L (9.4-12.4) fL Chloride 111 H (98-107) mmol/L Glucose 116 H (70-99(Fasting)) mg/dl Phosphorus 2.4 L (2.5-4.9) mg/dl Total Protein 5.4 L (6.0-8.3) gm/dl Albumin 2.4 L (3.4-5.0) gm/dl Albumin/Globulin Ratio 0.8 L (0.9-2) Urine Appearance Cloudy A (Clear) Urine Protein 1+ H (Negative) Urine Blood 3+ H (Negative) Ur Leukocyte Esterase 1+ H (Negative) Urine WBC (Auto) 10-30 H (0-5) /hpf Urine RBC (Auto) >30 H (0-4) /hpf U Epithel Cells (Auto) >30 H (0-5) /lpf Diagnostic Findings Lumbar Puncture Fluoroscopy 12/05/22 11:32 FLUOROSCOPICALLY GUIDED LUMBAR PUNCTURE CLINICAL HISTORY: cognitive decline r/o encephaphalitis FLUOROSCOPY TIME: 0.4 minutes. FLUOROSCOPY IMAGES: 1 ka, r: 12.6 mGY PROCEDURE: The procedure, risks and benefits were discussed with the patient including the risk of spinal headache, bleeding and infection. The patient agreed to the procedure and informed written consent was obtained. The procedure was performed by Dr. Thomas following a timeout. The left L3-L4 interlaminar space was targeted. Skin overlying the space was prepped and draped in the usual sterile fashion and local anesthesia was achieved with 1% lidocaine. Under intermittent fluoroscopic guidance, a 20-gauge x 3 1/2 in. Sprotte needle was inserted into the thecal sac. A total of 10 cc of clear, colorless cerebral spinal fluid was obtained and spread amongst 4 vials. The patient tolerated the procedure well. There were no immediate complications. The specimens were sent to the laboratory at the request of the referring physician. IMPRESSION: Successful fluoroscopic guided lumbar puncture with removal of 10 cc of clear, colorless cerebral spinal fluid. No immediate complications. ACT 112: Negative or not required by law. Electronically signed by: Arcenio Thomas M.D. 12/05/2022 2:53 PM PG Care Time/CCT Total # of Minutes Spent Total Time Spent with Patient: Total time spent is greater than 50% in coordination of care (as documented) at patient's floor/unit and/or counseling patient: Coding Level of Care Code 85222 SUB INP/OBS CARE 2/35MIN Diagnoses Aspiration pneumonia J69.0 Acute dehydration E86.0 Dementia F03.90 OCD (obsessive compulsive disorder) F42.9 Anxiety F41.9 Constipation K59.00 HTN (hypertension) I10 Hypertension type: essential hypertension Hyperlipidemia E78.2 Hyperlipidemia type: mixed hyperlipidemia Systolic anterior movement of mitral valve I34.8 Hematuria R31.9 Vitamin D deficiency E55.9 (1) Hyperlipidemia Hyperlipidemia type: mixed hyperlipidemia Qualified Code(s): E78.2 - Mixed hyperlipidemia (2) HTN (hypertension) Hypertension type: essential hypertension Qualified Code(s): I10 - Essential (primary) hypertension
[2022-12-05] MEDS ORDERED: ALBUT/IPRATROP 3MG/0.5MG NEB 3 ML VIAL NEB PRN (11:52)
[2022-12-05] MEDS: CHOLECALCIFEROL 5,000 UNITS 125 MCG TAB PO SCH (12:46)
--- NOTE | 2022-12-05 14:55 | Fluoroscopy Report ---
FLUOROSCOPICALLY GUIDED LUMBAR PUNCTURE CLINICAL HISTORY: cognitive decline r/o encephaphalitis FLUOROSCOPY TIME: 0.4 minutes. FLUOROSCOPY IMAGES: 1 ka, r: 12.6 mGY PROCEDURE: The procedure, risks and benefits were discussed with the patient including the risk of s beth headache, bleeding and infection. The patient agreed to the procedure and informed written cons ent was obtained. The procedure was performed by Dr. Thomas following a timeout. The left L3-L4 in terlaminar space was targeted. Skin overlying the space was prepped and draped in the usual sterile f ashion and local anesthesia was achieved with 1% lidocaine. Under intermittent fluoroscopic guidance, a 20-gauge x 3 1/2 in. Sprotte needle was inserted into the thecal sac. A total of 10 cc of clear, c olorless cerebral spinal fluid was obtained and spread amongst 4 vials. The patient tolerated the pro cedure well. There were no immediate complications. The specimens were sent to the laboratory at the request of the referring physician. IMPRESSION: Successful fluoroscopic guided lumbar puncture with removal of 10 cc of clear, colorless cerebral spinal fluid. No immediate complications. ACT 112: Negative or not required by law. Electronically signed by: Arcenio Thomas M.D. 12/05/2022 2:53 PM
[2022-12-05 15:37] LABS: Total Protein CSF 76.3 mg/dl (15-45)
[2022-12-05 16:09] LABS: Appearance CSF Clear; CSF Count Tube # 3; CSF Xanthrochromic No xanthochromia; Color CSF Colorless
[2022-12-05 16:11] LABS: Appearance CSF Clear; CSF Count Tube # 1; CSF Xanthrochromic No xanthochromia; Color CSF Colorless
[2022-12-05] MEDS: clonazePAM 0.5 MG TAB PO SCH (20:31)
[2022-12-05] MEDS: OLANZapine 5 MG TABLET PO SCH (20:31)
[2022-12-05] MEDS: MEMANTINE HCL 10 MG TAB PO SCH (20:32)
[2022-12-05] MEDS ORDERED: GADOBUTROL 65ML VIAL IV ONE (21:47)
[2022-12-06] MEDS: D5W AND LACTATED RINGERS 1,000 ML IV SCH (06:07)
[2022-12-06] MEDS: DOCUSATE SODIUM 100 MG CAP PO SCH (08:42)
[2022-12-06] MEDS: METOPROLOL SUCC 25MG EXT REL TAB PO SCH (08:42)
[2022-12-06] MEDS: MEMANTINE HCL 10 MG TAB PO SCH ×2 (08:42→20:07)
[2022-12-06] MEDS: SENNA 8.6 MG TAB PO SCH ×2 (08:43→20:07)
[2022-12-06] MEDS: THIAMINE HCL 100 MG TAB PO SCH (08:43)
[2022-12-06] MEDS: POLYETHYLENE (MIRALAX) 17 GM PACK PO SCH ×2 (08:43→20:07)
[2022-12-06] MEDS: ROSUVASTATIN CALCIUM 5 MG TAB PO SCH (08:43)
[2022-12-06] MEDS: CHOLECALCIFEROL 5,000 UNITS 125 MCG TAB PO SCH (08:44)
[2022-12-06] MEDS: FLUoxetine HCL 20 MG CAP PO SCH (08:44)
--- NOTE | 2022-12-06 08:45 | Magnetic Resonance Report ---
Brain MRI WITH AND WITHOUT CONTRAST HISTORY: Generalized weakness. r/o atrophy, demyelinating or infectious process TECHNIQUE: Multiplanar multisequence MRI of the brain was performed both before and after the intrave nous administration of contrast. COMPARISON STUDY: Head CT 12/02/2022. Brain MRI 03/08/2021. FINDINGS: There is no mass, hematoma, midline shift, or acute infarct. The paranasal sinuses are payam r. The mastoid air cells are clear. The ventricles and sulci demonstrate mild age-related involutiona l changes. Scattered foci of T2 hyperintensity seen within the periventricular and subcortical white matter are nonspecific but suggestive of mild microvascular ischemic changes. The major vascular flow voids at the skull base are well-maintained. Prior bilateral lens replacement. Linear focus of susce ptibility artifact within the right cerebellar hemisphere may represent mineralization or old hemorrh age. No abnormal enhancement within the brain. IMPRESSION: 1. No acute infarct or acute intracranial hemorrhage. 2. Atrophy and microvascular ischemic changes are again noted. 3. No abnormal enhancement. ACT 112: Negative or not required by law. Electronically signed by: Arcenio Thomas M.D. 12/06/2022 8:43 AM
[2022-12-06] MEDS: FAMOTIDINE 20 MG in SYRINGE 3 ML IV SCH (08:52)
[2022-12-06] MEDS: PIPERACILLIN/TAZOBACTAM 3.375 GM in DEXTROSE 5% 100 ML IV SCH ×2 (08:52→17:03)
--- NOTE | 2022-12-06 12:51 | Fluoroscopy Report ---
FL video swallow HISTORY: assess fo aspiration TECHNIQUE: Video fluoroscopic evaluation of swallowing was performed in the AP and lateral projection s by the speech pathology staff. The patient is fed nectar-thick and thin liquid barium, a barium coa richard wafer, and barium pudding. FLUOROSCOPY TIME: 2.9 minutes. A cine loop submitted. Ka, r: 30.5 mGy COMPARISON STUDY: None. FINDINGS: Multiple episodes of incomplete epiglottic deflection resulting in moderate vallecular resi due. However, no aspiration identified during the examination. IMPRESSION: 1. No aspiration identified. 2. Please see the speech pathologist report for detailed findings and recommendations. ACT 112: Negative or not required by law. Electronically signed by: Arcenio Thomas M.D. 12/06/2022 12:50 PM
--- NOTE | 2022-12-06 14:05 | Hospitalist Progress Note ---
Date of Service December 06, 2022 Assessment & Plan (1) Aspiration pneumonia: Plan: - Patient has been noted to be weaker, not eating well, and more anxious per his family. Found to have a RLL consolidation concerning for aspiration pneumonia. - CT of the head was negative for acute findings, no other acute metabolic findings to explain his weakness - Was started on zosyn in the ED, will continue this for now - MRSA was negative (no need to add vanco) - Influenza, Covid and RSV all negative - Continue IV fluids until he is eating consistently, will switch him to D5W/LR at 100 mL/hr for now - Speech consult ordered and has a video swallow ordered - completed video on 12/06, no overt signs of aspiration, but due to weakness, recommended moist and minced - Incentive spirometry, flutter therapy, prn duoNebs, and prn Robitussin for cough - No CBC or chemistry panel drawn today for review (2) Dementia: Plan: Chronic per since 2018 (after Covid infection) - Continue Memantine & Thiamine - Per patient's sister recently with Alzheimer's Dementia - Psychiatry consulted appreciate in put - Seen by neurology, Dr. Guthrie, appreciate input, recommended MRI, EEG, and LP - Check HIV testing as recommended by psychiatry to complete a dementia work up (pending) - gave consent for testing - Neuro also recommended Rivastigmine patch 4.6/24H (pharmacy does not have) - Will need Rx at discharge - Increased the Namenda to BID while in-house - EEG performed 12/06, results pending - MRI results reviewed, atrophy and microvascular changes noted, otherwise no acute findings Neurology also suggested Dopamine transporter uptake imaging including SPECT or PET would be helpful studies which are not available at this time And stated overall patient's evaluation and management may be handled by a [facility] with specialization to differentiate, diagnose and manage different type of neurodegenerative dementing disorders. (3) Acute dehydration: Plan: - Noted on admission due to poor oral intake - Cap IVF - Appears adequately hydrated - Diet advanced to minced and moist - Continue Boost supplements TID (4) OCD (obsessive compulsive disorder): Plan: - Anxiety + OCD - Chronic - Psychiatry following - Per history patient follows with a psychologist Nic regularly and also has monthly televisits with a physician contact center assistant at [facility] - Per history patient had an admission last year to [facility] - Continue Fluoxetine, Clonazepam HS, and Olanzepine (5) Constipation: Plan: - Had a BM yesterday prior to admission per history - Continue senna and miralax - Increase miralax to BID - Start enemas as needed (6) HTN (hypertension): Plan: - Chronic, Stable - Continue metoprolol - Lisinopril was held to avoid hypotension - Heart rate continues to be in 40-50s - Echo - no change compared with 12/2021 - BP this AM 168/76, resume Lisinopril (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 Continue PT/OT. D/c planning. Diet advanced per ST recommendations. CM following, referral made to [facility]. Staff at [facility] to call and discuss costs. Frankly, from a medical standpoint, he could be discharged as early as tomorrow if [facility] can accept. Plan d/w Dr. Guillaume. Admission and Anticipated Discharge Date Admission Date: December 02, 2022 Subjective Patient seen on daily rounds this morning. Currently is awake, alert, oriented x2. No complaints. Denies dyspnea or cough, fever/chills. Was undergoing EEG at the time of my visit. No issues communicated by nursing staff. Physical Exam Physical Exam: GENERAL: 77 yo well-developed, well-nourished wm. NAD. LUNGS: Clear to auscultation bilaterally. No accessory muscle use. No W/R/R. CARDIOVASCULAR: Regular rate and rhythm 3/6 KERRY, no g/r NEUROLOGIC: A&O x2. No focal neurological deficits. CN II-XII grossly intact. PSYCHIATRIC: Cooperative. Appropriate mood and affect. Results & Data Results & Data ([facility]) Vital Signs (Past 12 Hours) Vital Signs Temp Pulse Resp BP Pulse Ox O2 Del Method 12/06/22 07:41 36.8 C 83 18 168/76 H 97 Room Air PG Care Time/CCT Total # of Minutes Spent Total Time Spent with Patient: Total time spent is greater than 50% in coordination of care (as documented) at patient's floor/unit and/or counseling patient: Coding Level of Care Code 56393 SUB INP/OBS CARE 2/35MIN Diagnoses Aspiration pneumonia J69.0 Dementia F03.90 Acute dehydration E86.0 OCD (obsessive compulsive disorder) F42.9 Constipation K59.00 HTN (hypertension) I10 Hypertension type: essential hypertension Systolic anterior movement of mitral valve I34.8 Hematuria R31.9 Vitamin D deficiency E55.9 (1) HTN (hypertension) Hypertension type: essential hypertension Qualified Code(s): I10 - Essential (primary) hypertension
--- NOTE | 2022-12-06 14:40 | Electroencephalogram ---
EEG Procedure Note Date of Service December 06, 2022 Start / End Times Start Time: 10:00 End Time: 10:20 Referring Physician Roxane Valle History The patient was admitted with altered mental status. He has psychiatric symptoms, but also cognitive problems, which fluctuates, which raised concern for Lewy body disease, and other rare dementing disorder like CJD, and frontotemporal dementia's. This EEG is ordered to evaluate for epileptogenic activity, cerebral functioning, and abnormal discharges which can be seen in CJD and frontotemporal dementias. Home Medication List Medication Instructions Recorded Confirmed Type fluoxetine 40 mg capsule 40 mg PO QAM 09/17/21 12/02/22 History hcavhvctuleq-ipqqpuyy-tyasyt 1 tab PO QAM 01/12/22 12/02/22 History tablet (Multivitamin 50 Plus tablet) docusate sodium 100 mg capsule 200 mg PO DAILY 06/18/22 12/02/22 History (Colace) lisinopril 10 mg tablet 10 mg PO QAM #90 tabs 06/18/22 12/02/22 Rx metoprolol succinate 50 mg 25 mg PO QAM 90 days #45 tabs 06/18/22 12/02/22 Rx tablet,extended release 24 hr polyethylene glycol 3350 17 17 g PO BID 06/18/22 12/02/22 History gram/dose oral powder (Miralax) thiamine HCl (vitamin B1) 100 mg 100 mg PO DAILY 08/09/22 12/02/22 History tablet rosuvastatin 5 mg tablet 5 mg PO QAM #90 tabs 08/31/22 12/02/22 Rx olanzapine 5 mg tablet 5 mg PO HS #30 tabs 11/22/22 12/02/22 Rx sennosides 8.6 mg capsule (senna) 17.2 mg PO BID #60 caps 11/22/22 12/02/22 Rx clonazepam 0.5 mg tablet 0.5 mg PO BID 12/02/22 12/02/22 History memantine 10 mg tablet 10 mg PO HS 12/02/22 12/02/22 History Inpatient Medication List Clonazepam (Clonazepam 0.5 Mg Tab) 0.5 mg PO HS [facility] Stop: 01/01/23 20:59 Last Admin: 12/05/22 20:31 Dose: 0.5 mg Documented By: Admin: 12/04/22 20:58 Dose: 0.5 mg Documented By: Admin: 12/03/22 20:34 Dose: 0.5 mg Documented By: Admin: 12/02/22 21:40 Dose: 0.5 mg Documented By: EDUIN Docusate Sodium (Docusate Sodium 100 Mg Cap) 200 mg PO DAILY [facility] Stop: 01/02/23 08:59 Last Admin: 12/06/22 08:42 Dose: 200 mg Documented By: Admin: 12/05/22 08:20 Dose: 200 mg Documented By: Admin: 12/04/22 12:38 Dose: Not Given Documented By: Admin: 12/03/22 08:26 Dose: 200 mg Documented By: MG Enoxaparin Sodium (Enoxaparin Inj 40 Mg/0.4 Ml Syr) 40 mg SQ Q24H [facility] Stop: 01/01/23 21:59 Last Admin: 12/04/22 21:00 Dose: 40 mg Documented By: Admin: 12/03/22 20:35 Dose: 40 mg Documented By: Admin: 12/02/22 21:40 Dose: 40 mg Documented By: EDUIN Fluoxetine HCl (Fluoxetine Hcl 20 Mg Cap) 40 mg PO QAM [facility] Stop: 01/02/23 08:59 Last Admin: 12/06/22 08:44 Dose: 40 mg Documented By: Admin: 12/05/22 08:19 Dose: 40 mg Documented By: Admin: 12/04/22 12:38 Dose: Not Given Documented By: Admin: 12/03/22 08:26 Dose: 40 mg Documented By: MG Piperacillin Sod/Tazobactam (Sod 3.375 gm/ Dextrose) 115 mls @ 28.75 mls/hr IV Q8H [facility]; Protocol Stop: 12/10/22 00:00 Last Infusion: 12/06/22 13:40 Dose: 0 mls/hr Documented By: Admin: 12/06/22 08:52 Dose: 28.8 mls/hr Documented By: Infusion: 12/06/22 03:44 Dose: 0 mls/hr Documented By: Admin: 12/05/22 23:51 Dose: 28.8 mls/hr Documented By: Infusion: 12/05/22 19:51 Dose: 0 mls/hr Documented By: Admin: 12/05/22 16:02 Dose: 28.8 mls/hr Documented By: Infusion: 12/05/22 12:21 Dose: 0 mls/hr Documented By: Admin: 12/05/22 08:19 Dose: 28.8 mls/hr Documented By: Infusion: 12/05/22 04:38 Dose: 0 mls/hr Documented By: Admin: 12/04/22 23:23 Dose: 28.8 mls/hr Documented By: Infusion: 12/04/22 21:01 Dose: 0 mls/hr Documented By: Admin: 12/04/22 16:52 Dose: 28.8 mls/hr Documented By: Infusion: 12/04/22 12:36 Dose: 0 mls/hr Documented By: Admin: 12/04/22 08:31 Dose: 28.8 mls/hr Documented By: Infusion: 12/04/22 04:54 Dose: 0 mls/hr Documented By: Admin: 12/04/22 00:54 Dose: 28.8 mls/hr Documented By: Infusion: 12/03/22 19:44 Dose: 0 mls/hr Documented By: Admin: 12/03/22 15:26 Dose: 28.8 mls/hr Documented By: Infusion: 12/03/22 12:20 Dose: 0 mls/hr Documented By: Admin: 12/03/22 08:16 Dose: 28.8 mls/hr Documented By: Infusion: 12/03/22 03:38 Dose: 0 mls/hr Documented By: Admin: 12/02/22 23:38 Dose: 28.8 mls/hr Documented By: EDUIN Famotidine 20 mg/ Syringe 5 mls @ 2.5 mls/min IV DAILY [facility] Stop: 01/01/23 20:59 Last Admin: 12/06/22 08:52 Dose: 2.5 mls/min Documented By: Admin: 12/05/22 08:19 Dose: 2.5 mls/min Documented By: Admin: 12/04/22 08:31 Dose: 2.5 mls/min Documented By: Admin: 12/03/22 08:35 Dose: 2.5 mls/min Documented By: Admin: 12/02/22 21:41 Dose: 2.5 mls/min Documented By: EDUIN Memantine (Memantine Hcl 10 Mg Tab) 10 mg PO BID [facility] Stop: 01/04/23 20:59 Last Admin: 12/06/22 08:42 Dose: 10 mg Documented By: Admin: 12/05/22 20:32 Dose: 10 mg Documented By: SAROJ Metoprolol Succinate (Metoprolol Succ 25mg Ext Rel Tab) 25 mg PO QAM [facility] Stop: 01/02/23 08:59 Last Admin: 12/06/22 08:42 Dose: 25 mg Documented By: Admin: 12/05/22 08:19 Dose: 25 mg Documented By: Admin: 12/04/22 08:32 Dose: Not Given Documented By: Admin: 12/03/22 08:31 Dose: Not Given Documented By: Miscellaneous (Rivastigmine 4.6 Patch - Order Awaiting Action) 1 each N/A QS [facility] Stop: 01/04/23 15:59 Last Admin: 12/06/22 08:41 Dose: Not Given Documented By: Admin: 12/05/22 23:51 Dose: Not Given Documented By: Admin: 12/05/22 16:46 Dose: Not Given Documented By: HOLLAND Olanzapine (Olanzapine 5 Mg Tablet) 5 mg PO HS [facility] Stop: 01/01/23 20:59 Last Admin: 12/05/22 20:31 Dose: 5 mg Documented By: Admin: 12/04/22 20:58 Dose: 5 mg Documented By: Admin: 12/03/22 20:33 Dose: 5 mg Documented By: Admin: 12/02/22 21:41 Dose: 5 mg Documented By: EDUIN Polyethylene Glycol (Polyethylene (Miralax) 17 Gm Pack) 17 gm PO BID [facility] Stop: 01/01/23 20:59 Last Admin: 12/06/22 08:43 Dose: 17 gm Documented By: Admin: 12/05/22 20:32 Dose: 17 gm Documented By: Admin: 12/05/22 08:20 Dose: 17 gm Documented By: Admin: 12/04/22 20:58 Dose: 17 gm Documented By: Admin: 12/04/22 12:37 Dose: Not Given Documented By: Admin: 12/03/22 20:34 Dose: 17 gm Documented By: Admin: 12/03/22 08:27 Dose: 17 gm Documented By: Admin: 12/02/22 21:41 Dose: 17 gm Documented By: EDUIN Rosuvastatin Calcium (Rosuvastatin Calcium 5 Mg Tab) 5 mg PO QAM [facility] Stop: 01/02/23 08:59 Last Admin: 12/06/22 08:43 Dose: 5 mg Documented By: Admin: 12/05/22 08:20 Dose: 5 mg Documented By: Admin: 12/04/22 12:38 Dose: Not Given Documented By: Admin: 12/03/22 08:26 Dose: 5 mg Documented By: Sennosides (Senna 8.6 Mg Tab) 17.2 mg PO BID [facility] Stop: 01/01/23 20:59 Last Admin: 12/06/22 08:43 Dose: 17.2 mg Documented By: Admin: 12/05/22 20:32 Dose: 17.2 mg Documented By: Admin: 12/05/22 08:20 Dose: 17.2 mg Documented By: Admin: 12/04/22 20:59 Dose: 17.2 mg Documented By: Admin: 12/04/22 12:38 Dose: Not Given Documented By: Admin: 12/03/22 20:34 Dose: 17.2 mg Documented By: Admin: 12/03/22 08:27 Dose: 17.2 mg Documented By: Admin: 12/02/22 21:41 Dose: 17.2 mg Documented By: EDUIN Thiamine HCl (Thiamine Hcl 100 Mg Tab) 100 mg PO DAILY [facility] Stop: 01/02/23 08:59 Last Admin: 12/06/22 08:43 Dose: 100 mg Documented By: Admin: 12/05/22 08:19 Dose: 100 mg Documented By: Admin: 12/04/22 12:39 Dose: Not Given Documented By: Admin: 12/03/22 08:26 Dose: 100 mg Documented By: Vitamin D (Cholecalciferol 5,000 Units 125 Mcg Tab) 5,000 units PO QAM [facility] Stop: 01/04/23 10:44 Last Admin: 12/06/22 08:44 Dose: 5,000 units Documented By: Admin: 12/05/22 12:46 Dose: 5,000 units Documented By: JS Discontinued Medications Albuterol (Albut/Ipratrop 3mg/0.5mg Neb 3 Ml Vial) 3 ml NEB QIDR [facility]; Protocol Stop: 01/02/23 06:59 Last Admin: 12/05/22 11:26 Dose: 3 ml Documented By: Admin: 12/05/22 07:01 Dose: 3 ml Documented By: Admin: 12/04/22 20:05 Dose: 3 ml Documented By: Admin: 12/04/22 15:45 Dose: 3 ml Documented By: Admin: 12/04/22 11:13 Dose: 3 ml Documented By: Admin: 12/04/22 07:26 Dose: 3 ml Documented By: Admin: 12/03/22 19:11 Dose: 3 ml Documented By: Admin: 12/03/22 14:35 Dose: 3 ml Documented By: Admin: 12/03/22 11:09 Dose: 3 ml Documented By: Admin: 12/03/22 07:16 Dose: 3 ml Documented By: CREvon Gadobutrol (Gadobutrol 65ml Vial) 6.8 ml IV ONCE ONE Stop: 12/05/22 21:48 Last Admin: 12/05/22 21:47 Dose: 6.8 ml Documented By: [facility] Sodium Chloride (Nss 1000ml) 1,000 mls @ 999 mls/hr IV .Q1H1M ONE Stop: 12/02/22 19:04 Last Infusion: 12/02/22 20:20 Dose: 0 mls/hr Documented By: Admin: 12/02/22 18:13 Dose: 999 mls/hr Documented By: Piperacillin Sod/Tazobactam Sod (Zosyn) 4.5 gm in 120 mls @ 240 mls/hr IV NOW ONE Stop: 12/02/22 18:49 Last Infusion: 12/02/22 20:20 Dose: 0 mls/hr Documented By: Admin: 12/02/22 19:04 Dose: 240 mls/hr Documented By: OAM Sodium Chloride (Nss 1000ml) 1,000 mls @ 999 mls/hr IV .Q1H1M ONE Stop: 12/02/22 19:37 Last Admin: 12/02/22 19:05 Dose: Not Given Documented By: OAM Dextrose/ Lactated Ringer's 1,000 mls @ 100 mls/hr IV .Q10H [facility] Stop: 01/01/23 19:14 Last Admin: 12/02/22 21:32 Dose: Not Given Documented By: EDUIN Dextrose/Lactated Ringer's (D5w And Lactated Ringers) 1,000 mls @ 100 mls/hr IV .Q10H [facility] Stop: 01/01/23 21:14 Last Infusion: 12/06/22 08:41 Dose: 100 mls/hr Documented By: Admin: 12/06/22 06:07 Dose: Not Given Documented By: Infusion: 12/06/22 06:07 Dose: 100 mls/hr Documented By: Admin: 12/05/22 22:15 Dose: 100 mls/hr Documented By: Infusion: 12/05/22 19:28 Dose: 100 mls/hr Documented By: Admin: 12/05/22 09:28 Dose: 100 mls/hr Documented By: Infusion: 12/05/22 09:13 Dose: 100 mls/hr Documented By: Admin: 12/04/22 23:13 Dose: 100 mls/hr Documented By: Infusion: 12/04/22 22:45 Dose: 100 mls/hr Documented By: Admin: 12/04/22 12:45 Dose: 100 mls/hr Documented By: Infusion: 12/04/22 12:32 Dose: 100 mls/hr Documented By: Admin: 12/04/22 02:32 Dose: 100 mls/hr Documented By: Infusion: 12/04/22 02:32 Dose: 100 mls/hr Documented By: Admin: 12/03/22 16:40 Dose: 100 mls/hr Documented By: Infusion: 12/03/22 16:40 Dose: 100 mls/hr Documented By: Admin: 12/03/22 08:08 Dose: 100 mls/hr Documented By: Infusion: 12/03/22 07:40 Dose: 100 mls/hr Documented By: Admin: 12/02/22 21:40 Dose: 100 mls/hr Documented By: EDUIN Memantine (Memantine Hcl 10 Mg Tab) 10 mg PO HS [facility] Stop: 01/01/23 20:59 Last Admin: 12/04/22 20:59 Dose: 10 mg Documented By: Admin: 12/03/22 20:33 Dose: 10 mg Documented By: Admin: 12/02/22 21:41 Dose: 10 mg Documented By: EDUIN Description This is a 21 electrode EEG with a single channel dedicated to limited EKG. The electrodes were placed in accordance with the International 10-20 system. Interpretation Throughout this EEG recording, the patient has been confused, and cannot cooperate well. However, EEG recording is technically satisfactory. Background activity shows low amplitude, with slight slowing, mostly in theta range. There is no asymmetry or significant slowing in delta range. Posterior activity increases up to 7 to 8 Hz, moderate amplitude waveforms. Photic stimulations induce posterior driving responses bilaterally. Hyperventilation is not attempted. There are no electrographic seizures, epileptogenic discharges, asymmetries, focal slowing, or other abnormal discharges. Impression: This EEG, recorded in wakefulness only, is slightly abnormal due to mild diffuse slowing, which suggest bihemispheric dysfunction, as seen in encephalopathies and neurodegenerative disorders. There are no electrographic seizures or epileptogenic discharges. There is no other abnormal discharges, asymmetries, to suggest CJD, frontotemporal dementia's, or herpes encephalitis. Clinical Correlation This is slightly abnormal EEG as mentioned above, which suggest mild diffuse dysfunction. This can be seen in different type of encephalopathies, which can be temporary. However, current EEG findings should not be considered diagnostic for any type of dementing disorders.
[2022-12-06] MEDS: lisinopril 10 MG TAB PO SCH (15:17)
--- NOTE | 2022-12-06 19:54 | Neurology Progress Note ---
Date of Service December 06, 2022 Assessment & Plan (1) Aspiration pneumonia: (2) Acute dehydration: (3) Weakness: (4) Depressive disorder, atypical: (5) Dementia: (6) Memory changes: (7) Anxiety: (8) Brachial plexopathy: (9) Encephalopathy: Plan Assessment and plan: 1. Delusions, other psychotic symptoms, cognitive problems, questionable parkinsonism, evaluate for Lewy body dementia Impression: Apparently, all of the patient's symptoms started after COVID-19 infection was 2020 which is unusual for Lewy Body dementia. The patient was not having primary cognitive problems initially including memory disturbance, personality changes, but anxiety with delusions, and obsessive-compulsive symptoms. This is again somewhat atypical for Lewy body dementia as the patient was having delusions as an inital symptoms, without any well-formed visual hallucinations. He was not having any parkinsonian features until he was hospitalized in psychiatric unit, and was started on neuroleptics. There is a possibility that the patient's current resting tremor is extrapyramidal side effect of neuroleptic medications. Based on report, the patient was not having symptoms to suggest REM sleep behavior disorder, recurrent visual well-formed hallucinations, but the patient was having fluctuating cognition with variations in attention and alertness. Based on presence of 1 or 2 core clinical features, the patient might have possible or probable dementia with Lewy body disease. Unfortunately, with limited evaluation and unclear temporal progression, definitive diagnosis of neurodegenerative dementing disorders including Lewy body dementia cannot be made at this time. Current and active medical problems including pneumonia makes our evaluation more limited. Comprehensive evaluation after treatment of active medical problems including pneumonia would be more sensitive and diagnostic. EEG showed mild diffuse slowing but no additional epileptogenic or diagnostic discharges. CSF w/u is in process and will take several days. Brain MRI showed diffuse atrophy, mild to moderate without any specific pattern to suggest any specific dementing disorder. Plan: CSF work-up is in process. Initial values are unremarkable other than slightly elevated protein. All of results should be evaluated during outpatient f/u visit. Dopamine transporter uptake imaging including SPECT or PET would be helpful studies which are not available at this time. Overall, the patient's evaluation and management should be handled by [place], which specialization to differentiate, diagnose and manage different type of neurodegenerative dementing disorders. -Rivastigmin patch 4.6 mg for a month then increase dosage to 9.5 mg. -Increase Memantine dosage to 10 mg BID -F/u at memory disorder clinic. -Treatment of infections and management of metabolic derangements -PT/OT -I agree with NH placement. Please recontact with neurology for any future concerns or questions. Otherwise we will sign off. Admission and Anticipated Discharge Date Admission Date: December 02, 2022 Subjective The patient seen today while his was with the patient. Most of the information has been gathered from the patient's . Apparently, the patient was more alert today. He was able to eat, and watch TV, with some conversations with others. He is currently very somnolent and refused to cooperate. EEG today showed mild diffuse slowing as seen in neurodegenerative disorder or ence phalopathies. Brain MRI did not show acute pathology but diffuse atrophy. CSF work-up so far has been unremarkable other than elevated protein. Most of the CSF work-up are still pending, and which will take several days to get the results back. residential placement is pending. Review of Systems Review of Systems: Unobtainable due to cognitive status Physical Exam Physical Exam: General Examination: Constitutional: Well developed person in no acute distress. HENT: Normal exam with inspection. CV: Hearth rhythm is regular. Neck: No carotid bruits. Meningismus can not be assessed as the patient does not relax Lungs: Non-labored and comfortable breathing. Abdomen: Soft, non-tender, non-distended. Skin: No rash or ecchymosis. Extremities: No edema or cyanosis NEUROLOGICAL EXAMINATION: Mental Status: Somnolent but arousable. Refused to cooperate or answer questions. Eyes tightly shut. No eye contact. Cranial Nerves: Pupils are small but reactive. Facial symmetry is preserved. Positive corneal and gag reflexes. Funduscopy: Unable to assess Motor: Unable to assess but resist passive movements in all extremities. No asymmetry. Tone: Unable to assess as the patient resists and does not cooperate Sensory: Unable to assess Coordination: Unable to assess Speech: Unable to assess Gait: Unable to assess DTRs: 2- all Slight pill-rolling tremor in hands which is not prominent today. Results & Data ([facility]) Vital Signs (Past 12 Hours) Vital Signs Temp Pulse Resp BP Pulse Ox O2 Del Method 12/06/22 14:31 36.6 C 45 L 18 109/68 95 Room Air Laboratory Results Laboratory Results - last 24 hr 12/05/22 07:41 HIV (1&2) Ag & Ab Conf NON-REACTIVE Diagnostic Findings Chest X-Ray 12/02/22 16:58 XR chest 1V portable CLINICAL HISTORY: Sepsis COMPARISON STUDY: Chest radiograph November 07, 2022. Chest CT December 18, 2021. FINDINGS: No pneumothorax or pleural effusion is present. There has been interval development of moderate right lower lung consolidation. The left lung is clear. There is no evidence for pulmonary edema. Cardiac size is normal. Mediastinal contours are normal. IMPRESSION: Interval development of right lower lung consolidation suggestive of pneumonia. Post treatment radiographs to ensure resolution are recommended. ACT 112: Negative or not required by law. Electronically signed by: Espinoza Mtz M.D. 12/02/2022 6:[address] 12/02/22 16:58 CT OF THE HEAD WITHOUT CONTRAST CLINICAL HISTORY: Weakness. COMPARISON STUDY: MRI of the brain March 08, [address] December 19, 2021. CT DOSE: 614.27 mGy.cm TECHNIQUE: Helical axial images of the head were obtained without IV contrast. Automated exposure control was utilized for the study. A dose lowering technique was utilized adhering to the principles of ALARA. FINDINGS: No acute intracranial hemorrhage, midline shift or mass effect is present. The ventricular system is stable. The basal cisterns are patent. White matter hypodensities are similar to prior exam and favor small vessel disease. No extra-axial collections are present. There are no findings to suggest acute dural sinus thrombosis or acute territorial infarct. No significant calvarial abnormalities are present. Visualized portions of the sinuses and mastoid air cells are clear. IMPRESSION: No acute intracranial findings. No change in appearance of the brain. ACT 112: Negative or not required by law. Electronically signed by: Espinoza Mtz M.D. 12/02/2022 6:18 PM Lumbar Puncture Fluoroscopy 12/05/22 11:32 FLUOROSCOPICALLY GUIDED LUMBAR PUNCTURE CLINICAL HISTORY: cognitive decline r/o encephaphalitis FLUOROSCOPY TIME: 0.4 minutes. FLUOROSCOPY IMAGES: 1 ka, r: 12.6 mGY PROCEDURE: The procedure, risks and benefits were discussed with the patient i ncluding the risk of spinal headache, bleeding and infection. The patient agreed to the procedure and informed written consent was obtained. The procedure was performed by Dr. Thomas following a timeout. The left L3-L4 interlaminar space was targeted. Skin overlying the space was prepped and draped in the usual sterile fashion and local anesthesia was achieved with 1% lidocaine. Under intermittent fluoroscopic guidance, a 20-gauge x 3 1/2 in. Sprotte needle was inserted into the thecal sac. A total of 10 cc of clear, colorless cerebral spinal fluid was obtained and spread amongst 4 vials. The patient tolerated the procedure well. There were no immediate complications. The specimens were sent to the laboratory at the request of the referring physician. IMPRESSION: Successful fluoroscopic guided lumbar puncture with removal of 10 cc of clear, colorless cerebral spinal fluid. No immediate complications. ACT 112: Negative or not required by law. Electronically signed by: Arcenio Thomas M.D. 12/05/2022 2:53 PM Brain MRI 12/05/22 16:02 Brain MRI WITH AND WITHOUT CONTRAST HISTORY: Generalized weakness. r/o atrophy, demyelinating or infectious process TECHNIQUE: Multiplanar multisequence MRI of the brain was performed both before and after the intravenous administration of contrast. COMPARISON STUDY: Head CT 12/02/2022. Brain MRI 03/08/2021. FINDINGS: There is no mass, hematoma, midline shift, or acute infarct. The paranasal sinuses are clear. The mastoid air cells are clear. The ventricles and sulci demonstrate mild age-related involutional changes. Scattered foci of T2 hyperintensity seen within the periventricular and subcortical white matter are nonspecific but suggestive of mild microvascular ischemic changes. The major vascular flow voids at the skull base are well-maintained. Prior bilateral lens replacement. Linear focus of susceptibility artifact within the right cerebellar hemisphere may represent mineralization or old hemorrhage. No abnormal enhancement within the brain. IMPRESSION: 1. No acute infarct or acute intracranial hemorrhage. 2. Atrophy and microvascular ischemic changes are again noted. 3. No abnormal enhancement. ACT 112: Negative or not required by law. Electronically signed by: Arcenio Thomas M.D. 12/06/2022 8:43 AM Videofluoroscopic Swallow 12/06/22 11:30 FL video swallow HISTORY: assess fo aspiration TECHNIQUE: Video fluoroscopic evaluation of swallowing was performed in the AP and lateral projections by the speech pathology staff. The patient is fed nectar-thick and thin liquid barium, a barium coated wafer, and barium pudding. FLUOROSCOPY TIME: 2.9 minutes. A cine loop submitted. Ka, r: 30.5 mGy COMPARISON STUDY: None. FINDINGS: Multiple episodes of incomplete epiglottic deflection resulting in moderate vallecular residue. However, no aspiration identified during the examination. IMPRESSION: 1. No aspiration identified. 2. Please see the speech pathologist report for detailed findings and recommendations. ACT 112: Negative or not required by law. Electronically signed by: Arcenio Thomas M.D. 12/06/2022 12:50 PM
[2022-12-06] MEDS: clonazePAM 0.5 MG TAB PO SCH (20:07)
[2022-12-06] MEDS: OLANZapine 5 MG TABLET PO SCH (20:07)
[2022-12-07] MEDS: PIPERACILLIN/TAZOBACTAM 3.375 GM in DEXTROSE 5% 100 ML IV SCH ×4 (00:13→23:55)
[2022-12-07 06:25] LABS: Basophils # (auto) 0.02 K/uL (0-0.2); Basophils % (auto) 0.2 %; Eosinophils # (auto) 0.03 K/uL (0-0.50); Eosinophils % (auto) 0.2 %; Hematocrit (blood only) 30.3 % (42.0-52.0); Immature Granulocytes # (auto) 0.13 K/uL (0.01-0.20); Lymphocytes # (auto) 0.94 K/uL (1.2-3.4); Lymphocytes % (auto) 7.1 %; Mean Corpuscular Hemoglobin 27.2 pg (25.0-34.0); Mean Corpuscular Volume 82.3 fL (80.0-100.0); Mean Platelet Volume 9.5 fL (9.4-12.4); Monocytes # (auto) 0.41 K/uL (0.11-0.59); Monocytes % (auto) 3.1 %; Neutrophils # (auto) 11.63 K/uL (1.40-6.50); Neutrophils % (auto) 88.4 %; Platelet Count 209 K/uL (130-400); RDW Standard Deviation 41.1 fL (36.4-46.3); Red Blood Count 3.68 M/uL (4.70-6.10); White Blood Count 13.16 K/ul (4.8-10.8)
[2022-12-07 07:00] LABS: Calcium 8.6 mg/dl (8.5-10.1); Creatinine Clr Calc Pharmacy 69.2 ml/min; Est GFR (African American) 96.3 ml/min; Est GFR (Non-African American) 83.1 ml/min; Potassium 3.7 mmol/L (3.5-5.1)
[2022-12-07] MEDS: ROSUVASTATIN CALCIUM 5 MG TAB PO SCH (08:32)
[2022-12-07] MEDS: DOCUSATE SODIUM 100 MG CAP PO SCH (08:32)
[2022-12-07] MEDS: CHOLECALCIFEROL 5,000 UNITS 125 MCG TAB PO SCH (08:32)
[2022-12-07] MEDS: POLYETHYLENE (MIRALAX) 17 GM PACK PO SCH ×2 (08:32→20:36)
[2022-12-07] MEDS: SENNA 8.6 MG TAB PO SCH ×2 (08:32→20:36)
[2022-12-07] MEDS: MEMANTINE HCL 10 MG TAB PO SCH ×2 (08:32→20:28)
[2022-12-07] MEDS: METOPROLOL SUCC 25MG EXT REL TAB PO SCH (08:33)
[2022-12-07] MEDS: FLUoxetine HCL 20 MG CAP PO SCH (08:33)
[2022-12-07] MEDS: THIAMINE HCL 100 MG TAB PO SCH (08:33)
[2022-12-07] MEDS: lisinopril 10 MG TAB PO SCH (08:34)
[2022-12-07] MEDS: FAMOTIDINE 20 MG in SYRINGE 3 ML IV SCH (10:32)
--- NOTE | 2022-12-07 15:52 | Hospitalist Progress Note ---
Date of Service December 07, 2022 Assessment & Plan (1) Aspiration pneumonia: Plan: - Patient has been noted to be weaker, not eating well, and more anxious per his family. Found to have a RLL consolidation concerning for aspiration pneumonia. - CT of the head was negative for acute findings, no other acute metabolic findings to explain his weakness - Was started on zosyn in the ED, will continue this for now - MRSA was negative (no need to add vanco) - Influenza, Covid and RSV all negative - Given IV fluids until he is eating consistently, fluids capped on 12/06 - Speech consult ordered and has a video swallow ordered - completed video on 12/06, no overt signs of aspiration, but due to weakness, recommended moist and minced - Incentive spirometry, flutter therapy, prn duoNebs, and prn Robitussin for cough - CBC reviewed, noted stable wbc count of 13 w/ persistent left shift (2) Dementia: Plan: Chronic per since 2019 (after Covid infection) - Continue Memantine & Thiamine - Per patient's sister recently with Alzheimer's Dementia - Psychiatry consulted appreciate in put - Seen by neurology, Dr. Guthrie, appreciate input, recommended MRI, EEG, and LP - Check HIV testing as recommended by psychiatry to complete a dementia work up (pending) - gave consent for testing - Neuro also recommended Rivastigmine patch 4.6/24H (pharmacy does not have) - Will need Rx at discharge - Increased the Namenda to BID while in-house - EEG performed 12/06, results pending - MRI results reviewed, atrophy and microvascular changes noted, otherwise no acute findings Neurology also suggested Dopamine transporter uptake imaging including SPECT or PET would be helpful studies which are not available at this time And stated overall patient's evaluation and management may be handled by a [place] with specialization to differentiate, diagnose and manage different type of neurodegenerative dementing disorders. (3) Acute dehydration: Plan: - Noted on admission due to poor oral intake - Received IVF but capped on 12/06 after diet ordered by speech - Appears adequately hydrated - Diet advanced to minced and moist - Continue Boost supplements TID (4) OCD (obsessive compulsive disorder): Plan: - Anxiety + OCD - Chronic - Psychiatry following - Per history patient follows with a psychologist Nic regularly and also has monthly televisits with a physician rn first assistant at [place] - Per history patient had an admission last year to [facility] - Continue Fluoxetine, Clonazepam HS, and Olanzepine (5) Constipation: Plan: - Had a BM yesterday prior to admission per history - Continue senna and miralax - Increase miralax to BID - Start enemas as needed (6) HTN (hypertension): Plan: - Chronic, Stable - Continue metoprolol - Lisinopril was held to avoid hypotension - Heart rate continues to be in 40-50s - Echo - no change compared with 12/2021 - Resumed Lisinopril 12/06 (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 Continue PT/OT. Diet advanced per ST recommendations. CM following, referral made to [facility]. Staff at [facility] to call and discuss costs. Repeat labs in AM. has not yet heard back from [facility] regarding cost for private pay but won't have a bed available for him until next week anyway. Continued inpatient stay. Plan d/w Dr. Guillaume. Admission and Anticipated Discharge Date Admission Date: December 02, 2022 Subjective Patient was seen on daily rounds this morning. During my visit, pt was asleep and would only wake up briefly. He did not answer any questions. The COMMODITY MANAGER noted that at lunch he was awake and talking. Physical Exam Physical Exam: GENERAL: 77 yo thin wm who appears chronically ill but nontoxic LUNGS: Clear to auscultation bilaterally. CARDIOVASCULAR: Regular rate and rhythm 3/6 KERRY, no g/r NEUROLOGIC: somnolent, not conversing PSYCHIATRIC: Cooperative. Appropriate mood and affect. Results & Data Results & Data ([facility]) Vital Signs (Past 12 Hours) Vital Signs Temp Pulse Resp BP Pulse Ox O2 Del Method 12/07/22 14:18 37.1 C 69 16 164/92 H 95 Room Air 12/07/22 07:05 37.2 C 65 18 162/83 H 94 Room Air Laboratory Results 12/07/22 05:48 12/07/22 05:48 PG Care Time/CCT Total # of Minutes Spent Total Time Spent with Patient: Total time spent is greater than 50% in coordination of care (as documented) at patient's floor/unit and/or counseling patient: Coding Level of Care Code 93601 SUB INP/OBS CARE MIN Diagnoses Aspiration pneumonia J69.0 Dementia F03.90 Acute dehydration E86.0 OCD (obsessive compulsive disorder) F42.9 Constipation K59.00 HTN (hypertension) I10 Hypertension type: essential hypertension Systolic anterior movement of mitral valve I34.8 Vitamin D deficiency E55.9 (1) HTN (hypertension) Hypertension type: essential hypertension Qualified Code(s): I10 - Essential (primary) hypertension
[2022-12-07] MEDS: clonazePAM 0.5 MG TAB PO SCH (20:28)
[2022-12-07] MEDS: OLANZapine 5 MG TABLET PO SCH (20:28)
[2022-12-08] MEDS: FAMOTIDINE 20 MG in SYRINGE 3 ML IV SCH (07:33)
[2022-12-08] MEDS: PIPERACILLIN/TAZOBACTAM 3.375 GM in DEXTROSE 5% 100 ML IV SCH ×2 (07:33→17:04)
[2022-12-08 08:38] LABS: Basophils # (auto) 0.01 K/uL (0-0.2); Basophils % (auto) 0.1 %; Eosinophils # (auto) 0.03 K/uL (0-0.50); Eosinophils % (auto) 0.2 %; Hematocrit (blood only) 28.7 % (42.0-52.0); Hemoglobin 9.3 g/dl (14.0-18.0); Immature Granulocytes # (auto) 0.08 K/uL (0.01-0.20); Immature Granulocytes % (auto) 0.6 %; Lymphocytes # (auto) 0.86 K/uL (1.2-3.4); Lymphocytes % (auto) 6.7 %; Mean Corpuscular Hemoglobin 27.1 pg (25.0-34.0); Mean Corpuscular Hgb Conc 32.4 g/dL (32.0-36.0); Mean Corpuscular Volume 83.7 fL (80.0-100.0); Mean Platelet Volume 8.8 fL (9.4-12.4); Monocytes # (auto) 0.44 K/uL (0.11-0.59); Monocytes % (auto) 3.4 %; Neutrophils # (auto) 11.41 K/uL (1.40-6.50); Platelet Count 217 K/uL (130-400); RDW Coefficient of Variation 14.2 % (11.5-14.5); RDW Standard Deviation 42.5 fL (36.4-46.3); Red Blood Count 3.43 M/uL (4.70-6.10); White Blood Count 12.83 K/ul (4.8-10.8)
[2022-12-08] MEDS: DOCUSATE SODIUM 100 MG CAP PO SCH (08:38)
[2022-12-08] MEDS: POLYETHYLENE (MIRALAX) 17 GM PACK PO SCH ×2 (08:38→20:27)
[2022-12-08] MEDS: SENNA 8.6 MG TAB PO SCH ×2 (08:38→20:29)
[2022-12-08] MEDS: THIAMINE HCL 100 MG TAB PO SCH (08:41)
[2022-12-08] MEDS: FLUoxetine HCL 20 MG CAP PO SCH (08:42)
[2022-12-08] MEDS: lisinopril 10 MG TAB PO SCH (08:42)
[2022-12-08] MEDS: METOPROLOL SUCC 25MG EXT REL TAB PO SCH (08:42)
[2022-12-08] MEDS: CHOLECALCIFEROL 5,000 UNITS 125 MCG TAB PO SCH (08:42)
[2022-12-08] MEDS: MEMANTINE HCL 10 MG TAB PO SCH ×2 (08:42→20:29)
[2022-12-08] MEDS: ROSUVASTATIN CALCIUM 5 MG TAB PO SCH (08:43)
[2022-12-08 09:06] LABS: Calcium 9.3 mg/dl (8.5-10.1); Creatinine Clr Calc Pharmacy 63.3 ml/min; Est GFR (African American) 89.6 ml/min; Est GFR (Non-African American) 77.3 ml/min; Potassium 3.8 mmol/L (3.5-5.1)
--- NOTE | 2022-12-08 13:12 | Hospitalist Progress Note ---
Date of Service December 08, 2022 Assessment & Plan (1) Aspiration pneumonia: Plan: - Patient has been noted to be weaker, not eating well, and more anxious per his family. Found to have a RLL consolidation concerning for aspiration pneumonia. - CT of the head was negative for acute findings, no other acute metabolic findings to explain his weakness - Was started on zosyn in the ED, will continue this for now - MRSA was negative (no need to add vanco) - Influenza, Covid and RSV all negative - Given IV fluids until he is eating consistently, fluids capped on 12/06 - Speech consult ordered and has a video swallow ordered - completed video on 12/06, no overt signs of aspiration, but due to weakness, recommended moist and minced - Incentive spirometry, flutter therapy, prn duoNebs, and prn Robitussin for cough - CBC reviewed, noted stable wbc count of 12.8 w/ persistent left shift (2) Dementia: Plan: Chronic per since 2019 (after Covid infection) - Continue Memantine & Thiamine - Per patient's sister recently with Alzheimer's Dementia - Psychiatry consulted appreciate in put - Seen by neurology, Dr. Guthrie, appreciate input, recommended MRI, EEG, and LP - Check HIV testing as recommended by psychiatry to complete a dementia work up (pending) - gave consent for testing - Neuro also recommended Rivastigmine patch 4.6/24H (pharmacy does not have) - Will need Rx at discharge - Increased the Namenda to BID while in-house - EEG performed 12/06, results pending - MRI results reviewed, atrophy and microvascular changes noted, otherwise no acute findings - Neurology also suggested Dopamine transporter uptake imaging including SPECT or PET would be helpful studies which are not available at this time - Patient's evaluation and management should be handled by [place], which specialization to differentiate, diagnose and manage different type of neurodegenerative dementing disorders - F/u at memory disorder clinic (3) Acute dehydration: Plan: - Noted on admission due to poor oral intake - Received IVF but capped on 12/06 after diet ordered by speech - Appears adequately hydrated - Diet advanced to minced and moist - Continue Boost supplements TID (resolved) (4) OCD (obsessive compulsive disorder): Plan: - Anxiety + OCD - Chronic - Psychiatry following - Per history patient follows with a psychologist Nic regularly and also has monthly televisits with a physician certified registered dental assistant at [place] - Per history patient had an admission last year to [facility] - Continue Fluoxetine, Clonazepam HS, and Olanzepine (5) Constipation: Plan: - Had a BM yesterday prior to admission per history - Continue senna and miralax - Increase miralax to BID - Start enemas as needed (6) HTN (hypertension): Plan: - Chronic, Stable - Continue metoprolol - Lisinopril was held to avoid hypotension - Heart rate continues to be in 40-50s - Echo - no change compared with 12/2021 - Resumed Lisinopril 12/06/22 (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 Continue PT/OT. Diet advanced per ST recommendations. CM following, referral made to [facility]. Staff at [facility] to call and discuss costs. Repeat labs in AM. has not yet heard back from [facility] regarding cost for private pay but won't have a bed available for him until next week anyway. Continued inpatient stay. Patient overall has significant deconditioning due to prolonged hospitalization and poor oral intake. Will discuss with goals of care. May need to consider palliative medicine consult on Saturday. Plan d/w Dr. Guillaume. Admission and Anticipated Discharge Date Admission Date: December 02, 2022 Subjective Patient was seen on daily rounds this morning. During my visit, pt was asleep but would wake up when I called his name but would not engage in conversation or answer questions. Physical Exam Physical Exam: GENERAL: 77 yo thin wm who appears chronically ill but nontoxic LUNGS: Clear to auscultation bilaterally. CARDIOVASCULAR: Regular rate and rhythm 3/6 KERRY, no g/r NEUROLOGIC: somnolent, not conversing PSYCHIATRIC: Cooperative. Appropriate mood and affect. Results & Data Results & Data ([facility]) Vital Signs (Past 12 Hours) Vital Signs Temp Pulse Resp BP Pulse Ox O2 Del Method 12/08/22 07:25 Room Air 12/08/22 07:28 36.8 C 82 16 155/93 H 96 Room Air Laboratory Results 12/08/22 08:16 12/08/22 08:16 PG Care Time/CCT Total # of Minutes Spent Total Time Spent with Patient: Total time spent is greater than 50% in coordination of care (as documented) at patient's floor/unit and/or counseling patient: Coding Level of Care Code 23517 SUB INP/OBS CARE 2/35MIN Diagnoses Aspiration pneumonia J69.0 Dementia F03.90 Acute dehydration E86.0 OCD (obsessive compulsive disorder) F42.9 Constipation K59.00 HTN (hypertension) I10 Hypertension type: essential hypertension Systolic anterior movement of mitral valve I34.8 Vitamin D deficiency E55.9 (1) HTN (hypertension) Hypertension type: essential hypertension Qualified Code(s): I10 - Essential (primary) hypertension
[2022-12-08] MEDS: OLANZapine 5 MG TABLET PO SCH (20:29)
[2022-12-08] MEDS: clonazePAM 0.5 MG TAB PO SCH (20:29)
[2022-12-09] MEDS: PIPERACILLIN/TAZOBACTAM 3.375 GM in DEXTROSE 5% 100 ML IV SCH ×3 (00:20→16:03)
[2022-12-09] MEDS: FAMOTIDINE 20 MG in SYRINGE 3 ML IV SCH (07:41)
[2022-12-09] MEDS: POLYETHYLENE (MIRALAX) 17 GM PACK PO SCH ×2 (08:44→19:52)
[2022-12-09] MEDS: METOPROLOL SUCC 25MG EXT REL TAB PO SCH (08:44)
[2022-12-09] MEDS: lisinopril 10 MG TAB PO SCH (08:44)
[2022-12-09] MEDS: THIAMINE HCL 100 MG TAB PO SCH (08:44)
[2022-12-09] MEDS: CHOLECALCIFEROL 5,000 UNITS 125 MCG TAB PO SCH (08:44)
[2022-12-09] MEDS: ROSUVASTATIN CALCIUM 5 MG TAB PO SCH (08:44)
[2022-12-09] MEDS: MEMANTINE HCL 10 MG TAB PO SCH ×2 (08:44→20:00)
[2022-12-09] MEDS: FLUoxetine HCL 20 MG CAP PO SCH (08:44)
[2022-12-09] MEDS: DOCUSATE SODIUM 100 MG CAP PO SCH (08:45)
[2022-12-09] MEDS: SENNA 8.6 MG TAB PO SCH ×2 (08:45→19:54)
--- NOTE | 2022-12-09 11:08 | Hospitalist Progress Note ---
Date of Service December 09, 2022 Assessment & Plan (1) Aspiration pneumonia: Plan: - Patient has been noted to be weaker, not eating well, and more anxious per his family. Found to have a RLL consolidation concerning for aspiration pneumonia. - CT of the head was negative for acute findings, no other acute metabolic findings to explain his weakness - Was started on zosyn in the ED, which was continued - MRSA was negative (no need to add vanco) - Influenza, Covid and RSV all negative - Given IV fluids until he is eating consistently, fluids capped on 12/06 - Speech consult ordered and has a video swallow ordered - completed video on 12/06, no overt signs of aspiration, but due to weakness, recommended moist and minced - Incentive spirometry, flutter therapy, prn duoNebs, and prn Robitussin for cough - Will complete abx on 12/10 - No labs performed today, HD stable, will repeat labs on 12/09 (2) Dementia: Plan: Chronic per since 2018 (after Covid infection) - Continue Memantine & Thiamine - Per patient's sister recently with Alzheimer's Dementia - Psychiatry consulted appreciate in put - Seen by neurology, Dr. Guthrie, appreciate input, recommended MRI, EEG, and LP - Check HIV testing as recommended by psychiatry to complete a dementia work up (pending) - gave consent for testing - Neuro also recommended Rivastigmine patch 4.6/24H (pharmacy does not have) - Will need Rx at discharge - Increased the Namenda to BID while in-house - EEG performed 12/06, results pending - MRI results reviewed, atrophy and microvascular changes noted, otherwise no acute findings - Neurology also suggested Dopamine transporter uptake imaging including SPECT or PET would be helpful studies which are not available at this time - Patient's evaluation and management should be handled by [place], which specialization to differentiate, diagnose and manage different type of neurodegenerative dementing disorders - F/u at memory disorder clinic (3) Failure to thrive: Plan: - Dehydrated on admission due to poor oral intake - Underwent speech eval and was advanced to minced and moist, no overt signs of aspiration - On Boost supplements - Spends a lot of time sleeping throughout the day, not taking in much with meals (4) OCD (obsessive compulsive disorder): Plan: - Anxiety + OCD - Chronic - Psychiatry following - Per history patient follows with a psychologist Nic regularly and also has monthly televisits with a physician wet process assistant head miller at [place] - Per history patient had an admission last year to [facility] - Continue Fluoxetine, Clonazepam HS, and Olanzepine (5) Constipation: Plan: - Had a BM yesterday prior to admission per history - Continue senna and miralax - Increase miralax to BID - Start enemas as needed (6) HTN (hypertension): Plan: - Chronic, Stable - Continue metoprolol - Lisinopril was held to avoid hypotension - Heart rate continues to be in 40-50s - Echo - no change compared with 12/2021 - Resumed Lisinopril 12/06/22 (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 Continue PT/OT. Diet advanced per ST recommendations. CM following, referral made to [facility]. Staff at [facility] to call and discuss costs. Repeat labs in AM. has not yet heard back from [facility] regarding cost for private pay but won't have a bed available for him until next week anyway. Continued inpatient stay. Patient overall has significant deconditioning due to prolonged hospitalization and poor oral intake. Will discuss with goals of care. May need to consider palliative medicine consult on Saturday. Encouraged to speak with her children. My concern would be his weakened state, if he were to experience an arrest, he would not survive the resuscitation. Plan d/w Dr. Guillaume. Admission and Anticipated Discharge Date Admission Date: December 02, 2022 Subjective Patient seen on daily rounds this morning. A little more awake today, makes eye contact but still doesn't engage in conversation or answer questions. Per RN, more awake, ate more breakfast this morning. Physical Exam Physical Exam: GENERAL: 77 yo thin, frail wm who appears chronically ill but nontoxic LUNGS: Clear to auscultation bilaterally. CARDIOVASCULAR: Regular rate and rhythm 3/6 KERRY, no g/r NEUROLOGIC: somnolent, not conversing PSYCHIATRIC: Cooperative. Appropriate mood and affect. Results & Data Results & Data ([facility]) Vital Signs (Past 12 Hours) Vital Signs Temp Pulse Resp BP Pulse Ox O2 Del Method 12/09/22 07:56 Room Air 12/09/22 06:57 36.6 C 78 20 140/81 94 Room Air PG Care Time/CCT Total # of Minutes Spent Total Time Spent with Patient: Total time spent is greater than 50% in coordination of care (as documented) at patient's floor/unit and/or counseling patient: Coding Level of Care Code 05148 SUB INP/OBS CARE 2/35MIN Diagnoses Aspiration pneumonia J69.0 Dementia F03.90 Failure to thrive OCD (obsessive compulsive disorder) F42.9 Constipation K59.00 HTN (hypertension) I10 Hypertension type: essential hypertension Systolic anterior movement of mitral valve I34.8 Vitamin D deficiency E55.9 (1) HTN (hypertension) Hypertension type: essential hypertension Qualified Code(s): I10 - Essential (primary) hypertension
[2022-12-09] MEDS: OLANZapine 5 MG TABLET PO SCH (20:00)
[2022-12-09] MEDS: clonazePAM 0.5 MG TAB PO SCH (20:00)
[2022-12-10] MEDS: PIPERACILLIN/TAZOBACTAM 3.375 GM in DEXTROSE 5% 100 ML IV SCH (00:20)
[2022-12-10 06:45] LABS: Basophils # (auto) 0.02 K/uL (0-0.2); Basophils % (auto) 0.2 %; Eosinophils # (auto) 0.03 K/uL (0-0.50); Eosinophils % (auto) 0.3 %; Hematocrit (blood only) 27.7 % (42.0-52.0); Hemoglobin 9.1 g/dl (14.0-18.0); Immature Granulocytes # (auto) 0.13 K/uL (0.01-0.20); Immature Granulocytes % (auto) 1.1 %; Lymphocytes % (auto) 9.3 %; Mean Corpuscular Hemoglobin 27.2 pg (25.0-34.0); Mean Corpuscular Hgb Conc 32.9 g/dL (32.0-36.0); Mean Corpuscular Volume 82.7 fL (80.0-100.0); Mean Platelet Volume 8.7 fL (9.4-12.4); Monocytes # (auto) 0.38 K/uL (0.11-0.59); Monocytes % (auto) 3.2 %; Neutrophils # (auto) 10.13 K/uL (1.40-6.50); Neutrophils % (auto) 85.9 %; Platelet Count 260 K/uL (130-400); RDW Standard Deviation 41.3 fL (36.4-46.3); Red Blood Count 3.35 M/uL (4.70-6.10); White Blood Count 11.79 K/ul (4.8-10.8)
[2022-12-10 07:09] LABS: BUN Creatinine Ratio 20.4 (10-20); Calcium 9.2 mg/dl (8.5-10.1); Creatinine Clr Calc Pharmacy 57.8 ml/min; Est GFR (African American) 80.3 ml/min; Est GFR (Non-African American) 69.3 ml/min; Magnesium 2.4 mg/dl (1.7-2.4)
[2022-12-10] MEDS: CHOLECALCIFEROL 5,000 UNITS 125 MCG TAB PO SCH (09:02)
[2022-12-10] MEDS: ROSUVASTATIN CALCIUM 5 MG TAB PO SCH (09:02)
[2022-12-10] MEDS: MEMANTINE HCL 10 MG TAB PO SCH ×2 (09:02→21:13)
[2022-12-10] MEDS: FLUoxetine HCL 20 MG CAP PO SCH (09:02)
[2022-12-10] MEDS: METOPROLOL SUCC 25MG EXT REL TAB PO SCH (09:02)
[2022-12-10] MEDS: THIAMINE HCL 100 MG TAB PO SCH (09:02)
[2022-12-10] MEDS: POLYETHYLENE (MIRALAX) 17 GM PACK PO SCH ×2 (09:03→21:13)
[2022-12-10] MEDS: lisinopril 10 MG TAB PO SCH (09:03)
[2022-12-10] MEDS: SENNA 8.6 MG TAB PO SCH ×2 (09:03→21:13)
[2022-12-10] MEDS: DOCUSATE SODIUM 100 MG CAP PO SCH (09:04)
[2022-12-10] MEDS: FAMOTIDINE 20 MG in SYRINGE 3 ML IV SCH (11:50)
--- NOTE | 2022-12-10 12:00 | Hospitalist Progress Note ---
Date of Service December 10, 2022 Assessment & Plan (1) Aspiration pneumonia: Plan: - Patient has been noted to be weaker, not eating well, and more anxious per his family. Found to have a RLL consolidation concerning for aspiration pneumonia. - CT of the head was negative for acute findings, no other acute metabolic findings to explain his weakness - Was started on zosyn in the ED, which was continued - MRSA was negative (no need to add vanco) - Influenza, Covid and RSV all negative - Given IV fluids until he is eating consistently, fluids capped on 12/06 - Speech consult ordered and has a video swallow ordered - completed video on 12/06, no overt signs of aspiration, but due to weakness, recommended moist and minced - Incentive spirometry, flutter therapy, prn duoNebs, and prn Robitussin for cough - Will complete abx today - CBC and BMP reviewed today (12/10) (2) Dementia: Plan: Chronic per since 2019 (after Covid infection) - Continue Memantine & Thiamine - Per patient's sister recently with Alzheimer's Dementia - Psychiatry consulted appreciate in put - Seen by neurology, Dr. Guthrie, appreciate input, recommended MRI, EEG, and LP - Check HIV testing as recommended by psychiatry to complete a dementia work up (pending) - gave consent for testing - Neuro also recommended Rivastigmine patch 4.6/24H (pharmacy does not have) - Will need Rx at discharge - Increased the Namenda to BID while in-house - EEG performed 12/06, results pending - MRI results reviewed, atrophy and microvascular changes noted, otherwise no acute findings - Neurology also suggested Dopamine transporter uptake imaging including SPECT or PET would be helpful studies which are not available at this time - Patient's evaluation and management should be handled by [place], which specialization to differentiate, diagnose and manage different type of neurodegenerative dementing disorders - F/u at memory disorder clinic (3) Failure to thrive: Plan: - Dehydrated on admission due to poor oral intake - Underwent speech eval and was advanced to minced and moist, no overt signs of aspiration - On Boost supplements - Spends a lot of time sleeping throughout the day, not taking in much with meals - Family has opted to make patient DNR/DNI (4) OCD (obsessive compulsive disorder): Plan: - Anxiety + OCD - Chronic - Psychiatry following - Per history patient follows with a psychologist Nic regularly and also has monthly televisits with a physician outpatient physical therapist assistant at [place] - Per history patient had an admission last year to [facility] - Continue Fluoxetine, Clonazepam HS, and Olanzepine (5) Constipation: Plan: - Had a BM yesterday prior to admission per history - Continue senna and miralax - Increase miralax to BID - Start enemas as needed (6) HTN (hypertension): Plan: - Chronic, Stable - Continue metoprolol - Lisinopril was held to avoid hypotension - Heart rate continues to be in 40-50s - Echo - no change compared with 12/2021 - Resumed Lisinopril 12/06/22 (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 Continue PT/OT. Diet advanced per ST recommendations. CM following, referral made to [facility]. [facility] has contacted patient's with fee schedule and she is able to afford to pay privately. She is to contact [facility] to confirm this. Case management has reached out to [facility] on bed availability. Will need to provide transport. Plan d/w Dr. Guillaume. Admission and Anticipated Discharge Date Admission Date: December 02, 2022 Subjective Patient seen on daily rounds this morning. A little more awake today. Asked if he had pain and he mumbled but seemed to reply "no." Physical Exam Physical Exam: GENERAL: 77 yo thin, frail wm who appears chronically ill but nontoxic LUNGS: Clear to auscultation bilaterally. CARDIOVASCULAR: Regular rate and rhythm 3/6 KERRY, no g/r NEUROLOGIC: awake, no obvious neuro deficits Results & Data Results & Data ([facility]) Vital Signs (Past 12 Hours) Vital Signs Temp Pulse Resp BP Pulse Ox O2 Del Method 12/10/22 11:45 36.7 C 60 20 104/64 96 Room Air 12/10/22 08:07 36.4 C L 77 20 153/76 H 94 Room Air 12/10/22 06:09 36.8 C Laboratory Results 12/10/22 06:28 12/10/22 06:28 PG Care Time/CCT Total # of Minutes Spent Total Time Spent with Patient: Total time spent is greater than 50% in coordination of care (as documented) at patient's floor/unit and/or counseling patient: Coding Level of Care Code 08754 SUB INP/OBS CARE 2/35MIN Diagnoses Aspiration pneumonia J69.0 Dementia F03.90 Failure to thrive OCD (obsessive compulsive disorder) F42.9 Constipation K59.00 HTN (hypertension) I10 Hypertension type: essential hypertension Systolic anterior movement of mitral valve I34.8 Vitamin D deficiency E55.9 (1) HTN (hypertension) Hypertension type: essential hypertension Qualified Code(s): I10 - Essential (primary) hypertension
[2022-12-10] MEDS: OLANZapine 5 MG TABLET PO SCH (21:13)
[2022-12-10] MEDS: clonazePAM 0.5 MG TAB PO SCH (21:16)
[2022-12-11] MEDS: FLUoxetine HCL 20 MG CAP PO SCH (07:37)
[2022-12-11] MEDS: lisinopril 10 MG TAB PO SCH (07:37)
[2022-12-11] MEDS: ROSUVASTATIN CALCIUM 5 MG TAB PO SCH (07:37)
[2022-12-11] MEDS: METOPROLOL SUCC 25MG EXT REL TAB PO SCH (07:37)
[2022-12-11] MEDS: SENNA 8.6 MG TAB PO SCH ×4 (07:37→21:31)
[2022-12-11] MEDS: DOCUSATE SODIUM 100 MG CAP PO SCH (07:37)
[2022-12-11] MEDS: CHOLECALCIFEROL 5,000 UNITS 125 MCG TAB PO SCH (07:37)
[2022-12-11] MEDS: MEMANTINE HCL 10 MG TAB PO SCH ×4 (07:37→21:32)
[2022-12-11] MEDS: THIAMINE HCL 100 MG TAB PO SCH (07:38)
[2022-12-11] MEDS: POLYETHYLENE (MIRALAX) 17 GM PACK PO SCH ×2 (07:38→21:09)
[2022-12-11] MEDS: FAMOTIDINE 20 MG in SYRINGE 3 ML IV SCH (09:07)
[2022-12-11] MEDS: MENTHOL-ZINC OXIDE 360 APPLN/120 GM TUBE EXT SCH ×2 (09:08→21:11)
--- NOTE | 2022-12-11 12:57 | Hospitalist Progress Note ---
Date of Service December 11, 2022 Assessment & Plan (1) Failure to thrive: Plan: - Dehydrated on admission due to poor oral intake - Underwent speech eval and was advanced to minced and moist, no overt signs of aspiration - On Boost supplements - Spends a lot of time sleeping throughout the day, not taking in much with meals - Family has opted to make patient DNR/DNI - Continue supportive care - For D/C to SNF ([facility]) family plans to pay privately, no word back on bed availability (2) Dementia: Plan: Chronic per since 2019 (after Covid infection) - Continue Memantine & Thiamine - Per patient's sister recently with Alzheimer's Dementia - Psychiatry consulted appreciate in put - Seen by neurology, Dr. Guthrie, appreciate input, recommended MRI, EEG, and LP - Check HIV testing as recommended by psychiatry to complete a dementia work up (pending) - gave consent for testing - Neuro also recommended Rivastigmine patch 4.6/24H (pharmacy does not have) - Will need Rx at discharge - Increased the Namenda to BID while in-house - EEG performed 12/06, results pending - MRI results reviewed, atrophy and microvascular changes noted, otherwise no acute findings - Neurology also suggested Dopamine transporter uptake imaging including SPECT or PET would be helpful studies which are not available at this time - Patient's evaluation and management should be handled by [place], which specialization to differentiate, diagnose and manage different type of neurodegenerative dementing disorders - F/u at memory disorder clinic (3) Aspiration pneumonia: Plan: - Patient has been noted to be weaker, not eating well, and more anxious per his family. Found to have a RLL consolidation concerning for aspiration pneumonia. - CT of the head was negative for acute findings, no other acute metabolic findings to explain his weakness - Was started on zosyn in the ED, which was continued - MRSA was negative (no need to add vanco) - Influenza, Covid and RSV all negative - Given IV fluids until he is eating consistently, fluids capped on 12/06 - Speech consult ordered and has a video swallow ordered - completed video on 12/06, no overt signs of aspiration, but due to weakness, recommended moist and minced - Incentive spirometry, flutter therapy, prn duoNebs, and prn Robitussin for cough - Completed course of abx on 2/6 (4) OCD (obsessive compulsive disorder): Plan: - Anxiety + OCD - Chronic - Psychiatry following - Per history patient follows with a psychologist Nic regularly and also has monthly televisits with a physician assistant director at [place] - Per history patient had an admission last year to [facility] - Continue Fluoxetine, Clonazepam HS, and Olanzepine (5) Constipation: Plan: - Had a BM yesterday prior to admission per history - Continue senna and miralax - Increase miralax to BID - Start enemas as needed (6) HTN (hypertension): Plan: - Chronic, Stable - Continue metoprolol - Lisinopril was held to avoid hypotension - Heart rate continues to be in 40-50s - Echo - no change compared with 12/2021 - Resumed Lisinopril 12/06/22 (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 CM following, still unsure as to when [facility] can provide a bed. Transport will need to be arranged. Plan d/w Dr. Guillaume. Admission and Anticipated Discharge Date Admission Date: December 02, 2022 Subjective Patient seen on daily rounds this morning. Somnolent this morning. Physical Exam Physical Exam: GENERAL: 77 yo thin, frail wm who appears chronically ill but nontoxic LUNGS: Clear to auscultation bilaterally. CARDIOVASCULAR: Regular rate and rhythm 3/6 KERRY, no g/r NEUROLOGIC: somnolent Results & Data Results & Data ([facility]) Vital Signs (Past 12 Hours) Vital Signs Temp Pulse Resp BP Pulse Ox O2 Del Method 12/11/22 08:22 36.7 C 91 H 17 148/81 H 95 Room Air PG Care Time/CCT Total # of Minutes Spent Total Time Spent with Patient: Total time spent is greater than 50% in coordination of care (as documented) at patient's floor/unit and/or counseling patient: Coding Level of Care Code 50407 SUB INP/OBS CARE 2/35MIN Diagnoses Failure to thrive Dementia F03.90 Aspiration pneumonia J69.0 OCD (obsessive compulsive disorder) F42.9 Constipation K59.00 HTN (hypertension) I10 Hypertension type: essential hypertension Systolic anterior movement of mitral valve I34.8 Vitamin D deficiency E55.9 (1) HTN (hypertension) Hypertension type: essential hypertension Qualified Code(s): I10 - Essential (primary) hypertension
[2022-12-11 17:35] LABS: Appearance Urine Cloudy (Clear); Bacteria Urine Automated Negative (Negative); Bilirubin Urine Negative (Negative); Blood Urine 3+ (Negative); Color Urine Orange; Epithelial Cell Urine Auto >30 /lpf (0-5); Glucose Urine UA Negative (Negative); Ketones Urine Negative (Negative); Leukocyte Esterase Urine 1+ (Negative); Nitrite Urine Negative (Negative); Protein Urine 2+ (Negative); Urobilinogen Urine Negative (Negative); pH Urine 5.5 (4.5-7.5)
[2022-12-11 17:47] LABS: RBC Urine Automated >30 /hpf (0-4)
[2022-12-11] MEDS: clonazePAM 0.5 MG TAB PO SCH ×3 (21:09→21:32)
[2022-12-11] MEDS: OLANZapine 5 MG TABLET PO SCH ×3 (21:10→22:06)
[2022-12-12 08:02] LABS: Basophils # (auto) 0.02 K/uL (0-0.2); Basophils % (auto) 0.2 %; Eosinophils # (auto) 0.04 K/uL (0-0.50); Eosinophils % (auto) 0.4 %; Hemoglobin 8.9 g/dl (14.0-18.0); Immature Granulocytes # (auto) 0.08 K/uL (0.01-0.20); Immature Granulocytes % (auto) 0.8 %; Lymphocytes # (auto) 1.11 K/uL (1.2-3.4); Lymphocytes % (auto) 10.4 %; Mean Corpuscular Hemoglobin 26.6 pg (25.0-34.0); Mean Corpuscular Hgb Conc 31.8 g/dL (32.0-36.0); Mean Corpuscular Volume 83.6 fL (80.0-100.0); Monocytes # (auto) 0.42 K/uL (0.11-0.59); Neutrophils # (auto) 8.96 K/uL (1.40-6.50); Neutrophils % (auto) 84.2 %; Platelet Count 324 K/uL (130-400); RDW Coefficient of Variation 14.5 % (11.5-14.5); RDW Standard Deviation 43.5 fL (36.4-46.3); Red Blood Count 3.35 M/uL (4.70-6.10); White Blood Count 10.63 K/ul (4.8-10.8)
[2022-12-12 08:23] LABS: BUN Creatinine Ratio 28.2 (10-20); Calcium 8.9 mg/dl (8.5-10.1); Creatinine Clr Calc Pharmacy 76.3 ml/min; Est GFR (African American) 100.2 ml/min; Est GFR (Non-African American) 86.5 ml/min; Potassium 3.8 mmol/L (3.5-5.1)
--- NOTE | 2022-12-12 08:54 | Hospitalist Progress Note ---
Date of Service December 12, 2022 Assessment & Plan (1) Hematuria: Plan: reported overnight 12/11-12/12 w/ incontinence and bloody urine w/ clots in bedding per nursing, no clots noted with changing bed today, however still pink/blood colored UA/cx ordered (of note, was on course abx w/ zosyn while inpatient) renal U/S for further eval ?recently passed stone -- did have stranding CTAp in november Review CBCs w/ hgb 9.1--> 8.9 (was on IVF on admit) but appears baseline hgbs during November admit in the 12-13 range check iron panel -- iron low, trans %sat 17, but unsat IBC low 123, TIBC 148. Ferritin 845, likely reactive from recent infection. TSH wnl Hold further Lovenox (had not been given since 12/04) also check fecal occult for blood given prior stercoral colitis/disimpaction earlier this year urology consulted, appreciate assistance -- will need further workup outpt (2) Failure to thrive: Plan: Dehydrated on admission due to poor oral intake -- recent hospitalization for fecal impaction/fear of having BM in November of this year. Also hospitalized post-COVID infection and sent to inpatient psych at [facility] for aspiration pneumonia while inpatient, completed 12/10 Speech evaled -- diet advanced to minces/moist, no overt signs aspiration Continues on boost supplements, needs assistance w/ feeding Does have decent daytime sleeping -- would benefit from better wake/sleep s chedule Family opted to make patient DNR/DNI Planning for SNF ([facility]) once bed available (family plans to pay privately) - CM following *Renal US does note GB sludge, LFTs wnl Prior CTAP from February 23 noted A subtle 11 mm enhancing nodule at the pancreatic tail which is better appreciated on the chest CTA. This favors a small islet cell tumor not able to be visualized on recent imaging this month given lack of contrast Prior LFT elevation felt 2nd to crestor use and that was d/c by PCP (but still on it?) along with continued weight loss (3) Dementia: Plan: Chronic per since 2018 (after Covid infection). Per patient's sister recently with Alzheimer's Dementia Psychiatry consulted, Neuro consulted while inpatient Seen by neurology, Dr. Guthrie -MRI brain w/o acute process/tumor -- atrophy and micovascular changes noted though -- NOT on BABY ASPIRIN DAILY - would rec starting (see hematuria below) -EEG * Impression:This EEG, recorded in wakefulness only, is slightly abnormal due to mild diffuse slowing, which suggest bihemispheric dysfunction, as seen in encephalopathies and neurodegenerative disorders. There are no electrographic seizures or epileptogenic discharges. There is no other abnormal discharges, asymmetries, to suggest CJD, frontotemporal dementia's, or herpes encephalitis. * Clinical Correlation: This is slightly abnormal EEG as mentioned above, which suggest mild diffuse dysfunction. This can be seen in different type of encephalopathies, which can be temporary. However, current EEG findings should not be considered diagnostic for any type of dementing disorders. Done while actively being tx for infection as well as wanted studies done per Neuro notes -LP: CSF w/ initial values w/ slightly elevated protein 76.3, glucose 75 -- all results of send outs to have f/u outpatient neurology at d/c HIV testing NEGATIVE - Increased the Namenda to BID while in-house - Continue thiamine - Neuro also recommended Rivastigmine patch 4.6/24H (pharmacy does not have) - Will need Rx at discharge - Neurology also suggested Dopamine transporter uptake imaging including SPECT or PET would be helpful studies which are not available at this time - Patient's evaluation and management should be handled by [place], which specialization to differentiate, diagnose and manage different type of neurodegenerative dementing disorders - F/u at memory disorder clinic (4) Aspiration pneumonia: Plan: Patient has been noted to be weaker, not eating well, and more anxious per his family. Found to have a RLL consolidation concerning for aspiration pneumonia. CT head negative for acute process, MRI brain COVID/RSV/Flu negative Abx: Zosyn IV (MRSA nasal negative) -- completed course 2/6 previously Speech consulted as above, remains on mince/moist diet Continue pulmonary toilet/incentive spirometer/nebs/cough syrup as needed Eating better per nursing, but does need assistance. No need for further IVF at this time (5) OCD (obsessive compulsive disorder): Plan: Anxiety + OCD - Chronic Psych consulted - Per history patient follows with a psychologist Nic regularly and also has monthly televisits with a physician assistant financial accountant at [place] - Per history patient had an admission last year to [facility] - Continue Fluoxetine, Clonazepam HS, and Olanzepine Per prior notes, if overly sedate consider decrease olanzepine to 2.5mg. Had also cut back clonazepam to 0.5mg HS (was on BID) --of note, drug screen on admit negative for benzos ?If benzo better for patient given more catatonic type state (6) Constipation: Plan: +BM 2/, several today 2/8 Heavy bowel regimen at last admit for fecal impaction Continue senna, miralax BID Enemas if needed (used lactulose last admit) (7) HTN (hypertension): Plan: Chronic, Stable Remains on metoprolol 25mg daily, lisinopril 10mg daily ECHO no change compared to 12/2021 Monitor ALso with HLD, per cards note Aug 25, crestor was d/c by PCP in setting elevated LFTs -- remains on 5mg daily, LFTs wnl recently) (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 CM following, still unsure as to when [facility] can provide a bed. Transport will need to be arranged Admission and Anticipated Discharge Date Admission Date: December 02, 2022 Supervising Physician Co-Signing Physician Notes PA Supervision Note: I did not personally see or examine the patient today, but I verified all rojas points of BONNIE Varghese's assessment and plan with the following exceptions/additions: None Subjective pt eval this morning, answering yes/no to questions at times but not very verbal. denies pain currently, is assist w/ feeding. Awaiting TAGET process/placement. Noted occassional cough, denies shortness of breath but currently 95% on RA. Faint expiratory wheezing w/ associated bilateral crackles. Completed course of abx, will check CXR for f/u since completion. Per nursing, ate 100% of oatmeal this morning, no issues w/ his pills. Yesterday evening w/ incontinence and hematuria noted. UA obtained, +RBC, blood. Consultation placed for urology and will also check renal US for further eval. Physical Exam Physical Exam: General: elderly male, thin, sitting up in hospital bed, NAD but does appear chronically ill HEENT; head normocephalic, cheeks sunken in, pupils equal in size/reactive to light Resp: poor effort but ctab, on room air CV: RRR, harsh systolic murmur w/ radiation to carotids, S1/S2, no pitting edema/calf tenderness on exam, pulses palpable GI: +BS, soft/NT : no vee MSK/Neuro: no focal deficit Psych: alert to name, answers yes/no, not very interactive Results & Data Results & Data ([facility]) Vital Signs (Past 12 Hours) Vital Signs Temp Pulse Resp BP BP Pulse Ox O2 Del Method 12/12/22 07:22 37.3 C 74 16 143/81 H 95 Room Air 12/11/22 21:11 37.4 C 86 18 117/69 Room Air Laboratory Results 12/12/22 12/12/22 12/12/22 Range/Units 07:08 07:08 07:08 WBC 10.63 (4.8-10.8) K/ul RBC 3.35 L (4.70-6.10) M/uL Hgb 8.9 L (14.0-18.0) g/dl Hct 28.0 L (42.0-52.0) % MCV 83.6 (80.0-100.0) fL MCH 26.6 (25.0-34.0) pg MCHC 31.8 L (32.0-36.0) g/dL RDW Std Deviation 43.5 (36.4-46.3) fL RDW Coeff of Dayanna 14.5 (11.5-14.5) % Plt Count 324 (130-400) K/uL MPV 9.0 L (9.4-12.4) fL Immature Gran % (Auto) 0.8 % Neut % (Auto) 84.2 % Lymph % (Auto) 10.4 % [place] % (Auto) 4.0 % Eos % (Auto) 0.4 % Baso % (Auto) 0.2 % Neut # (Auto) 8.96 H (1.40-6.50) K/uL Lymph # (Auto) 1.11 L (1.2-3.4) K/uL [place] # (Auto) 0.42 (0.11-0.59) K/uL Eos # (Auto) 0.04 (0-0.50) K/uL Baso # (Auto) 0.02 (0-0.2) K/uL Immature Gran # (Auto) 0.08 (0.01-0.20) K/uL Sodium 143 (136-145) mmol/L Potassium 3.8 (3.5-5.1) mmol/L Chloride 112 H (98-107) mmol/L Carbon Dioxide 25 (21-32) mmol/L Anion Gap 6 (3-11) BUN 22 (6-23) mg/dl Creatinine 0.78 (0.6-1.4) mg/dl Est Cr Clr Drug Dosing 76.3 ml/min Est GFR ( Amer) 100.2 ml/min Est GFR (Non-Af Amer) 86.5 ml/min BUN/Creatinine Ratio 28.2 H (10-20) Glucose 93 (70-99(Fasting)) mg/dl Calcium 8.9 (8.5-10.1) mg/dl Iron 25 L (35-175) mcg/dl TIBC 148 L (250-450) mcg/dl Unsaturated IBC 123 L (155-355) mcg/dl Transferrin % Sat 17 L (20-50) % Ferritin 845.1 H (8-388) ng/ml Total Bilirubin Cancelled 0.4 (0.2-1.0) mg/dl Direct Bilirubin Cancelled 0.1 (0-0.2) mg/dl AST Cancelled 22 (13-39) U/L ALT Cancelled 24 (7-52) U/L Alkaline Phosphatase Cancelled 67 (34-104) U/L Total Protein Cancelled 6.2 (6.0-8.3) gm/dl Albumin Cancelled 2.5 L (3.4-5.0) gm/dl Urine Color Urine Appearance (Clear) Urine pH (4.5-7.5) Ur Specific [place] (1.000-1.030) Urine Protein (Negative) Urine Glucose (UA) (Negative) Urine Ketones (Negative) Urine Blood (Negative) Urine Nitrite (Negative) Urine Bilirubin (Negative) Urine Urobilinogen (Negative) Ur Leukocyte Esterase (Negative) Urine WBC (Auto) (0-5) /hpf Urine RBC (Auto) (0-4) /hpf U Hyaline Cast (Auto) (0-5) /lpf U Epithel Cells (Auto) (0-5) /lpf Urine Bacteria (Auto) (Negative) Urine Yeast 12/11/22 Range/Units Unknown WBC (4.8-10.8) K/ul RBC (4.70-6.10) M/uL Hgb (14.0-18.0) g/dl Hct (42.0-52.0) % MCV (80.0-100.0) fL MCH (25.0-34.0) pg MCHC (32.0-36.0) g/dL RDW Std Deviation (36.4-46.3) fL RDW Coeff of Dayanna (11.5-14.5) % Plt Count (130-400) K/uL MPV (9.4-12.4) fL Immature Gran % (Auto) % Neut % (Auto) % Lymph % (Auto) % [place] % (Auto) % Eos % (Auto) % Baso % (Auto) % Neut # (Auto) (1.40-6.50) K/uL Lymph # (Auto) (1.2-3.4) K/uL [place] # (Auto) (0.11-0.59) K/uL Eos # (Auto) (0-0.50) K/uL Baso # (Auto) (0-0.2) K/uL Immature Gran # (Auto) (0.01-0.20) K/uL Sodium (136-145) mmol/L Potassium (3.5-5.1) mmol/L Chloride (98-107) mmol/L Carbon Dioxide (21-32) mmol/L Anion Gap (3-11) BUN (6-23) mg/dl Creatinine (0.6-1.4) mg/dl Est Cr Clr Drug Dosing ml/min Est GFR ( Amer) ml/min Est GFR (Non-Af Amer) ml/min BUN/Creatinine Ratio (10-20) Glucose (70-99(Fasting)) mg/dl Calcium (8.5-10.1) mg/dl Iron (35-175) mcg/dl TIBC (250-450) mcg/dl Unsaturated IBC (155-355) mcg/dl Transferrin % Sat (20-50) % Ferritin (8-388) ng/ml Total Bilirubin (0.2-1.0) mg/dl Direct Bilirubin (0-0.2) mg/dl AST (13-39) U/L ALT (7-52) U/L Alkaline Phosphatase (34-104) U/L Total Protein (6.0-8.3) gm/dl Albumin (3.4-5.0) gm/dl Urine Color [place] Urine Appearance Cloudy A (Clear) Urine pH 5.5 (4.5-7.5) Ur Specific [place] 1.020 (1.000-1.030) Urine Protein 2+ H (Negative) Urine Glucose (UA) Negative (Negative) Urine Ketones Negative (Negative) Urine Blood 3+ H (Negative) Urine Nitrite Negative (Negative) Urine Bilirubin Negative (Negative) Urine Urobilinogen Negative (Negative) Ur Leukocyte Esterase 1+ H (Negative) Urine WBC (Auto) 10-30 H (0-5) /hpf Urine RBC (Auto) >30 H (0-4) /hpf U Hyaline Cast (Auto) 1-5 (0-5) /lpf U Epithel Cells (Auto) >30 H (0-5) /lpf Urine Bacteria (Auto) Negative (Negative) Urine Yeast Not Reportable Diagnostic Findings Chest X-Ray 12/12/22 08:55 XR chest 1V portable HISTORY: f/u aspiration pneumonia COMPARISON: Chest 12/02/2022. FINDINGS: No pneumothorax. No pleural effusions. The heart remains mildly enlarged. There are low lung volumes. Right greater than left bibasilar hazy airspace opacities. This has slightly progressed on the left. IMPRESSION: Hazy bibasilar airspace opacities are again noted. This has slightly progressed on the left. ACT 112: Negative or not required by law. Electronically signed by: Arcenio Thomas M.D. 12/12/2022 9:54 AM Renal Ultrasound 12/12/22 08:55 RENAL ULTRASOUND CLINICAL HISTORY: Hematuria. COMPARISON STUDY: CT of the abdomen and pelvis November 18, 2022. TECHNIQUE: Sonography of the kidneys and the urinary bladder was performed. FINDINGS: Incidental note is made of sludge within the gallbladder. No sonographic Ludwig sign was elicited. There is no gallbladder wall thickening. The right kidney measures 11.1 x 5.1 x 5.9 cm and the left measures 11.8 x 6.5 x 6.9 cm. There is mild right renal cortical thinning. There is no hydronephrosis. A few left renal cysts are present. Several left renal calculi measure up to 5 mm. Both ureteral jets were identified. IMPRESSION: 1. No hydronephrosis. 2. Left-sided nephrolithiasis. 3. Gallbladder sludge. No evidence for acute cholecystitis. ACT 112: Negative or not required by law. Electronically signed by: Espinoza Mtz M.D. 12/12/2022 11:19 AM PG Care Time/CCT Total # of Minutes Spent Total Time Spent with Patient: Total time spent is greater than 50% in coordination of care (as documented) at patient's floor/unit and/or counseling patient: Coding Level of Care Code 56036 SUB INP/OBS CARE 3/50MIN Diagnoses Hematuria R31.9 Failure to thrive Dementia F03.90 Aspiration pneumonia J69.0 OCD (obsessive compulsive disorder) F42.9 Constipation K59.00 HTN (hypertension) I10 Hypertension type: essential hypertension Systolic anterior movement of mitral valve I34.8 Vitamin D deficiency E55.9 (1) HTN (hypertension) Hypertension type: essential hypertension Qualified Code(s): I10 - Essential (primary) hypertension
[2022-12-12] MEDS: DOCUSATE SODIUM 100 MG CAP PO SCH (08:58)
[2022-12-12] MEDS: THIAMINE HCL 100 MG TAB PO SCH (08:58)
[2022-12-12] MEDS: METOPROLOL SUCC 25MG EXT REL TAB PO SCH (08:59)
[2022-12-12] MEDS: ROSUVASTATIN CALCIUM 5 MG TAB PO SCH (08:59)
[2022-12-12] MEDS: lisinopril 10 MG TAB PO SCH (08:59)
[2022-12-12] MEDS: FLUoxetine HCL 20 MG CAP PO SCH (08:59)
[2022-12-12] MEDS: CHOLECALCIFEROL 5,000 UNITS 125 MCG TAB PO SCH (09:00)
[2022-12-12] MEDS: POLYETHYLENE (MIRALAX) 17 GM PACK PO SCH ×2 (09:00→20:43)
[2022-12-12] MEDS: MENTHOL-ZINC OXIDE 360 APPLN/120 GM TUBE EXT SCH ×2 (09:00→20:45)
[2022-12-12] MEDS: FAMOTIDINE 20 MG in SYRINGE 3 ML IV SCH (09:10)
--- NOTE | 2022-12-12 09:55 | XRay Report ---
XR chest 1V portable HISTORY: f/u aspiration pneumonia COMPARISON: Chest 12/02/2022. FINDINGS: No pneumothorax. No pleural effusions. The heart remains mildly enlarged. There are low sunitha g volumes. Right greater than left bibasilar hazy airspace opacities. This has slightly progressed on the left. IMPRESSION: Hazy bibasilar airspace opacities are again noted. This has slightly progressed on the left. ACT 112: Negative or not required by law. Electronically signed by: Arcenio Thomas M.D. 12/12/2022 9:54 AM
--- NOTE | 2022-12-12 11:20 | Ultrasound Report ---
RENAL ULTRASOUND CLINICAL HISTORY: Hematuria. COMPARISON STUDY: CT of the abdomen and pelvis November 18, 2022. TECHNIQUE: Sonography of the kidneys and the urinary bladder was performed. FINDINGS: Incidental note is made of sludge within the gallbladder. No sonographic Ludwig sign was el icited. There is no gallbladder wall thickening. The right kidney measures 11.1 x 5.1 x 5.9 cm and th e left measures 11.8 x 6.5 x 6.9 cm. There is mild right renal cortical thinning. There is no hydrone phrosis. A few left renal cysts are present. Several left renal calculi measure up to 5 mm. Both uret eral jets were identified. IMPRESSION: 1. No hydronephrosis. 2. Left-sided nephrolithiasis. 3. Gallbladder sludge. No evidence for acute cholecystitis. ACT 112: Negative or not required by law. Electronically signed by: Espinoza Mtz M.D. 12/12/2022 11:19 AM
[2022-12-12 13:09] LABS: Albumin Level 2.5 gm/dl (3.4-5.0); Bilirubin Direct 0.1 mg/dl (0-0.2); Bilirubin,Total 0.4 mg/dl (0.2-1.0); Total Protein 6.2 gm/dl (6.0-8.3)
--- NOTE | 2022-12-12 14:00 | Urology Consultation ---
Date of Consultation December 12, 2022 Assessment & Plan (1) Hematuria: Plan 77-year-old male admitted with failure to thrive and dementia. -Urology consulted for hematuria. -Patient is incontinent and was noted to have hematuria on bed sheets yesterday. -Urine has been clear so far today per nursing report. -He is afebrile and hemodynamically stable. -Labs show no leukocytosis, hemoglobin 8.9, normal renal function. -UA 12/11 with 3+ blood, 1+ LE, 1030 WBC, >30 RBC, negative bacteria, negative nitrate. -UA on admission 12/04 also showing 3+blood, >30RBC. -Urine culture pending, follow culture. -Mostly incontinent of urine, continue to monitor. Recommend bladder scan after next void and prn. -Renal ultrasound shows left nephrolithiasis, no hydronephrosis. -Prior CT imaging from 11/18 showing bilateral nephrolithiasis, significant and asymmetric left-sided perinephric stranding and fluid, no obstructing stones. -Urology will follow. Supervising Physician Co-Signing Physician Notes Discussed patient with PARUL. Agree with plan. Hematuria sounds minimal, AGUSTINA showed no significant clot burden, distended bladder, or hydronephrosis. Reasonable to watch at this point. Can discuss outpatient hematuria work up dependent on patient and his POAs preference given his dementia. History of Present Illness Reason for Consultation: Hematuria Attending Physician: Inge Kc MD History of Present Illness 77-year-old male admitted with failure to thrive and dementia. Urology consulted for hematuria. Per discussion with nursing, patient is mostly incontinent of urine. He had evidence of hematuria on the bed sheets yesterday per nursing. A UA via straight cath with reflex urine culture was ordered. Urinalysis 12/11 did show 3+ blood, 1+ LE, 1030 WBC, >30 RBC, negative bacteria, negative nitrate. His uri nalysis on admission from 12/04 did show 3+ blood. They have not noted any hematuria today per nursing report. CT abdomen pelvis 11/18/2022 showing bilateral nephrolithiasis, significant and asymmetric left-sided perinephric stranding and fluid, which is new from 03/01/2022. No obstructing stone is identified. This could potentially represent the sequelae of a recently passed kidney stone. Correlate with clinical findings and urinalysis. Renal ultrasound 12/12/2022 shows no hydronephrosis, left-sided nephrolithiasis. Patient examined at bedside this AM. Awake, resting in bed on arrival. No ac [place] distress. Answers to name only. Does not engage in any conversation or answer any questions. Allergies Allergy/AdvReac Type Severity Reaction Status Date / Time No Known Drug Allergies Allergy Unknown Verified 12/02/22 17:40 Home Medications Medication Instructions Recorded Confirmed Type fluoxetine 40 mg capsule 40 mg PO QAM 09/17/21 12/02/22 History [id number] 1 tab PO QAM 01/12/22 12/02/22 History tablet (Multivitamin 50 Plus tablet) docusate sodium 100 mg capsule 200 mg PO DAILY 06/18/22 12/02/22 History (Colace) lisinopril 10 mg tablet 10 mg PO QAM #90 tabs 06/18/22 12/02/22 Rx metoprolol succinate 50 mg 25 mg PO QAM 90 days #45 tabs 06/18/22 12/02/22 Rx tablet,extended release 24 hr polyethylene glycol 3350 17 17 g PO BID 06/18/22 12/02/22 History gram/dose oral powder (Miralax) thiamine HCl (vitamin B1) 100 mg 100 mg PO DAILY 08/09/22 12/02/22 History tablet rosuvastatin 5 mg tablet 5 mg PO QAM #90 tabs 08/31/22 12/02/22 Rx olanzapine 5 mg tablet 5 mg PO HS #30 tabs 11/22/22 12/02/22 Rx sennosides 8.6 mg capsule (senna) 17.2 mg PO BID #60 caps 11/22/22 12/02/22 Rx clonazepam 0.5 mg tablet 0.5 mg PO BID 12/02/22 12/02/22 History memantine 10 mg tablet 10 mg PO HS 12/02/22 12/02/22 History Patient History Medical History Anxiety Aortic stenosis Moderate Ascending aorta dilatation 4.5 x 4.4 cm Brachial plexopathy Calcification of aortic valve History of COVID-19 09/2020; congestion, cough; per , has had anxiety issues since having covid History of depression NENANA (hard of hearing) Hyperlipidemia Hypertension controlled, stable per pt 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 He denies any known adverse reaction to anesthesia to date. Anesthesiologist advised pat ient to be marked as MH susceptibility in chart given FHx. Memory changes per , chronic without change, states pt also speaks slowly but able to respond appropriately on current psychiatric regimen OCD (obsessive compulsive disorder) Pancreatic abnormality recent finding -- unable to provide specifics -- dr almendarez monitoring Parotid nodule Sleep apnea unable to tolerate CPAP Systolic anterior movement of mitral valve follows with Dr. Cohen, LVOT obstruction improved per 12/2021 echo vs 03/2021 echo Surgical History History of cataract surgery History of colonoscopy History of surgery benign tumor removed from behind left ear History of surgical removal of lesion History of tonsillectomy History of tooth extraction Family History Mother Diabetes Unknown Ischemic heart disease Son Malignant hyperthermia Other Hypertension No family history of bleeding disorder Denies family history of Ovarian cancer Prostate cancer Myocardial infarction Breast cancer Colorectal cancer Social History Smoking Status: Former smoker Smoking End Date: 2017; Second Hand Exposure: No; Hx Alcohol Use: No Hx Substance Use: No Preferred Language: Nepali Communication Ability: Impaired Communication Ability Comment: PT SLOW TO RESPOND Visual Impairment: Limited Hearing Ability: Hard of Hearing Rv Repairer Required: No Beliefs That Will Affect Care: None marital status: Current Living Situation: Spouse Current Living Situation Comment: lives at home with current occupational status: employed current occupation: [employer] Feels Safe at Home: Yes Childhood Exposure to Second-Hand Smoke: Yes caffeine: Yes Dental Care, Regularly: Yes Physical Activity Frequency: 3-4 Times per Week Seatbelt Use: always Sunscreen Use: Yes Assistive Devices: Walker Review of Systems Review of Systems: Unobtainable due to cognitive status Physical Exam Constitutional: no acute distress Neck: normal visual inspection Respiratory: no respiratory distress and no labored breathing Gastrointestinal (Abdomen): Percussion/Palpation: abdomen soft; abdomen nontender Musculoskeletal: Head/Neck/Chest: normocephalic Skin: No visible rashes or lesions to exposed skin areas Neurologic: awake Psychiatric: Answers to name only. Does not engage in any conversation or answer any questions. Results & Data ([facility]) Vital Signs (Past 12 Hours) Vital Signs Temp Pulse Resp BP Pulse Ox O2 Del Method 12/12/22 12:16 36.7 C 61 16 133/81 95 Room Air 12/12/22 11:27 Room Air 12/12/22 07:22 37.3 C 74 16 143/81 H 95 Room Air PG Care Time/CCT Total # of Minutes Spent Total Time Spent with Patient: Total time spent is greater than 50% in coordination of care (as documented) at patient's floor/unit and/or counseling patient: Coding Level of Care Code 43125 INT INP/OBS CARE 2/55MIN Diagnoses Hematuria R31.9
[2022-12-12 16:41] LABS: Ferritin 845.1 ng/ml (8-388)
[2022-12-12] MEDS: MEMANTINE HCL 10 MG TAB PO SCH (20:44)
[2022-12-12] MEDS: SENNA 8.6 MG TAB PO SCH (20:45)
[2022-12-13 08:14] LABS: BUN Creatinine Ratio 27.7 (10-20); Calcium 8.9 mg/dl (8.5-10.1); Creatinine Clr Calc Pharmacy 91.5 ml/min; Est GFR (Non-African American) 93.2 ml/min; Potassium 3.7 mmol/L (3.5-5.1)
[2022-12-13 08:28] LABS: Basophils # (auto) 0.02 K/uL (0-0.2); Basophils % (auto) 0.2 %; Eosinophils # (auto) 0.04 K/uL (0-0.50); Eosinophils % (auto) 0.4 %; Hematocrit (blood only) 27.6 % (42.0-52.0); Hemoglobin 9.1 g/dl (14.0-18.0); Immature Granulocytes # (auto) 0.11 K/uL (0.01-0.20); Lymphocytes # (auto) 1.26 K/uL (1.2-3.4); Lymphocytes % (auto) 11.9 %; Mean Corpuscular Hemoglobin 26.9 pg (25.0-34.0); Mean Corpuscular Volume 81.7 fL (80.0-100.0); Mean Platelet Volume 8.8 fL (9.4-12.4); Monocytes # (auto) 0.46 K/uL (0.11-0.59); Monocytes % (auto) 4.4 %; Neutrophils # (auto) 8.68 K/uL (1.40-6.50); Neutrophils % (auto) 82.1 %; Platelet Count 332 K/uL (130-400); RDW Coefficient of Variation 14.6 % (11.5-14.5); RDW Standard Deviation 42.1 fL (36.4-46.3); Red Blood Count 3.38 M/uL (4.70-6.10); White Blood Count 10.57 K/ul (4.8-10.8)
[2022-12-13] MEDS: SENNA 8.6 MG TAB PO SCH ×2 (08:39→20:59)
[2022-12-13] MEDS: lisinopril 10 MG TAB PO SCH (08:39)
[2022-12-13] MEDS: CHOLECALCIFEROL 5,000 UNITS 125 MCG TAB PO SCH (08:39)
[2022-12-13] MEDS: THIAMINE HCL 100 MG TAB PO SCH (08:40)
[2022-12-13] MEDS: MEMANTINE HCL 10 MG TAB PO SCH ×2 (08:40→20:57)
[2022-12-13] MEDS: METOPROLOL SUCC 25MG EXT REL TAB PO SCH (08:40)
[2022-12-13] MEDS: FLUoxetine HCL 20 MG CAP PO SCH (08:40)
[2022-12-13] MEDS: DOCUSATE SODIUM 100 MG CAP PO SCH (08:41)
[2022-12-13] MEDS: MENTHOL-ZINC OXIDE 360 APPLN/120 GM TUBE EXT SCH ×2 (08:41→20:58)
[2022-12-13] MEDS: ROSUVASTATIN CALCIUM 5 MG TAB PO SCH (08:41)
[2022-12-13] MEDS: POLYETHYLENE (MIRALAX) 17 GM PACK PO SCH ×2 (08:41→20:59)
[2022-12-13] MEDS: FAMOTIDINE 20 MG in SYRINGE 3 ML IV SCH (08:54)
--- NOTE | 2022-12-13 09:39 | Urology Progress Note ---
Date of Service December 13, 2022 Assessment & Plan (1) Hematuria: Plan 77-year-old male admitted with failure to thrive and dementia. Urology consulted for hematuria. Patient is incontinent of urine and was noted to have hematuria on the bed sheets by nursing on 12/11. UA on 12/11 with 3+ blood, 1+ LE, 1030 WBC, >30 RBC, negative bacteria, negative nitrate. Urine culture now final and negative. AGUSTINA 12/12 showed no significant clot burden, distended bladder, or hydronephrosis. No further episodes of hematuria noted per nursing. Hematuria sounds minimal and therefore recommend continued monitoring. Will arrange an outpatient follow-up with our service. Can discuss outpatient hematuria work up dependent on patient and his POAs preference given his dementia. Urology will sign-off. Please contact us with any further questions, concerns, or changes in patient status. Admission and Anticipated Discharge Date Admission Date: December 02, 2022 Supervising Physician Co-Signing Physician Notes I have discussed Mr. Gonzalez case with DEE Palmer and agree with the above documentation. Hematuria seems to have cleared. We will have him follow- up as an outpatient with his POA for discussion of hematuria work-up. Please call with any questions or concerns. Subjective Patient examined at bedside this AM. Awake, resting in bed on arrival. No acute distress. Does not engage in much conversation. Slow with response but answered a few yes/no questions. Denied any pain or discomfort. Denied issues with voiding. Remains afebrile and hemodynamically stable. No leukocytosis, hemoglobin stable, normal renal function. Review of Systems Constitutional: as per Subjective / HPI Genitourinary: + as per Subjective / HPI Psychiatric: as per Subjective / HPI Physical Exam Constitutional: no acute distress Respiratory: no respiratory distress and no labored breathing Gastrointestinal (Abdomen): Percussion/Palpation: abdomen soft; abdomen nontender Musculoskeletal: Head/Neck/Chest: normocephalic Skin: No visible rashes or lesions to exposed skin areas Neurologic: awake Psychiatric: Orientation: alert and oriented to person Does not engage in much conversation. Answered a few yes/no questions. Results & Data ([facility]) Vital Signs (Past 12 Hours) Vital Signs Temp Pulse Resp BP Pulse Ox O2 Del Method 12/13/22 07:36 36.7 C 75 17 146/86 H 95 Room Air PG Care Time/CCT Total # of Minutes Spent Total Time Spent with Patient: Total time spent is greater than 50% in coordination of care (as documented) at patient's floor/unit and/or counseling patient: Coding Level of Care Code 61655 SUB INP/OBS CARE 2/35MIN Diagnoses Hematuria R31.9
--- NOTE | 2022-12-13 09:42 | Hospitalist Progress Note ---
Date of Service December 13, 2022 Assessment & Plan (1) Hematuria: Plan: reported overnight on 12/11-12/12 w/ incontinence and bloody urine w/ clots in bedding per nursing, no clots or gross bleeding today UA/cx ordered (of note, was on course abx w/ zosyn while inpatient) renal U/S - no significant clot burden, distended bladder, or hydronephrosis Review CBCs w/ hgb 9.1 (8.9) but appears baseline hgbs during November admit in the 10 to 12 range check iron panel -- iron low, trans %sat 17, but unsat IBC low 123, TIBC 148. Ferritin 845, likely reactive from recent infection. TSH wnl Hold further Lovenox (had not been given since 12/04) also check fecal occult for blood given prior stercoral colitis/disimpaction earlier this year urology consulted and signed off stating can discuss the need for further outpatient hematuria work up depending on patient (dementia) and his (2) Failure to thrive: Plan: Dehydrated on admission due to poor oral intake -- recent hospitalization for fecal impaction/fear of having BM in November of this year. Also hospitalized post-COVID infection and sent to inpatient psych at [facility] for aspiration pneumonia while inpatient, completed 12/10 Speech evaled -- diet advanced to minces/moist, no overt signs aspiration Continues on boost supplements, needs assistance w/ feeding Does have decent daytime sleeping -- would benefit from better wake/sleep schedule Family opted to make patient DNR/DNI Planning for SNF ([facility]) once bed available (family plans to pay privately) - CM following [facility] is the family's first choice, but [facility] is also an option but will need [facility] completed *Renal US does note GB sludge, LFTs wnl Prior CTAP from February 23 noted A subtle 11 mm enhancing nodule at the pancreatic tail which is better appreciated on the chest CTA. This favors a small islet cell tumor not able to be visualized on recent imaging this month given lack of contrast Prior LFT elevation felt 2nd to crestor use and that was d/c by PCP (but still on it?) along with continued weight loss (3) Dementia: Plan: Chronic per since 2018 (after Covid infection). Per patient's sister recently with Alzheimer's Dementia Psychiatry consulted, Neuro consulted while inpatient Seen by neurology, Dr. Guthrie -MRI brain w/o acute process/tumor - atrophy and micovascular changes noted though - NOT on BABY ASPIRIN DAILY - would rec starting (see hematuria above) Will consider starting when hematuria resolves -EEG * Impression:This EEG, recorded in wakefulness only, is slightly abnormal due to mild diffuse slowing, which suggest bihemispheric dysfunction, as seen in encephalopathies and neurodegenerative disorders. There are no electrographic seizures or epileptogenic discharges. There is no other abnormal discharges, asymmetries, to suggest CJD, frontotemporal dementia's, or herpes encephalitis. * Clinical Correlation: This is slightly abnormal EEG as mentioned above, which suggest mild diffuse dysfunction. This can be seen in different type of encephalopathies, which can be temporary. However, current EEG findings should not be considered diagnostic for any type of dementing disorders. Done while actively being tx for infection as well as wanted studies done per Neuro notes -LP: CSF w/ initial values w/ slightly elevated protein 76.3, glucose 75 -- all results of send outs to have f/u outpatient neurology at d/c HIV testing NEGATIVE - Increased the Namenda to BID while in-house - Continue thiamine - Neuro also recommended Rivastigmine patch 4.6/24H (pharmacy does not have) - Will need Rx at discharge. Can d/w possibly getting rx and bringing into hospital - Neurology also suggested Dopamine transporter uptake imaging including SPECT or PET would be helpful studies which are not available at this time - Patient's evaluation and management should be handled by [facility], which specialization to differentiate, diagnose and manage different type of neurodegenerative dementing disorders - F/u at memory disorder clinic (4) Aspiration pneumonia: Plan: Patient has been noted to be weaker, not eating well, and more anxious per his family. Found to have a RLL consolidation concerning for aspiration pneumonia. CT head negative for acute process, MRI brain COVID/RSV/Flu negative Abx: Zosyn IV (MRSA nasal negative) -- completed course 2/ previously Speech consulted as above, remains on mince/moist diet Continue pulmonary toilet/incentive spirometer/nebs/cough syrup as needed Eating better per nursing, but does need assistance. No need for further IVF at this time (5) OCD (obsessive compulsive disorder): Plan: Anxiety + OCD - Chronic Psych consulted - Per history patient follows with a psychologist Nic regularly and also has monthly televisits with a physician assistant principal at [facility] - Per history patient had an admission last year to [facility] - Continue Fluoxetine, Clonazepam HS, and Olanzepine Per prior notes, if overly sedate consider decrease olanzepine to 2.5mg. Had also cut back clonazepam to 0.5mg HS (was on BID) --of note, drug screen on admit negative for benzos ?If benzo better for patient given more catatonic type state (6) Constipation: Plan: +BM 12/09, several today 12/12 Heavy bowel regimen at last admit for fecal impaction Continue senna, miralax BID Enemas if needed (used lactulose last admit) (7) HTN (hypertension): Plan: Chronic, Stable Remains on metoprolol 25mg daily, lisinopril 10mg daily ECHO no change compared to 12/2021 Monitor ALso with HLD, per cards note Aug 25, emiror was d/c by PCP in setting elevated LFTs -- remains on 5mg daily, LFTs wnl recently) (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 CM following, still unsure as to when [facility] can provide a bed. (none available this week) Transport will need to be arranged Awaiting [employer] also for [facility] Admission and Anticipated Discharge Date Admission Date: December 02, 2022 Subjective Patient was sleeping but awoke to his name. He was alert x2 He stated he was "lowsy" but unable to elaborate and did not answer any ROS questioning. Per nursing no new issues and is having bowel movements. Review of Systems Review of Systems: Patient is awake and alert as above. He denies any pain. He denies any dyspnea or chest pain. Patient has poor eye contact and slow to respond. Complete ROS hard to elicit due to patient's cognitive state Physical Exam Constitutional: + ill appearing, + thin, + cachectic and + frail appearing Neck: trachea midline, no thyromegaly Respiratory: normal respiratory effort; no labored breathing and no cough Cardiovascular: Rate/Rhythm: regular rate, regular rhythm and + bradycardic Heart Sounds: + murmur Extremities: no calf tenderness and no edema Gastrointestinal (Abdomen): Inspection/Auscultation: abdomen normal to inspection and normal bowel sounds; abdomen not distended Percussion/Palpation: abdomen soft; abdomen nontender, no guarding, abdomen not rigid and no hepatosplenomegaly Neurologic: awake and + confused Psychiatric: Orientation: alert, oriented to person and oriented to place Eye Contact: + poor eye contact Affect: + flat affect Unable to state the month and stated the year was 2021 Results & Data Results & Data ([facility]) Vital Signs (Past 12 Hours) Vital Signs Temp Pulse Resp BP Pulse Ox O2 Del Method 12/13/22 07:36 36.7 C 75 17 146/86 H 95 Room Air Laboratory Results Abnormal lab results 12/12/22 12/13/22 12/13/22 Range/Units 07:08 07:20 07:20 RBC 3.38 L (4.70-6.10) M/uL Hgb 9.1 L (14.0-18.0) g/dl Hct 27.6 L (42.0-52.0) % RDW Coeff of Dayanna 14.6 H (11.5-14.5) % MPV 8.8 L (9.4-12.4) fL Neut # (Auto) 8.68 H (1.40-6.50) K/uL Chloride 112 H 110 H (98-107) mmol/L BUN/Creatinine Ratio 28.2 H 27.7 H (10-20) Iron 25 L (35-175) mcg/dl TIBC 148 L (250-450) mcg/dl Unsaturated IBC 123 L (155-355) mcg/dl Transferrin % Sat 17 L (20-50) % Ferritin 845.1 H (8-388) ng/ml Albumin 2.5 L (3.4-5.0) gm/dl Diagnostic Findings Chest X-Ray 12/12/22 08:55 XR chest 1V portable HISTORY: f/u aspiration pneumonia COMPARISON: Chest 12/02/2022. FINDINGS: No pneumothorax. No pleural effusions. The heart remains mildly enlarged. There are low lung volumes. Right greater than left bibasilar hazy airspace opacities. This has slightly progressed on the left. IMPRESSION: Hazy bibasilar airspace opacities are again noted. This has slightly progressed on the left. ACT 112: Negative or not required by law. Electronically signed by: Arcenio Thomas M.D. 12/12/2022 9:54 AM Renal Ultrasound 12/12/22 08:55 RENAL ULTRASOUND CLINICAL HISTORY: Hematuria. COMPARISON STUDY: CT of the abdomen and pelvis November 18, 2022. TECHNIQUE: Sonography of the kidneys and the urinary bladder was performed. FINDINGS: Incidental note is made of sludge within the gallbladder. No sonographic Ludwig sign was elicited. There is no gallbladder wall thickening. The right kidney measures 11.1 x 5.1 x 5.9 cm and the left measures 11.8 x 6.5 x 6.9 cm. There is mild right renal cortical thinning. There is no hydronephrosis. A few left renal cysts are present. Several left renal calculi measure up to 5 mm. Both ureteral jets were identified. IMPRESSION: 1. No hydronephrosis. 2. Left-sided nephrolithiasis. 3. Gallbladder sludge. No evidence for acute cholecystitis. ACT 112: Negative or not required by law. Electronically signed by: Espinoza Mtz M.D. 12/12/2022 11:19 AM PG Care Time/CCT Total # of Minutes Spent Total Time Spent with Patient: Total time spent is greater than 50% in coordination of care (as documented) at patient's floor/unit and/or counseling patient: Coding Level of Care Code 77064 SUB INP/OBS CARE 1/25MIN Diagnoses Hematuria R31.9 Failure to thrive Dementia F03.90 Aspiration pneumonia J69.0 OCD (obsessive compulsive disorder) F42.9 Constipation K59.00 HTN (hypertension) I10 Hypertension type: essential hypertension Systolic anterior movement of mitral valve I34.8 Vitamin D deficiency E55.9 (1) HTN (hypertension) Hypertension type: essential hypertension Qualified Code(s): I10 - Essential (primary) hypertension
[2022-12-13 11:42] LABS: Albumin 1.9 g/dL (3.6-5.1); Cryptococcal Antigen Not Detected (Not Detected); IgG CSF 7.1 mg/dL (0.8-7.7); IgG Serum 772 mg/dL (600-1540); Myelin Basic Protein <2.0 mcg/L (<=4.0); Source Serum; Synthesis Rate, IgG CSF 1.7 mg/24 h (-9.9-3.3)
--- NOTE | 2022-12-13 15:39 | Psychiatric Progress Note ---
Date of Service December 13, 2022 Impression / Recommendations Impression 77 y/o man with OCD and about a 2-year history of gradually-worsening memory impairment and worsening communication and executive function. Diagnostically felt to be most likely due to Lewy Body dementia or Parkinson's dementia or Alzheimer's disease. Poor po intake can sometimes be a symptom of catatonia, and his benzo dose was reduced previously, and with decreased speech but on exam no evidence for posturing, echolalia/praxia, negativism, mannerisms, catalepsy, grimacing, or stereotypies. Encouragingly po intake has improved today. Suspect symptoms including poor po intake are driven by hypofrontality. Agree with plan for placement for increased level of care. (1) OCD (obsessive compulsive disorder): (2) Dementia: Plan -CM and family working on personal alf placement Interval History Identifying Information Hamzah Gonzalez is a 77-year-old man with a history of OCD, admit on 02 December 2012 for deteriorating self-care. Re-consulted regarding possibility of catatonia due to lack of po intake. Chief Complaint "I'm about the same". Review of Systems Notes ate breakfast, starting to eat lunch Subjective Subjective Patient was seen & assessed and interval progress reviewed. Hamzah is known to me from his previous admission in mid-November and was then re-evaluated by Dr. Keane during his current admission. Hamzah has been not eating well however per discussion with [employer] he ate breakfast and was starting to eat lunch on my arrival today. He is more communicative and alert compared to when I saw him in mid-November. Tells me his mood is about the same. Says his hasn't visited yet today. Denies any other concerns. Limited spontaneous conversation. Physical Exam Psychiatric Orientation: alert and oriented to person Apperance: appropriately dressed Eye Contact: good eye contact Motor Behavior: + tremor (mild resting tremor noticed briefly but this then appeared to go away ) Speech: + abnormal rate/rhythm/volume of speech (brief) Affect: + blunted affect Thought Process: + concrete thought process Thought Content: reality based without delusions Cognition: recent memory grossly intact; + remote memory not intact and + attention not intact Insight: + limited insight Judgment: + limited judgement Vital Signs (Past 24 Hours) Last Vital Signs Temp 37.1 C 12/13/22 15:24 Pulse 61 12/13/22 15:24 Resp 17 12/13/22 15:24 BP 136/69 12/13/22 15:24 Pulse Ox 95 12/13/22 15:24 O2 Del Method 12/13/22 15:24 Results & Data ([facility]) Laboratory Results Laboratory Results - last 24 hr 12/05/22 12/12/22 12/12/22 13:58 07:08 18:10 WBC RBC Hgb Hct MCV MCH MCHC RDW Std Deviation RDW Coeff of Dayanna Plt Count MPV Immature Gran % (Auto) Neut % (Auto) Lymph % (Auto) [place] % (Auto) Eos % (Auto) Baso % (Auto) Neut # (Auto) Lymph # (Auto) [place] # (Auto) Eos # (Auto) Baso # (Auto) Immature Gran # (Auto) Sodium Potassium Chloride Carbon Dioxide Anion Gap BUN Creatinine Est Cr Clr Drug Dosing Est GFR ( Amer) Est GFR (Non-Af Amer) BUN/Creatinine Ratio Glucose Calcium Iron 25 L TIBC 148 L Unsaturated IBC 123 L Transferrin % Sat 17 L Ferritin 845.1 H CSF Albumin 35.0 CSF IgG 7.1 CSF IgG Index 0.50 CSF IgG Synthesis Rate 1.7 CSF Myelin Basic Protein <2.0 CSF IgG Oligoclonal Bnd see note Stool Occult Bld Scrn Negative IgG 772 Albumin (CHANO) 1.9 L Cryptococcus Source Serum Cryptococcal Ag (Latex) Not Detected 12/13/22 12/13/22 07:20 07:20 WBC 10.57 RBC 3.38 L Hgb 9.1 L Hct 27.6 L MCV 81.7 MCH 26.9 MCHC 33.0 RDW Std Deviation 42.1 RDW Coeff of Dayanna 14.6 H Plt Count 332 MPV 8.8 L Immature Gran % (Auto) 1.0 Neut % (Auto) 82.1 Lymph % (Auto) 11.9 [place] % (Auto) 4.4 Eos % (Auto) 0.4 Baso % (Auto) 0.2 Neut # (Auto) 8.68 H Lymph # (Auto) 1.26 [place] # (Auto) 0.46 Eos # (Auto) 0.04 Baso # (Auto) 0.02 Immature Gran # (Auto) 0.11 Sodium 140 Potassium 3.7 Chloride 110 H Carbon Dioxide 25 Anion Gap 5 BUN 18 Creatinine 0.65 Est Cr Clr Drug Dosing 91.5 Est GFR ( Amer) 108.0 Est GFR (Non-Af Amer) 93.2 BUN/Creatinine Ratio 27.7 H Glucose 95 Calcium 8.9 Iron TIBC Unsaturated IBC Transferrin % Sat Ferritin CSF Albumin CSF IgG CSF IgG Index CSF IgG Synthesis Rate CSF Myelin Basic Protein CSF IgG Oligoclonal Bnd Stool Occult Bld Scrn IgG Albumin (CHANO) Cryptococcus Source Cryptococcal Ag (Latex) Current Inpatient Medications Current Inpatient Medications: Current Inpatient Medications Albuterol (Albut/Ipratrop 3mg/0.5mg Neb 3 Ml Vial) 3 ml NEB QIDR PRN; Protocol PRN Reason: Wheezing Stop: 01/02/23 06:59 Calamine/Phenol (Menthol-Zinc Oxide 360 Appln/120 Gm Tube) 1 appln EXT BID MERLE Stop: 01/10/23 08:59 Last Admin: 12/13/22 08:41 Dose: 1 appln Clonazepam (Clonazepam 0.5 Mg Tab) 0.5 mg PO HS MERLE Stop: 01/01/23 20:59 Last Admin: 12/11/22 21:32 Dose: 0.5 mg Docusate Sodium (Docusate Sodium 100 Mg Cap) 200 mg PO DAILY MERLE Stop: 01/02/23 08:59 Last Admin: 12/13/22 08:41 Dose: 200 mg Enoxaparin Sodium (Enoxaparin Inj 40 Mg/0.4 Ml Syr) 40 mg SQ Q24H MERLE Stop: 01/01/23 21:59 Last Admin: 12/04/22 21:00 Dose: 40 mg Fluoxetine HCl (Fluoxetine Hcl 20 Mg Cap) 40 mg PO QAM MERLE Stop: 01/02/23 08:59 Last Admin: 12/13/22 08:40 Dose: 40 mg Guaifenesin (Guaifenesin Sugar Free 200 Mg/10 Ml Udc) 200 mg PO Q6H PRN PRN Reason: Cough Stop: 01/01/23 19:37 Famotidine 20 mg/ Syringe 5 mls @ 2.5 mls/min IV DAILY MERLE Stop: 01/01/23 20:59 Last Admin: 12/13/22 08:54 Dose: 2.5 mls/min Lisinopril (Lisinopril 10 Mg Tab) 10 mg PO QAM MERLE Stop: 01/05/23 14:29 Last Admin: 12/13/22 08:39 Dose: 10 mg Memantine (Memantine Hcl 10 Mg Tab) 10 mg PO BID [facility] Stop: 01/04/23 20:59 Last Admin: 12/13/22 08:40 Dose: 10 mg Metoprolol Succinate (Metoprolol Succ 25mg Ext Rel Tab) 25 mg PO QAM MERLE Stop: 01/02/23 08:59 Last Admin: 12/13/22 08:40 Dose: 25 mg Miscellaneous (Rivastigmine 4.6 Patch - Order Awaiting Action) 1 each N/A QS [facility]LE Stop: 01/04/23 15:59 Last Admin: 12/13/22 15:20 Dose: Not Given Olanzapine (Olanzapine 5 Mg Tablet) 5 mg PO HS [facility] Stop: 01/01/23 20:59 Last Admin: 12/11/22 22:06 Dose: 5 mg Polyethylene Glycol (Polyethylene (Miralax) 17 Gm Pack) 17 gm PO BID MERLE Stop: 01/01/23 20:59 Last Admin: 12/13/22 08:41 Dose: 17 gm Rosuvastatin Calcium (Rosuvastatin Calcium 5 Mg Tab) 5 mg PO QAM [facility] Stop: 01/02/23 08:59 Last Admin: 12/13/22 08:41 Dose: 5 mg Sennosides (Senna 8.6 Mg Tab) 17.2 mg PO BID [facility] Stop: 01/01/23 20:59 Last Admin: 12/13/22 08:39 Dose: 17.2 mg Thiamine HCl (Thiamine Hcl 100 Mg Tab) 100 mg PO DAILY [facility] Stop: 01/02/23 08:59 Last Admin: 12/13/22 08:40 Dose: 100 mg Vitamin D (Cholecalciferol 5,000 Units 125 Mcg Tab) 5,000 units PO QAM [facility] Stop: 01/04/23 10:44 Last Admin: 12/13/22 08:39 Dose: 5,000 units
[2022-12-13] MEDS: OLANZapine 5 MG TABLET PO SCH (20:58)
[2022-12-13] MEDS: clonazePAM 0.5 MG TAB PO SCH (21:02)
--- NOTE | 2022-12-14 07:52 | Hospitalist Progress Note ---
Date of Service December 14, 2022 Assessment & Plan (1) Hematuria: Plan: reported overnight on 12/11-12/12 w/ incontinence and bloody urine w/ clots in bedding per nursing, no clots or gross bleeding this week UA/cx ordered (of note, was on course abx w/ zosyn while inpatient) renal U/S - no significant clot burden, distended bladder, or hydronephrosis Review CBCs w/ hgb 9.1 (8.9) but appears baseline hgbs during November admit in the 10 to 12 range checked iron panel -- iron low, trans %sat 17, but unsat IBC low 123, TIBC 148. Ferritin 845, likely reactive from recent infection. TSH wnl Hold further Lovenox (had not been given since 12/04) also check fecal occult for blood given prior stercoral colitis/disimpaction earlier this year urology consulted and signed off stating can discuss the need for further outpatient hematuria work up depending on patient (dementia) and his (2) Failure to thrive: Plan: Dehydrated on admission due to poor oral intake -- recent hospitalization for fecal impaction/fear of having BM in November of this year. Also hospitalized post-COVID infection and sent to inpatient psych at [facility] for aspiration pneumonia while inpatient, completed 12/10 Speech evaled -- diet advanced to minces/moist, no overt signs aspiration Continues on boost supplements, needs assistance w/ feeding Does have decent daytime sleeping -- would benefit from better wake/sleep schedule Family opted to make patient DNR/DNI Planning for SNF ([facility]) once bed available (family plans to pay privately) - CM following [facility] is the family's first choice, but [facility] is also an option but will need TARGET completed *Renal US does note GB sludge, LFTs wnl Prior CTAP from February 23 noted A subtle 11 mm enhancing nodule at the pancreatic tail which is better appreciated on the chest CTA. This favors a small islet cell tumor not able to be visualized on recent imaging this month given lack of contrast Prior LFT elevation felt 2nd to crestor use and that was d/c by PCP (but still on it?) along with continued weight loss (3) Dementia: Plan: Chronic per since 2018 (after Covid infection). Per patient's sister recently with Alzheimer's Dementia Psychiatry consulted, Neuro consulted while inpatient Seen by neurology, Dr. Guthrie -MRI brain w/o acute process/tumor - atrophy and micovascular changes noted though - NOT on BABY ASPIRIN DAILY - would rec starting (see hematuria above) Will consider starting when hematuria resolves -EEG * Impression:This EEG, recorded in wakefulness only, is slightly abnormal due to mild diffuse slowing, which suggest bihemispheric dysfunction, as seen in encephalopathies and neurodegenerative disorders. There are no electrographic seizures or epileptogenic discharges. There is no other abnormal discharges, asymmetries, to suggest CJD, frontotemporal dementia's, or herpes encephal itis. * Clinical Correlation: This is slightly abnormal EEG as mentioned above, which suggest mild diffuse dysfunction. This can be seen in different type of encephalopathies, which can be temporary. However, current EEG findings should not be considered diagnostic for any type of dementing disorders. Done while actively being tx for infection as well as wanted studies done per Neuro notes -LP: CSF w/ initial values w/ slightly elevated protein 76.3, glucose 75 -- all results of send outs to have f/u outpatient neurology at d/c HIV testing NEGATIVE - Increased the Namenda to BID while in-house - Continue thiamine - Neurology also suggested Dopamine transporter uptake imaging including SPECT or PET would be helpful studies which are not available at this time - Patient's evaluation and management should be handled by [facility], which specialization to differentiate, diagnose and manage different type of neurodegenerative dementing disorders - F/u at memory disorder clinic - Neuro also recommended Rivastigmine patch 4.6/24H (pharmacy does not have) - Rx sent to [facility] for the Rivastigmine patch 4.6/24 hour and patient will bring into the hospital and pharmacy can label to be given here. Also discussed with patient's that he may need to be evaluated eventually at a [facility] who specializes in dementia. (4) Aspiration pneumonia: Plan: Patient has been noted to be weaker, not eating well, and more anxious per his family. Found to have a RLL consolidation concerning for aspiration pneumonia. CT head negative for acute process, MRI brain COVID/RSV/Flu negative Abx: Zosyn IV (MRSA nasal negative) -- completed course 2/6 previously Speech consulted as above, remains on mince/moist diet Continue pulmonary toilet/incentive spirometer/nebs/cough syrup as needed Eating better per nursing, but does need assistance. No need for further IVF at this time (5) OCD (obsessive compulsive disorder): Plan: Anxiety + OCD - Chronic Psych consulted - Per history patient follows with a psychologist Nic regularly and also has monthly televisits with a physician assistant corporate secretary at [place] - Per history patient had an admission last year to [facility] - Continue Fluoxetine, Clonazepam HS, and Olanzepine Per prior notes, if overly sedate consider decrease olanzepine to 2.5mg. Had also cut back clonazepam to 0.5mg HS (was on BID) --of note, drug screen on admit negative for benzos ?If benzo better for patient given more catatonic type state (6) Constipation: Plan: +BM 2/, several today 2/8 Heavy bowel regimen at last admit for fecal impaction Continue senna, miralax BID Enemas if needed (used lactulose last admit) (7) HTN (hypertension): Plan: Chronic, Stable Remains on metoprolol 25mg daily, lisinopril 10mg daily ECHO no change compared to 12/2021 Monitor ALso with HLD, per cards note Aug 25, crestor was d/c by PCP in setting elevated LFTs -- remains on 5mg daily, LFTs wnl recently) (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 following, received [facility] from [facility] for [facility]. Both [facility] and [facility] to update further on Saturday. Admission and Anticipated Discharge Date Admission Date: December 02, 2022 Subjective Patient was sleeping but awoke to his name. He was able to tell me his full name but did not answer further questioning. [facility]. Both [facility] and [facility] to update on Saturday. was at bedside and discussed prescribing the Rivastigmine patch to the pharmacy and she could bring into the hospital and give to nursing and we can have pharmacy label the patch and apply it daily. She was interested in trying this. Rx send into [facility]. Review of Systems Review of Systems: unable to complete accurate ROS Physical Exam Constitutional: + thin, + cachectic and + frail appearing Neck: trachea midline, no thyromegaly Respiratory: normal respiratory effort; no labored breathing and no cough Cardiovascular: Rate/Rhythm: regular rate, regular rhythm and + bradycardic Heart Sounds: + murmur Extremities: no calf tenderness and no edema Gastrointestinal (Abdomen): Inspection/Auscultation: abdomen normal to inspection and normal bowel sounds; abdomen not distended Percussion/Palpation: abdomen soft; abdomen nontender, no guarding, abdomen not rigid and no hepatosplenomegaly Neurologic: awake and + confused Psychiatric: Orientation: alert and oriented to person Eye Contact: + poor eye contact Affect: + flat affect Results & Data Results & Data ([facility]) Vital Signs (Past 12 Hours) Vital Signs Temp Pulse Resp BP Pulse Ox O2 Del Method 12/14/22 07:33 36.5 C 77 16 149/86 H 95 Room Air 12/13/22 23:00 37.5 C 66 18 156/82 H 96 Room Air 12/13/22 21:00 Room Air PG Care Time/CCT Total # of Minutes Spent Total Time Spent with Patient: Total time spent is greater than 50% in coordination of care (as documented) at patient's floor/unit and/or counseling patient: Coding Level of Care Code 12744 SUB INP/OBS CARE 2/35MIN Diagnoses Hematuria R31.9 Failure to thrive Dementia F03.90 Aspiration pneumonia J69.0 OCD (obsessive compulsive disorder) F42.9 Constipation K59.00 HTN (hypertension) I10 Hypertension type: essential hypertension Systolic anterior movement of mitral valve I34.8 Vitamin D deficiency E55.9 (1) HTN (hypertension) Hypertension type: essential hypertension Qualified Code(s): I10 - Essential (primary) hypertension
[2022-12-14] MEDS: POLYETHYLENE (MIRALAX) 17 GM PACK PO SCH ×3 (08:32→20:42)
[2022-12-14] MEDS: FLUoxetine HCL 20 MG CAP PO SCH (08:32)
[2022-12-14] MEDS: ROSUVASTATIN CALCIUM 5 MG TAB PO SCH (08:32)
[2022-12-14] MEDS: SENNA 8.6 MG TAB PO SCH ×3 (08:32→20:42)
[2022-12-14] MEDS: MEMANTINE HCL 10 MG TAB PO SCH ×3 (08:32→20:42)
[2022-12-14] MEDS: MENTHOL-ZINC OXIDE 360 APPLN/120 GM TUBE EXT SCH ×2 (08:33→20:28)
[2022-12-14] MEDS: CHOLECALCIFEROL 5,000 UNITS 125 MCG TAB PO SCH (08:33)
[2022-12-14] MEDS: THIAMINE HCL 100 MG TAB PO SCH (08:33)
[2022-12-14] MEDS: lisinopril 10 MG TAB PO SCH (08:33)
[2022-12-14] MEDS: METOPROLOL SUCC 25MG EXT REL TAB PO SCH (08:33)
[2022-12-14] MEDS: DOCUSATE SODIUM 100 MG CAP PO SCH (08:33)
[2022-12-14] MEDS: FAMOTIDINE 20 MG in SYRINGE 3 ML IV SCH (08:49)
[2022-12-14] MEDS: OLANZapine 5 MG TABLET PO SCH ×2 (20:28→20:42)
[2022-12-14] MEDS: clonazePAM 0.5 MG TAB PO SCH ×2 (20:31→20:42)
--- NOTE | 2022-12-15 08:17 | Hospitalist Progress Note ---
Date of Service December 15, 2022 Assessment & Plan (1) Hematuria: Plan: reported overnight on 12/11-12/12 w/ incontinence and bloody urine w/ clots in bedding per nursing, no clots or gross bleeding this week UA/cx ordered (of note, was on course abx w/ zosyn while inpatient) renal U/S - no significant clot burden, distended bladder, or hydronephrosis Review CBCs w/ hgb 9.1 (8.9) but appears baseline hgbs during November admit in the 10 to 12 range checked iron panel -- iron low, trans %sat 17, but unsat IBC low 123, TIBC 148. Ferritin 845, likely reactive from recent infection. TSH wnl Hold further Lovenox (had not been given since 12/04) also check fecal occult for blood given prior stercoral colitis/disimpaction earlier this year urology consulted and signed off stating can discuss the need for further outpatient hematuria work up depending on patient (dementia) and his (2) Failure to thrive: Plan: Dehydrated on admission due to poor oral intake -- recent hospitalization for fecal impaction/fear of having BM in November of this year. Also hospitalized post-COVID infection and sent to inpatient psych at [facility] for aspiration pneumonia while inpatient, completed 12/10 Speech evaled -- diet advanced to minces/moist, no overt signs aspiration Continues on boost supplements, needs assistance w/ feeding Does have decent daytime sleeping -- would benefit from better wake/sleep schedule Family opted to make patient DNR/DNI Planning for SNF ([facility]) once bed available (family plans to pay privately) - CM following [facility] is the family's first choice, but [facility] is also an option but will need TARGET completed *Renal US does note GB sludge, LFTs wnl Prior CTAP from February 23 noted A subtle 11 mm enhancing nodule at the pancreatic tail which is better appreciated on the chest CTA. This favors a small islet cell tumor not able to be visualized on recent imaging this month given lack of contrast Prior LFT elevation felt 2nd to crestor use and that was d/c by PCP (but still on it?) along with continued weight loss (3) Dementia: Plan: Chronic per since 2018 (after Covid infection). Per patient's sister recently with Alzheimer's Dementia Psychiatry consulted, Neuro consulted while inpatient Seen by neurology, Dr. Guthrie -MRI brain w/o acute process/tumor - atrophy and micovascular changes noted though - NOT on BABY ASPIRIN DAILY - would rec starting (see hematuria above) Will consider starting when hematuria resolves -EEG * Impression:This EEG, recorded in wakefulness only, is slightly abnormal due to mild diffuse slowing, which suggest bihemispheric dysfunction, as seen in encephalopathies and neurodegenerative disorders. There are no electrographic seizures or epileptogenic discharges. There is no other abnormal discharges, asymmetries, to suggest CJD, frontotemporal dementia's, or herpes encephal itis. * Clinical Correlation: This is slightly abnormal EEG as mentioned above, which suggest mild diffuse dysfunction. This can be seen in different type of encephalopathies, which can be temporary. However, current EEG findings should not be considered diagnostic for any type of dementing disorders. Done while actively being tx for infection as well as wanted studies done per Neuro notes -LP: CSF w/ initial values w/ slightly elevated protein 76.3, glucose 75 -- all results of send outs to have f/u outpatient neurology at d/c HIV testing NEGATIVE - Increased the Namenda to BID while in-house - Continue thiamine - Neurology also suggested Dopamine transporter uptake imaging including SPECT or PET would be helpful studies which are not available at this time - Patient's evaluation and management should be handled by [facility], which specialization to differentiate, diagnose and manage different type of neurodegenerative dementing disorders - F/u at memory disorder clinic - Neuro also recommended Rivastigmine patch 4.6/24H (pharmacy does not have) - Rx sent to [facility] for the Rivastigmine patch 4.6/24 hour and patient will bring into the hospital and pharmacy can label to be given here. Also discussed with patient's that he may need to be evaluated eventually at a [facility] who specializes in dementia. (4) Aspiration pneumonia: Plan: Patient has been noted to be weaker, not eating well, and more anxious per his family. Found to have a RLL consolidation concerning for aspiration pneumonia. CT head negative for acute process, MRI brain COVID/RSV/Flu negative Abx: Zosyn IV (MRSA nasal negative) -- completed course 2/6 previously Speech consulted as above, remains on mince/moist diet Continue pulmonary toilet/incentive spirometer/nebs/cough syrup as needed Eating better per nursing, but does need assistance. No need for further IVF at this time (5) OCD (obsessive compulsive disorder): Plan: Anxiety + OCD - Chronic Psych consulted - Per history patient follows with a psychologist Nic regularly and also has monthly televisits with a physician litigation legal assistant at [place] - Per history patient had an admission last year to [facility] - Continue Fluoxetine, Clonazepam HS, and Olanzepine Per prior notes, if overly sedate consider decrease olanzepine to 2.5mg. Had also cut back clonazepam to 0.5mg HS (was on BID) --of note, drug screen on admit negative for benzos ?If benzo better for patient given more catatonic type state (6) Constipation: Plan: +BM 2, several today 2/8 Heavy bowel regimen at last admit for fecal impaction Continue senna, miralax BID Enemas if needed (used lactulose last admit) (7) HTN (hypertension): Plan: Chronic, Stable Remains on metoprolol 25mg daily, lisinopril 10mg daily ECHO no change compared to 12/2021 Monitor ALso with HLD, per cards note Aug 25, crestor was d/c by PCP in setting elevated LFTs -- remains on 5mg daily, LFTs wnl recently) (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 CM following, received T[facility]. Both [facility] and [facility] [place] to update further on Saturday. Admission and Anticipated Discharge Date Admission Date: December 02, 2022 Subjective Patient seen this morning and is resting in bed, in NAD. Eyes closed and is mostly nonverbal today and not answering questions. Would open his eyes when asked. Review of Systems Review of Systems: unobtainable today Physical Exam Constitutional: + thin, + cachectic and + frail appearing Neck: trachea midline, no thyromegaly Respiratory: normal respiratory effort; no labored breathing and no cough Cardiovascular: Rate/Rhythm: regular rate, regular rhythm and + bradycardic Heart Sounds: + murmur Extremities: no calf tenderness and no edema Gastrointestinal (Abdomen): Inspection/Auscultation: abdomen normal to inspection and normal bowel sounds; abdomen not distended Percussi on/Palpation: abdomen soft; abdomen nontender, no guarding, abdomen not rigid and no hepatosplenomegaly Psychiatric: Orientation: alert Eye Contact: + poor eye contact Affect: + flat affect Patient was resting in bed, eyes closed and did not communicate today. Would open his eyes when asked but not answering questions today Results & Data Results & Data ([facility]) Vital Signs (Past 12 Hours) Vital Signs Temp Pulse Resp BP Pulse Ox O2 Del Method 12/15/22 08:13 37.2 C 78 17 146/86 H 96 Room Air 12/14/22 23:00 36.5 C 75 18 147/84 H 95 Room Air PG Care Time/CCT Total # of Minutes Spent Total Time Spent with Patient: Total time spent is greater than 50% in coordination of care (as documented) at patient's floor/unit and/or counseling patient: Coding Level of Care Code 10656 SUB INP/OBS CARE 11/28MIN Diagnoses Hematuria R31.9 Failure to thrive Dementia F03.90 Aspiration pneumonia J69.0 OCD (obsessive compulsive disorder) F42.9 Constipation K59.00 HTN (hypertension) I10 Hypertension type: essential hypertension Systolic anterior movement of mitral valve I34.8 Vitamin D deficiency E55.9 (1) HTN (hypertension) Hypertension type: essential hypertension Qualified Code(s): I10 - Essential (primary) hypertension
[2022-12-15] MEDS: SENNA 8.6 MG TAB PO SCH ×2 (09:01→21:32)
[2022-12-15] MEDS: FAMOTIDINE 20 MG in SYRINGE 3 ML IV SCH (09:01)
[2022-12-15] MEDS: MEMANTINE HCL 10 MG TAB PO SCH ×2 (09:02→21:31)
[2022-12-15] MEDS: lisinopril 10 MG TAB PO SCH (09:02)
[2022-12-15] MEDS: FLUoxetine HCL 20 MG CAP PO SCH (09:02)
[2022-12-15] MEDS: THIAMINE HCL 100 MG TAB PO SCH (09:02)
[2022-12-15] MEDS: DOCUSATE SODIUM 100 MG CAP PO SCH (09:03)
[2022-12-15] MEDS: METOPROLOL SUCC 25MG EXT REL TAB PO SCH (09:03)
[2022-12-15] MEDS: MENTHOL-ZINC OXIDE 360 APPLN/120 GM TUBE EXT SCH ×2 (09:03→21:56)
[2022-12-15] MEDS: ROSUVASTATIN CALCIUM 5 MG TAB PO SCH (09:03)
[2022-12-15] MEDS: CHOLECALCIFEROL 5,000 UNITS 125 MCG TAB PO SCH (09:03)
[2022-12-15] MEDS: POLYETHYLENE (MIRALAX) 17 GM PACK PO SCH ×3 (09:04→21:31)
[2022-12-15] MEDS: OLANZapine 5 MG TABLET PO SCH (21:31)
[2022-12-15] MEDS: clonazePAM 0.5 MG TAB PO SCH (21:31)
--- NOTE | 2022-12-16 08:12 | Hospitalist Progress Note ---
Date of Service December 16, 2022 Assessment & Plan (1) Hematuria: Plan: reported overnight on 12/11-12/12 w/ incontinence and bloody urine w/ clots in bedding per nursing, no clots or gross bleeding this week UA/cx ordered (of note, was on course abx w/ zosyn while inpatient) renal U/S - no significant clot burden, distended bladder, or hydronephrosis Review CBCs w/ hgb 9.1 (8.9) but appears baseline hgbs during November admit in the 10 to 12 range checked iron panel -- iron low, trans %sat 17, but unsat IBC low 123, TIBC 148. Ferritin 845, likely reactive from recent infection. TSH wnl Hold further Lovenox (had not been given since 12/04) also check fecal occult for blood given prior stercoral colitis/disimpaction earlier this year urology consulted and signed off stating can discuss the need for further outpatient hematuria work up depending on patient (dementia) and his (2) Failure to thrive: Plan: Dehydrated on admission due to poor oral intake -- recent hospitalization for fecal impaction/fear of having BM in November of this year. Also hospitalized post-COVID infection and sent to inpatient psych at [facility] for aspiration pneumonia while inpatient, completed 12/10 Speech evaled -- diet advanced to minces/moist, no overt signs aspiration Continues on boost supplements, needs assistance w/ feeding Does have decent daytime sleeping -- would benefit from better wake/sleep schedule Family opted to make patient DNR/DNI Planning for SNF ([facility]) once bed available (family plans to pay privately) - CM following [facility] is the family's first choice, but [facility] is also an option but will need TARGET completed *Renal US does note GB sludge, LFTs wnl Prior CTAP from February 23 noted A subtle 11 mm enhancing nodule at the pancreatic tail which is better appreciated on the chest CTA. This favors a small islet cell tumor not able to be visualized on recent imaging this month given lack of contrast Prior LFT elevation felt 2nd to crestor use and that was d/c by PCP (but still on it?) along with continued weight loss (3) Dementia: Plan: Chronic per since 2018 (after Covid infection). Per patient's sister recently with Alzheimer's Dementia Psychiatry consulted, Neuro consulted while inpatient Seen by neurology, Dr. Guthrie -MRI brain w/o acute process/tumor - atrophy and micovascular changes noted though - NOT on BABY ASPIRIN DAILY - would rec starting (see hematuria above) Will consider starting when hematuria resolves -EEG * Impression:This EEG, recorded in wakefulness only, is slightly abnormal due to mild diffuse slowing, which suggest bihemispheric dysfunction, as seen in encephalopathies and neurodegenerative disorders. There are no electrographic seizures or epileptogenic discharges. There is no other abnormal discharges, asymmetries, to suggest CJD, frontotemporal dementia's, or herpes encephal itis. * Clinical Correlation: This is slightly abnormal EEG as mentioned above, which suggest mild diffuse dysfunction. This can be seen in different type of encephalopathies, which can be temporary. However, current EEG findings should not be considered diagnostic for any type of dementing disorders. Done while actively being tx for infection as well as wanted studies done per Neuro notes -LP: CSF w/ initial values w/ slightly elevated protein 76.3, glucose 75 -- all results of send outs to have f/u outpatient neurology at d/c HIV testing NEGATIVE - Increased the Namenda to BID while in-house - Continue thiamine - Neurology also suggested Dopamine transporter uptake imaging including SPECT or PET would be helpful studies which are not available at this time - Patient's evaluation and management should be handled by [facility], which specialization to differentiate, diagnose and manage different type of neurodegenerative dementing disorders - F/u at memory disorder clinic - Neuro also recommended Rivastigmine patch 4.6/24H (pharmacy does not have) - Rx sent to [facility] for the Rivastigmine patch 4.6/24 hour and patient will bring into the hospital and pharmacy can label to be given here. Also discussed with patient's that he may need to be evaluated eventually at a [facility] who specializes in dementia. (4) Aspiration pneumonia: Plan: Patient has been noted to be weaker, not eating well, and more anxious per his family. Found to have a RLL consolidation concerning for aspiration pneumonia. CT head negative for acute process, MRI brain COVID/RSV/Flu negative Abx: Zosyn IV (MRSA nasal negative) -- completed course 2/6 previously Speech consulted as above, remains on mince/moist diet Continue pulmonary toilet/incentive spirometer/nebs/cough syrup as needed Eating better per nursing, but does need assistance. No need for further IVF at this time (5) OCD (obsessive compulsive disorder): Plan: Anxiety + OCD - Chronic Psych consulted - Per history patient follows with a psychologist Nic regularly and also has monthly televisits with a physician assistant media buyer at [facility] - Per history patient had an admission last year to [facility] - Continue Fluoxetine, Clonazepam HS, and Olanzepine Per prior notes, if overly sedate consider decrease olanzepine to 2.5mg. Had also cut back clonazepam to 0.5mg HS (was on BID) --of note, drug screen on admit negative for benzos ?If benzo better for patient given more catatonic type state (6) Constipation: Plan: +BM 2, several today 2/8 Heavy bowel regimen at last admit for fecal impaction Continue senna, miralax BID Enemas if needed (used lactulose last admit) (7) HTN (hypertension): Plan: Chronic, Stable Remains on metoprolol 25mg daily, lisinopril 10mg daily ECHO no change compared to 12/2021 Monitor ALso with HLD, per cards note Aug 25, crestor was d/c by PCP in setting elevated LFTs -- remains on 5mg daily, LFTs wnl recently) (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 CM following, received TARGET from [facility] for [facility]. Both [facility] and [facility] to update further on Saturday. Admission and Anticipated Discharge Date Admission Date: December 02, 2022 Supervising Physician Co-Signing Physician Notes The patient was not seen by me. Chart reviewed. Case discussed with Abbey Valle, physicians assistant media buyer. Agree with assessment and plan Subjective Patient seen this morning and is sitting upright in bed watching golf on TV. He is not making eye contact but just states "I can't" He does not answer any questions appropriately. He does not appear in any distress. Review of Systems Review of Systems: unobtainable today Physical Exam Constitutional: + ill appearing, + thin, + cachectic and + frail appearing Neck: trachea midline, no thyromegaly Respiratory: normal respiratory effort; no labored breathing and no cough Cardiovascular: Rate/Rhythm: regular rate, regular rhythm and + bradycardic Heart Sounds: + murmur Extremities: no calf tenderness and no edema Gastrointestinal (Abdomen): Inspection/Auscultation: abdomen normal to inspection and normal bowel sounds; abdomen not distended Percussion/Palpation: abdomen soft; abdomen nontender, no guarding, abdomen not rigid and no hepatosplenomegaly Neurologic: awake and + confused Psychiatric: Orientation: alert, oriented to person and oriented to place Eye Contact: + poor eye contact Affect: + flat affect Results & Data Results & Data ([facility]) Vital Signs (Past 12 Hours) Vital Signs Temp Pulse Resp BP BP Pulse Ox O2 Del Method 12/16/22 07:33 36.8 C 81 20 163/91 H 95 Room Air 12/15/22 22:35 37.2 C 75 16 152/78 H 96 Room Air PG Care Time/CCT Total # of Minutes Spent Total Time Spent with Patient: Total time spent is greater than 50% in coordination of care (as documented) at patient's floor/unit and/or counseling patient: Coding Level of Care Code 05228 SUB INP/OBS CARE 11/28MIN Diagnoses Hematuria R31.9 Failure to thrive Dementia F03.90 Aspiration pneumonia J69.0 OCD (obsessive compulsive disorder) F42.9 Constipation K59.00 HTN (hypertension) I10 Hypertension type: essential hypertension Systolic anterior movement of mitral valve I34.8 Vitamin D deficiency E55.9 (1) HTN (hypertension) Hypertension type: essential hypertension Qualified Code(s): I10 - Essential (primary) hypertension
[2022-12-16] MEDS: SENNA 8.6 MG TAB PO SCH ×2 (10:00→20:58)
[2022-12-16] MEDS: DOCUSATE SODIUM 100 MG CAP PO SCH (10:00)
[2022-12-16] MEDS: THIAMINE HCL 100 MG TAB PO SCH (10:01)
[2022-12-16] MEDS: POLYETHYLENE (MIRALAX) 17 GM PACK PO SCH ×2 (10:01→20:58)
[2022-12-16] MEDS: MEMANTINE HCL 10 MG TAB PO SCH ×2 (10:01→21:00)
[2022-12-16] MEDS: METOPROLOL SUCC 25MG EXT REL TAB PO SCH (10:01)
[2022-12-16] MEDS: FLUoxetine HCL 20 MG CAP PO SCH (10:01)
[2022-12-16] MEDS: CHOLECALCIFEROL 5,000 UNITS 125 MCG TAB PO SCH (10:01)
[2022-12-16] MEDS: lisinopril 10 MG TAB PO SCH (10:01)
[2022-12-16] MEDS: MENTHOL-ZINC OXIDE 360 APPLN/120 GM TUBE EXT SCH ×2 (10:02→21:00)
[2022-12-16] MEDS: ROSUVASTATIN CALCIUM 5 MG TAB PO SCH (10:02)
[2022-12-16] MEDS: FAMOTIDINE 20 MG in SYRINGE 3 ML IV SCH (10:04)
[2022-12-16] MEDS: OLANZapine 5 MG TABLET PO SCH (21:00)
[2022-12-16] MEDS: clonazePAM 0.5 MG TAB PO SCH (21:00)
[2022-12-17] MEDS: THIAMINE HCL 100 MG TAB PO SCH (09:09)
[2022-12-17] MEDS: CHOLECALCIFEROL 5,000 UNITS 125 MCG TAB PO SCH (09:09)
[2022-12-17] MEDS: DOCUSATE SODIUM 100 MG CAP PO SCH (09:09)
[2022-12-17] MEDS: METOPROLOL SUCC 25MG EXT REL TAB PO SCH (09:09)
[2022-12-17] MEDS: POLYETHYLENE (MIRALAX) 17 GM PACK PO SCH (09:09)
[2022-12-17] MEDS: lisinopril 10 MG TAB PO SCH (09:12)
[2022-12-17] MEDS: MEMANTINE HCL 10 MG TAB PO SCH (09:13)
[2022-12-17] MEDS: SENNA 8.6 MG TAB PO SCH (09:13)
[2022-12-17] MEDS: ROSUVASTATIN CALCIUM 5 MG TAB PO SCH (09:13)
[2022-12-17] MEDS: FLUoxetine HCL 20 MG CAP PO SCH (09:13)
[2022-12-17] MEDS: FAMOTIDINE 20 MG in SYRINGE 3 ML IV SCH (09:15)
--- NOTE | 2022-12-17 09:19 | Discharge Summary ---
Date of Service December 17, 2022 Admission HPI Per Admitting Provider Hamzah is a 77 year old man with a medical history significant for acute onset dementia, anxiety, OCD, aortic stenosis, hyperlipidemia, and hypertension who presented to the [facility] ED on 12/02/22 via EMS with complaints of generalized weakness and increased anxiety. In the ED the patient was found to be afebrile, hemodynamically stable, and stable on RA. Labs were significant for a leukocytosis of 15 with left shift of 14, stable Hgb and platelets, stable cr at 0.83, sodium of 146, potassium of 4.4, chloride 113, glucose of 103, lactate of 1.9, ALT of 58 otherwise stable LFTs, high sensitivity trop of 15.2, procal of 0.20, and Coivd/Influenza/RSV negative. CT of the head was read as No acute intracranial findings. No change in appearance of the brain.. Chest xray was read as Interval development of right lower lung consolidation suggestive of pneumonia. Post treatment radiographs to ensure resolution are recommended.. Prior to admission the patient was given 1L NSS and one dose of zosyn. Per chart review, the patient was recently admitted to [facility] from 11/18/22- 11/22/22 due to constipation. He was started on a heavy bowel regimen including enemas and he had multiple bowel movements prior to discharge. Per the discharge note, it appears that there was a psychological component to his constipation as he had a fear of having a bowel movement. During his admission his Olanzapine was decreased to 5 mg HS, and his Klonopin was decreased from 0.5 mg PO BID to 0.5 mg HS. At the time of the exam the patient was resting in bed in no acute distress with his sitting bedside; history was obtained from the patient's due to his baseline mental status. She states that since his last discharge his oral intake has been very poor. She states that she will try to get him to eat and drink but her keeps his mouth closed and will say "I can't". She has been trying to get him to drink boost shakes, which he will at times, but not consistently. She states that she tried to get him to shower yesterday. When she got him into the shower she states that he got very unsteady and almost fell. She does not feel as though she can adequately care for him at this time. If his functional ability stays this low she will need him to be placed. She states that he is still taking his medications and his last bowel movement was yesterday. She has not noticed a recent fever, or chills, he has not complained of chest pain or SOB but has been coughing. He is taking longer to start his urine stream but has not been experiencing dysuria or hematuria. She denies any recent falls by the patient. We discussed code status, at this time she would still like him to be a Full Code. Admission Exam Per Admitting Provider General:In no acute distress, stated age, malnourished, chronically ill-appearing HEENT:Normocephalic, atraumatic, no scleral icterus, pupils around round, symmetrical, and reactive to light,Drymucus membranes, trachea midline, no thyromegaly Chest/Pulm:No respiratory distress, symmetrical chest expansion, decreased breath sounds in the BL lower lung jenkins Cardiac:RRR, systolic murmur noted Abdomen:Negative for ascites and bruising, normoactive bowel sounds, soft, non-tender to palpation throughout Musculoskeletal:Symmetrical and without signs of acute trauma, upper and lower extremities with full ROM, no atrophy, spasticity, or flaccidity Extremities:Radial, dorsalis pedis, and posterior tibial pulses are intact and symmetrical, no edema noted in the BL LE's Skin:Warm, dry, no rashes , lesions, or scars noted Neuro:Alert and oriented to person and place only, no focal defects, CN II- XII tested and intact, no tremors noted Psych:No acute distress, calm and cooperative during the exam Principal Diagnosis Failure to Thrive Dementia Discharge Exam Constitutional + ill appearing, + thin, + cachectic and + frail appearing Neck trachea midline, no thyromegaly Respiratory normal respiratory effort; no labored breathing and no cough Cardiovascular Rate/Rhythm: regular rate, regular rhythm and + bradycardic Heart Sounds: + murmur Extremities: no calf tenderness and no edema Gastrointestinal (Abdomen) Inspection/Auscultation: abdomen normal to inspection and normal bowel sounds; abdomen not distended Percussion/Palpation: abdomen soft; abdomen nontender, no guarding, abdomen not rigid and no hepatosplenomegaly Neurologic awake and + confused Psychiatric Orientation: alert and oriented to person Eye Contact: + poor eye contact Affect: + flat affect Discharge Data Allergies Allergy/AdvReac Type Severity Reaction Status Date / Time No Known Drug Allergies Allergy Unknown Verified 12/02/22 17:40 Consultations 12/02/22 18:37 ED Decision to Admit Stat 12/02/22 19:40 Consult Psychiatry Routine 12/04/22 13:51 Consult Neurology Routine 12/12/22 08:55 Consult Urology Routine Ordered Studies 12/02/22 16:58 CT head/brain wo con Stat IMPRESSION: No acute intracranial findings. No change in appearance of the brain. 12/05/22 11:32 FL lumbar puncture diagnostic Routine IMPRESSION: Successful fluoroscopic guided lumbar puncture with removal of 10 cc of clear, colorless cerebral spinal fluid. No immediate complications. 12/05/22 16:02 MR brain MS wo/w con Routine 1. No acute infarct or acute intracranial hemorrhage. 2. Atrophy and microvascular ischemic changes are again noted. 3. No abnormal enhancement. 12/06/22 11:30 FL video swallow Routine 1. No aspiration identified 12/12/22 08:55 US Renal Bladder [US renal/blad retro comp] Routine 1. No hydronephrosis. 2. Left-sided nephrolithiasis. 3. Gallbladder sludge. No evidence for acute cholecystitis. Hospital Course (1) Failure to thrive: Dehydrated on admission due to poor oral intake -- recent hospitalization for fecal impaction/fear of having BM in November of this year. Also hospitalized post-COVID infection and sent to inpatient psych at [place] March 2021 Tx for aspiration pneumonia while inpatient, completed 2/ Speech evaluated -- diet advanced to minces/moist, no overt signs aspiration Continues on boost supplements, needs assistance w/ feeding Does have decent daytime sleeping -- would benefit from better wake/sleep schedule Family opted to make patient DNR/DNI Planning for SNF TARGET completed if needed for placement *Renal US does note GB sludge, LFTs wnl Prior CTAP from February 23 noted A subtle 11 mm enhancing nodule at the pancreatic tail which is better appreciated on the chest CTA. This favors a small islet cell tumor not able to be visualized on recent imaging this month given lack of contrast Prior LFT elevation felt 2nd to crestor use and that was d/c by PCP (but still on it?) along with continued weight loss (2) Hematuria: reported overnight on 12/11-12/12 w/ incontinence and bloody urine w/ clots in bedding per nursing, no clots or gross bleeding this week UA/cx ordered (of note, was on course abx w/ zosyn while inpatient) renal U/S - no significant clot burden, distended bladder, or hydronephrosis Review CBCs w/ hgb 9.1 (8.9) but appears baseline hgbs during November admit in the 10 to 12 range checked iron panel -- iron low, trans %sat 17, but unsat IBC low 123, TIBC 148. Ferritin 845, likely reactive from recent infection. TSH wnl Hold further Lovenox (had not been given since 12/04) also check fecal occult for blood given prior stercoral colitis/disimpaction earlier this year urology consulted and signed off stating can discuss the need for further outpatient hematuria work up depending on patient (dementia) and his (3) Dementia: Chronic per since 2018 (after Covid infection). Per patient's sister recently with Alzheimer's Dementia Psychiatry consulted, Neuro consulted while inpatient Seen by neurology, Dr. Guthrie -MRI brain w/o acute process/tumor - atrophy and micovascular changes noted though - NOT on BABY ASPIRIN DAILY - would rec starting (see hematuria above) Will consider starting when hematuria resolves -EEG * Impression:This EEG, recorded in wakefulness only, is slightly abnormal due to mild diffuse slowing, which suggest bihemispheric dysfunction, as seen in encephalopathies and neurodegenerative disorders. There are no electrographic seizures or epileptogenic discharges. There is no other abnormal discharges, asymmetries, to suggest CJD, frontotemporal dementia's, or herpes encephalitis. * Clinical Correlation: This is slightly abnormal EEG as mentioned above, which suggest mild diffuse dysfunction. This can be seen in different type of encephalopathies, which can be temporary. However, current EEG findings should not be considered diagnostic for any type of dementing disorders. Done while actively being tx for infection as well as wanted studies done per Neuro notes -LP: CSF w/ initial values w/ slightly elevated protein 76.3, glucose 75 -- all results of send outs to have f/u outpatient neurology at d/c HIV testing NEGATIVE - Increased the Namenda to BID while in-house - Continue thiamine - Neurology also suggested Dopamine transporter uptake imaging including SPECT or PET would be helpful studies which are not available at this time - Patient's evaluation and management should be handled by [facility], which specialization to differentiate, diagnose and manage different type of neurodegenerative dementing disorders - F/u at memory disorder clinic - Neuro also recommended Rivastigmine patch 4.6/24H (pharmacy does not have) - Rx sent to [facility] for the Rivastigmine patch 4.6/24 hour and patient will bring into the hospital and pharmacy can label to be given here. I spoke with today and she states she has not heard from [facility] but will check to see if the Rx is ready Also discussed with patient's that he may need to be evaluated eventually at a [facility] who specializes in dementia. (4) Aspiration pneumonia: Patient has been noted to be weaker, not eating well, and more anxious per his family. Found to have a RLL consolidation concerning for aspiration pneumonia. CT head negative for acute process, MRI brain COVID/RSV/Flu negative Abx: Zosyn IV (MRSA nasal negative) -- completed course / previously Speech consulted as above, remains on mince/moist diet Continue pulmonary toilet/incentive spirometer/nebs/cough syrup as needed Eating better per nursing, but does need assistance. No need for further IVF at this time (5) OCD (obsessive compulsive disorder): Anxiety + OCD - Chronic Psych consulted - Per history patient follows with a psychologist Nic regularly and also has monthly televisits with a physician nursing home assistant administrator at [place] - Per history patient had an admission last year to [facility] - Continue Fluoxetine, Clonazepam HS, and Olanzepine Per prior notes, if overly sedate consider decrease olanzepine to 2.5mg. 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 CM following, received TARGET from [facility] for [facility]. Both [facility] and [facility] to update further on Saturday. Total Time Total Time Spent Total Time Spent (In Minutes): 40 Discharge Plan Discharge Items Patient Disposition: Transfer Care Home Fac Reason For Visit: GENERALIZED WEAKNESS Discharge Diagnosis: Failure to Thrive Dementia Anxiety and OCD Condition on Discharge: Fair Activity: Resume your previous activity Non-emergency contact: Primary Care Provider, Neurologist and Psychiatrist Call non-emergency contact if: you have any medication questions and your symptoms worsen Follow-up/Referrals: Mookie Pineda MD [Primary Care Provider] - Diet: Regular Diet Texture: Mechanical soft (ground) Diet Comment: MINCED and MOIST Addtl Attending Provider Instructions: You were admitted with failure to thrive, weakness and progression of your dementia. You were evaluated by psychiatry and neurology during this admission. You also had a spinal tap and some of the work up from that is still pending. Neurology recommended for you to have a [facility] with [facility] who [facility] and cognitive disorders. Your Namenda was increased to 2 x per day and your Clonazepam was decreased to one time per day. Will wait till has a follow up with neurology to start the Rivastigmine patch. Family made decision for DNR/DNI and to seek placement at a SNF also as recommended by neurology and psych. Pending Studies at Discharge: Yes Studies:: RPR (had nonreactive test 03/2021) Also CSF analysis some of the send outs are still pending: anti-LGI 1, anti-CASPR2, and anti-GAD65, beta amyloid 42, total tau protein, phosphorylated tau protein, and 14-3-3 protein which is a marker for some prion diseases such as CJD and NfL (neuroflament light chain) Stand-Alone Forms: My [facility] Skilled Items Patient informed of condition?: Yes DNR: Yes Discharge Level of Care: Skilled Communicable Disease: No Discharge Prognosis: Stable Lines: None Urinary Catheter: No Medications and DC Order Prescriptions: New rivastigmine 4.6 mg/24 hour patch 24 hour 4.6 mg transdermal DAILY Qty: 30 0RF clonazepam 0.5 mg Tablet 0.5 mg PO HS Qty: 30 0RF memantine [Namenda] 10 mg Tablet 10 mg PO BID Qty: 60 0RF cholecalciferol (vitamin D3) 125 mcg (5,000 unit) Tablet 5,000 unit PO QAM Qty: 30 0RF Continued docusate sodium [Colace] 100 mg capsule 200 mg PO DAILY polyethylene glycol 3350 [Miralax] 17 gram/dose powder 17 g PO BID lisinopril 10 mg tablet 10 mg PO QAM Qty: 90 3RF metoprolol succinate 50 mg tablet extended release 24 hr 25 mg PO QAM 90 Days Qty: 45 3RF Rx Instructions: 1/2 tablet dose thiamine HCl (vitamin B1) 100 mg tablet 100 mg PO DAILY rosuvastatin 5 mg tablet 5 mg PO QAM Qty: 90 3RF fluoxetine 40 mg capsule 40 mg PO QAM senna 8.6 mg capsule 17.2 mg PO BID Qty: 60 0RF olanzapine 5 mg Tablet 5 mg PO HS Qty: 30 1RF Multivitamin 50 Plus Tablet 1 tab PO QAM Discontinued clonazepam 0.5 mg tablet 0.5 mg PO BID memantine 10 mg tablet 10 mg PO HS Discharge Orders: Discharge Order (Routine); Ordered 12/17/22 Ordered By: Roxane Valle Admission Data Admit Date/Time: 12/02/22 19:11 Attending Provider: Ehsan Álvarez Admit Provider: Yaya Schmidt Primary Care Provider: Mookie Pineda Other Providers: Yaya Schmidt ; Yojana Cohen ; Vanda Barcenas ; Itz Keane ; [place] ; [facility] ; Nilesh Guthrie ; Demetrius Kohler Other Interventions: Discharge Summary Assessment (RN) Last Done: 12/17/22 12:16 Coding Level of Care Code HOSP INP/OBS DISCH >30 MIN Diagnoses Failure to thrive Hematuria R31.9 Dementia F03.90 Aspiration pneumonia J69.0 OCD (obsessive compulsive disorder) F42.9 Constipation K59.00 HTN (hypertension) I10 Hypertension type: essential hypertension Systolic anterior movement of mitral valve I34.8 Vitamin D deficiency E55.9
[2022-12-17] MEDS: MENTHOL-ZINC OXIDE 360 APPLN/120 GM TUBE EXT SCH (12:44)
== END 2022-12-17 14:17 | DRG 178 ==
LOC: ED 16:48 → SUATTDRO 19:11 → 3N 19:11
DX: E86.0 Dehydration; F41.9 Anxiety disorder, unspecified; R31.9 Hematuria, unspecified; I35.0 Nonrheumatic aortic (valve) stenosis; J69.0 Pneumonitis due to inhalation of food and vomit; F32.A Depression, unspecified; R62.7 Adult failure to thrive; G93.40 Encephalopathy, unspecified; G54.0 Brachial plexus disorders; Z87.891 Personal history of nicotine dependence; F03.92 Unspecified dementia, unspecified severity, with psychotic disturbance; Z66 Do not resuscitate; I11.0 Hypertensive heart disease with heart failure; F42.8 Other obsessive-compulsive disorder; K59.00 Constipation, unspecified; R32 Unspecified urinary incontinence; E78.5 Hyperlipidemia, unspecified